=== PATIENT | female | born 1935 | race American Indian/Alaskan Native ===

== ENCOUNTER 2017-05-29 12:47 | Emergency (ER) | payer BC, MEDICARE ==
[2017-05-29 13:00] VITALS: TEMP 98.2; BMI 25.0
[2017-05-29] MEDS ORDERED: Sodium Chloride 0.9% 1,000 ML IV ONE (13:36)
[2017-05-29 13:58] LABS: BASO % 0.6 % (0.0-2.0); EOS % 0.2 % (0.0-4.0); HEMOGLOBIN 11.7 g/dL (11.0-16.0); LYMPH % 41.4 % (20.0-40.0); MEAN CELL VOLUME 89.4 fL (81.0-99.0); MEAN CORPUSCULAR HEMOGLOBIN 30.5 pg (27.0-31.0); MEAN CORPUSCULAR HGB CONC 34.1 g/dL (33.0-37.0); MEAN PLATELET VOLUME 7.1 fL (7.2-11.7); MONO # 1.3 K/uL (0.0-0.8); MONO % 17.2 % (0.0-10.0); NEUT % 40.6 % (50.0-75.0); NRBC % 0.1 % (0.0-2.0); RBC 3.83 Mil/uL (3.80-5.20); RED CELL DISTRIBUTION WIDTH 12.8 % (11.5-14.5); WHITE BLOOD COUNT 7.3 K/uL (4.8-10.8)
[2017-05-29] MEDS ORDERED: Sodium Chloride 0.9% 1,000 ML ONE (14:12)
[2017-05-29 14:36] LABS: ALB/GLOB RATIO 1.3 (1.0-2.1); ALBUMIN 3.4 g/dL (3.5-5.0); ALT/SGPT 26 U/L (9-52); AST/SGOT 16 U/L (14-36); BLOOD UREA NITROGEN 7 mg/dL (7-17); CALCIUM 7.7 mg/dl (8.6-10.4); GFR AFRICAN-AMERICAN > 60; GFR NON-AFRICAN AMERICAN > 60
[2017-05-29 14:42] LABS: B-TYPE NATRIURETIC PEPTIDE 38.5 pg/mL (0-900)
--- NOTE | 2017-05-29 14:48 | C.PDOC ---
History Of Present Illness 81 y/o female, referred by Vinayak Nieves, presents to the ER for persistent nausea,vomiting, odynophagia, and dysphagia. Patient reports that she has been vomiting multiple times as she has been having 2 episodes of vomiting per hour. Patient reports that she vomited 3 times today. Patient states that she has dysphagia to solids. Patient reports that she takes Fosamax once a week. Of note , patient denies any significant weight gain or loss. Time Seen by Provider: 05/29/17 13:03 Chief Complaint (Nursing): GI Problem History Per: Patient History/Exam Limitations: no limitations Onset/Duration Of Symptoms: Days Current Symptoms Are (Timing): Still Present Severity: Moderate Past Medical History Reviewed: Historical Data, Nursing Documentation, Vital Signs Vital Signs: Last Vital Signs Temp 98.2 F 05/29/17 16:12 Pulse 95 H 05/29/17 16:12 Resp 20 05/29/17 16:12 BP 109/52 L 05/29/17 16:12 Pulse Ox 96 05/29/17 16:43 - Medical History PMH: Asthma, Diabetes, HTN, Hypercholesterolemia, Hypothyroidism Denies: Chronic Kidney Disease Surgical History: No Surg Hx - [facility] Procedures BREAST DX PROCEDURE NEC (10/08/13) PERCUTAN NEEDLE BIOPSY OF BREAST (10/08/13) X-RAY NEC AND NOS (10/08/13) Family History: States: No Known Family Hx - Social History Hx Tobacco Use: No Hx Alcohol Use: No Hx Substance Use: No - Immunization History Hx Tetanus Toxoid Vaccination: No Hx Influenza Vaccination: Yes Hx Pneumococcal Vaccination: No Review Of Systems Except As Marked, All Systems Reviewed And Found Negative. Constitutional: Negative for: Fever, Chills Gastrointestinal: Positive for: Vomiting. Negative for: Nausea, Diarrhea Physical Exam - Physical Exam Appears: Non-toxic, No Acute Distress Skin: Normal Color, Warm Head: Atraumatic, Normacephalic Eye(s): bilateral: Normal Inspection, PERRL Nose: Normal Oral Mucosa: Moist Throat: Normal, No Erythema, No Exudate Neck: Supple Chest: Symmetrical Cardiovascular: Rhythm Regular Respiratory: Normal Breath Sounds, No Accessory Muscle Use, No Rales, No Rhonchi , No Wheezing Gastrointestinal/Abdominal: Normal Exam, Soft, No Tenderness Extremity: Normal ROM Neurological/Psych: Oriented x3, Normal Speech, Normal Cognition, Normal Motor, Normal Sensation ED Course And Treatment - Laboratory Results Result Diagrams: 05/29/17 13:53 05/29/17 13:53 Lab Interpretation: Normal (trop neg.) ECG: Interpreted By Me ECG Rhythm: Sinus Rhythm, R BBB ECG Interpretation: Normal Rate From EC O2 Sat by Pulse Oximetry: 96 (RA) Pulse Ox Interpretation: Normal - Radiology CXR: Interpreted by Me CXR Interpretation: Yes: No Acute Disease Progress Note: CXR, EKG, and labs ordered, protonix and zofran IV, IV NS Reevaluation Time: 15:30 Reassessment Condition: Improved Medical Decision Making Medical Decision Making: pt with odynophagia and dysphagia argue for esophageal irritation Suspect Alendronate as notorious for pill esophagitis vs GERD vs gastritis. increase PPI to Q12H and Maalox PRN and opt GI referral for upper endoscopy. Disposition Doctor Will See Patient In The: Office Counseled Patient/Family Regarding: Studies Performed, Diagnosis - Disposition Referrals: Ladarius Erazo Jr., MD [Staff Provider] - Renato Montanez MD [Staff Provider] - Burton King MD [Staff Provider] - Disposition: HOME/ ROUTINE Disposition Time: 15:35 Condition: GOOD Additional Instructions: UTI: UA: 300 WBC's macrobid 100 mg twice a day for 5 days Urine culture sent Dysphagia/Odynophagia/GERD Increase Protonix 20 mg to TWICE a day: 9AM and 9PM - this lowers stomach acid Maalox 1 tablespoon (30 cc's) 5x/day as needed for esophageal discomfort (when you have the discomfort) Remember Alendronate/Fosamax is notorious for causing "pill esophagitis" Always take with a full glass of water to help prevent esophageal irritation Have Dr. Guerrero refer you to a Compliance Nurse to consider an upper endoscopy (camera goes into the esophagus/stomach) Or consider Evaluation w Dr. King (ccna Yeast Fermentation Attendant) Consider discontinuing Fosamax after 5 years for Risk/Benefit analysis. Prescriptions: Aluminum Hydroxide/Magnesium [Maalox Plus 30 ml] 30 ml PO 5XD PRN #240 ml PRN Reason: gerd Nitrofurantoin Macrocrystals [Macrobid] 100 mg PO BID #9 cap Pantoprazole Sodium [Protonix] 20 mg PO Q12H #60 ect Instructions: Gastroesophageal Reflux Disease (ED), Esophagitis (ED) Forms: [facility] (Yoruba) - Clinical Impression Clinical Impression: Dysphagia, Odynophagia - Scribe Statement The provider has reviewed the documentation as recorded by the Janakibe Gunner Owen Provider Attestation: All medical record entries made by the Janakibmonica were at my direction and personally dictated by me. I have reviewed the chart and agree that the record accurately reflects my personal performance of the history, physical exam, medical decision making, and the department course for this patient. I have also personally directed, reviewed, and agree with the discharge instructions and disposition.
[2017-05-29 14:56] LABS: URINE BACTERIA MANY (<OCC); URINE BILIRUBIN NEGATIVE (NEGATIVE); URINE BLOOD NEGATIVE (NEGATIVE); URINE CLARITY Hazy (Clear); URINE COLOR Yellow (YELLOW); URINE GLUCOSE (UA) NORMAL (Normal); URINE LEUKOCYTE ESTERASE 3+ Leu/uL (Negative); URINE NITRATE NEGATIVE (NEGATIVE); URINE PROTEIN NEGATIVE (NEGATIVE); WBC CLUMPS MANY /hpf
--- NOTE | 2017-05-29 15:27 | RAD ---
PROCEDURE: CHEST RADIOGRAPH, 1 VIEW HISTORY: SOB COMPARISON: 12/08/2014 FINDINGS: LUNGS: Clear. PLEURA: No pneumothorax or pleural fluid seen. CARDIOVASCULAR: No radiographic findings to suggest acute or significant cardiovascular disease. OSSEOUS STRUCTURES: No significant abnormalities. VISUALIZED UPPER ABDOMEN: Normal. OTHER FINDINGS: None. IMPRESSION: No active disease. No acute/significant interval changes.
[2017-05-29 16:13] VITALS: RESP 20
[2017-05-29 18:48] VITALS: BP 100/58; PULSE 94; O2SAT 98
--- NOTE | 2017-05-30 12:10 | CARD ---
APPROVED REPORT EKG Measurement Heart [id number] <Conclusion> Normal sinus rhythm Right bundle branch block Abnormal ECG
== END 2017-05-29 15:35 | disposition home or self-care (01) ==
LOC: C.ER 12:47
DX: R13.10 Dysphagia, unspecified (principal)
CPT/HCPCS: 71045; 80053; 81001; 83880; 84484; 85025; 87040; 87086; 87181; 87804; 93005; 96361; 96374; 96375; 99285; C9113; J2405; J7040

== ENCOUNTER 2017-06-04 17:14 | Inpatient (IN) | payer MEDICARE ==
[2017-06-04 17:14] VITALS: BMI 29.9
[2017-06-04] MEDS ORDERED: Sodium Chloride 0.9% 1,000 ML IV ONE (19:17)
--- NOTE | 2017-06-04 19:19 | C.PDOC ---
History Of Present Illness 81 year old female [facility] for a complaint of abdominal pain and vomiting. Denies fever or chills. Chief Complaint (Nursing): GI Problem History Per: Patient History/Exam Limitations: no limitations Onset/Duration Of Symptoms: Days Current Symptoms Are (Timing): Still Present Location Of Pain/Discomfort: LLQ Radiation Of Pain To:: None Quality Of Discomfort: Unable To Describe Associated Symptoms: Nausea, Vomiting. denies: Fever, Chills Exacerbating Factors: None Alleviating Factors: None Recent travel outside of the [place]: No Abnormal Vaginal Bleeding: No Past Medical History Reviewed: Historical Data, Nursing Documentation, Vital Signs Vital Signs: Last Vital Signs Temp 97.6 F 06/04/17 23:53 Pulse 96 H 06/04/17 23:53 Resp 20 06/04/17 23:53 BP 132/55 L 06/04/17 23:53 Pulse Ox 96 06/04/17 23:53 - Medical History PMH: Asthma, Diabetes, HTN, Hypercholesterolemia, Hypothyroidism - [facility] Procedures BREAST DX PROCEDURE NEC (10/08/13) PERCUTAN NEEDLE BIOPSY OF BREAST (10/08/13) X-RAY NEC AND NOS (10/08/13) Family History: States: Unknown Family Hx - Social History Hx Tobacco Use: No Hx Alcohol Use: No Hx Substance Use: No - Immunization History Hx Tetanus Toxoid Vaccination: No Hx Influenza Vaccination: Yes Hx Pneumococcal Vaccination: No Review Of Systems Constitutional: Negative for: Fever, Chills Cardiovascular: Negative for: Chest Pain, Palpitations Respiratory: Negative for: Cough, Shortness of Breath Gastrointestinal: Positive for: Nausea, Vomiting, Abdominal Pain. Negative for : Diarrhea Physical Exam - Physical Exam Appears: Other (Mild distress due to nausea. Vomiting in the ER.) Skin: Normal Color, Warm, Dry Head: Atraumatic, Normacephalic Eye(s): bilateral: Normal Inspection Oral Mucosa: Moist Chest: Symmetrical, No Tenderness Cardiovascular: Rhythm Regular Respiratory: Normal Breath Sounds, No Rales, No Rhonchi, No Wheezing Gastrointestinal/Abdominal: Soft, Tenderness (LLQ), No Mass, No Guarding, No Rebound Back: No CVA Tenderness Neurological/Psych: Oriented x3, Normal Speech ED Course And Treatment - Laboratory Results Result Diagrams: 06/04/17 20:05 06/04/17 20:05 O2 Sat by Pulse Oximetry: 98 (Room air) Pulse Ox Interpretation: Normal Progress Note: CT abd/pel, EKG, blood work, and urinalysis ordered. IV fluids and zofran administered. Disposition Discussed With : Renato Montanez Doctor Will See Patient In The: Hospital Counseled Patient/Family Regarding: Diagnosis - Disposition Disposition: HOSPITALIZED Disposition Time: 03:40 Condition: STABLE Forms: [facility] (Botswanan) - POA Present On Arrival: None - Clinical Impression Clinical Impression: Nausea & vomiting, Electrolyte abnormality, Hyponatremia - Scribe Statement The provider has reviewed the documentation as recorded by the Scribe John Cortes All medical record entries made by the Scribe were at my direction and personally dictated by me. I have reviewed the chart and agree that the record accurately reflects my personal performance of the history, physical exam, medical decision making, and the department course for this patient. I have also personally directed, reviewed, and agree with the discharge instructions and disposition.
[2017-06-04] MEDS ORDERED: Sodium Chloride 0.9% 250 ML IV ONE (20:07)
[2017-06-04] MEDS ORDERED: Iohexol 240 (50 ml) ONE (20:07)
[2017-06-04 20:08] LABS: BASO % 0.2 % (0.0-2.0); LYMPH # 3.5 K/uL (1.0-4.3); LYMPH % 43.6 % (20.0-40.0); MEAN CELL VOLUME 88.7 fL (81.0-99.0); MEAN CORPUSCULAR HEMOGLOBIN 30.6 pg (27.0-31.0); MEAN CORPUSCULAR HGB CONC 34.5 g/dL (33.0-37.0); MEAN PLATELET VOLUME 6.8 fL (7.2-11.7); MONO # 1.2 K/uL (0.0-0.8); MONO % 15.1 % (0.0-10.0); NEUT # 3.3 K/uL (1.8-7.0); NEUT % 41.1 % (50.0-75.0); NRBC % 0.2 % (0.0-2.0); RBC 3.11 Mil/uL (3.80-5.20); RED CELL DISTRIBUTION WIDTH 12.8 % (11.5-14.5); WHITE BLOOD COUNT 8.1 K/uL (4.8-10.8)
[2017-06-04 20:09] LABS: HEMOGLOBIN 9.5 g/dL (11.0-16.0)
[2017-06-04 20:25] LABS: ALB/GLOB RATIO 1.1 (1.0-2.1); ALBUMIN 3.3 g/dL (3.5-5.0); ALT/SGPT 53 U/L (9-52); AST/SGOT 71 U/L (14-36); BLOOD UREA NITROGEN 12 mg/dL (7-17); CALCIUM 8.3 mg/dl (8.6-10.4); GFR AFRICAN-AMERICAN > 60; GFR NON-AFRICAN AMERICAN 53; LIPASE 48 U/L (23-300)
[2017-06-04] MEDS ORDERED: Iohexol 240 (50 ml) PO ONE (20:31)
[2017-06-04] MEDS ORDERED: Iohexol 300 100 ML IJ ONE (21:32)
[2017-06-04 21:44] LABS: SQUAMOUS EPITHIAL 1 /hpf (0-5); URINE BACTERIA OCC (<OCC); URINE BILIRUBIN NEGATIVE (NEGATIVE); URINE BLOOD NEGATIVE (NEGATIVE); URINE CLARITY Clear (Clear); URINE COLOR Amber (YELLOW); URINE GLUCOSE (UA) NORMAL (Normal); URINE LEUKOCYTE ESTERASE 1+ Leu/uL (Negative); URINE NITRATE NEGATIVE (NEGATIVE); URINE PROTEIN NEGATIVE (NEGATIVE)
--- NOTE | 2017-06-04 23:46 | CT ---
EXAM: CT Abdomen and Pelvis With Intravenous Contrast CLINICAL HISTORY: 81 years old, female; Pain; Abdominal pain; Generalized; Additional info: Abd pain TECHNIQUE: Axial computed tomography images of the abdomen and pelvis with intravenous contrast. All CT scans at this facility use one or more dose reduction techniques, viz.: automated exposure control; ma/kV adjustment per patient size (including targeted exams where dose is matched to indication; i.e. head); or iterative reconstruction technique. Coronal reformatted images were created and reviewed. CONTRAST: 100 mL of omnipaque 300 administered intravenously. COMPARISON: No relevant prior studies available. FINDINGS: Lower thorax: Subsegmental atelectasis at lung bases, right greater than left. Coronary artery calcifications. Mild cardiomegaly. Small hiatal hernia. ABDOMEN: Liver: Unremarkable. No mass. Gallbladder and bile ducts: Unremarkable. No calcified stones. No ductal dilation. Pancreas: Unremarkable. No mass. No ductal dilation. Spleen: Unremarkable. No splenomegaly. Adrenals: Unremarkable. No mass. Kidneys and ureters: Unremarkable. No solid mass. No hydronephrosis. Stomach and bowel: Unremarkable. No obstruction. Appendix: No findings to suggest acute appendicitis. PELVIS: Bladder: Unremarkable. No mass. Reproductive: Degenerating uterine fibroids. ABDOMEN and PELVIS: Intraperitoneal space: Unremarkable. No free air. No significant fluid collection. Bones/joints: Diffuse spinal degenerative changes. Compression fracture superior endplate L1, age indeterminate. Soft tissues: Small fat-containing umbilical hernia. Vasculature: Atherosclerotic vascular disease. No abdominal aortic aneurysm. Lymph nodes: Unremarkable. No enlarged lymph nodes. IMPRESSION: 1. No bowel obstruction. 2. Small fat containing umbilical hernia. 3. Degenerating uterine fibroids. 4. Remainder of findings as above.
[2017-06-05] MEDS ORDERED: Alum-Mag Hydrox-Simethicone Susp (30 mL) PO PRN (04:12)
[2017-06-05] MEDS ORDERED: LACTULOSE 10 GM PO PRN (04:17)
[2017-06-05] MEDS ORDERED: Dextrose 5%/0.9% NS 1,000 ML IV ONE (04:41)
[2017-06-05] MEDS: Dextrose 5%/0.9% NS 1,000 ML IV SCH ×2 (04:45→18:43)
[2017-06-05] MEDS: (Novolin R) Insulin Human Regular 100 units/ml vial SC SCH ×4 (08:10→21:41)
[2017-06-05 08:21] LABS: ALB/GLOB RATIO 1.1 (1.0-2.1); ALBUMIN 3.2 g/dL (3.5-5.0); ALT/SGPT 50 U/L (9-52); AST/SGOT 48 U/L (14-36); BLOOD UREA NITROGEN 11 mg/dL (7-17); CALCIUM 7.3 mg/dl (8.6-10.4); GFR AFRICAN-AMERICAN > 60; GFR NON-AFRICAN AMERICAN > 60
[2017-06-05] MEDS ORDERED: Potassium Chloride 20 mEq ER Tab PO ONE ×3 (08:49→17:08)
[2017-06-05 09:25] LABS: URIC ACID 4.9 mg/dL (2.2-7.5)
[2017-06-05] MEDS: Calcium-Vit D 500 mg-200 Units Tab UD PO SCH (09:36)
[2017-06-05] MEDS ORDERED: Levothyroxine 88 MCG TAB PO SCH (10:00)
[2017-06-05] MEDS ORDERED: Albuterol-Ipratrop 3 mg / 0.5 (3 ml) UD IH SCH (10:00)
--- NOTE | 2017-06-05 12:09 | US ---
PROCEDURE: Ultrasound of the Kidneys HISTORY: Hyponatremia COMPARISON: Correlations made to CT scan of the abdomen pelvis dated 06/04/2017. TECHNIQUE: Sonogram of the kidneys. FINDINGS: RIGHT KIDNEY: Measures: 10.3 x 3.6 x 4.4 cm. Normal in size, contour and echogenicity. No stone, solid mass lesion or hydronephrosis visualized. LEFT KIDNEY: Measures: 10.9 x 5.5 x 5.3 cm. Normal in size, contour and echogenicity. No stone, solid mass lesion or hydronephrosis visualized. OTHER FINDINGS: None. IMPRESSION: Unremarkable renal sonogram.
[2017-06-05] MEDS ORDERED: Sodium Chloride 0.9% 1,000 ML IV ONE (12:36)
[2017-06-05] MEDS ORDERED: Sodium Chloride 0.9% 1,000 ML ONE (12:45)
--- NOTE | 2017-06-05 14:19 | CT ---
PROCEDURE: CT HEAD WITHOUT CONTRAST. HISTORY: lethargy r/o acute intracranial lesion COMPARISON: None available. TECHNIQUE: Axial computed tomography images were obtained through the head/brain without intravenous contrast. Radiation dose: Total exam DLP = 814.1 mGy-cm. This CT exam was performed using one or more of the following dose reduction techniques: Automated exposure control, adjustment of the mA and/or kV according to patient size, and/or use of iterative reconstruction technique. FINDINGS: HEMORRHAGE: No intracranial hemorrhage. BRAIN: Diffuse atrophy with prominence of the ventricles and sulci noted. No mass effect or edema. Dense intracranial atherosclerosis. Scattered periventricular and subcortical white matter hypodensities, which are nonspecific, but often seen with chronic microvascular ischemic disease. Please note that MRI with diffusion imaging is more sensitive in the detection of acute ischemic event. VENTRICLES: No hydrocephalus. CALVARIUM: Unremarkable. PARANASAL SINUSES: Unremarkable as visualized. No significant inflammatory changes. MASTOID AIR CELLS: Unremarkable as visualized. No inflammatory changes. OTHER FINDINGS: None. IMPRESSION: Nonspecific white matter changes. Generalized atrophy. Please note that if concern for intracranial neoplasm, MRI without and with IV contrast is suggested for further evaluation.
[2017-06-05 14:32] LABS: MAGNESIUM 1.7 mg/dL (1.6-2.3)
[2017-06-05 14:58] LABS: BASO % 0.4 % (0.0-2.0); EOS % 0.1 % (0.0-4.0); HEMOGLOBIN 9.6 g/dL (11.0-16.0); LYMPH # 3.4 K/uL (1.0-4.3); LYMPH % 28.2 % (20.0-40.0); MEAN CELL VOLUME 87.9 fL (81.0-99.0); MEAN CORPUSCULAR HGB CONC 34.1 g/dL (33.0-37.0); MEAN PLATELET VOLUME 6.3 fL (7.2-11.7); MONO # 2.2 K/uL (0.0-0.8); MONO % 17.7 % (0.0-10.0); NEUT # 6.6 K/uL (1.8-7.0); NEUT % 53.6 % (50.0-75.0); RBC 3.2 Mil/uL (3.80-5.20); RED CELL DISTRIBUTION WIDTH 12.8 % (11.5-14.5)
[2017-06-05 15:00] LABS: WHITE BLOOD COUNT 12.2 K/uL (4.8-10.8)
[2017-06-05] MEDS: Albuterol-Ipratrop 3 mg / 0.5 (3 ml) UD IH SCH ×2 (15:00→20:19)
[2017-06-05 15:08] LABS: OSMOLALITY,URINE 275 mosm/kg (300-1000)
[2017-06-05 15:17] LABS: BLOOD UREA NITROGEN 9 mg/dL (7-17); CALCIUM 7.9 mg/dl (8.6-10.4); GFR AFRICAN-AMERICAN > 60; GFR NON-AFRICAN AMERICAN > 60
--- NOTE | 2017-06-05 16:20 | CARD ---
APPROVED REPORT EKG Measurement Heart [id number] DC [id number] <Conclusion> Normal sinus rhythm Right bundle branch block Abnormal ECG
--- NOTE | 2017-06-05 17:14 | CP.PCM.PN ---
Subjective - Date & Time of Evaluation Date of Evaluation: 06/05/17 Time of Evaluation: 12:00 - Subjective Subjective: Patient seen and examined earlier today; hyponatremia likely due to hypovolemia ; responding to 1L NS fluid bolus over 2 hours with serum Na improving to 120; will continue IVF w/ D5-NS at 80 cc/h and repeat bmp at 8pm; full consult dictated; Objective - Vital Signs/Intake and Output Vital Signs (last 24 hours): Temp Pulse Resp BP Pulse Ox 99.6 F 95 H 18 125/62 96 06/05/17 07:59 06/05/17 16:30 06/05/17 16:30 06/05/17 16:30 06/05/17 16:30 - Medications Medications: Current Medications Acetaminophen (Tylenol 650mg/20.3ml Solution Ud) 650 mg PO Q4 PRN PRN Reason: pain and headache Al Hydrox/Mg Hydrox/Simethicone (Maalox Plus 30 Ml) 30 ml PO 5XD PRN PRN Reason: gerd Albuterol/Ipratropium (Duoneb 3 Mg/0.5 Mg (3 Ml) Ud) 3 ml IH RQID JUSTO Calcium/Vitamin D (Oyster Shell Calcium/Vitamin D 500 Mg-200 Iu) 1 tab PO DAILY [facility] Last Admin: 06/05/17 09:36 Dose: 1 tab Heparin Sodium (Porcine) (Heparin) 5,000 units SC Q8 JUSTO Dextrose/Sodium Chloride (Dextrose 5%/0.9% Ns 1000 Ml) 1,000 mls @ 80 mls/hr IV .[id number] [facility] Last Admin: 06/05/17 04:45 Dose: 80 mls/hr Insulin Human Regular (Novolin R) 0 unit SC ACHS JUSTO PRN Reason: Protocol Last Admin: 06/05/17 12:22 Dose: Not Given Lactulose (Enulose) 10 gm PO TID PRN PRN Reason: Constipation Levothyroxine Sodium (Synthroid) 88 mcg PO DAILY [facility] Last Admin: 06/05/17 09:36 Dose: 88 mcg Metoclopramide HCl (Reglan) 5 mg IVP Q6 [facility] Last Admin: 06/05/17 12:45 Dose: 5 mg Rosuvastatin Calcium (Crestor) 5 mg PO HS JUSTO - Labs Labs: 06/05/17 14:51 06/05/17 14:51
[2017-06-05] MEDS: Acetaminophen 650mg/20.3ml solution UD PO PRN (18:05)
[2017-06-05] MEDS ORDERED: MethylPREDNISolone 40 mg Vial IVP STA (18:57)
[2017-06-05] MEDS: guaiFENesin 600 mg ER Tab PO SCH (19:30)
--- NOTE | 2017-06-05 19:43 | CON ---
DATE: HISTORY OF PRESENT ILLNESS: The patient is an 81-year-old female with past medical history of hypertension, hypothyroidism, asthma, hyperlipidemia, GERD and depression, presented from [facility]ial with history of nausea, vomiting for the past 2 weeks; the patient found to have severe hyponatremia for which nephrology is being consulted. The patient is lethargic, gives history with difficult recall; brother who is at bedside, also giving partial history. Per brother, the patient was recently admitted to [facility] after suffering a fall and fracturing her left arm/forearm. Prior to that, patient was living alone in her home, able to carry out all her activities of daily living independently. The patient was subsequently discharged to rehab facility. Over the past couple of weeks, the patient has been having intermittent vomiting two to three times per day, has not been eating well. No report of any diarrhea. The patient has been ambulating with assistance to bathroom per brother. The patient reports feeling lightheaded, ongoing from lying to sitting posture. The patient initially could not say why she was brought to the ED; although on subsequent questioning, she does give the history of vomiting. The patient does report drinking plenty of water, but cannot quantify how much. She reports some burning with urination. PAST MEDICAL HISTORY: As above. SOCIAL HISTORY: Nonsmoker. FAMILY HISTORY: Father with CVA, possible diabetes. REVIEW OF SYSTEMS: CONSTITUTIONAL: Decreased p.o. intake lately. HEENT: Reports nasal discharge and sore throat. RESPIRATORY: Recent cough. CARDIOVASCULAR: Reports intermittent chest pain, possibly palpitations. GASTROINTESTINAL: As per HPI. GENITOURINARY: As per HPI. MUSCULOSKELETAL: Left forearm pain at site of fracture also with lower back pain, reports taking Tylenol. PSYCHIATRIC: History of depression, unclear if this has been any issue lately. NEUROLOGIC: Subjective feeling of dizziness. SKIN: Has been having dry skin. PHYSICAL EXAMINATION: GENERAL: No distress, lying comfortably in stretcher. VITAL SIGNS: This morning, blood pressure 104/52, heart rate 99, respirations 18, temperature 99.6, O2 sat 96%, T-max 100.1. HEENT: Moist mucous membranes, nonicteric. No cervical lymphadenopathy. RESPIRATORY: Decreased air sounds at bilateral bases. No obvious rales or rhonchi. CARDIOVASCULAR: Heart sounds S1 and S2 normal. No murmurs. No gallops. No rubs. GASTROINTESTINAL: Abdomen soft, nontender, nondistended. Normal bowel sounds. GENITOURINARY: No bladder distention. EXTREMITIES: No lower leg edema. SKIN: Warm. No cyanosis. Dry skin of face. NEUROLOGIC: No obvious hand tremor. The patient unstable on her feet. PSYCHIATRIC: Not agitated, difficulty with recall. LABORATORY DATA: CBC from last night, WBC 8.1, hemoglobin 9.5, hematocrit 27.6, platelets 434. Chemistry panel this morning, sodium 116, potassium 3.1, chloride 83, bicarb 25, BUN 11, creatinine 0.8, glucose 103, calcium 7.3. AST 48, ALT 50. Albumin 3.2. Urine studies, urine osmolality 318, urine sodium 21, urine potassium 15, urine studies drawn this morning. Abdominal CT images reviewed. No mention of any masses. No bowel obstruction. ASSESSMENT AND PLAN: 1. Hyponatremia in the setting of persistent vomiting and likely with decreased p.o. intake other than free water. Hyponatremia is likely due to hypovolemia. Urine sodium drawn several hours after admission and being on normal saline is still relatively low and consistent with hypovolemia. Urine osmolality is inappropriately elevated for hyponatremia, but can be seen in setting of hypovolemia. Giving 1 liter of normal saline bolus over 2 hours and we will reassess serum thereafter. Supplementing potassium as this would also help correct serum sodium. Maintain 1 liter free water restriction. Checking TSH and cortisol level. Checking head CT to make sure the patient has no other cause for her lethargy. 2. Hypertension, the patient had been on antihypertensive meds at nursing facility with lisinopril 5 mg daily and amlodipine 10 daily, should hold these meds for now as the patient has mild orthostatic changes. 3. Anemia, we will check iron studies, significant drop in hemoglobin since last measured one week ago. 4. Hypokalemia, likely secondary to gastrointestinal losses. We will replenish with p.o. KCl 40 mEq and repeat labs. 5. Hypocalcemia, corrected calcium is slightly low, we will check vitamin D 25-hydroxy and PTH levels. Thank you for this consult. We will be following closely. Zach Arguello MD [facility] # [id number]
[2017-06-05 20:46] LABS: CK-MB 0.34 ng/mL (0.0-3.38)
[2017-06-05] MEDS: Aztreonam 2 GM in Sodium Chloride 0.9% 100 ML IVPB SCH (20:59)
[2017-06-05] MEDS ORDERED: MethylPREDNISolone 40 mg Vial IVP ONE (21:00)
--- NOTE | 2017-06-05 21:02 | CON ---
DATE: 06/05/2017 I was called for GI consultation by the ER physician as well as the admitting MD. The patient is seen and fully examined in the ER in the presence of her family members as well as the nursing staff in the emergency room. Case discussed with the ER staff at length. HISTORY OF PRESENT ILLNESS: This is an 81-year-old female who was admitted to the hospital from a [place] [facility] due to recurrent episodes of nausea, vomiting, currently severe abdominal pain, persistent dyspepsia without any reported chills, fever, chest pain, palpitation or reported significant shortness of breath. No reported active bleeding. It has to be mentioned that all the information obtained from the medical record, medical staff, nursing staff as well as the family member and somewhat from the [place] [facility] record as well as barely from the patient herself. PAST MEDICAL HISTORY: Including but not limited to, 1. Hypertension. 2. Hyperlipidemia. 3. Hypothyroidism. 4. Diabetes mellitus. 5. Known history of bronchial asthma. FAMILY HISTORY: Unknown. SOCIAL HISTORY: No known recent history of cigarette smoking or alcohol intake. CURRENT MEDICATIONS: Medication lists were reviewed. ALLERGY TO MEDICATION: UNCLEAR. LABORATORY DATA: Lab workup post admission showed low hemoglobin of 9.5 with low hematocrit 27.6 with thrombocytosis of 434, but normal white blood cells with low sodium 115, low potassium 3.4 with normal blood glucose level of 82. Official report of CAT scan of the abdomen and pelvis to be done through the emergency room. Case discussed with Dr. Renato Montanez at length. PHYSICAL EXAMINATION: GENERAL: An 81-year-old female, complaining of crampy abdominal pain with persistent nausea. VITAL SIGNS: Afebrile with pulse of 92, respiratory rate 20 to 22 with blood pressure of 128/58. HEENT: Showed pale dry oral mucous membrane. Nonicteric sclerae. LYMPH NODES: No lymphadenitis or lymphadenopathy. LUNGS: Few scattered crepitation with mild decrease of air entry bilaterally. HEART: Positive S1 and S2 with increased rate. ABDOMEN: Soft. Bowel sounds are present with abdominal distention mildly. RECTAL: The patient refused. EXTREMITIES: With mild lower extremity edematous changes. No clubbing or cyanosis. NEUROLOGIC: No reported new neurological deficits, sensory or motor. No focal deficits reported. VASCULAR: Peripheral pulses are present bilaterally. IMPRESSION: 1. Reexacerbation of peptic ulcer disease. 2. Anemia. 3. To rule out gastrointestinal blood loss, upper versus lower versus occult gastrointestinal malignancy. 4. Electrolyte imbalance with hyponatremia, most likely secondary to her recurrent episodes of nausea and vomiting. 5. Multiple past medical history including, but not limited to hypertension, diabetes mellitus, hypothyroidism with hyperlipidemia as well as bronchial asthma. SUGGESTION: 1. Agree with your plan. 2. Follow up CAT scan official reports. 3. Correct any underlying electrolyte imbalance. 4. Zofran IV. 5. Cancer markers including CEA, CA125. 6. Guaiac all the stool daily x3. 7. Endoscopic evaluation of the upper GI tract when the patient is more stable clinically. Further recommendation to follow. Thank you for letting me participate in your patient's case management. Nalini Richter MD
[2017-06-05 23:02] LABS: BLOOD UREA NITROGEN 9 mg/dL (7-17); CALCIUM 7.7 mg/dl (8.6-10.4); GFR AFRICAN-AMERICAN > 60; GFR NON-AFRICAN AMERICAN > 60
--- NOTE | 2017-06-05 23:20 | CP.PCM.HP ---
History of Present Illness - History of Present Illness History of Present Illness: CC: nausea, vomitting HPI: 81 year old female with past medical history significant for hypothyroidism , asthma, and diabetes type II presented to [facility] with several days of nausea and vomiting. Before 2016, patient was fully independent and could perform all IADLs, lived alone. , patient fell and broke her arm (it was a mechanical fall), [place] [facility] [place] to a rehab facility. At this rehab facility, patient had poor po intake and "was unable to keep anything down." She was then brought to [facility], [place] due to nausea and vomiting and mild confusion. Upon admission, patient was found to be hypokalemic, hyponatremic, and severely dehydrated. Yesterday at 6:30 PM, patient was found to have an SVT with RBBB and heart rate of 162. This was the reason for the cardiology consult. Patient states that she has never had this before and that at the time of the SVT she did not have any symptoms, including chest pain, shortness of breath, and palpitations. Patient denies ever having an ECHO, stress test, or cardiac cath, and does not see a aerospace manager on a regular basis. Patient does state that she has a problem with remembering everything, however. Past Surgical History: Patient denies Past Medical History: Hypothyroidism, Asthma, Diabetes Type II Allergies: ASA, Chicken, [place], PCN, Peanut - see [facility] Social History: Denies tobacco, alcohol, illicits Hospitalizations: [place] [facility] [place] Family History: DM Medications: See [facility] Review of Systems: Constitutional: patient denies fever, chills, generalized weakness ENT: patient denies dysphagia, otalgia, hearing deficit, rhinorrhea Eyes: patient denies sudden loss of vision, diplopia, blurred vision MSK: patient denies muscle stiffness, joint pain, extremity cramping Cardio: patient denies shortness of breath, heart murmur, chest pain Pulm: patient denies cough, hemoptysis, wheeze Gastrointestinal: see hpi Genitourinary: patient denies burning on urination, urinary frequency, hematuria, urinary urgency Neuro: patient denies paresis, paresthesia, dizziness, headache, numbness, tingling Derm: patient denies skin changes, lesions, nail changes Endo: patient denies intolerance to heat/cold, diaphoresis, night sweats, polydipsia Psych: patient denies anxiety, depression, mood changes Present on Admission - Present on Admission Any Indicators Present on Admission: Yes Past Patient History - Past Medical History & Family History Past Medical History?: Yes - Past Social History Smoking Status: Never Smoked - CARDIAC Hx Cardiac Disorders: Yes Hx Hypercholesterolemia: Yes Hx Hypertension: Yes - PULMONARY Hx Respiratory Disorders: Yes Hx Asthma: Yes - NEUROLOGICAL Hx Neurological Disorder: No - HEENT Hx HEENT Problems: No - RENAL Hx Chronic Kidney Disease: No - ENDOCRINE/METABOLIC Hx Endocrine Disorders: Yes Hx Hypothyroidism: Yes - HEMATOLOGICAL/ONCOLOGICAL Hx Blood Disorders: No - INTEGUMENTARY Hx Dermatological Problems: No - MUSCULOSKELETAL/RHEUMATOLOGICAL Hx Musculoskeletal Disorders: No Hx Falls: No - GASTROINTESTINAL Hx Gastrointestinal Disorders: Yes Hx Gastroesophageal Reflux: Yes - GENITOURINARY/GYNECOLOGICAL Hx Genitourinary Disorders: No - PSYCHIATRIC Hx Psychophysiologic Disorder: No Hx Substance Use: No - SURGICAL HISTORY Other/Comment: Breast biopsy procedure 10/08/13 - ANESTHESIA Hx Anesthesia: Yes Hx Anesthesia Reactions: No Hx Malignant Hyperthermia: No Meds Allergies/Adverse Reactions: Allergies Allergy/AdvReac Type Severity Reaction Status Date / Time aspirin Allergy Verified 06/04/17 17:31 chicken derived Allergy Verified 06/04/17 17:31 orange Allergy Verified 06/04/17 17:31 peanut Allergy Verified 06/04/17 17:31 Penicillins Allergy Verified 06/04/17 17:31 rice Allergy Verified 06/04/17 17:31 tomato Allergy Verified 06/04/17 17:31 wheat Allergy Verified 06/04/17 17:31 chocolate Allergy Uncoded 05/29/17 12:55 cockroaches Allergy Uncoded 10/14/12 22:26 dairy products Allergy Uncoded 05/29/17 12:55 Dust Allergy Uncoded 10/14/12 22:10 Pollen Allergy Uncoded 10/14/12 22:10 seafood Allergy Uncoded 05/29/17 12:55 tomatoes Allergy Uncoded 10/14/12 22:26 Physical Exam - Constitutional Appears: No Acute Distress - Head Exam Head Exam: ATRAUMATIC, NORMAL INSPECTION, NORMOCEPHALIC - Eye Exam Eye Exam: EOMI, Normal appearance, PERRL Pupil Exam: NORMAL ACCOMODATION, PERRL - Respiratory Exam Respiratory Exam: Decreased Breath Sounds, Rales, Wheezes - Cardiovascular Exam Cardiovascular Exam: REGULAR RHYTHM, Systolic Murmur - GI/Abdominal Exam GI & Abdominal Exam: Normal Bowel Sounds, Soft. absent: Tenderness Results - Vital Signs Recent Vital Signs: Last Vital Signs Temp 97.8 F 06/05/17 19:05 Pulse 95 H 06/05/17 20:22 Resp 22 06/05/17 18:50 BP 100/60 06/05/17 18:50 Pulse Ox 100 06/05/17 18:50 - Labs Result Diagrams: 06/06/17 06:20 06/08/17 07:24 Labs: Laboratory Results - last 24 hr 06/05/17 06/05/17 06/05/17 04:23 07:26 07:41 WBC RBC Hgb Hct MCV MCH MCHC RDW Plt Count MPV Neut % (Auto) Lymph % (Auto) [place] % (Auto) Eos % (Auto) Baso % (Auto) Neut # Lymph # [place] # Eos # Baso # Sodium 116 L* Potassium 3.1 L Chloride 83 L Carbon Dioxide 25 Anion Gap 10 BUN 11 Creatinine 0.8 Est GFR ( Amer) > 60 Est GFR (Non-Af Amer) > 60 POC Glucose (mg/dL) 130 H Random Glucose 103 Uric Acid 4.9 Calcium 7.3 L Magnesium 1.7 Total Bilirubin 1.4 H AST 48 H D ALT 50 Alkaline Phosphatase 100 Total Creatine Kinase CK-MB (Mass) Troponin I Total Protein 5.9 L Albumin 3.2 L Globulin 2.8 Albumin/Globulin Ratio 1.1 Free T4 TSH 3rd Generation Cortisol AM Sample Urine Osmolality 318 Ur Random Sodium Ur Random Potassium 06/05/17 06/05/17 06/05/17 07:41 08:48 11:46 WBC RBC Hgb Hct MCV MCH MCHC RDW Plt Count MPV Neut % (Auto) Lymph % (Auto) [place] % (Auto) Eos % (Auto) Baso % (Auto) Neut # Lymph # [place] # Eos # Baso # Sodium Potassium Chloride Carbon Dioxide Anion Gap BUN Creatinine Est GFR ( Amer) Est GFR (Non-Af Amer) POC Glucose (mg/dL) 125 H Random Glucose Uric Acid Calcium Magnesium Total Bilirubin AST ALT Alkaline Phosphatase Total Creatine Kinase CK-MB (Mass) Troponin I Total Protein Albumin Globulin Albumin/Globulin Ratio Free T4 TSH 3rd Generation Cortisol AM Sample 7.7 Urine Osmolality Ur Random Sodium 21 Ur Random Potassium 15.0 06/05/17 06/05/17 06/05/17 14:51 14:51 14:51 WBC 12.2 H D RBC 3.20 L Hgb 9.6 L Hct 28.1 L MCV 87.9 MCH 30.0 MCHC 34.1 RDW 12.8 Plt Count 400 MPV 6.3 L Neut % (Auto) 53.6 Lymph % (Auto) 28.2 [place] % (Auto) 17.7 H Eos % (Auto) 0.1 Baso % (Auto) 0.4 Neut # 6.6 Lymph # 3.4 [place] # 2.2 H Eos # 0.0 Baso # 0.0 Sodium 120 L* Potassium 3.3 L Chloride 88 L Carbon Dioxide 26 Anion Gap 8 L BUN 9 Creatinine 0.7 Est GFR ( Amer) > 60 Est GFR (Non-Af Amer) > 60 POC Glucose (mg/dL) Random Glucose 120 H Uric Acid Calcium 7.9 L Magnesium Total Bilirubin AST ALT Alkaline Phosphatase Total Creatine Kinase CK-MB (Mass) Troponin I Total Protein Albumin Globulin Albumin/Globulin Ratio Free T4 1.94 TSH 3rd Generation 4.52 Cortisol AM Sample Urine Osmolality Ur Random Sodium Ur Random Potassium 06/05/17 06/05/17 06/05/17 14:51 17:52 18:47 WBC RBC Hgb Hct MCV MCH MCHC RDW Plt Count MPV Neut % (Auto) Lymph % (Auto) [place] % (Auto) Eos % (Auto) Baso % (Auto) Neut # Lymph # [place] # Eos # Baso # Sodium Potassium Chloride Carbon Dioxide Anion Gap BUN Creatinine Est GFR ( Amer) Est GFR (Non-Af Amer) POC Glucose (mg/dL) 107 Random Glucose Uric Acid Calcium Magnesium Total Bilirubin AST ALT Alkaline Phosphatase Total Creatine Kinase Cancelled CK-MB (Mass) Cancelled Troponin I Cancelled Total Protein Albumin Globulin Albumin/Globulin Ratio Free T4 TSH 3rd Generation Cortisol AM Sample Urine Osmolality 275 L Ur Random Sodium 21 Ur Random Potassium 06/05/17 06/05/17 20:13 22:48 WBC RBC Hgb Hct MCV MCH MCHC RDW Plt Count MPV Neut % (Auto) Lymph % (Auto) [place] % (Auto) Eos % (Auto) Baso % (Auto) Neut # Lymph # [place] # Eos # Baso # Sodium 116 L* Potassium 3.3 L Chloride 88 L Carbon Dioxide 26 Anion Gap 5 L BUN 9 Creatinine 0.7 Est GFR ( Amer) > 60 Est GFR (Non-Af Amer) > 60 POC Glucose (mg/dL) Random Glucose 146 H Uric Acid Calcium 7.7 L Magnesium Total Bilirubin AST ALT Alkaline Phosphatase Total Creatine Kinase 69 CK-MB (Mass) 0.34 Troponin I < 0.0120 Total Protein Albumin Globulin Albumin/Globulin Ratio Free T4 TSH 3rd Generation Cortisol AM Sample Urine Osmolality Ur Random Sodium Ur Random Potassium Assessment & Plan (1) Anemia Status: Acute (2) Electrolyte abnormality Assessment and Plan: Patient seen and examined earlier today; hyponatremia likely due to hypovolemia ; responding to 1L NS fluid bolus over 2 hours with serum Na improving to 120; will continue IVF w/ D5-NS at 80 cc/h and repeat bmp at 8pm; Status: Acute (3) Metabolic acidosis Status: Acute (4) Nausea & vomiting Status: Acute (5) HTN (hypertension) Status: Chronic (6) Asthma with acute exacerbation Status: Acute
[2017-06-06] MEDS ORDERED: Potassium Chloride 20 mEq ER Tab PO ONE ×2 (00:02→23:32)
[2017-06-06 00:05] LABS: OSMOLALITY,URINE 262 mosm/kg (300-1000)
[2017-06-06] MEDS ORDERED: Sodium Chloride 0.9% 1,000 ML IV ONE ×2 (00:17→22:50)
[2017-06-06 02:48] LABS: CK-MB 0.42 ng/mL (0.0-3.38)
[2017-06-06] MEDS: Aztreonam 2 GM in Sodium Chloride 0.9% 100 ML IVPB SCH ×3 (03:29→20:30)
[2017-06-06] MEDS: Levothyroxine 88 MCG TAB PO SCH ×2 (05:52→06:04)
[2017-06-06 06:34] LABS: BASO % 0.4 % (0.0-2.0); HEMOGLOBIN 9.1 g/dL (11.0-16.0); LYMPH # 1.2 K/uL (1.0-4.3); LYMPH % 9.5 % (20.0-40.0); MEAN CELL VOLUME 89.1 fL (81.0-99.0); MEAN CORPUSCULAR HGB CONC 33.7 g/dL (33.0-37.0); MEAN PLATELET VOLUME 6.6 fL (7.2-11.7); MONO # 0.7 K/uL (0.0-0.8); MONO % 5.5 % (0.0-10.0); NEUT # 10.9 K/uL (1.8-7.0); NEUT % 84.6 % (50.0-75.0); NRBC % 0.1 % (0.0-2.0); PLATELET COUNT 374 K/uL (130-400); RBC 3.02 Mil/uL (3.80-5.20); RED CELL DISTRIBUTION WIDTH 13.1 % (11.5-14.5); WHITE BLOOD COUNT 12.9 K/uL (4.8-10.8)
[2017-06-06 06:44] LABS: ALBUMIN 2.7 g/dL (3.5-5.0); ALT/SGPT 40 U/L (9-52); AST/SGOT 32 U/L (14-36); BLOOD UREA NITROGEN 10 mg/dL (7-17); CALCIUM 7.8 mg/dl (8.6-10.4); GFR AFRICAN-AMERICAN > 60; GFR NON-AFRICAN AMERICAN > 60; IRON 11 ug/dL (37-170)
[2017-06-06 06:54] LABS: TOTAL IRON BINDING CAPACITY 165 ug/dL (250-450)
[2017-06-06 06:57] LABS: % IRON SATURATION 7 (20-55)
[2017-06-06] MEDS: Albuterol-Ipratrop 3 mg / 0.5 (3 ml) UD IH SCH ×4 (08:17→19:17)
--- NOTE | 2017-06-06 08:49 | CP.PCM.PN ---
Subjective - Date & Time of Evaluation Date of Evaluation: 06/06/17 Time of Evaluation: 08:50 - Subjective Subjective: Pt seen and examined at bedside, Patient s/p EGD today that showed erythematous gastric mucosa; was nauseous earlier; to start liquid diet; Objective - Vital Signs/Intake and Output Vital Signs (last 24 hours): Temp Pulse Resp BP Pulse Ox 98.2 F 86 18 105/68 100 06/06/17 08:30 06/06/17 08:30 06/06/17 08:30 06/06/17 08:30 06/06/17 08:30 Intake and Output: 06/06/17 06/06/17 06:59 18:59 Intake Total 1000 Output Total 1100 Balance -1100 1000 - Medications Medications: Current Medications Acetaminophen (Tylenol 650mg/20.3ml Solution Ud) 650 mg PO Q4 PRN PRN Reason: pain and headache Last Admin: 06/05/17 18:05 Dose: 650 mg Al Hydrox/Mg Hydrox/Simethicone (Maalox Plus 30 Ml) 30 ml PO 5XD PRN PRN Reason: gerd Albuterol/Ipratropium (Duoneb 3 Mg/0.5 Mg (3 Ml) Ud) 3 ml IH RQID [facility] Last Admin: 06/06/17 08:17 Dose: Not Given Calcium/Vitamin D (Oyster Shell Calcium/Vitamin D 500 Mg-200 Iu) 1 tab PO DAILY [facility] Last Admin: 06/05/17 09:36 Dose: 1 tab Guaifenesin (Mucinex La) 600 mg PO BID [facility] Last Admin: 06/05/17 19:30 Dose: 600 mg Heparin Sodium (Porcine) (Heparin) 5,000 units SC Q8 [facility] Last Admin: 06/06/17 05:52 Dose: 5,000 units Aztreonam 2 gm/ Sodium (Chloride) 100 mls @ 200 mls/hr IVPB Q8H [facility] Last Admin: 06/06/17 03:29 Dose: 200 mls/hr Insulin Human Regular (Novolin R) 0 unit SC ACHS [facility] PRN Reason: Protocol Last Admin: 06/05/17 21:41 Dose: Not Given Lactulose (Enulose) 10 gm PO TID PRN PRN Reason: Constipation Levothyroxine Sodium (Synthroid) 88 mcg PO DAILY@0630 [facility] Last Admin: 06/06/17 06:04 Dose: Not Given Metoclopramide HCl (Reglan) 5 mg IVP Q6 [facility] Last Admin: 06/06/17 05:52 Dose: 5 mg Rosuvastatin Calcium (Crestor) 5 mg PO HS [facility] Last Admin: 06/05/17 21:01 Dose: 5 mg - Labs Labs: 06/06/17 06:20 06/06/17 06:20 Assessment and Plan (1) Anemia Assessment & Plan: Hgb relatively stable; iron studies indicative of chronic disease and iron deficiency; may benefit from PO iron; Status: Acute Status: Acute (2) Electrolyte abnormality Assessment & Plan: (1) Hyponatremia Assessment & Plan: Etiology somewhat unclear; has some element of volume depletion as indicated by her history and relatively low urine Na levels; however, also suspect adrenal insufficiency with morning cortisol levels that are somewhat low; ACTH stim test normal (ie. appropriate increase in cortisol level) so no primary adrenal disorder; endogenous ACTH level sent prior to test, awaiting result; Serum Na has dropped with gentle IVF due to elevated urine osm; has responded well to 1L NS boluses; likely also benefitted from solumedrol started by PMD last night; -Will continue to monitor serum Na and urine lytes (Na and osm) every 6-8 hours ; avoiding rapid increases in serum Na (no more than 10 meq rise in 24 hrs); -Can continue NS at 70 cc/hr -If serum Na drops further, will again bolus with 1L NS -Once we are certain that patient is not volume depleted, we will consider starting tolvaptan; -Agree with solumedrol and endocrine consult Status: Acute (3) Hypocalcemia Assessment & Plan: Started on oscal; awaiting 25-OH and PTH levels; Status: Acute (5) Hypokalemia Assessment & Plan: Improved; should aim for K 4.0 in setting of recent arrhythmia; Status: Acute Status: Acute (3) Hyponatremia Status: Acute (4) Nausea & vomiting Status: Acute (5) HTN (hypertension) Assessment & Plan: Assessment & Plan: Low/normal BP, continue to hold anti-htn meds; Status: Chronic Status: Chronic (6) Asthma with acute exacerbation Status: Acute (7) GERD (gastroesophageal reflux disease) Status: Acute
--- NOTE | 2017-06-06 09:11 | RAD ---
Chest x-ray single frontal view History: Fever. Comparison: 05/29/2017 Findings: Patchy increased markings at the bilateral lung bases may represent mild atelectasis and or infiltrate. Additional patchy increased markings at the right lung apex. Bilateral hilar prominence. Tortuous aorta. Calcification at the aortic knob. Degenerative changes in the spine and shoulders. Impression: Patchy increased markings at the bilateral lung bases may represent mild atelectasis and or infiltrate. Additional patchy increased markings at the right lung apex. Bilateral hilar prominence. Tortuous aorta. Calcification at the aortic knob.
[2017-06-06] MEDS ORDERED: Etomidate 20 mg/10ml Inj IV ONE (10:08)
[2017-06-06] MEDS ORDERED: Propofol 10 mg/ml Inj (20 ML) ONE (10:10)
[2017-06-06] MEDS ORDERED: Lactated Ringer's 1,000 ML IV ONE (10:13)
[2017-06-06 10:46] LABS: OSMOLALITY,URINE 355 mosm/kg (300-1000)
[2017-06-06] MEDS: (Novolin R) Insulin Human Regular 100 units/ml vial SC SCH ×4 (10:59→22:35)
[2017-06-06 11:12] LABS: BANDS 1 % (0-2); LYMPHOCYTE 7 % (20-40); MONOCYTE 6 % (0-10); NEUTROPHIL 86 % (50-75); PLATELET ESTIMATE NORMAL (NORMAL); TOTAL CELLS COUNTED 100
[2017-06-06 11:13] LABS: ANISOCYTOSIS SLIGHT
[2017-06-06 11:15] LABS: TOXIC GRANULATION PRESENT
[2017-06-06 11:16] LABS: HYPOCHROMIC SLIGHT; LARGE PLATELETS PRESENT; POLYCHROMIC SLIGHT
[2017-06-06] MEDS: guaiFENesin 600 mg ER Tab PO SCH ×2 (12:41→17:24)
[2017-06-06] MEDS: Calcium-Vit D 500 mg-200 Units Tab UD PO SCH (12:42)
--- NOTE | 2017-06-06 12:46 | CARD ---
APPROVED REPORT EKG Measurement Heart [id number] <Conclusion> Wide QRS tachycardia Right bundle branch block Abnormal ECG
[2017-06-06] MEDS ORDERED: Albuterol-Ipratrop 3 mg / 0.5 (3 ml) UD INH STA (12:58)
[2017-06-06] MEDS ORDERED: Peg-Electrolyte Oral Soln 4L (Golytely) PO ONE (13:00)
[2017-06-06 13:24] LABS: BLOOD UREA NITROGEN 10 mg/dL (7-17); CALCIUM 7.8 mg/dl (8.6-10.4); GFR AFRICAN-AMERICAN > 60; GFR NON-AFRICAN AMERICAN > 60
[2017-06-06] MEDS: Sodium Chloride 0.9% 1,000 ML IV SCH (13:40)
[2017-06-06] MEDS ORDERED: MethylPREDNISolone 40 mg Vial IVP SCH (14:00)
--- NOTE | 2017-06-06 16:25 | CP.PCM.PN ---
Subjective - Date & Time of Evaluation Date of Evaluation: 06/06/17 Time of Evaluation: 12:00 - Subjective Subjective: Patient s/p EGD today that showed erythematous gastric mucosa; was nauseous earlier; to start liquid diet; Objective - Vital Signs/Intake and Output Vital Signs (last 24 hours): Temp Pulse Resp BP Pulse Ox 96.9 F L 80 12 114/54 L 100 06/06/17 10:30 06/06/17 11:00 06/06/17 11:00 06/06/17 11:00 06/06/17 11:00 Intake and Output: 06/06/17 06/06/17 06:59 18:59 Intake Total 1350 Output Total 1100 300 Balance -1100 1050 - Medications Medications: Current Medications Acetaminophen (Tylenol 650mg/20.3ml Solution Ud) 650 mg PO Q4 PRN PRN Reason: pain and headache Last Admin: 06/05/17 18:05 Dose: 650 mg Al Hydrox/Mg Hydrox/Simethicone (Maalox Plus 30 Ml) 30 ml PO 5XD PRN PRN Reason: gerd Albuterol/Ipratropium (Duoneb 3 Mg/0.5 Mg (3 Ml) Ud) 3 ml IH RQID [facility] Last Admin: 06/06/17 11:00 Dose: Not Given Bisacodyl (Dulcolax) 10 mg PO ONCE ONE Stop: 06/06/17 17:01 Calcium/Vitamin D (Oyster Shell Calcium/Vitamin D 500 Mg-200 Iu) 1 tab PO DAILY [facility] Last Admin: 06/06/17 12:42 Dose: 1 tab Guaifenesin (Mucinex La) 600 mg PO BID [facility] Last Admin: 06/06/17 12:41 Dose: 600 mg Heparin Sodium (Porcine) (Heparin) 5,000 units SC Q8 [facility] Last Admin: 06/06/17 13:40 Dose: 5,000 units Aztreonam 2 gm/ Sodium (Chloride) 100 mls @ 200 mls/hr IVPB Q8H [facility] Last Admin: 06/06/17 12:41 Dose: 200 mls/hr Sodium Chloride (Sodium Chloride 0.9%) 1,000 mls @ 70 mls/hr IV .[id number] [facility] Last Admin: 06/06/17 13:40 Dose: 70 mls/hr Insulin Human Regular (Novolin R) 0 unit SC ACHS [facility] PRN Reason: Protocol Last Admin: 06/06/17 13:46 Dose: Not Given Lactulose (Enulose) 10 gm PO TID PRN PRN Reason: Constipation Levothyroxine Sodium (Synthroid) 88 mcg PO DAILY@0630 [facility] Last Admin: 06/06/17 06:04 Dose: Not Given Methylprednisolone (Solu-Medrol) 40 mg IVP Q8 [facility] Metoclopramide HCl (Reglan) 5 mg IVP Q6 [facility] Last Admin: 06/06/17 12:42 Dose: 5 mg Rosuvastatin Calcium (Crestor) 5 mg PO HS [facility] Last Admin: 06/05/17 21:01 Dose: 5 mg - Labs Labs: 06/06/17 06:20 06/06/17 10:34 - Constitutional Appears: Non-toxic, No Acute Distress - Eye Exam Eye Exam: Normal appearance. absent: Scleral icterus - ENT Exam ENT Exam: Mucous Membranes Moist - Respiratory Exam Respiratory Exam: absent: Respiratory Distress Additional comments: bilateral basal rales; - Cardiovascular Exam Cardiovascular Exam: RRR, +S1, +S2 - GI/Abdominal Exam GI & Abdominal Exam: Soft. absent: Distended, Tenderness - Extremities Exam Additional comments: no leg edema; - Neurological Exam Neurological Exam: Alert, Awake - Psychiatric Exam Psychiatric exam: Normal Affect, Normal Mood. absent: Agitated - Skin Skin Exam: Warm. absent: Cyanosis Assessment and Plan (1) Hyponatremia Assessment & Plan: Etiology somewhat unclear; has some element of volume depletion as indicated by her history and relatively low urine Na levels; however, also suspect adrenal insufficiency with morning cortisol levels that are somewhat low; ACTH stim test normal (ie. appropriate increase in cortisol level) so no primary adrenal disorder; endogenous ACTH level sent prior to test, awaiting result; Serum Na has dropped with gentle IVF due to elevated urine osm; has responded well to 1L NS boluses; likely also benefitted from solumedrol started by PMD last night; -Will continue to monitor serum Na and urine lytes (Na and osm) every 6-8 hours ; avoiding rapid increases in serum Na (no more than 10 meq rise in 24 hrs); -Can continue NS at 70 cc/hr -If serum Na drops further, will again bolus with 1L NS -Once we are certain that patient is not volume depleted, we will consider starting tolvaptan; -Agree with solumedrol and endocrine consult Status: Acute (2) HTN (hypertension) Assessment & Plan: Low/normal BP, continue to hold anti-htn meds; Status: Chronic (3) Hypocalcemia Assessment & Plan: Started on oscal; awaiting 25-OH and PTH levels; Status: Acute (4) Anemia Assessment & Plan: Hgb relatively stable; iron studies indicative of chronic disease and iron deficiency; may benefit from PO iron; Status: Acute (5) Hypokalemia Assessment & Plan: Improved; should aim for K 4.0 in setting of recent arrhythmia; Status: Acute
--- NOTE | 2017-06-06 16:59 | CP.PCM.CON ---
History of Present Illness - History of Present Illness History of Present Illness: Cardiology consult note for Dr. Escoto, covering for Dr. Betito Parker DO, PGY - 1 Reason For Consult: SVT HPI: 81 year old female with past medical history significant for hypothyroidism, asthma, and diabetes type II presented to [facility] with several days of nausea and vomiting. Before 2016, patient was fully independent and could perform all IADLs, lived alone. , patient fell and broke her arm (it was a mechanical fall), was admitted to [facility], and was discharged to a rehab facility. At this rehab facility, patient had poor po intake and "was unable to keep anything down." She was then brought to [facility] due to nausea and vomiting and mild confusion. Upon admission, patient was found to be hypokalemic, hyponatremic, and severely dehydrated. Yesterday at 6:30 PM, patient was found to have an SVT with RBBB and heart rate of 162. This was the reason for the cardiology consult. Patient states that she has never had this before and that at the time of the SVT she did not have any symptoms, including chest pain, shortness of breath, and palpitations. Patient denies ever having an ECHO, stress test, or cardiac cath, and does not see a aerodynamics teacher on a regular basis. Patient does state that she has a problem with remembering everything, however. Past Surgical History: Patient denies Past Medical History: Hypothyroidism, Asthma, Diabetes Type II Allergies: ASA, Chicken, [place], PCN, Peanut - see [facility] Social History: Denies tobacco, alcohol, illicits Hospitalizations: Recently at [facility] for fracture Family History: DM Medications: See MAR Review of Systems: Constitutional: patient denies fever, chills, generalized weakness ENT: patient denies dysphagia, otalgia, hearing deficit, rhinorrhea Eyes: patient denies sudden loss of vision, diplopia, blurred vision MSK: patient denies muscle stiffness, joint pain, extremity cramping Cardio: patient denies shortness of breath, heart murmur, chest pain Pulm: patient denies cough, hemoptysis, wheeze Gastrointestinal: see hpi Genitourinary: patient denies burning on urination, urinary frequency, hematuria, urinary urgency Neuro: patient denies paresis, paresthesia, dizziness, headache, numbness, tingling Derm: patient denies skin changes, lesions, nail changes Endo: patient denies intolerance to heat/cold, diaphoresis, night sweats, polydipsia Psych: patient denies anxiety, depression, mood changes Past Patient History - Past Medical History & Family History Past Medical History?: Yes - Past Social History Smoking Status: Never Smoked - CARDIAC Hx Cardiac Disorders: Yes Hx Hypercholesterolemia: Yes Hx Hypertension: Yes - PULMONARY Hx Respiratory Disorders: Yes Hx Asthma: Yes - NEUROLOGICAL Hx Neurological Disorder: No - HEENT Hx HEENT Problems: No - RENAL Hx Chronic Kidney Disease: No - ENDOCRINE/METABOLIC Hx Endocrine Disorders: Yes Hx Hypothyroidism: Yes - HEMATOLOGICAL/ONCOLOGICAL Hx Blood Disorders: No - INTEGUMENTARY Hx Dermatological Problems: No - MUSCULOSKELETAL/RHEUMATOLOGICAL Hx Musculoskeletal Disorders: No Hx Falls: No - GASTROINTESTINAL Hx Gastrointestinal Disorders: Yes Hx Gastroesophageal Reflux: Yes - GENITOURINARY/GYNECOLOGICAL Hx Genitourinary Disorders: No - PSYCHIATRIC Hx Psychophysiologic Disorder: No Hx Substance Use: No - SURGICAL HISTORY Other/Comment: Breast biopsy procedure 10/08/13 - ANESTHESIA Hx Anesthesia: Yes Hx Anesthesia Reactions: No Hx Malignant Hyperthermia: No Meds Allergies/Adverse Reactions: Allergies Allergy/AdvReac Type Severity Reaction Status Date / Time aspirin Allergy Verified 06/04/17 17:31 chicken derived Allergy Verified 06/04/17 17:31 orange Allergy Verified 06/04/17 17:31 peanut Allergy Verified 06/04/17 17:31 Penicillins Allergy Verified 06/04/17 17:31 rice Allergy Verified 06/04/17 17:31 tomato Allergy Verified 06/04/17 17:31 wheat Allergy Verified 06/04/17 17:31 chocolate Allergy Uncoded 05/29/17 12:55 cockroaches Allergy Uncoded 10/14/12 22:26 dairy products Allergy Uncoded 05/29/17 12:55 Dust Allergy Uncoded 10/14/12 22:10 Pollen Allergy Uncoded 10/14/12 22:10 seafood Allergy Uncoded 05/29/17 12:55 tomatoes Allergy Uncoded 10/14/12 22:26 - Medications Medications: Current Medications Acetaminophen (Tylenol 650mg/20.3ml Solution Ud) 650 mg PO Q4 PRN PRN Reason: pain and headache Last Admin: 06/05/17 18:05 Dose: 650 mg Al Hydrox/Mg Hydrox/Simethicone (Maalox Plus 30 Ml) 30 ml PO 5XD PRN PRN Reason: gerd Albuterol/Ipratropium (Duoneb 3 Mg/0.5 Mg (3 Ml) Ud) 3 ml IH RQID [facility] Last Admin: 06/06/17 16:32 Dose: 3 ml Bisacodyl (Dulcolax) 10 mg PO ONCE ONE Stop: 06/06/17 17:01 Calcium/Vitamin D (Oyster Shell Calcium/Vitamin D 500 Mg-200 Iu) 1 tab PO DAILY [facility] Last Admin: 06/06/17 12:42 Dose: 1 tab Guaifenesin (Mucinex La) 600 mg PO BID [facility] Last Admin: 06/06/17 12:41 Dose: 600 mg Heparin Sodium (Porcine) (Heparin) 5,000 units SC Q8 [facility] Last Admin: 06/06/17 13:40 Dose: 5,000 units Aztreonam 2 gm/ Sodium (Chloride) 100 mls @ 200 mls/hr IVPB Q8H [facility] Last Admin: 06/06/17 12:41 Dose: 200 mls/hr Sodium Chloride (Sodium Chloride 0.9%) 1,000 mls @ 70 mls/hr IV .[id number] [facility] Last Admin: 06/06/17 13:40 Dose: 70 mls/hr Insulin Human Regular (Novolin R) 0 unit SC ACHS [facility] PRN Reason: Protocol Last Admin: 06/06/17 13:46 Dose: Not Given Lactulose (Enulose) 10 gm PO TID PRN PRN Reason: Constipation Levothyroxine Sodium (Synthroid) 88 mcg PO DAILY@0630 [facility] Last Admin: 06/06/17 06:04 Dose: Not Given Methylprednisolone (Solu-Medrol) 40 mg IVP Q8 [facility] Metoclopramide HCl (Reglan) 5 mg IVP Q6 [facility] Last Admin: 06/06/17 12:42 Dose: 5 mg Rosuvastatin Calcium (Crestor) 5 mg PO HS [facility] Last Admin: 06/05/17 21:01 Dose: 5 mg Physical Exam - Additional Findings Additional findings: Physical Exam: Vital Signs as below Const'l: awake alert & oriented x 4, no acute distress, pleasant woman Head/Neck: neck supple, no jvd, trachea midline, carotid midline, no cervical /head mass Eyes: pupils equally reactive to light and accommodation, nonicteric sclera, extraocular intact ENT: +mucous membranes severely dry; auditory acuity grossly intact, throat not congested, no nasal deformity Cardio: regular rate, regular rhythm, no murmurs rubs gallops, no carotid bruit, normal s1, s2 Pulm: no accessory muscle use, equal normal breath sounds bilaterally, clear to ausculation bilaterally Abd: soft non tender non-distended, normal bowel sounds x 4 quadrants, no palpable masses Derm: no rashes, no ulcers, no lesions Extr: no edema, no cyanosis, no calf tenderness, no lesions, no varicosities Neuro: cranial nerves II-XII grossly intact, upper extremity and lower extremity 5/5 muscle strength bilaterally, no loss of sensation in upper extremities, lower extremities bilaterally and core Results - Vital Signs Recent Vital Signs: Last Vital Signs Temp 97.2 F L 06/06/17 16:00 Pulse 94 H 06/06/17 16:00 Resp 20 06/06/17 16:00 BP 122/60 06/06/17 16:00 Pulse Ox 100 06/06/17 16:00 - Labs Result Diagrams: 06/06/17 06:20 06/06/17 10:34 Labs: Laboratory Results - last 24 hr 06/05/17 06/05/17 06/05/17 17:52 18:47 20:13 WBC RBC Hgb Hct MCV MCH MCHC RDW Plt Count MPV Neut % (Auto) Lymph % (Auto) Pratt % (Auto) Eos % (Auto) Baso % (Auto) Neut # Lymph # Pratt # Eos # Baso # Neutrophils % (Manual) Band Neutrophils % Lymphocytes % (Manual) Monocytes % (Manual) Toxic Granulation Platelet Estimate Large Platelets Polychromasia Hypochromasia (manual) Basophilic Stippling Anisocytosis (manual) Sodium Potassium Chloride Carbon Dioxide Anion Gap BUN Creatinine Est GFR ( Amer) Est GFR (Non-Af Amer) POC Glucose (mg/dL) 107 Random Glucose Serum Osmolality Calcium Iron TIBC % Saturation Ferritin Total Bilirubin AST ALT Alkaline Phosphatase Total Creatine Kinase Cancelled 69 CK-MB (Mass) Cancelled 0.34 Troponin I Cancelled < 0.0120 Total Protein Albumin Globulin Albumin/Globulin Ratio Carcinoembryonic Ag CA 19-9 Antigen CA 125 Antigen Cortisol AM Sample Urine Osmolality Ur Random Sodium 06/05/17 06/05/17 06/05/17 21:24 22:48 23:57 WBC RBC Hgb Hct MCV MCH MCHC RDW Plt Count MPV Neut % (Auto) Lymph % (Auto) Pratt % (Auto) Eos % (Auto) Baso % (Auto) Neut # Lymph # Pratt # Eos # Baso # Neutrophils % (Manual) Band Neutrophils % Lymphocytes % (Manual) Monocytes % (Manual) Toxic Granulation Platelet Estimate Large Platelets Polychromasia Hypochromasia (manual) Basophilic Stippling Anisocytosis (manual) Sodium 116 L* Potassium 3.3 L Chloride 88 L Carbon Dioxide 26 Anion Gap 5 L BUN 9 Creatinine 0.7 Est GFR ( Amer) > 60 Est GFR (Non-Af Amer) > 60 POC Glucose (mg/dL) 148 H Random Glucose 146 H Serum Osmolality Calcium 7.7 L Iron TIBC % Saturation Ferritin Total Bilirubin AST ALT Alkaline Phosphatase Total Creatine Kinase CK-MB (Mass) Troponin I Total Protein Albumin Globulin Albumin/Globulin Ratio Carcinoembryonic Ag CA 19-9 Antigen CA 125 Antigen Cortisol AM Sample Urine Osmolality 262 L Ur Random Sodium 33 06/06/17 06/06/17 06/06/17 02:22 06:20 06:20 WBC RBC Hgb Hct MCV MCH MCHC RDW Plt Count MPV Neut % (Auto) Lymph % (Auto) Pratt % (Auto) Eos % (Auto) Baso % (Auto) Neut # Lymph # Pratt # Eos # Baso # Neutrophils % (Manual) Band Neutrophils % Lymphocytes % (Manual) Monocytes % (Manual) Toxic Granulation Platelet Estimate Large Platelets Polychromasia Hypochromasia (manual) Basophilic Stippling Anisocytosis (manual) Sodium 123 L Potassium 4.6 Chloride 97 L Carbon Dioxide 22 Anion Gap 9 L BUN 10 Creatinine 0.6 L Est GFR ( Amer) > 60 Est GFR (Non-Af Amer) > 60 POC Glucose (mg/dL) Random Glucose 189 H Serum Osmolality Calcium 7.8 L Iron 11 L TIBC 165 L % Saturation 7 L Ferritin 678.0 Total Bilirubin 0.9 AST 32 ALT 40 Alkaline Phosphatase 99 Total Creatine Kinase 70 CK-MB (Mass) 0.42 Troponin I < 0.0120 Total Protein 5.6 L Albumin 2.7 L Globulin 2.9 Albumin/Globulin Ratio 1.0 Carcinoembryonic Ag CA 19-9 Antigen CA 125 Antigen Cortisol AM Sample Urine Osmolality Ur Random Sodium 06/06/17 06/06/17 06/06/17 06:20 06:20 06:20 WBC 12.9 H RBC 3.02 L Hgb 9.1 L Hct 26.9 L MCV 89.1 MCH 30.0 MCHC 33.7 RDW 13.1 Plt Count 374 MPV 6.6 L Neut % (Auto) 84.6 H Lymph % (Auto) 9.5 L Pratt % (Auto) 5.5 Eos % (Auto) 0.0 Baso % (Auto) 0.4 Neut # 10.9 H Lymph # 1.2 Pratt # 0.7 Eos # 0.0 Baso # 0.0 Neutrophils % (Manual) 86 H Band Neutrophils % 1 Lymphocytes % (Manual) 7 L Monocytes % (Manual) 6 Toxic Granulation Present Platelet Estimate Normal Large Platelets Present Polychromasia Slight Hypochromasia (manual) Slight Basophilic Stippling Slight Anisocytosis (manual) Slight Sodium Potassium Chloride Carbon Dioxide Anion Gap BUN Creatinine Est GFR ( Amer) Est GFR (Non-Af Amer) POC Glucose (mg/dL) Random Glucose Serum Osmolality 276 Calcium Iron TIBC % Saturation Ferritin Total Bilirubin AST ALT Alkaline Phosphatase Total Creatine Kinase CK-MB (Mass) Troponin I Total Protein Albumin Globulin Albumin/Globulin Ratio Carcinoembryonic Ag CA 19-9 Antigen CA 125 Antigen Cortisol AM Sample 9.3 Urine Osmolality Ur Random Sodium 06/06/17 06/06/17 06/06/17 06:47 06:56 09:19 WBC RBC Hgb Hct MCV MCH MCHC RDW Plt Count MPV Neut % (Auto) Lymph % (Auto) Pratt % (Auto) Eos % (Auto) Baso % (Auto) Neut # Lymph # Pratt # Eos # Baso # Neutrophils % (Manual) Band Neutrophils % Lymphocytes % (Manual) Monocytes % (Manual) Toxic Granulation Platelet Estimate Large Platelets Polychromasia Hypochromasia (manual) Basophilic Stippling Anisocytosis (manual) Sodium Potassium Chloride Carbon Dioxide Anion Gap BUN Creatinine Est GFR ( Amer) Est GFR (Non-Af Amer) POC Glucose (mg/dL) 196 H Random Glucose Serum Osmolality Calcium Iron TIBC % Saturation Ferritin Total Bilirubin AST ALT Alkaline Phosphatase Total Creatine Kinase CK-MB (Mass) Troponin I Total Protein Albumin Globulin Albumin/Globulin Ratio Carcinoembryonic Ag CA 19-9 Antigen CA 125 Antigen Cortisol AM Sample 23.7 H Urine Osmolality 355 Ur Random Sodium 17 06/06/17 06/06/17 06/06/17 09:19 10:34 11:50 WBC RBC Hgb Hct MCV MCH MCHC RDW Plt Count MPV Neut % (Auto) Lymph % (Auto) Pratt % (Auto) Eos % (Auto) Baso % (Auto) Neut # Lymph # Pratt # Eos # Baso # Neutrophils % (Manual) Band Neutrophils % Lymphocytes % (Manual) Monocytes % (Manual) Toxic Granulation Platelet Estimate Large Platelets Polychromasia Hypochromasia (manual) Basophilic Stippling Anisocytosis (manual) Sodium 122 L Potassium 4.7 Chloride 95 L Carbon Dioxide 24 Anion Gap 7 L BUN 10 Creatinine 0.6 L Est GFR ( Amer) > 60 Est GFR (Non-Af Amer) > 60 POC Glucose (mg/dL) 184 H Random Glucose 186 H Serum Osmolality Calcium 7.8 L Iron TIBC % Saturation Ferritin Total Bilirubin AST ALT Alkaline Phosphatase Total Creatine Kinase 61 CK-MB (Mass) 0.50 Troponin I < 0.0120 Total Protein Albumin Globulin Albumin/Globulin Ratio Carcinoembryonic Ag 5.4 H CA 19-9 Antigen < 1.4 CA 125 Antigen 8.9 Cortisol AM Sample 31.9 H Urine Osmolality Ur Random Sodium 06/06/17 16:29 WBC RBC Hgb Hct MCV MCH MCHC RDW Plt Count MPV Neut % (Auto) Lymph % (Auto) Pratt % (Auto) Eos % (Auto) Baso % (Auto) Neut # Lymph # Pratt # Eos # Baso # Neutrophils % (Manual) Band Neutrophils % Lymphocytes % (Manual) Monocytes % (Manual) Toxic Granulation Platelet Estimate Large Platelets Polychromasia Hypochromasia (manual) Basophilic Stippling Anisocytosis (manual) Sodium Potassium Chloride Carbon Dioxide Anion Gap BUN Creatinine Est GFR ( Amer) Est GFR (Non-Af Amer) POC Glucose (mg/dL) 242 H Random Glucose Serum Osmolality Calcium Iron TIBC % Saturation Ferritin Total Bilirubin AST ALT Alkaline Phosphatase Total Creatine Kinase CK-MB (Mass) Troponin I Total Protein Albumin Globulin Albumin/Globulin Ratio Carcinoembryonic Ag CA 19-9 Antigen CA 125 Antigen Cortisol AM Sample Urine Osmolality Ur Random Sodium Assessment & Plan - Assessment and Plan (Free Text) Assessment: Assessment and Plan: 81 year old female with past medical history of hypertension, diabetes, and asthma presented with intractible nausea and vomiting. Cardiology consulted due to SVT, patient states she has no cardiac history. Troponins are negative X 3. Patient does show RBBB on EKG, and one EKG shows RBBB with Sinus, wide- qrs complex tachycardia. Patient denies any symptoms at time of SVT, and SVT has resolved at present time. Patient has never had a stress test, an echo, nor a catheterization. Patient is also dehydrated with multiple electrolyte abnormalities.. SVT, likely 2/2 Dehydration VS Fever VS Abdominal Pain - Patient did not have any symptoms, SVT resolved with follow up EKG - Patient presented with severe dehydration and electrolyte abnormalities - Tropes and CK-MB negative - Fluid resuscitation with Normal Saline - ECHO Ordered - Patient will need a stress test. LIkely set up for 06/10. Avoid Adenosine or Regadenoson stress test 2/2 asthma Electrolyte Abnormalities - NOrmal saline - As per Nephrology Dehydration - As per nephrology Diabetes - As per primary Asthma - As per primary DVT/GI Prophylaxis - As per primary Dispo: Await ECHO results. Stress test for 06/10.
[2017-06-06] MEDS ORDERED: Bisacodyl 5mg EC Tab PO ONE (17:00)
[2017-06-06 17:08] LABS: INR 1.3; PROTHROMBIN TIME 14.5 SECONDS (9.7-12.2)
[2017-06-06 20:26] LABS: BLOOD UREA NITROGEN 11 mg/dL (7-17); GFR AFRICAN-AMERICAN > 60; GFR NON-AFRICAN AMERICAN > 60
--- NOTE | 2017-06-06 20:55 | CARD ---
APPROVED REPORT EKG Measurement Heart [id number] <Conclusion> Normal sinus rhythm Right bundle branch block Abnormal ECG
[2017-06-06] MEDS: MethylPREDNISolone 40 mg Vial IVP SCH (22:19)
[2017-06-06 22:44] LABS: OSMOLALITY,URINE 419 mosm/kg (300-1000)
[2017-06-07] MEDS: Aztreonam 2 GM in Sodium Chloride 0.9% 100 ML IVPB SCH ×3 (03:40→21:00)
[2017-06-07] MEDS: MethylPREDNISolone 40 mg Vial IVP SCH ×2 (05:17→21:06)
[2017-06-07] MEDS: Levothyroxine 88 MCG TAB PO SCH (06:38)
[2017-06-07 07:25] LABS: BLOOD UREA NITROGEN 9 mg/dL (7-17); CALCIUM 7.8 mg/dl (8.6-10.4); GFR AFRICAN-AMERICAN > 60; GFR NON-AFRICAN AMERICAN > 60
[2017-06-07] MEDS: Albuterol-Ipratrop 3 mg / 0.5 (3 ml) UD IH SCH ×4 (07:33→20:29)
[2017-06-07] MEDS: (Novolin R) Insulin Human Regular 100 units/ml vial SC SCH ×4 (08:30→21:20)
[2017-06-07] MEDS: guaiFENesin 600 mg ER Tab PO SCH (10:47)
[2017-06-07] MEDS: Sodium Chloride 0.9% 1,000 ML IV SCH ×2 (10:55→19:00)
[2017-06-07] MEDS: Calcium-Vit D 500 mg-200 Units Tab UD PO SCH (10:55)
[2017-06-07 11:58] LABS: OSMOLALITY,URINE 188 mosm/kg (300-1000)
--- NOTE | 2017-06-07 15:22 | PN ---
DATE: LOCATION: [facility], bed A. SUBJECTIVE: This is an 81-year-old female, seen and examined early in rounds with reported lower hypertension for which a liter given of normal saline early this morning. The patient appeared to be with slight respiratory distress with period of being forgetful, but no reported active bleeding. It has to be mentioned that due to the patient's clinical presentation yesterday and subsequent periods of shortness of breath, the colonoscopy preparation was canceled as well as the colonoscopy itself was canceled for today. That was discussed at length with the staff in the floor. Most recent lab results showed white blood cells of 12.9, with low hemoglobin 9.1, low hematocrit 26.9, but normal platelet count, with today's sodium still low of 125, mildly increased PT of 14.5, PTT elevated to 35 with low CO2 content of 21 and low creatinine of 0.6, with blood glucose level the latest is 216, with low calcium 7.8. CEA level was reported to be elevated to 5.4. Most recent chest x-ray was done yesterday indicative of possible bilateral pneumonia or atelectasis with bilateral hilar prominence and calcification of the aortic knob. PHYSICAL EXAMINATION GENERAL: An 81-year-old female. VITAL SIGNS: Afebrile, with pulse of 90, respiratory rate 20 to 22, blood pressure 112/64. HEENT: Showed mildly pale dry oral mucous membrane, nonicteric sclerae. HEART: Positive S1 and S2. LUNGS: Scattered bilateral crepitation with decreased air entry at bases. ABDOMEN: Soft with slight generalized tenderness. No mass or organomegaly. No rebound tenderness or guarding, but mild distention. EXTREMITIES: Lower extremities edematous changes. No clubbing or cyanosis. NEUROLOGIC: No reported new neurological deficits, sensory or motor. No focal deficits reported. It has to be mentioned that the patient is seen by the outside solar sales consultant, Dr. Escoto due to the patient's supraventricular tachycardia; however, her troponin level was reported to be negative x3. IMPRESSION: 1. Re-exacerbation of peptic ulcer disease with recurrent nausea and vomiting with recently diagnosed hiatus hernia, gastritis with duodenitis, pathology report is still pending from the esophagogastroduodenoscopy. 2. Anemia, most likely secondary to chronic disease; however, the patient will need colonoscopy when she is more stable clinically. 3. Known history of, but not limited to hypertension, hypothyroidism, diabetes mellitus, hyperlipidemia. 4. Known history of bronchial asthma with mild congestive heart failure. 5. Recent history of supraventricular tachycardia. 6. Electrolyte imbalance with hyponatremia and hypocalcemia, could be related to nausea and vomiting recently. 7. Coagulopathy, most likely drug induced. SUGGESTIONS: 1. Continue current management. 2. Due to the abnormal chest x-ray, no aggressive further GI workup for now until the patient is more stable clinically. Otherwise, close observation only is advised. Nalini iRchter MD
--- NOTE | 2017-06-07 19:17 | CP.PCM.PN ---
Subjective - Date & Time of Evaluation Date of Evaluation: 06/07/17 Time of Evaluation: 11:30 - Subjective Subjective: Patient reports feeling better; tolerating diet, no nausea/vomiting; Objective - Vital Signs/Intake and Output Vital Signs (last 24 hours): Temp Pulse Resp BP Pulse Ox 97.9 F 98 H 20 119/56 L 99 06/07/17 15:37 06/07/17 15:37 06/07/17 15:37 06/07/17 15:37 06/07/17 15:37 - Medications Medications: Current Medications Acetaminophen (Tylenol 650mg/20.3ml Solution Ud) 650 mg PO Q4 PRN PRN Reason: pain and headache Last Admin: 06/05/17 18:05 Dose: 650 mg Al Hydrox/Mg Hydrox/Simethicone (Maalox Plus 30 Ml) 30 ml PO 5XD PRN PRN Reason: gerd Albuterol/Ipratropium (Duoneb 3 Mg/0.5 Mg (3 Ml) Ud) 3 ml IH RQID [facility] Last Admin: 06/07/17 15:57 Dose: 3 ml Calcium/Vitamin D (Oyster Shell Calcium/Vitamin D 500 Mg-200 Iu) 1 tab PO DAILY [facility] Last Admin: 06/07/17 10:55 Dose: 1 tab Guaifenesin (Robitussin) 200 mg PO Q4H PRN PRN Reason: Cough and congestion Heparin Sodium (Porcine) (Heparin) 5,000 units SC Q8 [facility] Last Admin: 06/07/17 14:29 Dose: 5,000 units Aztreonam 2 gm/ Sodium (Chloride) 100 mls @ 200 mls/hr IVPB Q8H [facility] Last Admin: 06/07/17 11:05 Dose: 200 mls/hr Sodium Chloride (Sodium Chloride 0.9%) 1,000 mls @ 70 mls/hr IV .[id number] [facility] Insulin Human Regular (Novolin R) 0 unit SC ACHS [facility] PRN Reason: Protocol Last Admin: 06/07/17 17:15 Dose: 2 unit Lactulose (Enulose) 10 gm PO TID PRN PRN Reason: Constipation Levothyroxine Sodium (Synthroid) 88 mcg PO DAILY@0630 [facility] Last Admin: 06/07/17 06:38 Dose: 88 mcg Methylprednisolone (Solu-Medrol) 40 mg IVP Q12 [facility] Metoclopramide HCl (Reglan) 5 mg IVP Q6 [facility] Last Admin: 06/07/17 18:45 Dose: 5 mg Rosuvastatin Calcium (Crestor) 5 mg PO HS [facility] Last Admin: 06/06/17 22:19 Dose: 5 mg - Labs Labs: 06/06/17 06:20 06/07/17 06:56 PT 14.5 SECONDS (9.7-12.2) H 06/06/17 16:54 INR 1.3 06/06/17 16:54 APTT 35 SECONDS (21-34) H 06/06/17 16:54 Assessment and Plan (1) Hyponatremia Assessment & Plan: Improving slowly; given 1L NS bolus last night again due to concern for high urine osm (which can lead to worsening of hyponatremia if only gentle IVF given) ; urine osm decreased this morning which indicates that hyponatremia will correct more rapidly; however, low Ur Na concerning for ongoing volume depletion ; awaiting echo report to look for possible R heart dysfunction (which can also explain why hyponatremia not responding rapidly to IVF); -awaiting endocrine assessment for possible adrenal insufficiency -continue NS at 70 cc/hr -continue solumedrol, awaiting ACTH level; -checking bmp, Ur osm and Na later today Status: Acute (2) HTN (hypertension) Status: Chronic (3) Hypocalcemia Status: Acute (4) Anemia Status: Acute (5) Hypokalemia Status: Acute
[2017-06-07 20:38] LABS: OSMOLALITY,URINE 278 mosm/kg (300-1000)
[2017-06-08 00:50] LABS: BLOOD UREA NITROGEN 9 mg/dL (7-17); CALCIUM 8.1 mg/dl (8.6-10.4); GFR AFRICAN-AMERICAN > 60; GFR NON-AFRICAN AMERICAN > 60
[2017-06-08] MEDS: Sodium Chloride 0.9% 1,000 ML IV SCH ×2 (03:03→09:01)
[2017-06-08] MEDS: Aztreonam 2 GM in Sodium Chloride 0.9% 100 ML IVPB SCH ×3 (04:22→19:07)
[2017-06-08] MEDS: Levothyroxine 88 MCG TAB PO SCH (05:30)
[2017-06-08] MEDS: Albuterol-Ipratrop 3 mg / 0.5 (3 ml) UD IH SCH ×4 (07:09→19:54)
[2017-06-08 08:04] LABS: BLOOD UREA NITROGEN 10 mg/dL (7-17); CALCIUM 8.4 mg/dl (8.6-10.4); GFR AFRICAN-AMERICAN > 60; GFR NON-AFRICAN AMERICAN > 60
[2017-06-08] MEDS: (Novolin R) Insulin Human Regular 100 units/ml vial SC SCH ×4 (08:04→22:36)
--- NOTE | 2017-06-08 09:08 | CP.PCM.PN ---
Subjective - Date & Time of Evaluation Date of Evaluation: 06/07/17 Time of Evaluation: 19:20 - Subjective Subjective: Patient seen and evaluated Denies chest pain Dyspnea improving Physical Exam - Additional Findings Additional findings: Physical Exam: Vital Signs as below Const'l: awake alert & oriented x 4, no acute distress, pleasant woman Head/Neck: neck supple, no jvd, trachea midline, carotid midline, no cervical /head mass Eyes: pupils equally reactive to light and accommodation, nonicteric sclera, extraocular intact ENT: +mucous membranes severely dry; auditory acuity grossly intact, throat not congested, no nasal deformity Cardio: regular rate, regular rhythm, no murmurs rubs gallops, no carotid bruit, normal s1, s2 Pulm: no accessory muscle use, equal normal breath sounds bilaterally, clear to ausculation bilaterally Abd: soft non tender non-distended, normal bowel sounds x 4 quadrants, no palpable masses Derm: no rashes, no ulcers, no lesions Extr: no edema, no cyanosis, no calf tenderness, no lesions, no varicosities Neuro: cranial nerves II-XII grossly intact, upper extremity and lower extremity 5/5 muscle strength bilaterally, no loss of sensation in upper extremities, lower extremities bilaterally and core Objective - Vital Signs/Intake and Output Vital Signs (last 24 hours): Temp Pulse Resp BP Pulse Ox 97.2 F L 102 H 18 154/95 H 94 L 06/08/17 08:28 06/08/17 08:28 06/08/17 08:28 06/08/17 08:28 06/08/17 08:28 Intake and Output: 06/08/17 06/08/17 06:59 18:59 Intake Total 1970 Output Total 2600 Balance -630 - Medications Medications: Current Medications Acetaminophen (Tylenol 650mg/20.3ml Solution Ud) 650 mg PO Q4 PRN PRN Reason: pain and headache Last Admin: 06/05/17 18:05 Dose: 650 mg Al Hydrox/Mg Hydrox/Simethicone (Maalox Plus 30 Ml) 30 ml PO 5XD PRN PRN Reason: gerd Albuterol/Ipratropium (Duoneb 3 Mg/0.5 Mg (3 Ml) Ud) 3 ml IH RQID [facility] Last Admin: 06/08/17 07:09 Dose: 3 ml Calcium/Vitamin D (Oyster Shell Calcium/Vitamin D 500 Mg-200 Iu) 1 tab PO DAILY [facility] Last Admin: 06/07/17 10:55 Dose: 1 tab Guaifenesin (Robitussin) 200 mg PO Q4H PRN PRN Reason: Cough and congestion Heparin Sodium (Porcine) (Heparin) 5,000 units SC Q8 [facility] Last Admin: 06/08/17 05:06 Dose: 5,000 units Aztreonam 2 gm/ Sodium (Chloride) 100 mls @ 200 mls/hr IVPB Q8H [facility] Last Admin: 06/08/17 04:22 Dose: 200 mls/hr Sodium Chloride (Sodium Chloride 0.9%) 1,000 mls @ 70 mls/hr IV .[id number] [facility] Last Admin: 06/08/17 09:01 Dose: Not Given Insulin Human Regular (Novolin R) 0 unit SC ACHS [facility] PRN Reason: Protocol Last Admin: 06/08/17 08:04 Dose: 2 unit Lactulose (Enulose) 10 gm PO TID PRN PRN Reason: Constipation Levothyroxine Sodium (Synthroid) 88 mcg PO DAILY@0630 [facility] Last Admin: 06/08/17 05:30 Dose: 88 mcg Methylprednisolone (Solu-Medrol) 40 mg IVP Q12 [facility] Last Admin: 06/07/17 21:06 Dose: 40 mg Metoclopramide HCl (Reglan) 5 mg IVP Q6 [facility] Last Admin: 06/08/17 05:06 Dose: 5 mg Rosuvastatin Calcium (Crestor) 5 mg PO HS [facility] Last Admin: 06/07/17 21:07 Dose: 5 mg - Labs Labs: 06/06/17 06:20 06/08/17 07:24 PT 14.5 SECONDS (9.7-12.2) H 06/06/17 16:54 INR 1.3 06/06/17 16:54 APTT 35 SECONDS (21-34) H 06/06/17 16:54 Assessment and Plan - Assessment and Plan (Free Text) Assessment: Assessment & Plan - Assessment and Plan (Free Text) Assessment: Assessment and Plan: 81 year old female with past medical history of hypertension, diabetes, and asthma presented with intractible nausea and vomiting. Cardiology consulted due to SVT, patient states she has no cardiac history. Troponins are negative X 3. Patient does show RBBB on EKG, and one EKG shows RBBB with Sinus, wide- qrs complex tachycardia. Patient denies any symptoms at time of SVT, and SVT has resolved at present time. Patient has never had a stress test, an echo, nor a catheterization. Patient is also dehydrated with multiple electrolyte abnormalities.. SVT, likely 2/2 Dehydration VS Fever VS Abdominal Pain - Patient did not have any symptoms, SVT resolved with follow up EKG - Patient presented with severe dehydration and electrolyte abnormalities - Tropes and CK-MB negative - Fluid resuscitation with Normal Saline Electrolyte Abnormalities - NOrmal saline - As per Nephrology Dehydration - As per nephrology Diabetes - As per primary Asthma - As per primary DVT/GI Prophylaxis - As per primary Further Cardiac management as per Dr. Cisse when he is back on Saturday
[2017-06-08] MEDS: MethylPREDNISolone 40 mg Vial IVP SCH ×2 (10:36→22:36)
[2017-06-08] MEDS: Calcium-Vit D 500 mg-200 Units Tab UD PO SCH (10:36)
--- NOTE | 2017-06-08 13:37 | PN ---
DATE: LOCATION: [facility], bed A. SUBJECTIVE: This is an 81-year-old female seen and examined in rounds without reported active bleeding or significant clinical changes, but with intermittent period of mild shortness of breath and generalized weakness and malaise, tolerating oral intake well, no reported nausea, vomiting or active bleeding. The entire chart is reviewed including but not limited to most recent lab and radiology study results, current and the previous medication list, current and the previous medical events, and today's lab showed normal sodium and potassium level, but low CO2 content of 21 indicative of metabolic acidosis with blood glucose level of 225 with low calcium 8.4, rest of the labs are still pending. The patient is post upper endoscopy with biopsy; pathology report is still pending and she had been seen by Dr. Papa Escoto due to her recent laboratory data that is of cardiac arrhythmias with V-tach. PHYSICAL EXAMINATION: GENERAL: An 81-year-old female. VITAL SIGNS: Afebrile with pulse of 100, respiratory rate 20-22, blood pressure 150/88. HEENT: Showed mildly pale dry oral mucous membrane, nonicteric sclerae. LUNGS: Few scattered crepitation. Decreased air entry at bases. HEART: Positive S1 and S2 with increased rate. ABDOMEN: Soft with slight generalized tenderness. No mass or organomegaly. No rebound tenderness or guarding. RECTAL: Deferred due to the patient's clinical presentation. EXTREMITIES: With lower extremities mild edematous changes. No clubbing or cyanosis. NEUROLOGIC: No reported new neurological deficits, sensory or motor. No reported new focal deficits. VASCULAR: Peripheral pulses are present bilaterally, but weak. IMPRESSION: 1. Re-exacerbation of peptic ulcer disease. 2. Known history of hypertension, cardiac arrhythmia, hypothyroidism, hyperlipidemia, diabetes mellitus. 3. Known history of congestive heart failure, bronchial asthma. 4. Anemia, most likely secondary to above. 5. Electrolyte imbalance with hypocalcemia. 6. Coagulopathy, drug-induced. SUGGESTIONS: 1. Continue current management. 2. . 3. Follow up cancer markers. 4. No further aggressive GI workup including colonoscopy in the meantime until the patient is more stable clinically, otherwise close observation to follow. Alaa Salah-Theron, MD [facility] # [id number]
--- NOTE | 2017-06-08 17:05 | CP.PCM.PN ---
Subjective - Date & Time of Evaluation Date of Evaluation: 06/07/17 Time of Evaluation: 18:00 - Subjective Subjective: Patient seen and evaluated Denies chest pain Dyspnea improving Objective - Vital Signs/Intake and Output Vital Signs (last 24 hours): Temp Pulse Resp BP Pulse Ox 97.5 F L 92 H 20 151/80 H 100 06/08/17 15:22 06/08/17 15:22 06/08/17 15:22 06/08/17 15:22 06/08/17 15:22 Intake and Output: 06/08/17 06/08/17 06:59 18:59 Intake Total 1970 Output Total 2600 Balance -630 - Medications Medications: Current Medications Acetaminophen (Tylenol 650mg/20.3ml Solution Ud) 650 mg PO Q4 PRN PRN Reason: pain and headache Last Admin: 06/05/17 18:05 Dose: 650 mg Al Hydrox/Mg Hydrox/Simethicone (Maalox Plus 30 Ml) 30 ml PO 5XD PRN PRN Reason: gerd Albuterol/Ipratropium (Duoneb 3 Mg/0.5 Mg (3 Ml) Ud) 3 ml IH RQID [facility] Last Admin: 06/08/17 16:55 Dose: 3 ml Calcium/Vitamin D (Oyster Shell Calcium/Vitamin D 500 Mg-200 Iu) 1 tab PO DAILY [facility] Last Admin: 06/08/17 10:36 Dose: 1 tab Guaifenesin (Robitussin) 200 mg PO Q4H PRN PRN Reason: Cough and congestion Aztreonam 2 gm/ Sodium (Chloride) 100 mls @ 200 mls/hr IVPB Q8H [facility] Last Admin: 06/08/17 12:27 Dose: 200 mls/hr Insulin Human Regular (Novolin R) 0 unit SC ACHS [facility] PRN Reason: Protocol Last Admin: 06/08/17 12:28 Dose: 2 unit Lactulose (Enulose) 10 gm PO TID PRN PRN Reason: Constipation Levothyroxine Sodium (Synthroid) 88 mcg PO DAILY@0630 [facility] Last Admin: 06/08/17 05:30 Dose: 88 mcg Methylprednisolone (Solu-Medrol) 40 mg IVP Q12 [facility] Last Admin: 06/08/17 10:36 Dose: 40 mg Metoclopramide HCl (Reglan) 5 mg IVP Q6 [facility] Last Admin: 06/08/17 12:28 Dose: 5 mg Rosuvastatin Calcium (Crestor) 5 mg PO HS [facility] Last Admin: 06/07/17 21:07 Dose: 5 mg - Labs Labs: 06/06/17 06:20 06/08/17 07:24 PT 14.5 SECONDS (9.7-12.2) H 06/06/17 16:54 INR 1.3 06/06/17 16:54 APTT 35 SECONDS (21-34) H 06/06/17 16:54 Assessment and Plan (1) Anemia Assessment & Plan: (1) Hyponatremia Assessment & Plan: Resolving; secondary to intravascular volume depletion but also possible component of adrenal insufficiency; volume depletion resolved as indicated by both high BP and high urine Na; still awaiting echo report; -d/c IVF -f/u ACTH level -continue solumedrol Status: Acute (2) HTN (hypertension) Assessment & Plan: BP elevated; was on amlodipine and lisinopril at home; will restart amlodipine 5 mg daily; Status: Chronic (3) Hypocalcemia Assessment & Plan: Will benefit from Vit D supplementation; awaiting PTH level; Status: Acute (4) Anemia Status: Acute (5) Hypokalemia Assessment & Plan: Resolved; monitor; Status: Acute (6) Metabolic acidosis Assessment & Plan: Mild non-gap acidosis due to NS administration, should resolve with stopping IVF ; Status: Acute Status: Acute (2) Hyponatremia Status: Acute (3) Metabolic acidosis Status: Acute (4) Nausea & vomiting Status: Acute (5) HTN (hypertension) Status: Chronic (6) Asthma with acute exacerbation Status: Acute
--- NOTE | 2017-06-08 17:07 | CP.PCM.PN ---
Subjective - Date & Time of Evaluation Date of Evaluation: 06/08/17 Time of Evaluation: 20:00 - Subjective Subjective: pt seen and examined today, hyponatremia improving, pt is less short of breath, less cough, less wheezing, no nausea, vomitting Objective - Vital Signs/Intake and Output Vital Signs (last 24 hours): Temp Pulse Resp BP Pulse Ox 97.5 F L 92 H 20 151/80 H 100 06/08/17 15:22 06/08/17 15:22 06/08/17 15:22 06/08/17 15:22 06/08/17 15:22 Intake and Output: 06/08/17 06/08/17 06:59 18:59 Intake Total 1970 Output Total 2600 Balance -630 - Medications Medications: Current Medications Acetaminophen (Tylenol 650mg/20.3ml Solution Ud) 650 mg PO Q4 PRN PRN Reason: pain and headache Last Admin: 06/05/17 18:05 Dose: 650 mg Al Hydrox/Mg Hydrox/Simethicone (Maalox Plus 30 Ml) 30 ml PO 5XD PRN PRN Reason: gerd Albuterol/Ipratropium (Duoneb 3 Mg/0.5 Mg (3 Ml) Ud) 3 ml IH RQID [facility] Last Admin: 06/08/17 16:55 Dose: 3 ml Calcium/Vitamin D (Oyster Shell Calcium/Vitamin D 500 Mg-200 Iu) 1 tab PO DAILY [facility] Last Admin: 06/08/17 10:36 Dose: 1 tab Guaifenesin (Robitussin) 200 mg PO Q4H PRN PRN Reason: Cough and congestion Aztreonam 2 gm/ Sodium (Chloride) 100 mls @ 200 mls/hr IVPB Q8H [facility] Last Admin: 06/08/17 12:27 Dose: 200 mls/hr Insulin Human Regular (Novolin R) 0 unit SC ACHS [facility] PRN Reason: Protocol Last Admin: 06/08/17 12:28 Dose: 2 unit Lactulose (Enulose) 10 gm PO TID PRN PRN Reason: Constipation Levothyroxine Sodium (Synthroid) 88 mcg PO DAILY@0630 [facility] Last Admin: 06/08/17 05:30 Dose: 88 mcg Methylprednisolone (Solu-Medrol) 40 mg IVP Q12 [facility] Last Admin: 06/08/17 10:36 Dose: 40 mg Metoclopramide HCl (Reglan) 5 mg IVP Q6 [facility] Last Admin: 06/08/17 12:28 Dose: 5 mg Rosuvastatin Calcium (Crestor) 5 mg PO HS [facility] Last Admin: 06/07/17 21:07 Dose: 5 mg - Labs Labs: 06/06/17 06:20 06/08/17 07:24 PT 14.5 SECONDS (9.7-12.2) H 06/06/17 16:54 INR 1.3 06/06/17 16:54 APTT 35 SECONDS (21-34) H 06/06/17 16:54 - Constitutional Appears: No Acute Distress, Chronically Ill - Head Exam Head Exam: ATRAUMATIC, NORMAL INSPECTION, NORMOCEPHALIC - Eye Exam Eye Exam: EOMI, Normal appearance, PERRL Pupil Exam: NORMAL ACCOMODATION, PERRL - Respiratory Exam Respiratory Exam: Clear to Ausculation Bilateral, NORMAL BREATHING PATTERN - Cardiovascular Exam Cardiovascular Exam: REGULAR RHYTHM, +S1, +S2. absent: Murmur - GI/Abdominal Exam GI & Abdominal Exam: Soft, Normal Bowel Sounds. absent: Tenderness - Neurological Exam Neurological Exam: Alert, Awake, CN II-XII Intact, Normal Gait, Oriented x3 Assessment and Plan (1) Anemia Status: Acute (2) Electrolyte abnormality Status: Acute (3) Hyponatremia Status: Acute (4) Nausea & vomiting Status: Acute (5) HTN (hypertension) Status: Chronic
[2017-06-08 17:26] LABS: OSMOLALITY,URINE 258 mosm/kg (300-1000)
--- NOTE | 2017-06-08 18:14 | CP.PCM.PN ---
Subjective - Date & Time of Evaluation Date of Evaluation: 06/08/17 Time of Evaluation: 14:00 - Subjective Subjective: Patient tolerating diet; reports having asthma attack this morning; not getting out of bed due to sob; Objective - Vital Signs/Intake and Output Vital Signs (last 24 hours): Temp Pulse Resp BP Pulse Ox 97.5 F L 92 H 20 151/80 H 100 06/08/17 15:22 06/08/17 15:22 06/08/17 15:22 06/08/17 15:22 06/08/17 15:22 Intake and Output: 06/08/17 06/08/17 06:59 18:59 Intake Total 1970 Output Total 2600 Balance -630 - Medications Medications: Current Medications Acetaminophen (Tylenol 650mg/20.3ml Solution Ud) 650 mg PO Q4 PRN PRN Reason: pain and headache Last Admin: 06/05/17 18:05 Dose: 650 mg Al Hydrox/Mg Hydrox/Simethicone (Maalox Plus 30 Ml) 30 ml PO 5XD PRN PRN Reason: gerd Albuterol/Ipratropium (Duoneb 3 Mg/0.5 Mg (3 Ml) Ud) 3 ml IH RQID [facility] Last Admin: 06/08/17 16:55 Dose: 3 ml Calcium/Vitamin D (Oyster Shell Calcium/Vitamin D 500 Mg-200 Iu) 1 tab PO DAILY [facility] Last Admin: 06/08/17 10:36 Dose: 1 tab Guaifenesin (Robitussin) 200 mg PO Q4H PRN PRN Reason: Cough and congestion Aztreonam 2 gm/ Sodium (Chloride) 100 mls @ 200 mls/hr IVPB Q8H [facility] Last Admin: 06/08/17 12:27 Dose: 200 mls/hr Insulin Human Regular (Novolin R) 0 unit SC ACHS [facility] PRN Reason: Protocol Last Admin: 06/08/17 12:28 Dose: 2 unit Lactulose (Enulose) 10 gm PO TID PRN PRN Reason: Constipation Levothyroxine Sodium (Synthroid) 88 mcg PO DAILY@0630 [facility] Last Admin: 06/08/17 05:30 Dose: 88 mcg Methylprednisolone (Solu-Medrol) 40 mg IVP Q12 [facility] Last Admin: 06/08/17 10:36 Dose: 40 mg Metoclopramide HCl (Reglan) 5 mg IVP Q6 [facility] Last Admin: 06/08/17 12:28 Dose: 5 mg Rosuvastatin Calcium (Crestor) 5 mg PO HS [facility] Last Admin: 06/07/17 21:07 Dose: 5 mg - Labs Labs: 06/06/17 06:20 06/08/17 07:24 PT 14.5 SECONDS (9.7-12.2) H 06/06/17 16:54 INR 1.3 06/06/17 16:54 APTT 35 SECONDS (21-34) H 06/06/17 16:54 - Constitutional Appears: Well, No Acute Distress - Eye Exam Eye Exam: absent: Scleral icterus - ENT Exam ENT Exam: Mucous Membranes Moist - Respiratory Exam Additional comments: Diffuse wheezes with decreased air movement b/l; - Cardiovascular Exam Cardiovascular Exam: RRR, +S1, +S2 - GI/Abdominal Exam GI & Abdominal Exam: Soft. absent: Distended, Tenderness - Extremities Exam Additional comments: no leg edema; - Neurological Exam Neurological Exam: Alert, Awake - Psychiatric Exam Psychiatric exam: Normal Affect, Normal Mood. absent: Agitated - Skin Skin Exam: Warm. absent: Cyanosis Assessment and Plan (1) Hyponatremia Assessment & Plan: Resolving; secondary to intravascular volume depletion but also possible component of adrenal insufficiency; volume depletion resolved as indicated by both high BP and high urine Na; still awaiting echo report; -d/c IVF -f/u ACTH level -continue solumedrol Status: Acute (2) HTN (hypertension) Assessment & Plan: BP elevated; was on amlodipine and lisinopril at home; will restart amlodipine 5 mg daily; Status: Chronic (3) Hypocalcemia Assessment & Plan: Will benefit from Vit D supplementation; awaiting PTH level; Status: Acute (4) Anemia Status: Acute (5) Hypokalemia Assessment & Plan: Resolved; monitor; Status: Acute (6) Metabolic acidosis Assessment & Plan: Mild non-gap acidosis due to NS administration, should resolve with stopping IVF ; Status: Acute
--- NOTE | 2017-06-08 19:52 | CARD ---
APPROVED REPORT EXAM: Two-dimensional and M-mode echocardiogram with Doppler and color Doppler. Other Information Quality : FairRhythm : 2D DIMENSIONS IVSd0.7 (0.7-1.1cm)LVDd4.0 (3.9-5.9cm) PWd1.3 (0.7-1.1cm)LVDs2.9 (2.5-4.0cm) FS (%) 26.2 %LVEF (%)51.9 (>50%) M-Mode DIMENSIONS Left Atrium (MM)3.96 (2.5-4.0cm)Aortic Root3.37 (2.2-3.7cm) Aortic Cusp Exc.1.63 (1.5-2.0cm) Mitral Valve MV E Tnuaiomv133.6cm/sMV A Zbthaezh707.6cm/sE/A ratio0.8 TDI E/Lateral E'0.0E/Medial E'0.0 LEFT VENTRICLE The left ventricle is normal size. There is normal left ventricular wall thickness. Left ventricle systolic function is normal. The Ejection Fraction is 50-55%. There is normal LV segmental wall motion. Tissue Doppler imaging reveals abnormal left ventricular diastolic dysfunction. RIGHT VENTRICLE The right ventricle is normal size. There is normal right ventricular wall thickness. The right ventricular systolic function is normal. ATRIA The left atrium size is normal. The right atrium size is normal. The interatrial septum is intact with no evidence for an atrial septal defect. AORTIC VALVE The aortic valve is normal in structure. No aortic regurgitation is present. There is no aortic valvular stenosis. There is no aortic valvular vegetation. MITRAL VALVE The posterior mitral valve leaflet appears thickened, but open well. There is no evidence of mitral valve prolapse. There is no mitral valve stenosis. Mitral regurgitation is mild. TRICUSPID VALVE The tricuspid valve is normal in structure. There is no tricuspid regurgitation. PULMONIC VALVE The pulmonic valve is not well visualized. There is no pulmonic valvular regurgitation. GREAT VESSELS The aortic root is normal in size. PERICARDIAL EFFUSION There is no significant pericardial effusion. <Conclusion> Left ventricle systolic function is normal. The Ejection Fraction is 50-55%. Diastolic dysfunction. No aortic regurgitation is present. Mitral regurgitation is mild. There is no tricuspid regurgitation. There is no pulmonic valvular regurgitation.
--- NOTE | 2017-06-08 22:26 | CP.PCM.PN ---
Subjective - Date & Time of Evaluation Date of Evaluation: 06/08/17 Time of Evaluation: 08:20 - Subjective Subjective: Patient seen and evaluated Denies chest pain and dyspnea No acute events noted Objective - Vital Signs/Intake and Output Vital Signs (last 24 hours): Temp Pulse Resp BP Pulse Ox 97.5 F L 92 H 20 151/80 H 100 06/08/17 15:22 06/08/17 15:22 06/08/17 15:22 06/08/17 15:22 06/08/17 15:22 - Medications Medications: Current Medications Acetaminophen (Tylenol 650mg/20.3ml Solution Ud) 650 mg PO Q4 PRN PRN Reason: pain and headache Last Admin: 06/05/17 18:05 Dose: 650 mg Al Hydrox/Mg Hydrox/Simethicone (Maalox Plus 30 Ml) 30 ml PO 5XD PRN PRN Reason: gerd Albuterol/Ipratropium (Duoneb 3 Mg/0.5 Mg (3 Ml) Ud) 3 ml IH RQID [facility] Last Admin: 06/08/17 19:54 Dose: 3 ml Calcium/Vitamin D (Oyster Shell Calcium/Vitamin D 500 Mg-200 Iu) 1 tab PO DAILY [facility] Last Admin: 06/08/17 10:36 Dose: 1 tab Guaifenesin (Robitussin) 200 mg PO Q4H PRN PRN Reason: Cough and congestion Aztreonam 2 gm/ Sodium (Chloride) 100 mls @ 200 mls/hr IVPB Q8H [facility] Last Admin: 06/08/17 19:07 Dose: 200 mls/hr Insulin Human Regular (Novolin R) 0 unit SC ACHS [facility] PRN Reason: Protocol Last Admin: 06/08/17 18:54 Dose: 2 unit Lactulose (Enulose) 10 gm PO TID PRN PRN Reason: Constipation Levothyroxine Sodium (Synthroid) 88 mcg PO DAILY@0630 [facility] Last Admin: 06/08/17 05:30 Dose: 88 mcg Methylprednisolone (Solu-Medrol) 40 mg IVP Q12 [facility] Last Admin: 06/08/17 10:36 Dose: 40 mg Metoclopramide HCl (Reglan) 5 mg IVP Q6 [facility] Last Admin: 06/08/17 18:51 Dose: 5 mg Rosuvastatin Calcium (Crestor) 5 mg PO HS [facility] Last Admin: 06/07/17 21:07 Dose: 5 mg - Labs Labs: 06/06/17 06:20 06/08/17 07:24 PT 14.5 SECONDS (9.7-12.2) H 06/06/17 16:54 INR 1.3 06/06/17 16:54 APTT 35 SECONDS (21-34) H 06/06/17 16:54
[2017-06-08] MEDS ORDERED: Ipratropium 0.02% Inhal Soln (0.5 mg/2.5 ml) UD IH ONE (23:45)
[2017-06-09] MEDS: Aztreonam 2 GM in Sodium Chloride 0.9% 100 ML IVPB SCH ×3 (04:25→22:01)
[2017-06-09] MEDS ORDERED: Ipratropium 0.02% Inhal Soln (0.5 mg/2.5 ml) UD IH ONE (05:52)
[2017-06-09] MEDS: Albuterol-Ipratrop 3 mg / 0.5 (3 ml) UD IH SCH ×4 (07:31→19:37)
[2017-06-09] MEDS: Levothyroxine 88 MCG TAB PO SCH (07:59)
[2017-06-09] MEDS: (Novolin R) Insulin Human Regular 100 units/ml vial SC SCH ×3 (08:13→18:06)
[2017-06-09] MEDS ORDERED: MethylPREDNISolone 40 mg Vial IVP ONE (08:45)
[2017-06-09 08:52] LABS: BASO # 0.1 K/uL (0.0-0.2); BASO % 0.5 % (0.0-2.0); EOS % 0.1 % (0.0-4.0); LYMPH # 2.7 K/uL (1.0-4.3); LYMPH % 14.9 % (20.0-40.0); MEAN CELL VOLUME 89.9 fL (81.0-99.0); MEAN CORPUSCULAR HEMOGLOBIN 29.9 pg (27.0-31.0); MEAN CORPUSCULAR HGB CONC 33.3 g/dL (33.0-37.0); MEAN PLATELET VOLUME 6.7 fL (7.2-11.7); MONO # 1.8 K/uL (0.0-0.8); MONO % 9.9 % (0.0-10.0); NEUT # 13.6 K/uL (1.8-7.0); NEUT % 74.6 % (50.0-75.0); NRBC % 0.1 % (0.0-2.0); RED CELL DISTRIBUTION WIDTH 13.6 % (11.5-14.5); WHITE BLOOD COUNT 18.2 K/uL (4.8-10.8)
[2017-06-09 09:07] LABS: ALB/GLOB RATIO 1.1 (1.0-2.1); ALBUMIN 3.2 g/dL (3.5-5.0); ALT/SGPT 25 U/L (9-52); AST/SGOT 17 U/L (14-36); BLOOD UREA NITROGEN 9 mg/dL (7-17); CALCIUM 8.4 mg/dl (8.6-10.4); GFR AFRICAN-AMERICAN > 60; GFR NON-AFRICAN AMERICAN > 60
--- NOTE | 2017-06-09 11:54 | CP.PCM.PN ---
Subjective - Date & Time of Evaluation Date of Evaluation: 06/09/17 Time of Evaluation: 11:52 - Subjective Subjective: 81 yo F w/ pmh of htn, dm, hypothyroidism and asthma, admitted with severe hyponatremia; Lately having asthma exacerbation; cannot speak due to resp distress; Objective - Vital Signs/Intake and Output Vital Signs (last 24 hours): Temp Pulse Resp BP Pulse Ox 98.7 F 111 H 20 175/76 H 98 06/09/17 07:30 06/09/17 07:30 06/09/17 07:30 06/09/17 07:30 06/09/17 07:30 Intake and Output: 06/09/17 06/09/17 06:59 18:59 Output Total 700 Balance -700 - Medications Medications: Current Medications Acetaminophen (Tylenol 650mg/20.3ml Solution Ud) 650 mg PO Q4 PRN PRN Reason: pain and headache Last Admin: 06/05/17 18:05 Dose: 650 mg Al Hydrox/Mg Hydrox/Simethicone (Maalox Plus 30 Ml) 30 ml PO 5XD PRN PRN Reason: gerd Albuterol/Ipratropium (Duoneb 3 Mg/0.5 Mg (3 Ml) Ud) 3 ml IH RQID [facility] Last Admin: 06/09/17 11:09 Dose: 3 ml Amlodipine Besylate (Norvasc) 10 mg PO DAILY [facility] Calcium/Vitamin D (Oyster Shell Calcium/Vitamin D 500 Mg-200 Iu) 1 tab PO DAILY [facility] Last Admin: 06/08/17 10:36 Dose: 1 tab Guaifenesin (Robitussin) 200 mg PO Q4H PRN PRN Reason: Cough and congestion Aztreonam 2 gm/ Sodium (Chloride) 100 mls @ 200 mls/hr IVPB Q8H [facility] Last Admin: 06/09/17 04:25 Dose: 200 mls/hr Insulin Human Regular (Novolin R) 0 unit SC ACHS [facility] PRN Reason: Protocol Last Admin: 06/09/17 08:13 Dose: 2 unit Lactulose (Enulose) 10 gm PO TID PRN PRN Reason: Constipation Levothyroxine Sodium (Synthroid) 88 mcg PO DAILY@0630 [facility] Last Admin: 06/09/17 07:59 Dose: 88 mcg Methylprednisolone (Solu-Medrol) 40 mg IVP Q12 [facility] Last Admin: 06/08/17 22:36 Dose: 40 mg Metoclopramide HCl (Reglan) 5 mg IVP Q6 [facility] Last Admin: 06/09/17 06:45 Dose: Not Given Rosuvastatin Calcium (Crestor) 5 mg PO HS [facility] Last Admin: 06/08/17 22:35 Dose: 5 mg - Labs Labs: 06/09/17 08:43 06/09/17 08:43 PT 14.5 SECONDS (9.7-12.2) H 06/06/17 16:54 INR 1.3 06/06/17 16:54 APTT 35 SECONDS (21-34) H 06/06/17 16:54 - Constitutional Appears: In Acute Distress - Eye Exam Eye Exam: absent: Scleral icterus - ENT Exam ENT Exam: Mucous Membranes Moist - Respiratory Exam Respiratory Exam: Respiratory Distress Additional comments: poor air movement, increased work of breathing - Cardiovascular Exam Cardiovascular Exam: REGULAR RHYTHM, +S1, +S2 - GI/Abdominal Exam GI & Abdominal Exam: Soft. absent: Distended, Tenderness - Extremities Exam Additional comments: no leg edema; - Neurological Exam Neurological Exam: Alert, Awake - Psychiatric Exam Psychiatric exam: absent: Agitated - Skin Skin Exam: Warm. absent: Cyanosis Assessment and Plan (1) Hyponatremia Assessment & Plan: Primarily secondary to volume depletion with possible adrenal insufficiency as well; serum Na had been improving until mild drop today; off IVF since yesterday due to elevated BP; -checking urine osm, Na; -continue 1L PO fluid restriction daily Status: Acute (2) HTN (hypertension) Assessment & Plan: BP elevated but also in resp distress; restarting amlodipine 10 mg daily; Status: Chronic (3) Asthma with acute exacerbation Assessment & Plan: Signficantly worsened air movement despite being on solumedrol; checking ABG and starting on BIPAP; Status: Acute (4) Hypocalcemia Assessment & Plan: Improved with Ca replenishment; needs vit D supplementation as well but question regarding allergies to soy (contained in ergocalciferol); continue oscal for now; Status: Acute (5) Anemia Status: Acute (6) Hypokalemia Status: Resolved (7) Metabolic acidosis Status: Resolved
[2017-06-09 12:20] LABS: ABG ALLEN TEST POS; ARTERIAL BLOOD GAS HCO3 26.8 mmol/L (21-28); ARTERIAL BLOOD GAS O2 SAT 100.1 % (95-98); ARTERIAL BLOOD GAS PCO2 32 mm/Hg (35-45); ARTERIAL BLOOD GAS PO2 86 mm/Hg (80-100)
[2017-06-09] MEDS: Calcium-Vit D 500 mg-200 Units Tab UD PO SCH (12:28)
[2017-06-09] MEDS: MethylPREDNISolone 40 mg Vial IVP SCH (12:28)
--- NOTE | 2017-06-09 13:57 | PN ---
DATE: LOCATION: 5, bed A. SUBJECTIVE: This is an 81-year-old female with a complaint again of generalized weakness and malaise, difficulty to move around alone, but no reported active bleeding, palpitation. No nausea or vomiting. The patient still has intermittent period of mild shortness of breath with wheezing, for which she was immediately treated in the floor. The entire chart is reviewed including, but not limited to the most recent lab and radiology study results, current and the previous medication list, current and the previous medical events, and today's blood glucose level reported to be 218, with reported before low calcium and low as well as low sodium, with leukocytosis and low hemoglobin and hematocrit before. PHYSICAL EXAMINATION: GENERAL: An 81-year-old female. VITAL SIGNS: Afebrile, with heart rate of 94, respiratory rate 20 to 22, blood pressure 150/70. HEENT: Showed mildly pale dry oral mucous membrane, nonicteric sclerae. LUNGS: Few scattered crepitation. Decreased air entry at bases. There was mild wheezing bilaterally. HEART: Positive S1 and S2, with mild increase of rate. ABDOMEN: Soft, with slight generalized tenderness. No mass or organomegaly. No rebound tenderness or guarding. RECTAL: Deferred due to the patient's pulmonary and cardiac status. EXTREMITIES: Mild lower extremities edematous changes. No clubbing or cyanosis. NEUROLOGIC: No reported new neurological deficits, sensory or motor. IMPRESSION: 1. Re-exacerbation of peptic ulcer disease. 2. Anemia to rule out lower gastrointestinal tract source of blood loss versus occult malignancy. 3. Electrolyte imbalance with hyponatremia. 4. Known history of hypertension with congestive heart failure. 5. Re-exacerbation of peptic ulcer disease. 6. Electrolyte imbalance with hypocalcemia. 7. Drug-induced coagulopathy. 8. Cardiac arrhythmia, seen and evaluated by the business analysis consultant. SUGGESTIONS: 1. Continue current management. 2. Follow up CEA and CA-125 level. 3. Guaiac x3. 4. No further aggressive GI work up, including colonoscopy in the meantime until the patient is more stable clinically. Nalini Richter MD [facility] # [id number]
[2017-06-09 14:56] LABS: CREATININE, RANDOM URINE 40.2 mg/dL
--- NOTE | 2017-06-09 20:09 | CP.PCM.CON ---
History of Present Illness - History of Present Illness History of Present Illness: hyponatremia Past Patient History - Past Medical History & Family History Past Medical History?: Yes - Past Social History Smoking Status: Never Smoked - CARDIAC Hx Cardiac Disorders: Yes Hx Hypercholesterolemia: Yes Hx Hypertension: Yes - PULMONARY Hx Respiratory Disorders: Yes Hx Asthma: Yes - NEUROLOGICAL Hx Neurological Disorder: No - HEENT Hx HEENT Problems: No - RENAL Hx Chronic Kidney Disease: No - ENDOCRINE/METABOLIC Hx Endocrine Disorders: Yes Hx Hypothyroidism: Yes - HEMATOLOGICAL/ONCOLOGICAL Hx Blood Disorders: No - INTEGUMENTARY Hx Dermatological Problems: No - MUSCULOSKELETAL/RHEUMATOLOGICAL Hx Musculoskeletal Disorders: No Hx Falls: No - GASTROINTESTINAL Hx Gastrointestinal Disorders: Yes Hx Gastroesophageal Reflux: Yes - GENITOURINARY/GYNECOLOGICAL Hx Genitourinary Disorders: No - PSYCHIATRIC Hx Psychophysiologic Disorder: No Hx Substance Use: No - SURGICAL HISTORY Other/Comment: Breast biopsy procedure 10/08/13 - ANESTHESIA Hx Anesthesia: Yes Hx Anesthesia Reactions: No Hx Malignant Hyperthermia: No Meds Allergies/Adverse Reactions: Allergies Allergy/AdvReac Type Severity Reaction Status Date / Time aspirin Allergy Verified 06/04/17 17:31 chicken derived Allergy Verified 06/04/17 17:31 orange Allergy Verified 06/04/17 17:31 peanut Allergy Verified 06/04/17 17:31 Penicillins Allergy Verified 06/04/17 17:31 rice Allergy Verified 06/04/17 17:31 tomato Allergy Verified 06/04/17 17:31 wheat Allergy Verified 06/04/17 17:31 chocolate Allergy Uncoded 05/29/17 12:55 cockroaches Allergy Uncoded 10/14/12 22:26 dairy products Allergy Uncoded 05/29/17 12:55 Dust Allergy Uncoded 10/14/12 22:10 Pollen Allergy Uncoded 10/14/12 22:10 seafood Allergy Uncoded 05/29/17 12:55 tomatoes Allergy Uncoded 10/14/12 22:26 - Medications Medications: Current Medications Acetaminophen (Tylenol 650mg/20.3ml Solution Ud) 650 mg PO Q4 PRN PRN Reason: pain and headache Last Admin: 06/05/17 18:05 Dose: 650 mg Al Hydrox/Mg Hydrox/Simethicone (Maalox Plus 30 Ml) 30 ml PO 5XD PRN PRN Reason: gerd Albuterol/Ipratropium (Duoneb 3 Mg/0.5 Mg (3 Ml) Ud) 3 ml IH RQID [facility] Last Admin: 06/09/17 19:37 Dose: 3 ml Amlodipine Besylate (Norvasc) 5 mg PO DAILY [facility] Calcium/Vitamin D (Oyster Shell Calcium/Vitamin D 500 Mg-200 Iu) 1 tab PO DAILY [facility] Last Admin: 06/09/17 12:28 Dose: 1 tab Guaifenesin (Robitussin) 200 mg PO Q4H PRN PRN Reason: Cough and congestion Aztreonam 2 gm/ Sodium (Chloride) 100 mls @ 200 mls/hr IVPB Q8H [facility] Last Admin: 06/09/17 12:29 Dose: 200 mls/hr Insulin Human Regular (Novolin R) 0 unit SC ACHS [facility] PRN Reason: Protocol Last Admin: 06/09/17 18:06 Dose: 2 unit Lactulose (Enulose) 10 gm PO TID PRN PRN Reason: Constipation Levothyroxine Sodium (Synthroid) 88 mcg PO DAILY@0630 [facility] Last Admin: 06/09/17 07:59 Dose: 88 mcg Methylprednisolone (Solu-Medrol) 40 mg IVP DAILY [facility] Metoclopramide HCl (Reglan) 5 mg IVP Q6 [facility] Last Admin: 06/09/17 18:07 Dose: 5 mg Rosuvastatin Calcium (Crestor) 5 mg PO HS [facility] Last Admin: 06/08/17 22:35 Dose: 5 mg Results - Vital Signs Recent Vital Signs: Last Vital Signs Temp 99.2 F 06/09/17 15:28 Pulse 99 H 06/09/17 15:28 Resp 18 06/09/17 15:28 BP 127/68 06/09/17 15:28 Pulse Ox 98 06/09/17 15:28 - Labs Result Diagrams: 06/09/17 08:43 06/09/17 08:43 Labs: Laboratory Results - last 24 hr 06/08/17 06/09/17 06/09/17 21:13 06:28 08:43 WBC 18.2 H RBC 3.00 L Hgb 9.0 L Hct 27.0 L MCV 89.9 MCH 29.9 MCHC 33.3 RDW 13.6 Plt Count 457 H MPV 6.7 L Neut % (Auto) 74.6 Lymph % (Auto) 14.9 L [place] % (Auto) 9.9 Eos % (Auto) 0.1 Baso % (Auto) 0.5 Neut # 13.6 H Lymph # 2.7 [place] # 1.8 H Eos # 0.0 Baso # 0.1 Puncture Site pCO2 pO2 HCO3 ABG pH ABG Total CO2 ABG O2 Saturation ABG Base Excess Pb Test Liter Flow Sodium Potassium Chloride Carbon Dioxide Anion Gap BUN Creatinine Est GFR ( Amer) Est GFR (Non-Af Amer) POC Glucose (mg/dL) 238 H 218 H Random Glucose Calcium Total Bilirubin AST ALT Alkaline Phosphatase Total Protein Albumin Globulin Albumin/Globulin Ratio Urine Osmolality Ur Random Creatinine Ur Random Sodium Urine Microalbumin 06/09/17 06/09/17 06/09/17 08:43 10:22 11:43 WBC RBC Hgb Hct MCV MCH MCHC RDW Plt Count MPV Neut % (Auto) Lymph % (Auto) [place] % (Auto) Eos % (Auto) Baso % (Auto) Neut # Lymph # [place] # Eos # Baso # Puncture Site pCO2 pO2 HCO3 ABG pH ABG Total CO2 ABG O2 Saturation ABG Base Excess Pb Test Liter Flow Sodium 129 L Potassium 4.1 Chloride 97 L Carbon Dioxide 25 Anion Gap 12 BUN 9 Creatinine 0.6 L Est GFR ( Amer) > 60 Est GFR (Non-Af Amer) > 60 POC Glucose (mg/dL) 191 H Random Glucose 206 H Calcium 8.4 L Total Bilirubin 0.5 AST 17 ALT 25 Alkaline Phosphatase 94 Total Protein 6.1 L Albumin 3.2 L Globulin 2.9 Albumin/Globulin Ratio 1.1 Urine Osmolality 426 Ur Random Creatinine 40.2 Ur Random Sodium 132 Urine Microalbumin 06/09/17 06/09/17 06/09/17 12:08 13:30 16:55 WBC RBC Hgb Hct MCV MCH MCHC RDW Plt Count MPV Neut % (Auto) Lymph % (Auto) [place] % (Auto) Eos % (Auto) Baso % (Auto) Neut # Lymph # [place] # Eos # Baso # Puncture Site Rra pCO2 32 L pO2 86 HCO3 26.8 ABG pH 7.50 H ABG Total CO2 26.0 ABG O2 Saturation 100.1 H ABG Base Excess 2.4 Pb Test Pos Liter Flow 2.0 Sodium Potassium Chloride Carbon Dioxide Anion Gap BUN Creatinine Est GFR ( Amer) Est GFR (Non-Af Amer) POC Glucose (mg/dL) 240 H Random Glucose Calcium Total Bilirubin AST ALT Alkaline Phosphatase Total Protein Albumin Globulin Albumin/Globulin Ratio Urine Osmolality Ur Random Creatinine Ur Random Sodium Urine Microalbumin 34.3 H Assessment & Plan (1) Hyponatremia Assessment and Plan: Endocrine consult reason for consult: hyponatremia notified today 06/09/2017 Source: pt's record , pt seen awake & alert on Bipap is y/o admitted for nausea & vomiting as per chart review pt. with past medical history significant for hypothyroidism, asthma, and diabetes type II presented to [facility] (formerly [facility]) with several days of nausea and vomiting. Before 2016, patient was fully independent and could perform all IADLs, lived alone. , patient fell and broke her arm (it was a mechanical fall), was admitted to [facility] , and was discharged to a rehab facility. At this rehab facility, patient had poor po intake and "was unable to keep anything down." She was then brought to [facility] [place] due to nausea and vomiting and mild confusion.on admission patient was found to be hypokalemic, hyponatremic, and severely dehydrated. s/p SVT with RBBB and heart rate of 162. pt on Methyl predispose 40 mg qd & also with hypothyroidism on synthyroid 88 mcg po qd Allergy noted Past medical history: as above Past surgical history: denies Psychiatry history: denies Social history : denies smoking , ETOH use , illicit drug use Family history : DM ROS: Constitutional: denies fever, tiredness/weakness. HEENT: denies earache, change in voice .Respiratory: denies cough, sob . CVS :no chest pain, no palpitations . Abdomen: no abdominal pain, no nausea /vomiting, no change bowel movement. 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 Extremities: no edema, no tremors. Skin: no itching, no rash Physical exam Well-developed Awake & alet with mild SOB on Bipap , unable to talk clearly VSS HEENT: norm cephalic, atraumatic, no lid lag , no exophthalmos NECK: supple, no palpable lymphadenopathy THYROID: no palpable thyromegaly, not tender CHEST: fair air entry, bilateral, CVS: S1,S2 ABDOMEN: bowel sound present, benign, obese, no wide purple striae , no bruises EXTREMITIES: trace pitting edema, clubbing or cyanosis, no palpable hand tremors Skin: acanthosis nigricans lab: Na 115 on admission , elevated LFTS , Urine osm 258 06/08 Na 132 , 06/09 129 , corrected with glucose : 130.6 , cmp wnl tsh 4.52 , ft4 1.9 , u/a (+) WBC & LE , cortisol @ 8am , 7.7 06/06 repeat 8am 23 & 31.9 CXR (+) patchy increase marking bilateral Assessment hyponatremia , asymtomatic hypothyroidism nauease & vomiting arrythemia plan on Methyl-prednisone 40 mg qd , ? cortisol level done while on steroids ! continue synthroid 88 mcg po qd Thank you for allowing me to participate in the care of the patient, we will follow with you. Status: Acute (2) Nausea & vomiting Status: Acute (3) Hypothyroidism Status: Acute - Date & Time Date: 06/09/17 Time: 03:00
--- NOTE | 2017-06-09 21:12 | CP.PCM.PN ---
Subjective - Date & Time of Evaluation Date of Evaluation: 06/09/17 Time of Evaluation: 18:00 - Subjective Subjective: pt is seen and examined Objective - Vital Signs/Intake and Output Vital Signs (last 24 hours): Temp Pulse Resp BP Pulse Ox 99.2 F 99 H 18 127/68 98 06/09/17 15:28 06/09/17 15:28 06/09/17 15:28 06/09/17 15:28 06/09/17 15:28 - Medications Medications: Current Medications Acetaminophen (Tylenol 650mg/20.3ml Solution Ud) 650 mg PO Q4 PRN PRN Reason: pain and headache Last Admin: 06/05/17 18:05 Dose: 650 mg Al Hydrox/Mg Hydrox/Simethicone (Maalox Plus 30 Ml) 30 ml PO 5XD PRN PRN Reason: gerd Albuterol/Ipratropium (Duoneb 3 Mg/0.5 Mg (3 Ml) Ud) 3 ml IH RQID [facility] Last Admin: 06/09/17 19:37 Dose: 3 ml Amlodipine Besylate (Norvasc) 5 mg PO DAILY [facility] Calcium/Vitamin D (Oyster Shell Calcium/Vitamin D 500 Mg-200 Iu) 1 tab PO DAILY [facility] Last Admin: 06/09/17 12:28 Dose: 1 tab Guaifenesin (Robitussin) 200 mg PO Q4H PRN PRN Reason: Cough and congestion Aztreonam 2 gm/ Sodium (Chloride) 100 mls @ 200 mls/hr IVPB Q8H [facility] Last Admin: 06/09/17 12:29 Dose: 200 mls/hr Insulin Human Regular (Novolin R) 0 unit SC ACHS [facility] PRN Reason: Protocol Last Admin: 06/09/17 18:06 Dose: 2 unit Lactulose (Enulose) 10 gm PO TID PRN PRN Reason: Constipation Levothyroxine Sodium (Synthroid) 88 mcg PO DAILY@0630 [facility] Last Admin: 06/09/17 07:59 Dose: 88 mcg Methylprednisolone (Solu-Medrol) 40 mg IVP DAILY [facility] Metoclopramide HCl (Reglan) 5 mg IVP Q6 [facility] Last Admin: 06/09/17 18:07 Dose: 5 mg Rosuvastatin Calcium (Crestor) 5 mg PO HS [facility] Last Admin: 01/27/18 22:35 Dose: 5 mg - Labs Labs: 06/09/17 08:43 06/09/17 08:43 PT 14.5 SECONDS (9.7-12.2) H 06/06/17 16:54 INR 1.3 06/06/17 16:54 APTT 35 SECONDS (21-34) H 06/06/17 16:54 Assessment and Plan (1) Anemia Status: Acute (2) Electrolyte abnormality Status: Acute (3) Hyponatremia Status: Acute (4) Nausea & vomiting Status: Acute (5) HTN (hypertension) Status: Chronic (6) Asthma with acute exacerbation Status: Acute (7) GERD (gastroesophageal reflux disease) Status: Acute
[2017-06-10] MEDS: Aztreonam 2 GM in Sodium Chloride 0.9% 100 ML IVPB SCH ×2 (04:53→13:02)
[2017-06-10] MEDS: Levothyroxine 88 MCG TAB PO SCH (06:50)
[2017-06-10] MEDS: Albuterol-Ipratrop 3 mg / 0.5 (3 ml) UD IH SCH ×2 (07:32→11:21)
[2017-06-10] MEDS: (Novolin R) Insulin Human Regular 100 units/ml vial SC SCH ×4 (08:11→21:34)
[2017-06-10] MEDS: MethylPREDNISolone 40 mg Vial IVP SCH (10:30)
[2017-06-10] MEDS: Calcium-Vit D 500 mg-200 Units Tab UD PO SCH (10:30)
--- NOTE | 2017-06-10 12:31 | CP.PCM.PN ---
<CherylZane - Last Filed: 06/10/17 12:28> Subjective - Date & Time of Evaluation Date of Evaluation: 06/10/17 Time of Evaluation: 12:28 - Subjective Subjective: Cardiology Progress Note for Dr. Cisse Pt seen and examined at bedside. No acute overnight events. Pt is still short of breath 2/2 asthma, currently on IV solumedrol. Pt tachycardiac as well, but no evidence of SVT since episode on 06/05. Pt denied CP, abdominal pain, fever, chills, CARVAJAL, or dizziness. Objective - Vital Signs/Intake and Output Vital Signs (last 24 hours): Temp Pulse Resp BP Pulse Ox 97.5 F L 118 H 20 147/77 100 06/10/17 08:17 06/10/17 11:31 06/10/17 08:17 06/10/17 08:17 06/10/17 08:17 - Medications Medications: Current Medications Acetaminophen (Tylenol 650mg/20.3ml Solution Ud) 650 mg PO Q4 PRN PRN Reason: pain and headache Last Admin: 06/05/17 18:05 Dose: 650 mg Al Hydrox/Mg Hydrox/Simethicone (Maalox Plus 30 Ml) 30 ml PO 5XD PRN PRN Reason: gerd Albuterol/Ipratropium (Duoneb 3 Mg/0.5 Mg (3 Ml) Ud) 3 ml IH RQID [facility] Last Admin: 06/10/17 11:21 Dose: 3 ml Amlodipine Besylate (Norvasc) 5 mg PO DAILY [facility] Last Admin: 06/10/17 10:30 Dose: 5 mg Calcium/Vitamin D (Oyster Shell Calcium/Vitamin D 500 Mg-200 Iu) 1 tab PO DAILY [facility] Last Admin: 06/10/17 10:30 Dose: 1 tab Guaifenesin (Robitussin) 200 mg PO Q4H PRN PRN Reason: Cough and congestion Aztreonam 2 gm/ Sodium (Chloride) 100 mls @ 200 mls/hr IVPB Q8H [facility] Last Admin: 06/10/17 04:53 Dose: 200 mls/hr Insulin Human Regular (Novolin R) 0 unit SC ACHS [facility] PRN Reason: Protocol Last Admin: 06/10/17 08:11 Dose: Not Given Lactulose (Enulose) 10 gm PO TID PRN PRN Reason: Constipation Levothyroxine Sodium (Synthroid) 88 mcg PO DAILY@0630 [facility] Last Admin: 06/10/17 06:50 Dose: 88 mcg Methylprednisolone (Solu-Medrol) 40 mg IVP DAILY [facility] Last Admin: 06/10/17 10:30 Dose: 40 mg Metoclopramide HCl (Reglan) 5 mg IVP Q6 [facility] Last Admin: 06/10/17 06:49 Dose: 5 mg Metoprolol Succinate (Toprol Xl) 25 mg PO DAILY [facility] Rosuvastatin Calcium (Crestor) 5 mg PO HS [facility] Last Admin: 06/09/17 22:01 Dose: 5 mg - Labs Labs: 06/09/17 08:43 06/09/17 08:43 PT 14.5 SECONDS (9.7-12.2) H 06/06/17 16:54 INR 1.3 06/06/17 16:54 APTT 35 SECONDS (21-34) H 06/06/17 16:54 - Constitutional Appears: No Acute Distress - Head Exam Head Exam: NORMAL INSPECTION - Eye Exam Eye Exam: Normal appearance - Neck Exam Neck Exam: Normal Inspection - Respiratory Exam Respiratory Exam: Decreased Breath Sounds, Respiratory Distress. absent: Accessory Muscle Use, Rales, Rhonchi, Wheezes - Cardiovascular Exam Cardiovascular Exam: RRR, +S1, +S2. absent: Clicks, Diastolic murmur, Gallop, Rubs, Murmur - GI/Abdominal Exam GI & Abdominal Exam: Soft. absent: Distended, Guarding, Tenderness, Rebound - Extremities Exam Extremities Exam: Normal Inspection - Neurological Exam Neurological Exam: Alert, Awake, Oriented x3 Assessment and Plan - Assessment and Plan (Free Text) Assessment: 81 year old female with past medical history of hypertension, diabetes, and asthma presented with intractible nausea and vomiting. Cardiology consulted due to SVT. ACS ruled out as Troponins are negative X3. No evidence of SVT since admission. Patient is also dehydrated with multiple electrolyte abnormalities. Plan: SVT, likely 2/2 Dehydration; Resolved - EKG on 06/05 showed RBBB, wide-QRS complex tachycardia, and signs of inferolateral ischemia Follow up ekg showed NSR with RBBB - Current tachycardia likely 2/2 asthma exacerbation - ACS ruled out as Cardiac Enzymes negative x3 - ECHO showed EF 50-55% and mild MR - Started Toprol XL 25 mg PO daily - Would recommend outpatient stress test Electrolyte Abnormalities - Management per primary and nephro Dehydration - Management per primary and nephro Diabetes - Management per primary Asthma Exacerbation - Management per primary DVT/GI Prophylaxis - As per primary Pt seen and discussed in detail with Dr. Cisse. Prince Luna, PGY1 <Sanchez Cisse - Last Filed: 06/10/17 23:21> Objective - Vital Signs/Intake and Output Vital Signs (last 24 hours): Temp Pulse Resp BP Pulse Ox 97.7 F 85 18 112/61 100 06/10/17 15:47 06/10/17 16:00 06/10/17 15:47 06/10/17 15:47 06/10/17 15:47 Intake and Output: 06/10/17 06/11/17 18:59 06:59 Intake Total 300 Balance 300 - Medications Medications: Current Medications Acetaminophen (Tylenol 650mg/20.3ml Solution Ud) 650 mg PO Q4 PRN PRN Reason: pain and headache Last Admin: 06/05/17 18:05 Dose: 650 mg Al Hydrox/Mg Hydrox/Simethicone (Maalox Plus 30 Ml) 30 ml PO 5XD PRN PRN Reason: gerd Albuterol/Ipratropium (Duoneb 3 Mg/0.5 Mg (3 Ml) Ud) 3 ml INH RQ4 [facility] Last Admin: 06/10/17 20:51 Dose: 3 ml Amlodipine Besylate (Norvasc) 5 mg PO DAILY [facility] Last Admin: 06/10/17 10:30 Dose: 5 mg Calcium/Vitamin D (Oyster Shell Calcium/Vitamin D 500 Mg-200 Iu) 1 tab PO DAILY [facility] Last Admin: 06/10/17 10:30 Dose: 1 tab Guaifenesin (Robitussin) 200 mg PO Q4H PRN PRN Reason: Cough and congestion Heparin Sodium (Porcine) (Heparin) 5,000 units SC Q12H [facility] Last Admin: 06/10/17 21:42 Dose: 5,000 units Moxifloxacin HCl (Avelox Iv 400mg/250ml Ns) 400 mg in 250 mls @ 167 mls/hr IVPB Q24H [facility] Insulin Human Regular (Novolin R) 0 unit SC ACHS [facility] PRN Reason: Protocol Last Admin: 06/10/17 21:34 Dose: Not Given Lactulose (Enulose) 10 gm PO TID PRN PRN Reason: Constipation Levothyroxine Sodium (Synthroid) 88 mcg PO DAILY@0630 [facility] Last Admin: 06/10/17 06:50 Dose: 88 mcg Magnesium Oxide (Mag-Ox) 400 mg PO BID [facility] Last Admin: 06/10/17 19:52 Dose: 400 mg Methylprednisolone (Solu-Medrol) 40 mg IVP DAILY [facility] Last Admin: 06/10/17 10:30 Dose: 40 mg Metoclopramide HCl (Reglan) 5 mg IVP Q6 [facility] Last Admin: 06/10/17 17:58 Dose: 5 mg Metoprolol Succinate (Toprol Xl) 25 mg PO DAILY [facility] Last Admin: 06/10/17 15:00 Dose: 25 mg Rosuvastatin Calcium (Crestor) 5 mg PO HS [facility] Last Admin: 06/10/17 21:41 Dose: 5 mg Fluticasone/Salmeterol (Advair Diskus 250/50) 1 puff INH RQ12 [facility] Last Admin: 06/10/17 20:52 Dose: 1 puff - Labs Labs: 06/10/17 13:57 06/10/17 13:57 PT 14.5 SECONDS (9.7-12.2) H 06/06/17 16:54 INR 1.3 06/06/17 16:54 APTT 35 SECONDS (21-34) H 06/06/17 16:54 Attending/Attestation - Attestation I have personally seen and examined this patient.: Yes I have fully participated in the care of the patient.: Yes I have reviewed all pertinent clinical information, including history, physical exam and plan: Yes Notes (Text): 06/10/17 23:20 started on BB further titration based on clinical response
[2017-06-10 14:09] LABS: HEMOGLOBIN 8.3 g/dL (11.0-16.0); LYMPH # 2.4 K/uL (1.0-4.3); LYMPH % 8.3 % (20.0-40.0); MEAN CELL VOLUME 89.1 fL (81.0-99.0); MEAN CORPUSCULAR HEMOGLOBIN 29.2 pg (27.0-31.0); MEAN CORPUSCULAR HGB CONC 32.8 g/dL (33.0-37.0); MEAN PLATELET VOLUME 6.8 fL (7.2-11.7); MONO # 2.3 K/uL (0.0-0.8); MONO % 8.2 % (0.0-10.0); NEUT # 23.9 K/uL (1.8-7.0); NEUT % 83.5 % (50.0-75.0); NRBC % 0.1 % (0.0-2.0); PLATELET COUNT 368 K/uL (130-400); RBC 2.84 Mil/uL (3.80-5.20); RED CELL DISTRIBUTION WIDTH 13.1 % (11.5-14.5)
[2017-06-10 14:16] LABS: WHITE BLOOD COUNT 28.6 K/uL (4.8-10.8)
[2017-06-10 14:28] LABS: ALBUMIN 2.9 g/dL (3.5-5.0); ALT/SGPT 27 U/L (9-52); AST/SGOT 14 U/L (14-36); BLOOD UREA NITROGEN 12 mg/dL (7-17); CALCIUM 7.9 mg/dl (8.6-10.4); GFR AFRICAN-AMERICAN > 60; GFR NON-AFRICAN AMERICAN > 60; MAGNESIUM 1.5 mg/dL (1.6-2.3)
[2017-06-10] MEDS: Metoprolol Succinate 25 mg XL Tab PO SCH (15:00)
[2017-06-10 15:59] LABS: BANDS 7 % (0-2); LYMPHOCYTE 6 % (20-40); METAMYELOCYTE 1 % (0-0); MONOCYTE 4 % (0-10); TOTAL CELLS COUNTED 100
[2017-06-10 16:00] LABS: HYPOCHROMIC SLIGHT; MYELOCYTE 1 % (0-0); NEUTROPHIL 81 % (50-75); PLATELET ESTIMATE NORMAL (NORMAL); POLYCHROMIC SLIGHT
[2017-06-10] MEDS: Albuterol-Ipratrop 3 mg / 0.5 (3 ml) UD INH SCH ×2 (16:30→20:51)
[2017-06-10] MEDS ORDERED: Moxifloxacin IV 400mg/250ml NS 400 MG/250 ML BAG IVPB ONE (18:55)
--- NOTE | 2017-06-10 19:12 | CP.PCM.PN ---
Subjective - Date & Time of Evaluation Date of Evaluation: 06/10/17 Time of Evaluation: 13:00 - Subjective Subjective: Patient not eating much; reportedly still with labored breathing; didn't tolerate BIPAP yesterday; Objective - Vital Signs/Intake and Output Vital Signs (last 24 hours): Temp Pulse Resp BP Pulse Ox 97.7 F 85 18 112/61 100 06/10/17 15:47 06/10/17 16:00 06/10/17 15:47 06/10/17 15:47 06/10/17 15:47 Intake and Output: 06/10/17 06/11/17 18:59 06:59 Intake Total 300 Balance 300 - Medications Medications: Current Medications Acetaminophen (Tylenol 650mg/20.3ml Solution Ud) 650 mg PO Q4 PRN PRN Reason: pain and headache Last Admin: 06/05/17 18:05 Dose: 650 mg Al Hydrox/Mg Hydrox/Simethicone (Maalox Plus 30 Ml) 30 ml PO 5XD PRN PRN Reason: gerd Albuterol/Ipratropium (Duoneb 3 Mg/0.5 Mg (3 Ml) Ud) 3 ml INH RQ4 [facility] Last Admin: 06/10/17 16:30 Dose: 3 ml Amlodipine Besylate (Norvasc) 5 mg PO DAILY [facility] Last Admin: 06/10/17 10:30 Dose: 5 mg Calcium/Vitamin D (Oyster Shell Calcium/Vitamin D 500 Mg-200 Iu) 1 tab PO DAILY [facility] Last Admin: 06/10/17 10:30 Dose: 1 tab Guaifenesin (Robitussin) 200 mg PO Q4H PRN PRN Reason: Cough and congestion Heparin Sodium (Porcine) (Heparin) 5,000 units SC Q12H [facility] Moxifloxacin HCl (Avelox Iv 400mg/250ml Ns) 400 mg in 250 mls @ 167 mls/hr IVPB ONCE ONE Stop: 06/10/17 20:24 Moxifloxacin HCl (Avelox Iv 400mg/250ml Ns) 400 mg in 250 mls @ 167 mls/hr IVPB Q24H [facility] Insulin Human Regular (Novolin R) 0 unit SC ACHS [facility] PRN Reason: Protocol Last Admin: 06/10/17 17:15 Dose: 3 unit Lactulose (Enulose) 10 gm PO TID PRN PRN Reason: Constipation Levothyroxine Sodium (Synthroid) 88 mcg PO DAILY@0630 [facility] Last Admin: 06/10/17 06:50 Dose: 88 mcg Methylprednisolone (Solu-Medrol) 40 mg IVP DAILY [facility] Last Admin: 06/10/17 10:30 Dose: 40 mg Metoclopramide HCl (Reglan) 5 mg IVP Q6 [facility] Last Admin: 06/10/17 17:58 Dose: 5 mg Metoprolol Succinate (Toprol Xl) 25 mg PO DAILY [facility] Last Admin: 06/10/17 15:00 Dose: 25 mg Rosuvastatin Calcium (Crestor) 5 mg PO HS [facility] Last Admin: 06/09/17 22:01 Dose: 5 mg Fluticasone/Salmeterol (Advair Diskus 250/50) 1 puff INH RQ12 [facility] - Labs Labs: 06/10/17 13:57 06/10/17 13:57 PT 14.5 SECONDS (9.7-12.2) H 06/06/17 16:54 INR 1.3 06/06/17 16:54 APTT 35 SECONDS (21-34) H 06/06/17 16:54 - Constitutional Appears: Non-toxic, No Acute Distress - Eye Exam Eye Exam: absent: Scleral icterus - ENT Exam ENT Exam: Mucous Membranes Moist - Respiratory Exam Additional comments: decreased air movement b/l; diffuse wheezes; - Cardiovascular Exam Cardiovascular Exam: RRR, +S1, +S2 - GI/Abdominal Exam GI & Abdominal Exam: Soft. absent: Distended, Tenderness - Extremities Exam Additional comments: no leg edema; - Neurological Exam Neurological Exam: Alert, Awake - Psychiatric Exam Psychiatric exam: absent: Agitated - Skin Skin Exam: Warm. absent: Cyanosis Assessment and Plan (1) Hyponatremia Assessment & Plan: Again worsened after having improved with IVF and on steroids; endocrine eval appreciated; cortisol and ACTH levels drawn after patient had received single dose of solumedrol 40 mg, possibly enough to distort test results; Anyway, will repeat urine lytes; suspecting salt wasting despite being on solumedrol (doesn't have as much mineralocorticoid activity); will test for plasma renin and simeon levels; will give single dose of tolvpatan 15 mg to correct acute drop in serum Na; Status: Acute (2) HTN (hypertension) Assessment & Plan: Marked drop in BP after single dose of norvasc 10 mg; suspect volume depletion due to salt wasting; norvasc dose decreased to 5 mg and started on toprol XL 25 mg daily by cardio; Status: Chronic (3) Electrolyte abnormality Assessment & Plan: Mild hypomagnesemia and hypophosphatemia; will replace PO; avoiding giving meds in D5W (will worsen hyponatremia); Status: Acute (4) Asthma with acute exacerbation Status: Acute (5) Anemia Status: Acute
[2017-06-10] MEDS ORDERED: Potassium & Sodium Phosphate PO ONE (19:26)
[2017-06-10] MEDS: Magnesium Oxide 400 mg Tab UD PO SCH (19:52)
[2017-06-10] MEDS: Fluticasone-Salmeterol 250-50mcg Diskus INH SCH (20:52)
--- NOTE | 2017-06-10 22:29 | CP.PCM.PN ---
Subjective - Date & Time of Evaluation Date of Evaluation: 06/10/17 Time of Evaluation: 20:00 - Subjective Subjective: Pt seen and examined at bedside. No acute overnight events. Pt is still short of breath 2/2 asthma, currently on IV solumedrol. Pt tachycardiac as well, but no evidence of SVT since episode on 06/05. Pt denied CP, abdominal pain, fever, chills, CARVAJAL, or dizziness. Objective - Vital Signs/Intake and Output Vital Signs (last 24 hours): Temp Pulse Resp BP Pulse Ox 97.7 F 85 18 112/61 100 06/10/17 15:47 06/10/17 16:00 06/10/17 15:47 06/10/17 15:47 06/10/17 15:47 Intake and Output: 06/10/17 06/11/17 18:59 06:59 Intake Total 300 Balance 300 - Medications Medications: Current Medications Acetaminophen (Tylenol 650mg/20.3ml Solution Ud) 650 mg PO Q4 PRN PRN Reason: pain and headache Last Admin: 06/05/17 18:05 Dose: 650 mg Al Hydrox/Mg Hydrox/Simethicone (Maalox Plus 30 Ml) 30 ml PO 5XD PRN PRN Reason: gerd Albuterol/Ipratropium (Duoneb 3 Mg/0.5 Mg (3 Ml) Ud) 3 ml INH RQ4 [facility] Last Admin: 06/10/17 20:51 Dose: 3 ml Amlodipine Besylate (Norvasc) 5 mg PO DAILY [facility] Last Admin: 06/10/17 10:30 Dose: 5 mg Calcium/Vitamin D (Oyster Shell Calcium/Vitamin D 500 Mg-200 Iu) 1 tab PO DAILY [facility] Last Admin: 06/10/17 10:30 Dose: 1 tab Guaifenesin (Robitussin) 200 mg PO Q4H PRN PRN Reason: Cough and congestion Heparin Sodium (Porcine) (Heparin) 5,000 units SC Q12H [facility] Last Admin: 06/10/17 21:42 Dose: 5,000 units Moxifloxacin HCl (Avelox Iv 400mg/250ml Ns) 400 mg in 250 mls @ 167 mls/hr IVPB Q24H [facility] Insulin Human Regular (Novolin R) 0 unit SC ACHS [facility] PRN Reason: Protocol Last Admin: 06/10/17 21:34 Dose: Not Given Lactulose (Enulose) 10 gm PO TID PRN PRN Reason: Constipation Levothyroxine Sodium (Synthroid) 88 mcg PO DAILY@0630 [facility] Last Admin: 06/10/17 06:50 Dose: 88 mcg Magnesium Oxide (Mag-Ox) 400 mg PO BID [facility] Last Admin: 06/10/17 19:52 Dose: 400 mg Methylprednisolone (Solu-Medrol) 40 mg IVP DAILY [facility] Last Admin: 06/10/17 10:30 Dose: 40 mg Metoclopramide HCl (Reglan) 5 mg IVP Q6 [facility] Last Admin: 06/10/17 17:58 Dose: 5 mg Metoprolol Succinate (Toprol Xl) 25 mg PO DAILY [facility] Last Admin: 06/10/17 15:00 Dose: 25 mg Rosuvastatin Calcium (Crestor) 5 mg PO HS [facility] Last Admin: 06/10/17 21:41 Dose: 5 mg Fluticasone/Salmeterol (Advair Diskus 250/50) 1 puff INH RQ12 [facility] Last Admin: 06/10/17 20:52 Dose: 1 puff - Labs Labs: 06/10/17 13:57 06/10/17 13:57 PT 14.5 SECONDS (9.7-12.2) H 06/06/17 16:54 INR 1.3 06/06/17 16:54 APTT 35 SECONDS (21-34) H 06/06/17 16:54 Assessment and Plan (1) Anemia Status: Acute (2) Electrolyte abnormality Status: Acute (3) Hyponatremia Status: Acute (4) Nausea & vomiting Status: Acute (5) HTN (hypertension) Status: Chronic (6) Asthma with acute exacerbation Status: Acute (7) GERD (gastroesophageal reflux disease) Status: Acute
[2017-06-11] MEDS ORDERED: Tolvaptan 15 MG TAB PO ONE (00:02)
[2017-06-11] MEDS: Albuterol-Ipratrop 3 mg / 0.5 (3 ml) UD INH SCH ×6 (00:23→19:40)
[2017-06-11 00:39] LABS: URINE BILIRUBIN NEGATIVE (NEGATIVE); URINE BLOOD 1+ (NEGATIVE); URINE CLARITY Clear (Clear); URINE COLOR Straw (YELLOW); URINE GLUCOSE (UA) 1+ mg/dL (Normal); URINE LEUKOCYTE ESTERASE NEG Leu/uL (Negative); URINE NITRATE NEGATIVE (NEGATIVE); URINE PROTEIN NEGATIVE (NEGATIVE); URINE UROBILINOGEN NORMAL mg/dL (0.2-1.0)
[2017-06-11 01:31] LABS: OSMOLALITY,URINE 122 mosm/kg (300-1000)
[2017-06-11] MEDS: Levothyroxine 88 MCG TAB PO SCH (05:32)
[2017-06-11 07:19] LABS: BASO % 0.1 % (0.0-2.0); HEMOGLOBIN 8.2 g/dL (11.0-16.0); LYMPH # 2.7 K/uL (1.0-4.3); LYMPH % 10.5 % (20.0-40.0); MEAN CELL VOLUME 89.5 fL (81.0-99.0); MEAN CORPUSCULAR HGB CONC 33.6 g/dL (33.0-37.0); MEAN PLATELET VOLUME 7.2 fL (7.2-11.7); MONO # 2.1 K/uL (0.0-0.8); NEUT # 21.2 K/uL (1.8-7.0); NEUT % 81.4 % (50.0-75.0); RBC 2.72 Mil/uL (3.80-5.20); RED CELL DISTRIBUTION WIDTH 13.6 % (11.5-14.5)
[2017-06-11 07:53] LABS: ALB/GLOB RATIO 1.1 (1.0-2.1); ALBUMIN 2.9 g/dL (3.5-5.0); ALT/SGPT 23 U/L (9-52); AST/SGOT 16 U/L (14-36); BLOOD UREA NITROGEN 13 mg/dL (7-17); CALCIUM 7.7 mg/dl (8.6-10.4); GFR AFRICAN-AMERICAN > 60; GFR NON-AFRICAN AMERICAN > 60; MAGNESIUM 1.9 mg/dL (1.6-2.3)
[2017-06-11] MEDS: Fluticasone-Salmeterol 250-50mcg Diskus INH SCH (08:03)
[2017-06-11] MEDS: (Novolin R) Insulin Human Regular 100 units/ml vial SC SCH ×4 (08:22→22:50)
--- NOTE | 2017-06-11 08:56 | RAD ---
Chest x-ray single frontal view History: Pneumonia. Comparison: 06/06/2017 Findings Increased opacification seen within the left mid to lower lung zone as well as at the left lung base with associated small left pleural effusion. Prominent diffuse increased interstitial lung markings. Biapical pleural thickening with upper lobe granulomatous changes. Cardiomegaly with calcification at the aortic knob. Degenerative changes in the spine with paravertebral osteophytes. Impression: Increased opacification seen within the left mid to lower lung zone as well as at the left lung base with associated small left pleural effusion. Prominent diffuse increased interstitial lung markings. Biapical pleural thickening with upper lobe granulomatous changes. Cardiomegaly with calcification at the aortic knob.
--- NOTE | 2017-06-11 09:14 | PN ---
DATE: LOCATION: [facility], bed A. SUBJECTIVE: This is an 81-year-old female, seen and examined in rounds with intermittent period of shortness of breath with dry cough on and off, but without any reported active bleeding with complaint of mild nausea with dyspepsia as well as abdominal pain, mainly in the midepigastric and midabdominal line. No reported cardiac arrhythmia by the rn cardiac strip. The entire chart is reviewed including but not limited to the most recent lab and radiology study results, current and the previous medication list, current and the previous medical events and the latest lab workup yesterday showed leukocytosis of 18.2 with low hemoglobin 9.0, low hematocrit 27.0 with thrombosis of 457 with reported abnormal ABGs. Today's blood glucose level was 144 and the patient before reported to have low albumin 3.2, low total protein 6.1. PHYSICAL EXAMINATION: GENERAL: An 81-year-old female. Awake, alert, oriented. Complaining of some shortness of breath. VITAL SIGNS: Afebrile with pulse of 104, respiratory rate 20 to 22, blood pressure 136/74. HEENT: Showed mildly pale dry oral mucous membrane. Nonicteric sclerae. LUNGS: Few scattered crepitation. Decreased air entry at bases. HEART: Positive S1 and S2 with increased rate. ABDOMEN: Soft. Mildly obese with mild generalized tenderness. No mass or organomegaly. No rebound tenderness or guarding, but generalized tenderness mainly in the midepigastric and the lower quadrant area. RECTAL: Deferred due to the patient's clinical presentation. EXTREMITIES: Lower extremities with mild edematous changes. No clubbing or cyanosis. NEUROLOGIC: No reported new neurological deficits, sensory or motor. IMPRESSION: 1. Peptic ulcer disease. 2. Electrolyte imbalance. 3. Anemia, most likely secondary to above. The possibility of lower gastrointestinal blood loss was raised. 4. Known history of hypertension with congestive heart failure. 5. Malnutrition with hypoalbuminemia. 6. Known history of cardiac arrhythmias. 7. Drug-induced coagulopathy. 8. Electrolyte imbalance. SUGGESTION: 1. Continue current management. 2. Repeat stool for occult blood. 3. The patient is for colonoscopy only when she is more stable clinically. Otherwise, further evaluation to follow. Nalini Richter MD [facility] # [id number]
[2017-06-11] MEDS: Calcium-Vit D 500 mg-200 Units Tab UD PO SCH (09:32)
[2017-06-11] MEDS: MethylPREDNISolone 40 mg Vial IVP SCH ×2 (09:32→22:49)
[2017-06-11] MEDS: Magnesium Oxide 400 mg Tab UD PO SCH ×2 (09:32→18:17)
[2017-06-11] MEDS: Metoprolol Succinate 25 mg XL Tab PO SCH (09:32)
--- NOTE | 2017-06-11 09:36 | CP.PCM.PN ---
<CherylZane - Last Filed: 06/11/17 09:34> Subjective - Date & Time of Evaluation Date of Evaluation: 06/11/17 Time of Evaluation: 09:34 - Subjective Subjective: Cardiology Progress Note for Dr. Cisse Pt seen and examined at bedside. No acute overnight events. Pt states that breathing is improved and feels that heart is not racing anymore. Pt denied CP, palpitations, n/v/d, abdominal pain, fever, chills, CARVAJAL, or dizziness. Objective - Vital Signs/Intake and Output Vital Signs (last 24 hours): Temp Pulse Resp BP Pulse Ox 97.4 F L 90 20 112/65 98 06/11/17 07:51 06/11/17 07:51 06/11/17 07:51 06/11/17 07:51 06/11/17 07:51 Intake and Output: 06/11/17 06/11/17 06:59 18:59 Intake Total 740 Balance 740 - Medications Medications: Current Medications Acetaminophen (Tylenol 650mg/20.3ml Solution Ud) 650 mg PO Q4 PRN PRN Reason: pain and headache Last Admin: 06/05/17 18:05 Dose: 650 mg Al Hydrox/Mg Hydrox/Simethicone (Maalox Plus 30 Ml) 30 ml PO 5XD PRN PRN Reason: gerd Albuterol/Ipratropium (Duoneb 3 Mg/0.5 Mg (3 Ml) Ud) 3 ml INH RQ4 [facility] Last Admin: 06/11/17 07:46 Dose: 3 ml Amlodipine Besylate (Norvasc) 5 mg PO DAILY [facility] Last Admin: 06/11/17 09:32 Dose: 5 mg Calcium/Vitamin D (Oyster Shell Calcium/Vitamin D 500 Mg-200 Iu) 1 tab PO DAILY [facility] Last Admin: 06/11/17 09:32 Dose: 1 tab Guaifenesin (Robitussin) 200 mg PO Q4H PRN PRN Reason: Cough and congestion Heparin Sodium (Porcine) (Heparin) 5,000 units SC Q12H [facility] Last Admin: 06/11/17 09:32 Dose: 5,000 units Moxifloxacin HCl (Avelox Iv 400mg/250ml Ns) 400 mg in 250 mls @ 167 mls/hr IVPB Q24H [facility] Insulin Human Regular (Novolin R) 0 unit SC ACHS [facility] PRN Reason: Protocol Last Admin: 06/11/17 08:22 Dose: 2 unit Lactulose (Enulose) 10 gm PO TID PRN PRN Reason: Constipation Levothyroxine Sodium (Synthroid) 88 mcg PO DAILY@0630 [facility] Last Admin: 06/11/17 05:32 Dose: 88 mcg Magnesium Oxide (Mag-Ox) 400 mg PO BID [facility] Last Admin: 06/11/17 09:32 Dose: 400 mg Methylprednisolone (Solu-Medrol) 40 mg IVP DAILY [facility] Last Admin: 06/11/17 09:32 Dose: 40 mg Metoclopramide HCl (Reglan) 5 mg IVP Q6 [facility] Last Admin: 06/11/17 05:32 Dose: 5 mg Metoprolol Succinate (Toprol Xl) 25 mg PO DAILY [facility] Last Admin: 06/11/17 09:32 Dose: 25 mg Rosuvastatin Calcium (Crestor) 5 mg PO HS [facility] Last Admin: 06/10/17 21:41 Dose: 5 mg Fluticasone/Salmeterol (Advair Diskus 250/50) 1 puff INH RQ12 [facility] Last Admin: 06/11/17 08:03 Dose: 1 puff - Labs Labs: 06/11/17 07:09 06/11/17 07:09 PT 14.5 SECONDS (9.7-12.2) H 06/06/17 16:54 INR 1.3 06/06/17 16:54 APTT 35 SECONDS (21-34) H 06/06/17 16:54 - Constitutional Appears: No Acute Distress - Head Exam Head Exam: NORMAL INSPECTION - Eye Exam Eye Exam: Normal appearance - ENT Exam ENT Exam: Normal Exam - Neck Exam Neck Exam: Normal Inspection - Respiratory Exam Respiratory Exam: Wheezes. absent: Accessory Muscle Use, Rales, Rhonchi, Respiratory Distress - Cardiovascular Exam Cardiovascular Exam: RRR, +S1, +S2. absent: Clicks, Gallop, Rubs, Murmur - GI/Abdominal Exam GI & Abdominal Exam: Soft. absent: Distended, Guarding, Tenderness, Rebound - Extremities Exam Extremities Exam: absent: Pedal Edema, Tenderness - Neurological Exam Neurological Exam: Alert, Awake, Oriented x3 - Skin Skin Exam: Dry, Intact, Normal Color, Warm Assessment and Plan - Assessment and Plan (Free Text) Assessment: 81 year old female with past medical history of hypertension, diabetes, and asthma presented with intractible nausea and vomiting. Cardiology consulted due to SVT. ACS ruled out as Troponins are negative X3. No evidence of SVT since admission. Patient is also dehydrated with multiple electrolyte abnormalities. Plan: SVT, likely 2/2 Dehydration; Resolved - EKG on 06/05 showed RBBB, wide-QRS complex tachycardia, and signs of inferolateral ischemia Follow up ekg showed NSR with RBBB - Current tachycardia likely 2/2 asthma exacerbation - ACS ruled out as Cardiac Enzymes negative x3 - ECHO showed EF 50-55% and mild MR - Cont Toprol XL 25 mg PO daily - Would recommend outpatient stress test Electrolyte Abnormalities - Management per primary and nephro Dehydration - Management per primary and nephro Diabetes - Management per primary Asthma Exacerbation - Management per primary DVT/GI Prophylaxis - As per primary Pt seen and discussed in detail with Dr. Cisse. Prince Luna, PGY1 <Sanchez Cisse - Last Filed: 06/11/17 12:21> Objective - Vital Signs/Intake and Output Vital Signs (last 24 hours): Temp Pulse Resp BP Pulse Ox 97.4 F L 90 20 112/65 98 06/11/17 07:51 06/11/17 07:51 06/11/17 07:51 06/11/17 07:51 06/11/17 07:51 Intake and Output: 06/11/17 06/11/17 06:59 18:59 Intake Total 740 Balance 740 - Medications Medications: Current Medications Acetaminophen (Tylenol 650mg/20.3ml Solution Ud) 650 mg PO Q4 PRN PRN Reason: pain and headache Last Admin: 06/05/17 18:05 Dose: 650 mg Al Hydrox/Mg Hydrox/Simethicone (Maalox Plus 30 Ml) 30 ml PO 5XD PRN PRN Reason: gerd Albuterol/Ipratropium (Duoneb 3 Mg/0.5 Mg (3 Ml) Ud) 3 ml INH RQ4 [facility] Last Admin: 06/11/17 11:06 Dose: 3 ml Amlodipine Besylate (Norvasc) 5 mg PO DAILY [facility] Last Admin: 06/11/17 09:32 Dose: 5 mg Calcium/Vitamin D (Oyster Shell Calcium/Vitamin D 500 Mg-200 Iu) 1 tab PO DAILY [facility] Last Admin: 06/11/17 09:32 Dose: 1 tab Guaifenesin (Robitussin) 200 mg PO Q4H PRN PRN Reason: Cough and congestion Heparin Sodium (Porcine) (Heparin) 5,000 units SC Q12H [facility] Last Admin: 06/11/17 09:32 Dose: 5,000 units Moxifloxacin HCl (Avelox Iv 400mg/250ml Ns) 400 mg in 250 mls @ 167 mls/hr IVPB Q24H [facility] Insulin Human Regular (Novolin R) 0 unit SC ACHS [facility] PRN Reason: Protocol Last Admin: 06/11/17 08:22 Dose: 2 unit Lactulose (Enulose) 10 gm PO TID PRN PRN Reason: Constipation Levothyroxine Sodium (Synthroid) 88 mcg PO DAILY@0630 [facility] Last Admin: 06/11/17 05:32 Dose: 88 mcg Magnesium Oxide (Mag-Ox) 400 mg PO BID [facility] Last Admin: 06/11/17 09:32 Dose: 400 mg Methylprednisolone (Solu-Medrol) 40 mg IVP DAILY [facility] Last Admin: 06/11/17 09:32 Dose: 40 mg Metoclopramide HCl (Reglan) 5 mg IVP Q6 [facility] Last Admin: 06/11/17 05:32 Dose: 5 mg Metoprolol Succinate (Toprol Xl) 25 mg PO DAILY [facility] Last Admin: 06/11/17 09:32 Dose: 25 mg Rosuvastatin Calcium (Crestor) 5 mg PO HS [facility] Last Admin: 06/10/17 21:41 Dose: 5 mg Fluticasone/Salmeterol (Advair Diskus 250/50) 1 puff INH RQ12 [facility] Last Admin: 06/11/17 08:03 Dose: 1 puff - Labs Labs: 06/11/17 07:09 06/11/17 07:09 PT 14.5 SECONDS (9.7-12.2) H 06/06/17 16:54 INR 1.3 06/06/17 16:54 APTT 35 SECONDS (21-34) H 06/06/17 16:54 Attending/Attestation - Attestation I have personally seen and examined this patient.: Yes I have fully participated in the care of the patient.: Yes I have reviewed all pertinent clinical information, including history, physical exam and plan: Yes
--- NOTE | 2017-06-11 11:08 | PN ---
DATE: LOCATION: [facility], bed A. SUBJECTIVE: This is an 81-year-old female, seen early in rounds with intermittent period of shortness of breath on and off without reported active bleeding, but with mild dyspepsia and less oral intake. No reported palpitation, actual chest pain, chills or fever and no reported recent episode of dizziness. The entire chart is reviewed including, but not limited to the most recent lab and radiology study results, current and the previous medication list, current and the previous medical events and the patient's white blood cells today elevated to 26.0 with low hemoglobin 8.2, low hematocrit 24.3, but with normal platelet count with low sodium 130 and blood glucose level 220, but with low calcium 7.7, low total protein 5.6 and low albumin 2.9. The most recent chest x-ray done yesterday, report and the films are seen indicative of increased opacification in the left side of the lung with small left pleural effusion with diffuse increased interstitial lung markers. Cardiomegaly is also reported, please see official report. PHYSICAL EXAMINATION: GENERAL: A 81-year-old female. Awake, alert, oriented, in slight respiratory distress. VITAL SIGNS: Afebrile with pulse of 94, respiratory rate 20 to 22, blood pressure 118/68. HEENT: Showed pale dry oral mucous membrane. Nonicteric sclerae. LUNGS: Few scattered crepitation. Decreased air entry at bases. HEART: Positive S1 and S2. ABDOMEN: Soft. Bowel sounds are present with mild generalized tenderness and slight distention. No mass or organomegaly. No rebound tenderness or guarding. RECTAL: Deferred due to the patient's clinical status. EXTREMITIES: With mild lower extremity edematous changes. No clubbing or cyanosis. NEUROLOGIC: No reported new neurological deficits, sensory or motor. IMPRESSION: 1. Re-exacerbation of peptic ulcer disease by recent upper endoscopy. 2. Re-exacerbation of chronic obstructive pulmonary disease, pneumonia with small pleural effusion. 3. Hypertension with congestive heart failure. 4. Anemia, most likely secondary to above. The possibility of lower gastrointestinal tract source of blood loss versus occult gastrointestinal malignancy was raised. 5. Electrolyte imbalance. 6. Malnutrition with hypoalbuminemia, slightly improved. 7. Known history of cardiac arrhythmia. 8. Drug-induced coagulopathy. SUGGESTION: 1. Continue current management. 2. Following up cancer markers. 3. Repeat stool for occult blood, was not done yet. 4. No aggressive GI workup in the meantime until the patient is more stable clinically. Otherwise, close observation to follow. 5. The patient may need section. 6. Further recommendation to follow. Nalini Richter MD
[2017-06-11] MEDS ORDERED: Vancomycin 1 gm/NS 200 ml 1 GM/200 ML BAG IVPB STA (12:45)
[2017-06-11 14:43] LABS: IRON 44 ug/dL (37-170)
[2017-06-11 15:02] LABS: % IRON SATURATION 28 (20-55); TOTAL IRON BINDING CAPACITY 155 ug/dL (250-450)
--- NOTE | 2017-06-11 15:05 | CP.PCM.PN ---
Subjective - Date & Time of Evaluation Date of Evaluation: 06/11/17 Time of Evaluation: 11:00 Objective - Vital Signs/Intake and Output Vital Signs (last 24 hours): Temp Pulse Resp BP Pulse Ox 97.4 F L 90 20 112/65 98 06/11/17 07:51 06/11/17 07:51 06/11/17 07:51 06/11/17 07:51 06/11/17 07:51 Intake and Output: 06/11/17 06/11/17 06:59 18:59 Intake Total 740 Balance 740 - Medications Medications: Current Medications Acetaminophen (Tylenol 650mg/20.3ml Solution Ud) 650 mg PO Q4 PRN PRN Reason: pain and headache Last Admin: 06/05/17 18:05 Dose: 650 mg Al Hydrox/Mg Hydrox/Simethicone (Maalox Plus 30 Ml) 30 ml PO 5XD PRN PRN Reason: gerd Albuterol/Ipratropium (Duoneb 3 Mg/0.5 Mg (3 Ml) Ud) 3 ml INH RQ4 [facility] Last Admin: 06/11/17 11:06 Dose: 3 ml Amlodipine Besylate (Norvasc) 5 mg PO DAILY [facility] Last Admin: 06/11/17 09:32 Dose: 5 mg Calcium/Vitamin D (Oyster Shell Calcium/Vitamin D 500 Mg-200 Iu) 1 tab PO DAILY [facility] Last Admin: 06/11/17 09:32 Dose: 1 tab Guaifenesin (Robitussin) 200 mg PO Q4H PRN PRN Reason: Cough and congestion Heparin Sodium (Porcine) (Heparin) 5,000 units SC Q12H [facility] Last Admin: 06/11/17 09:32 Dose: 5,000 units Moxifloxacin HCl (Avelox Iv 400mg/250ml Ns) 400 mg in 250 mls @ 167 mls/hr IVPB Q24H [facility] Insulin Human Regular (Novolin R) 0 unit SC ACHS [facility] PRN Reason: Protocol Last Admin: 06/11/17 12:00 Dose: Not Given Lactulose (Enulose) 10 gm PO TID PRN PRN Reason: Constipation Levothyroxine Sodium (Synthroid) 88 mcg PO DAILY@0630 [facility] Last Admin: 06/11/17 05:32 Dose: 88 mcg Magnesium Oxide (Mag-Ox) 400 mg PO BID [facility] Last Admin: 06/11/17 09:32 Dose: 400 mg Methylprednisolone (Solu-Medrol) 40 mg IVP DAILY [facility] Last Admin: 06/11/17 09:32 Dose: 40 mg Metoclopramide HCl (Reglan) 5 mg IVP Q6 [facility] Last Admin: 06/11/17 05:32 Dose: 5 mg Metoprolol Succinate (Toprol Xl) 25 mg PO DAILY [facility] Last Admin: 06/11/17 09:32 Dose: 25 mg Rosuvastatin Calcium (Crestor) 5 mg PO HS [facility] Last Admin: 06/10/17 21:41 Dose: 5 mg Fluticasone/Salmeterol (Advair Diskus 250/50) 1 puff INH RQ12 [facility] Last Admin: 06/11/17 08:03 Dose: 1 puff - Labs Labs: 06/11/17 07:09 06/11/17 07:09 PT 14.5 SECONDS (9.7-12.2) H 06/06/17 16:54 INR 1.3 06/06/17 16:54 APTT 35 SECONDS (21-34) H 06/06/17 16:54
--- NOTE | 2017-06-11 16:22 | CP.PCM.CON ---
History of Present Illness - History of Present Illness History of Present Illness: Patient is an 81 yaer old female with a PMH of HTN, diabetes, hyponatremia, asthma, and anxiety. She presented to [facility] on June 04 with complaints of nausea, abdominal pain, and vomiting. Currently, patient examined sitting in chair by bedside eating lunch. She is on 2L nasal cannula, saturating 98%. Patient states her asthma has been exacerbated since when she fell and fractured her hand. She uses an inhaler (Proventil) at home and does 2-3 nebulizer treatments at home each day. Currently, she reports shortness of breath, cough, and wheezing. She denies chest pain, palpitations, and smoking history. CXR 06/10/17 Increased opacification seen within the left mid to lower lung zone as well as the left lung base with associated small left pleural effusion. Prominent diffuse increased interstitial lung markings. Biapical pleural thickening with upper lobe granulomatous changes. Review of Systems - Review of Systems All systems: reviewed and no additional remarkable complaints except (shortness of breath and productive cough) Past Patient History - Past Medical History & Family History Past Medical History?: Yes - Past Social History Smoking Status: Never Smoked - CARDIAC Hx Cardiac Disorders: Yes Hx Hypercholesterolemia: Yes Hx Hypertension: Yes - PULMONARY Hx Respiratory Disorders: Yes Hx Asthma: Yes - NEUROLOGICAL Hx Neurological Disorder: No - HEENT Hx HEENT Problems: No - RENAL Hx Chronic Kidney Disease: No - ENDOCRINE/METABOLIC Hx Endocrine Disorders: Yes Hx Hypothyroidism: Yes - HEMATOLOGICAL/ONCOLOGICAL Hx Blood Disorders: No - INTEGUMENTARY Hx Dermatological Problems: No - MUSCULOSKELETAL/RHEUMATOLOGICAL Hx Musculoskeletal Disorders: No Hx Falls: No - GASTROINTESTINAL Hx Gastrointestinal Disorders: Yes Hx Gastroesophageal Reflux: Yes - GENITOURINARY/GYNECOLOGICAL Hx Genitourinary Disorders: No - PSYCHIATRIC Hx Psychophysiologic Disorder: No Hx Substance Use: No - SURGICAL HISTORY Other/Comment: Breast biopsy procedure 10/08/13 - ANESTHESIA Hx Anesthesia: Yes Hx Anesthesia Reactions: No Hx Malignant Hyperthermia: No Meds Allergies/Adverse Reactions: Allergies Allergy/AdvReac Type Severity Reaction Status Date / Time aspirin Allergy Verified 06/04/17 17:31 chicken derived Allergy Verified 06/04/17 17:31 orange Allergy Verified 06/04/17 17:31 peanut Allergy Verified 06/04/17 17:31 Penicillins Allergy Verified 06/04/17 17:31 rice Allergy Verified 06/04/17 17:31 tomato Allergy Verified 06/04/17 17:31 wheat Allergy Verified 06/04/17 17:31 chocolate Allergy Uncoded 05/29/17 12:55 cockroaches Allergy Uncoded 10/14/12 22:26 dairy products Allergy Uncoded 05/29/17 12:55 Dust Allergy Uncoded 10/14/12 22:10 Pollen Allergy Uncoded 10/14/12 22:10 seafood Allergy Uncoded 05/29/17 12:55 tomatoes Allergy Uncoded 10/14/12 22:26 - Medications Medications: Current Medications Acetaminophen (Tylenol 650mg/20.3ml Solution Ud) 650 mg PO Q4 PRN PRN Reason: pain and headache Last Admin: 06/05/17 18:05 Dose: 650 mg Al Hydrox/Mg Hydrox/Simethicone (Maalox Plus 30 Ml) 30 ml PO 5XD PRN PRN Reason: gerd Albuterol/Ipratropium (Duoneb 3 Mg/0.5 Mg (3 Ml) Ud) 3 ml INH RQ4 [facility] Last Admin: 06/11/17 15:47 Dose: 3 ml Amlodipine Besylate (Norvasc) 5 mg PO DAILY [facility] Last Admin: 06/11/17 09:32 Dose: 5 mg Calcium/Vitamin D (Oyster Shell Calcium/Vitamin D 500 Mg-200 Iu) 1 tab PO DAILY [facility] Last Admin: 06/11/17 09:32 Dose: 1 tab Guaifenesin (Robitussin) 200 mg PO Q4H PRN PRN Reason: Cough and congestion Heparin Sodium (Porcine) (Heparin) 5,000 units SC Q12H [facility] Last Admin: 06/11/17 09:32 Dose: 5,000 units Moxifloxacin HCl (Avelox Iv 400mg/250ml Ns) 400 mg in 250 mls @ 167 mls/hr IVPB Q24H [facility] Insulin Human Regular (Novolin R) 0 unit SC ACHS [facility] PRN Reason: Protocol Last Admin: 06/11/17 12:00 Dose: Not Given Lactulose (Enulose) 10 gm PO TID PRN PRN Reason: Constipation Levothyroxine Sodium (Synthroid) 88 mcg PO DAILY@0630 [facility] Last Admin: 06/11/17 05:32 Dose: 88 mcg Magnesium Oxide (Mag-Ox) 400 mg PO BID [facility] Last Admin: 06/11/17 09:32 Dose: 400 mg Methylprednisolone (Solu-Medrol) 40 mg IVP DAILY [facility] Last Admin: 06/11/17 09:32 Dose: 40 mg Metoclopramide HCl (Reglan) 5 mg IVP Q6 [facility] Last Admin: 06/11/17 15:10 Dose: 5 mg Metoprolol Succinate (Toprol Xl) 25 mg PO DAILY [facility] Last Admin: 06/11/17 09:32 Dose: 25 mg Rosuvastatin Calcium (Crestor) 5 mg PO HS [facility] Last Admin: 06/10/17 21:41 Dose: 5 mg Fluticasone/Salmeterol (Advair Diskus 250/50) 1 puff INH RQ12 [facility] Last Admin: 06/11/17 08:03 Dose: 1 puff Physical Exam - Head Exam Head Exam: ATRAUMATIC, NORMOCEPHALIC - Eye Exam Eye Exam: Normal appearance - ENT Exam ENT Exam: Mucous Membranes Moist - Respiratory Exam Respiratory Exam: Rhonchi - Cardiovascular Exam Cardiovascular Exam: REGULAR RHYTHM - GI/Abdominal Exam GI & Abdominal Exam: Normal Bowel Sounds, Soft - Extremities Exam Extremities exam: Positive for: normal inspection Results - Vital Signs Recent Vital Signs: Last Vital Signs Temp 97.7 F 06/11/17 15:40 Pulse 92 H 06/11/17 15:40 Resp 20 06/11/17 15:40 BP 113/62 06/11/17 15:40 Pulse Ox 100 06/11/17 15:40 - Labs Result Diagrams: 06/11/17 07:09 06/11/17 07:09 Labs: Laboratory Results - last 24 hr 06/06/17 06/10/17 06/10/17 19:59 16:51 21:11 WBC RBC Hgb Hct MCV MCH MCHC RDW Plt Count MPV Neut % (Auto) Lymph % (Auto) [place] % (Auto) Eos % (Auto) Baso % (Auto) Neut # Lymph # [place] # Eos # Baso # Sodium Potassium Chloride Carbon Dioxide Anion Gap BUN Creatinine Est GFR ( Amer) Est GFR (Non-Af Amer) POC Glucose (mg/dL) 266 H 321 H Random Glucose Calcium Phosphorus Magnesium Iron TIBC % Saturation Total Bilirubin AST ALT Alkaline Phosphatase Total Protein Albumin Globulin Albumin/Globulin Ratio Calcium (PTH Intact) 8.1 L Urine Color Urine Clarity Urine pH Ur Specific [place] Urine Protein Urine Glucose (UA) Urine Ketones Urine Blood Urine Nitrate Urine Bilirubin Urine Urobilinogen Ur Leukocyte Esterase Urine WBC (Auto) Urine RBC (Auto) Urine Osmolality Ur Random Sodium 06/11/17 06/11/17 06/11/17 00:28 00:28 06:35 WBC RBC Hgb Hct MCV MCH MCHC RDW Plt Count MPV Neut % (Auto) Lymph % (Auto) [place] % (Auto) Eos % (Auto) Baso % (Auto) Neut # Lymph # [place] # Eos # Baso # Sodium Potassium Chloride Carbon Dioxide Anion Gap BUN Creatinine Est GFR ( Amer) Est GFR (Non-Af Amer) POC Glucose (mg/dL) 220 H Random Glucose Calcium Phosphorus Magnesium Iron TIBC % Saturation Total Bilirubin AST ALT Alkaline Phosphatase Total Protein Albumin Globulin Albumin/Globulin Ratio Calcium (PTH Intact) Urine Color Straw Urine Clarity Clear Urine pH 5.0 Ur Specific [place] 1.004 Urine Protein Negative Urine Glucose (UA) 1+ Urine Ketones Negative Urine Blood 1+ H Urine Nitrate Negative Urine Bilirubin Negative Urine Urobilinogen Normal Ur Leukocyte Esterase Neg Urine WBC (Auto) < 1 Urine RBC (Auto) 2 Urine Osmolality 122 L Ur Random Sodium 8 06/11/17 06/11/17 06/11/17 07:09 07:09 14:22 WBC 26.0 H RBC 2.72 L Hgb 8.2 L Hct 24.3 L MCV 89.5 MCH 30.0 MCHC 33.6 RDW 13.6 Plt Count 376 MPV 7.2 Neut % (Auto) 81.4 H Lymph % (Auto) 10.5 L [place] % (Auto) 8.0 Eos % (Auto) 0.0 Baso % (Auto) 0.1 Neut # 21.2 H Lymph # 2.7 [place] # 2.1 H Eos # 0.0 Baso # 0.0 Sodium 130 L Potassium 3.7 Chloride 96 L Carbon Dioxide 25 Anion Gap 12 BUN 13 Creatinine 0.6 L Est GFR ( Amer) > 60 Est GFR (Non-Af Amer) > 60 POC Glucose (mg/dL) Random Glucose 227 H Calcium 7.7 L Phosphorus 2.8 Magnesium 1.9 Iron 44 TIBC 155 L % Saturation 28 Total Bilirubin 0.5 AST 16 ALT 23 Alkaline Phosphatase 102 Total Protein 5.6 L Albumin 2.9 L Globulin 2.7 Albumin/Globulin Ratio 1.1 Calcium (PTH Intact) Urine Color Urine Clarity Urine pH Ur Specific [place] Urine Protein Urine Glucose (UA) Urine Ketones Urine Blood Urine Nitrate Urine Bilirubin Urine Urobilinogen Ur Leukocyte Esterase Urine WBC (Auto) Urine RBC (Auto) Urine Osmolality Ur Random Sodium Assessment & Plan (1) Pneumonia Status: Acute Comment: left lung infiltrate. Productive cough. Elevated white count. Will treat as hospital-acquired pneumoni. IV antibiotic. Check pro calcitonin level. Culture and sensitivity. Continue IV steroids and nebulizer treatment. Discontinue inhaled steroids (2) Asthma with acute exacerbation Status: Acute (3) Respiratory distress Status: Acute
[2017-06-11] MEDS: Aztreonam 1 GM in Sodium Chloride 0.9% 100 ML IVPB SCH (17:15)
[2017-06-11] MEDS: guaiFENesin 200 mg/10 ml Syrup UD PO PRN (18:21)
[2017-06-11] MEDS ORDERED: Moxifloxacin IV 400mg/250ml NS 400 MG/250 ML BAG IVPB SCH (19:00)
--- NOTE | 2017-06-11 21:23 | CP.PCM.PN ---
Subjective - Date & Time of Evaluation Date of Evaluation: 06/11/17 Time of Evaluation: 19:15 - Subjective Subjective: Patient still with cough but breathing somewhat improved; tolerating diet; drinking lot of water; Objective - Vital Signs/Intake and Output Vital Signs (last 24 hours): Temp Pulse Resp BP Pulse Ox 97.7 F 92 H 20 113/62 100 06/11/17 15:40 06/11/17 15:40 06/11/17 15:40 06/11/17 15:40 06/11/17 15:40 - Medications Medications: Current Medications Acetaminophen (Tylenol 650mg/20.3ml Solution Ud) 650 mg PO Q4 PRN PRN Reason: pain and headache Last Admin: 06/05/17 18:05 Dose: 650 mg Al Hydrox/Mg Hydrox/Simethicone (Maalox Plus 30 Ml) 30 ml PO 5XD PRN PRN Reason: gerd Albuterol/Ipratropium (Duoneb 3 Mg/0.5 Mg (3 Ml) Ud) 3 ml INH RQ4 [facility] Last Admin: 06/11/17 19:40 Dose: 3 ml Amlodipine Besylate (Norvasc) 5 mg PO DAILY [facility] Last Admin: 06/11/17 09:32 Dose: 5 mg Calcium/Vitamin D (Oyster Shell Calcium/Vitamin D 500 Mg-200 Iu) 1 tab PO DAILY [facility] Last Admin: 06/11/17 09:32 Dose: 1 tab Guaifenesin (Robitussin) 200 mg PO Q4H PRN PRN Reason: Cough and congestion Last Admin: 06/11/17 18:21 Dose: 200 mg Heparin Sodium (Porcine) (Heparin) 5,000 units SC Q12H [facility] Last Admin: 06/11/17 09:32 Dose: 5,000 units Aztreonam 1 gm/ Sodium (Chloride) 100 mls @ 200 mls/hr IVPB Q8H [facility] Last Admin: 06/11/17 17:15 Dose: 200 mls/hr Azithromycin 500 mg/ Dextrose 250 mls @ 250 mls/hr IVPB Q24H [facility] Insulin Human Regular (Novolin R) 0 unit SC ACHS [facility] PRN Reason: Protocol Last Admin: 06/11/17 17:15 Dose: 5 unit Lactulose (Enulose) 10 gm PO TID PRN PRN Reason: Constipation Levothyroxine Sodium (Synthroid) 88 mcg PO DAILY@0630 [facility] Last Admin: 06/11/17 05:32 Dose: 88 mcg Magnesium Oxide (Mag-Ox) 400 mg PO BID [facility] Last Admin: 06/11/17 18:17 Dose: 400 mg Methylprednisolone (Solu-Medrol) 40 mg IVP Q8 [facility] Metoclopramide HCl (Reglan) 5 mg IVP Q6 [facility] Last Admin: 06/11/17 18:17 Dose: 5 mg Metoprolol Succinate (Toprol Xl) 25 mg PO DAILY [facility] Last Admin: 06/11/17 09:32 Dose: 25 mg Rosuvastatin Calcium (Crestor) 5 mg PO HS [facility] Last Admin: 06/10/17 21:41 Dose: 5 mg - Labs Labs: 06/11/17 07:09 06/11/17 07:09 PT 14.5 SECONDS (9.7-12.2) H 06/06/17 16:54 INR 1.3 06/06/17 16:54 APTT 35 SECONDS (21-34) H 06/06/17 16:54 - Constitutional Appears: Non-toxic, No Acute Distress - Eye Exam Eye Exam: Normal appearance. absent: Scleral icterus - ENT Exam ENT Exam: Mucous Membranes Moist - Respiratory Exam Respiratory Exam: Wheezes. absent: Respiratory Distress Additional comments: Improved air movement; - Cardiovascular Exam Cardiovascular Exam: RRR, +S1, +S2 - GI/Abdominal Exam GI & Abdominal Exam: Soft. absent: Distended, Tenderness - Extremities Exam Additional comments: mild lower leg edema; - Neurological Exam Neurological Exam: Alert, Awake - Psychiatric Exam Psychiatric exam: Normal Affect, Normal Mood. absent: Agitated - Skin Skin Exam: Warm. absent: Cyanosis Assessment and Plan (1) Hyponatremia Assessment & Plan: Significant drop in serum Na yesterday, corrected by giving dose of tolvaptan 15 mg last night; unclear how much water patient is drinking but likely contributing to hyponatremia; evidence of volume depletion with low Ur Na; -starting NS at 75 cc/hr -1L PO fluid restriction daily -repeating urine lytes; Status: Acute (2) HTN (hypertension) Assessment & Plan: BP dropping, likely has some volume depletion; restarting IVF as above; Status: Chronic (3) Electrolyte abnormality Assessment & Plan: Hypokalemia/hypomagnesemia corrected, monitor; continue oscal; Status: Acute (4) Asthma with acute exacerbation Status: Acute (5) Anemia Status: Acute
[2017-06-11 22:11] LABS: OSMOLALITY,URINE 102 mosm/kg (300-1000)
--- NOTE | 2017-06-11 22:32 | CP.PCM.PN ---
Subjective - Date & Time of Evaluation Date of Evaluation: 06/11/17 Time of Evaluation: 08:00 - Subjective Subjective: hyponatremia Objective - Vital Signs/Intake and Output Vital Signs (last 24 hours): Temp Pulse Resp BP Pulse Ox 97.7 F 92 H 20 113/62 100 06/11/17 15:40 06/11/17 15:40 06/11/17 15:40 06/11/17 15:40 06/11/17 15:40 - Medications Medications: Current Medications Acetaminophen (Tylenol 650mg/20.3ml Solution Ud) 650 mg PO Q4 PRN PRN Reason: pain and headache Last Admin: 06/05/17 18:05 Dose: 650 mg Al Hydrox/Mg Hydrox/Simethicone (Maalox Plus 30 Ml) 30 ml PO 5XD PRN PRN Reason: gerd Albuterol/Ipratropium (Duoneb 3 Mg/0.5 Mg (3 Ml) Ud) 3 ml INH RQ4 [facility] Last Admin: 06/11/17 19:40 Dose: 3 ml Amlodipine Besylate (Norvasc) 5 mg PO DAILY [facility] Last Admin: 06/11/17 09:32 Dose: 5 mg Calcium/Vitamin D (Oyster Shell Calcium/Vitamin D 500 Mg-200 Iu) 1 tab PO DAILY [facility] Last Admin: 06/11/17 09:32 Dose: 1 tab Guaifenesin (Robitussin) 200 mg PO Q4H PRN PRN Reason: Cough and congestion Last Admin: 06/11/17 18:21 Dose: 200 mg Heparin Sodium (Porcine) (Heparin) 5,000 units SC Q12H [facility] Last Admin: 06/11/17 09:32 Dose: 5,000 units Aztreonam 1 gm/ Sodium (Chloride) 100 mls @ 200 mls/hr IVPB Q8H [facility] Last Admin: 06/11/17 17:15 Dose: 200 mls/hr Azithromycin 500 mg/ Dextrose 250 mls @ 250 mls/hr IVPB Q24H [facility] Insulin Human Regular (Novolin R) 0 unit SC ACHS [facility] PRN Reason: Protocol Last Admin: 06/11/17 17:15 Dose: 5 unit Lactulose (Enulose) 10 gm PO TID PRN PRN Reason: Constipation Levothyroxine Sodium (Synthroid) 88 mcg PO DAILY@0630 [facility] Last Admin: 06/11/17 05:32 Dose: 88 mcg Magnesium Oxide (Mag-Ox) 400 mg PO BID [facility] Last Admin: 06/11/17 18:17 Dose: 400 mg Methylprednisolone (Solu-Medrol) 40 mg IVP Q8 [facility] Metoclopramide HCl (Reglan) 5 mg IVP Q6 [facility] Last Admin: 06/11/17 18:17 Dose: 5 mg Metoprolol Succinate (Toprol Xl) 25 mg PO DAILY [facility] Last Admin: 06/11/17 09:32 Dose: 25 mg Rosuvastatin Calcium (Crestor) 5 mg PO HS [facility] Last Admin: 06/10/17 21:41 Dose: 5 mg - Labs Labs: 06/11/17 07:09 06/11/17 07:09 PT 14.5 SECONDS (9.7-12.2) H 06/06/17 16:54 INR 1.3 06/06/17 16:54 APTT 35 SECONDS (21-34) H 06/06/17 16:54 Assessment and Plan (1) Hyponatremia Assessment & Plan: Endocrine consult reason for consult: hyponatremia notified today 06/09/2017 is y/o admitted for nausea & vomiting as per chart review pt. with past medical history significant for hypothyroidism, asthma, and diabetes type II presented to [facility] with several days of nausea and vomiting. Before Tim[place]2016, patient was fully independent and could perform all IADLs, lived alone. , patient fell and broke her arm (it was a mechanical fall), was admitted to [facility] , and was discharged to a rehab facility. At this rehab facility, patient had poor po intake and "was unable to keep anything down." She was then brought to [facility] due to nausea and vomiting and mild confusion.on admission patient was found to be hypokalemic, hyponatremic, and severely dehydrated. s/p SVT with RBBB and heart rate of 162. pt on Methyl predispose 40 mg qd & also with hypothyroidism on synthyroid 88 mcg po qd still with SOB /pneumonia & solumedrol increased 40 mg IV q8h Allergy noted Past medical history: as above Past surgical history: denies Psychiatry history: denies Social history : denies smoking , ETOH use , illicit drug use Family history : DM ROS: Constitutional: denies fever, tiredness/weakness. HEENT: denies earache, change in voice .Respiratory: denies cough, sob . CVS :no chest pain, no palpitations . Abdomen: no abdominal pain, no nausea /vomiting, no change bowel movement. 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 Extremities: no edema, no tremors. Skin: no itching, no rash Physical exam Well-developed Awake & alet with mild SOB VSS HEENT: norm cephalic, atraumatic, no lid lag , no exophthalmos NECK: supple, no palpable lymphadenopathy THYROID: no palpable thyromegaly, not tender CHEST: fair air entry, bilateral, CVS: S1,S2 ABDOMEN: bowel sound present, benign, obese, no wide purple striae , no bruises EXTREMITIES: trace pitting edema, clubbing or cyanosis, no palpable hand tremors Skin: acanthosis nigricans lab: NA 130 , glucose 227 , corrected 131.6 Na 115 on admission , elevated LFTS , Urine osm 258 06/08 Na 132 , 06/09 129 , corrected with glucose : 130.6 , cmp wnl tsh 4.52 , ft4 1.9 , u/a (+) WBC & LE , cortisol @ 8am , 7.7 06/06 repeat 8am 23 & 31.9 CXR (+) patchy increase marking bilateral Assessment hyponatremia , asymtomatic ,? cortisol level done while on steroids ! hypothyroidism nauease & vomiting arrythemia plan on Methyl-prednisone 40 mg IV q8h continue synthroid 88 mcg po qd we will follow with you. Status: Acute (2) Nausea & vomiting Status: Acute (3) Hypothyroidism Status: Acute
--- NOTE | 2017-06-11 23:52 | CP.PCM.PN ---
Subjective - Date & Time of Evaluation Date of Evaluation: 06/11/17 Time of Evaluation: 17:00 - Subjective Subjective: Patient seen and examined still with cough but breathing somewhat improved; tolerating diet; drinking lot of water; Objective - Vital Signs/Intake and Output Vital Signs (last 24 hours): Temp Pulse Resp BP Pulse Ox 97.7 F 92 H 20 113/62 100 06/11/17 15:40 06/11/17 15:40 06/11/17 15:40 06/11/17 15:40 06/11/17 15:40 - Medications Medications: Current Medications Acetaminophen (Tylenol 650mg/20.3ml Solution Ud) 650 mg PO Q4 PRN PRN Reason: pain and headache Last Admin: 06/05/17 18:05 Dose: 650 mg Al Hydrox/Mg Hydrox/Simethicone (Maalox Plus 30 Ml) 30 ml PO 5XD PRN PRN Reason: gerd Albuterol/Ipratropium (Duoneb 3 Mg/0.5 Mg (3 Ml) Ud) 3 ml INH RQ4 [facility] Last Admin: 06/11/17 19:40 Dose: 3 ml Amlodipine Besylate (Norvasc) 5 mg PO DAILY [facility] Last Admin: 06/11/17 09:32 Dose: 5 mg Calcium/Vitamin D (Oyster Shell Calcium/Vitamin D 500 Mg-200 Iu) 1 tab PO DAILY [facility] Last Admin: 06/11/17 09:32 Dose: 1 tab Guaifenesin (Robitussin) 200 mg PO Q4H PRN PRN Reason: Cough and congestion Last Admin: 06/11/17 18:21 Dose: 200 mg Heparin Sodium (Porcine) (Heparin) 5,000 units SC Q12H [facility] Last Admin: 06/11/17 22:49 Dose: 5,000 units Aztreonam 1 gm/ Sodium (Chloride) 100 mls @ 200 mls/hr IVPB Q8H [facility] Last Admin: 06/11/17 17:15 Dose: 200 mls/hr Azithromycin 500 mg/ Dextrose 250 mls @ 250 mls/hr IVPB Q24H [facility] Last Admin: 06/11/17 18:00 Dose: 250 mls/hr Insulin Human Regular (Novolin R) 0 unit SC ACHS [facility] PRN Reason: Protocol Last Admin: 06/11/17 22:50 Dose: 2 unit Lactulose (Enulose) 10 gm PO TID PRN PRN Reason: Constipation Levothyroxine Sodium (Synthroid) 88 mcg PO DAILY@0630 [facility] Last Admin: 06/11/17 05:32 Dose: 88 mcg Magnesium Oxide (Mag-Ox) 400 mg PO BID [facility] Last Admin: 06/11/17 18:17 Dose: 400 mg Methylprednisolone (Solu-Medrol) 40 mg IVP Q8 [facility] Last Admin: 06/11/17 22:49 Dose: 40 mg Metoclopramide HCl (Reglan) 5 mg IVP Q6 [facility] Last Admin: 06/11/17 18:17 Dose: 5 mg Metoprolol Succinate (Toprol Xl) 25 mg PO DAILY [facility] Last Admin: 06/11/17 09:32 Dose: 25 mg Rosuvastatin Calcium (Crestor) 5 mg PO HS [facility] Last Admin: 06/11/17 22:49 Dose: 5 mg - Labs Labs: 06/11/17 07:09 06/11/17 07:09 PT 14.5 SECONDS (9.7-12.2) H 06/06/17 16:54 INR 1.3 06/06/17 16:54 APTT 35 SECONDS (21-34) H 06/06/17 16:54 Assessment and Plan (1) Anemia Status: Acute (2) Electrolyte abnormality Status: Acute (3) Hyponatremia Status: Acute (4) Nausea & vomiting Status: Acute (5) HTN (hypertension) Status: Chronic (6) Asthma with acute exacerbation Status: Acute (7) GERD (gastroesophageal reflux disease) Status: Acute (8) Pneumonia Assessment & Plan: left lung infiltrate. Productive cough. Elevated white count. Will treat as hospital-acquired pneumoni. IV antibiotic. Check pro calcitonin level. Culture and sensitivity. Continue IV steroids and nebulizer treatment. Discontinue inhaled steroids Status: Acute
[2017-06-12] MEDS: Albuterol-Ipratrop 3 mg / 0.5 (3 ml) UD INH SCH ×6 (00:42→19:50)
[2017-06-12] MEDS: Acetaminophen 650mg/20.3ml solution UD PO PRN (01:01)
[2017-06-12] MEDS: Aztreonam 1 GM in Sodium Chloride 0.9% 100 ML IVPB SCH ×3 (01:10→17:00)
[2017-06-12] MEDS: MethylPREDNISolone 40 mg Vial IVP SCH ×3 (06:15→22:50)
[2017-06-12] MEDS: Levothyroxine 88 MCG TAB PO SCH (06:22)
[2017-06-12 07:09] LABS: BLOOD UREA NITROGEN 14 mg/dL (7-17); CALCIUM 8.2 mg/dl (8.6-10.4); GFR AFRICAN-AMERICAN > 60; GFR NON-AFRICAN AMERICAN > 60
[2017-06-12 07:39] LABS: BASO % 0.1 % (0.0-2.0); HEMOGLOBIN 7.9 g/dL (11.0-16.0); LYMPH # 1.2 K/uL (1.0-4.3); LYMPH % 7.2 % (20.0-40.0); MEAN CELL VOLUME 89.7 fL (81.0-99.0); MEAN CORPUSCULAR HEMOGLOBIN 30.6 pg (27.0-31.0); MEAN CORPUSCULAR HGB CONC 34.1 g/dL (33.0-37.0); MEAN PLATELET VOLUME 7.7 fL (7.2-11.7); MONO # 1.3 K/uL (0.0-0.8); MONO % 7.5 % (0.0-10.0); NEUT # 14.7 K/uL (1.8-7.0); NEUT % 85.2 % (50.0-75.0); PLATELET COUNT 351 K/uL (130-400); RBC 2.57 Mil/uL (3.80-5.20); RED CELL DISTRIBUTION WIDTH 13.5 % (11.5-14.5); WHITE BLOOD COUNT 17.2 K/uL (4.8-10.8)
[2017-06-12] MEDS: (Novolin R) Insulin Human Regular 100 units/ml vial SC SCH ×4 (08:16→22:52)
[2017-06-12] MEDS: Sodium Chloride 0.9% 1,000 ML IV SCH ×2 (10:00→19:18)
[2017-06-12 10:30] LABS: BANDS 2 % (0-2); LYMPHOCYTE 8 % (20-40); MONOCYTE 4 % (0-10); NEUTROPHIL 86 % (50-75); PLATELET ESTIMATE NORMAL (NORMAL); TOTAL CELLS COUNTED 100
[2017-06-12] MEDS: Calcium-Vit D 500 mg-200 Units Tab UD PO SCH (11:00)
[2017-06-12] MEDS: Metoprolol Succinate 25 mg XL Tab PO SCH (11:03)
[2017-06-12] MEDS: guaiFENesin 200 mg/10 ml Syrup UD PO PRN (11:14)
--- NOTE | 2017-06-12 13:15 | PN ---
DATE: LOCATION: [facility], bed A. SUBJECTIVE: This is an 81-year-old female, seen and examined in rounds today with intermittent period of excessive hyperglycemia with mild generalized tenderness, but less cough and less shortness of breath. No reported chest pain or palpitation this morning and no reported active bleeding. No chills or fever. The entire chart is reviewed including but not limited to the most recent lab and radiology study results, current and the previous medication list, current and the previous medical events and today's white blood cells 17.2 with hemoglobin 7.9, hematocrit 23.1, but with normal platelet count and low sodium 130 with reported blood glucose level of 422 with low calcium 8.2. PHYSICAL EXAMINATION: GENERAL: An 81-year-old female. Appeared to be awake, alert, oriented. Somewhat tolerating oral intake. VITAL SIGNS: Afebrile with pulse of 82, respiratory rate 20 to 22, blood pressure 130/68. HEENT: Showed pale dry oral mucous membrane. Nonicteric sclerae. LUNGS: Few scattered crepitation. Decreased air entry at bases. HEART: Positive S1 and S2. ABDOMEN: Soft, mildly obese with slight generalized tenderness. No mass or organomegaly. No rebound tenderness or guarding. The patient experienced episodes of mild nausea and dyspepsia during my physical examination. EXTREMITIES: Without clubbing or cyanosis, but mild lower extremity edematous changes. NEUROLOGIC: No reported new neurological deficits, sensory or motor. VASCULAR: Peripheral pulses are present bilaterally and positive. IMPRESSION: 1. Re-exacerbation of peptic ulcer disease. 2. Anemia, most likely secondary to above; however, the possibility of lower gastrointestinal tract source of blood loss should be ruled in or out. 3. Occult gastrointestinal malignancy. 4. Known history of chronic obstructive pulmonary disease, with pneumonia and small pleural effusion. 5. Hypertension with congestive heart failure. 6. Electrolyte imbalance with hyponatremia that could be secondary to the patient's poorly controlled diabetes mellitus with hyperglycemia. 7. Malnutrition with hypoalbuminemia, slightly improved. 8. Drug-induced coagulopathy. 9. Known history of cardiac arrhythmias. SUGGESTION: 1. Agree with your plan. 2. Repeat stool for occult blood. 3. Peripheral hyperalimentation. 4. No aggressive GI workup in the meantime until the patient is more stable clinically and further recommendation to follow. Nalini Richter MD [facility] # [id number]
--- NOTE | 2017-06-12 13:50 | CP.PCM.PN ---
<CherylZane - Last Filed: 06/12/17 13:48> Subjective - Date & Time of Evaluation Date of Evaluation: 06/12/17 Time of Evaluation: 13:48 - Subjective Subjective: Cardiology Progress Note for Dr. Cisse Pt seen and examined at bedside. No acute overnight events. Pt states that SOB is improving. Pt denies CP, n/v/d, abdominal pain, fever, chills, CARVAJAL, or dizziness. Objective - Vital Signs/Intake and Output Vital Signs (last 24 hours): Temp Pulse Resp BP Pulse Ox 97.8 F 87 20 137/66 100 06/12/17 07:00 06/12/17 07:00 06/12/17 07:00 06/12/17 07:00 06/12/17 07:00 Intake and Output: 06/12/17 06/12/17 06:59 18:59 Intake Total 590 400 Balance 590 400 - Medications Medications: Current Medications Acetaminophen (Tylenol 650mg/20.3ml Solution Ud) 650 mg PO Q4 PRN PRN Reason: pain and headache Last Admin: 06/12/17 01:01 Dose: 650 mg Al Hydrox/Mg Hydrox/Simethicone (Maalox Plus 30 Ml) 30 ml PO 5XD PRN PRN Reason: gerd Albuterol/Ipratropium (Duoneb 3 Mg/0.5 Mg (3 Ml) Ud) 3 ml INH RQ4 [facility] Last Admin: 06/12/17 11:29 Dose: 3 ml Amlodipine Besylate (Norvasc) 5 mg PO DAILY [facility] Last Admin: 06/12/17 11:04 Dose: 5 mg Calcium/Vitamin D (Oyster Shell Calcium/Vitamin D 500 Mg-200 Iu) 1 tab PO DAILY [facility] Last Admin: 06/12/17 11:00 Dose: 1 tab Guaifenesin (Robitussin) 200 mg PO Q4H PRN PRN Reason: Cough and congestion Last Admin: 06/12/17 11:14 Dose: 200 mg Heparin Sodium (Porcine) (Heparin) 5,000 units SC Q12H [facility] Last Admin: 06/12/17 11:03 Dose: 5,000 units Aztreonam 1 gm/ Sodium (Chloride) 100 mls @ 200 mls/hr IVPB Q8H [facility] Last Admin: 06/12/17 08:39 Dose: 200 mls/hr Azithromycin 500 mg/ Dextrose 250 mls @ 250 mls/hr IVPB Q24H [facility] Last Admin: 06/11/17 18:00 Dose: 250 mls/hr Sodium Chloride (Sodium Chloride 0.9%) 1,000 mls @ 100 mls/hr IV .Q10H [facility] Last Admin: 06/12/17 10:00 Dose: 100 mls/hr Insulin Human Regular (Novolin R) 0 unit SC ACHS [facility] PRN Reason: Protocol Last Admin: 06/12/17 08:16 Dose: 5 unit Lactulose (Enulose) 10 gm PO TID PRN PRN Reason: Constipation Levothyroxine Sodium (Synthroid) 88 mcg PO DAILY@0630 [facility] Last Admin: 06/12/17 06:22 Dose: 88 mcg Magnesium Oxide (Mag-Ox) 400 mg PO BID [facility] Last Admin: 06/11/17 18:17 Dose: 400 mg Methylprednisolone (Solu-Medrol) 40 mg IVP Q8 [facility] Last Admin: 06/12/17 06:15 Dose: 40 mg Metoclopramide HCl (Reglan) 5 mg IVP Q6 [facility] Last Admin: 06/12/17 11:05 Dose: 5 mg Metoprolol Succinate (Toprol Xl) 50 mg PO DAILY [facility] Rosuvastatin Calcium (Crestor) 5 mg PO HS [facility] Last Admin: 06/11/17 22:49 Dose: 5 mg - Labs Labs: 06/12/17 06:43 06/12/17 06:43 PT 14.5 SECONDS (9.7-12.2) H 06/06/17 16:54 INR 1.3 06/06/17 16:54 APTT 35 SECONDS (21-34) H 06/06/17 16:54 - Constitutional Appears: No Acute Distress - Head Exam Head Exam: NORMAL INSPECTION - Eye Exam Eye Exam: Normal appearance - ENT Exam ENT Exam: Normal Exam - Neck Exam Neck Exam: Normal Inspection - Respiratory Exam Respiratory Exam: Wheezes (b/l). absent: Accessory Muscle Use, Rales, Rhonchi, Respiratory Distress - Cardiovascular Exam Cardiovascular Exam: RRR, +S1, +S2. absent: Gallop, Rubs, Murmur - GI/Abdominal Exam GI & Abdominal Exam: Soft. absent: Distended, Guarding, Tenderness, Rebound - Extremities Exam Extremities Exam: Normal Inspection - Back Exam Back Exam: NORMAL INSPECTION - Neurological Exam Neurological Exam: Alert, Awake, Oriented x3 Assessment and Plan - Assessment and Plan (Free Text) Assessment: 81 year old female with past medical history of hypertension, diabetes, and asthma presented with intractible nausea and vomiting. Cardiology consulted due to SVT. ACS ruled out as Troponins are negative X3. No evidence of SVT since admission. Patient is also dehydrated with multiple electrolyte abnormalities. Plan: SVT, likely 2/2 Dehydration; Resolved - EKG on 06/05 showed RBBB, wide-QRS complex tachycardia, and signs of inferolateral ischemia Follow up ekg showed NSR with RBBB - Current tachycardia likely 2/2 asthma exacerbation - ACS ruled out as Cardiac Enzymes negative x3 - ECHO showed EF 50-55% and mild MR - HR stable - Increased Toprol XL to 50 mg PO daily - Would recommend outpatient stress test Electrolyte Abnormalities - Management per primary and nephro Dehydration - Management per primary and nephro Diabetes - Management per primary Asthma Exacerbation - Management per primary DVT/GI Prophylaxis - As per primary Pt seen and discussed in detail with Dr. Cisse. Prince Luna, PGY1 <Sanchez Cisse - Last Filed: 06/12/17 22:28> Objective - Vital Signs/Intake and Output Vital Signs (last 24 hours): Temp Pulse Resp BP Pulse Ox 97.4 F L 89 20 135/66 99 06/12/17 15:23 06/12/17 15:23 06/12/17 15:23 06/12/17 15:23 06/12/17 15:23 Intake and Output: 06/12/17 06/13/17 18:59 06:59 Intake Total 400 Balance 400 - Medications Medications: Current Medications Acetaminophen (Tylenol 650mg/20.3ml Solution Ud) 650 mg PO Q4 PRN PRN Reason: pain and headache Last Admin: 06/12/17 01:01 Dose: 650 mg Al Hydrox/Mg Hydrox/Simethicone (Maalox Plus 30 Ml) 30 ml PO 5XD PRN PRN Reason: gerd Albuterol/Ipratropium (Duoneb 3 Mg/0.5 Mg (3 Ml) Ud) 3 ml INH RQ4 [facility] Last Admin: 06/12/17 19:50 Dose: 3 ml Amlodipine Besylate (Norvasc) 5 mg PO DAILY [facility] Last Admin: 06/12/17 11:04 Dose: 5 mg Calcium/Vitamin D (Oyster Shell Calcium/Vitamin D 500 Mg-200 Iu) 1 tab PO DAILY [facility] Last Admin: 06/12/17 11:00 Dose: 1 tab Guaifenesin (Robitussin) 200 mg PO Q4H PRN PRN Reason: Cough and congestion Last Admin: 06/12/17 11:14 Dose: 200 mg Heparin Sodium (Porcine) (Heparin) 5,000 units SC Q12H [facility] Last Admin: 06/12/17 11:03 Dose: 5,000 units Aztreonam 1 gm/ Sodium (Chloride) 100 mls @ 200 mls/hr IVPB Q8H [facility] Last Admin: 06/12/17 17:00 Dose: 200 mls/hr Azithromycin 500 mg/ Dextrose 250 mls @ 250 mls/hr IVPB Q24H [facility] Last Admin: 06/12/17 17:22 Dose: 250 mls/hr Sodium Chloride (Sodium Chloride 0.9%) 1,000 mls @ 100 mls/hr IV .Q10H [facility] Last Admin: 06/12/17 19:18 Dose: Not Given Insulin Glargine (Lantus) 12 unit SC Q12 [facility] Insulin Human Regular (Novolin R) 0 unit SC ACHS [facility] PRN Reason: Protocol Last Admin: 06/12/17 17:24 Dose: 6 unit Insulin Human Regular (Novolin R) 5 unit SC TIDPC [facility] Lactulose (Enulose) 10 gm PO TID PRN PRN Reason: Constipation Levothyroxine Sodium (Synthroid) 88 mcg PO DAILY@0630 [facility] Last Admin: 06/12/17 06:22 Dose: 88 mcg Magnesium Oxide (Mag-Ox) 400 mg PO BID [facility] Last Admin: 06/12/17 17:23 Dose: 400 mg Methylprednisolone (Solu-Medrol) 40 mg IVP Q8 [facility] Last Admin: 06/12/17 14:48 Dose: 40 mg Metoclopramide HCl (Reglan) 5 mg IVP Q6 [facility] Last Admin: 06/12/17 17:23 Dose: 5 mg Metoprolol Succinate (Toprol Xl) 50 mg PO DAILY [facility] Rosuvastatin Calcium (Crestor) 5 mg PO HS [facility] Last Admin: 06/11/17 22:49 Dose: 5 mg - Labs Labs: 06/12/17 06:43 06/12/17 06:43 PT 14.5 SECONDS (9.7-12.2) H 06/06/17 16:54 INR 1.3 06/06/17 16:54 APTT 35 SECONDS (21-34) H 06/06/17 16:54 Attending/Attestation - Attestation I have personally seen and examined this patient.: Yes I have fully participated in the care of the patient.: Yes I have reviewed all pertinent clinical information, including history, physical exam and plan: Yes
--- NOTE | 2017-06-12 16:58 | CP.PCM.PN ---
Subjective - Date & Time of Evaluation Date of Evaluation: 06/12/17 Time of Evaluation: 15:00 - Subjective Subjective: Patient seen and examined today while in bed. Patient is on 2L of oxygen nasal cannula and states her shortness of breath and coughing have improved significantly since last night. She denies any overnight events. She states her wheezing is still present as well and has difficulty with deep inspiration which prompts coughing. Her cough is productive of clear phlegm. She also complains of bilateral hand pain and back pain, and is requesting pain medication. She denies chest pain and palpitations. Objective - Vital Signs/Intake and Output Vital Signs (last 24 hours): Temp Pulse Resp BP Pulse Ox 97.4 F L 89 20 135/66 99 06/12/17 15:23 06/12/17 15:23 06/12/17 15:23 06/12/17 15:23 06/12/17 15:23 Intake and Output: 06/12/17 06/12/17 06:59 18:59 Intake Total 590 400 Balance 590 400 - Medications Medications: Current Medications Acetaminophen (Tylenol 650mg/20.3ml Solution Ud) 650 mg PO Q4 PRN PRN Reason: pain and headache Last Admin: 06/12/17 01:01 Dose: 650 mg Al Hydrox/Mg Hydrox/Simethicone (Maalox Plus 30 Ml) 30 ml PO 5XD PRN PRN Reason: gerd Albuterol/Ipratropium (Duoneb 3 Mg/0.5 Mg (3 Ml) Ud) 3 ml INH RQ4 [facility] Last Admin: 06/12/17 16:05 Dose: 3 ml Amlodipine Besylate (Norvasc) 5 mg PO DAILY [facility] Last Admin: 06/12/17 11:04 Dose: 5 mg Calcium/Vitamin D (Oyster Shell Calcium/Vitamin D 500 Mg-200 Iu) 1 tab PO DAILY [facility] Last Admin: 06/12/17 11:00 Dose: 1 tab Guaifenesin (Robitussin) 200 mg PO Q4H PRN PRN Reason: Cough and congestion Last Admin: 06/12/17 11:14 Dose: 200 mg Heparin Sodium (Porcine) (Heparin) 5,000 units SC Q12H [facility] Last Admin: 06/12/17 11:03 Dose: 5,000 units Aztreonam 1 gm/ Sodium (Chloride) 100 mls @ 200 mls/hr IVPB Q8H [facility] Last Admin: 06/12/17 08:39 Dose: 200 mls/hr Azithromycin 500 mg/ Dextrose 250 mls @ 250 mls/hr IVPB Q24H [facility] Last Admin: 06/11/17 18:00 Dose: 250 mls/hr Sodium Chloride (Sodium Chloride 0.9%) 1,000 mls @ 100 mls/hr IV .Q10H [facility] Last Admin: 06/12/17 10:00 Dose: 100 mls/hr Insulin Human Regular (Novolin R) 0 unit SC ACHS [facility] PRN Reason: Protocol Last Admin: 06/12/17 12:49 Dose: 4 unit Lactulose (Enulose) 10 gm PO TID PRN PRN Reason: Constipation Levothyroxine Sodium (Synthroid) 88 mcg PO DAILY@0630 [facility] Last Admin: 06/12/17 06:22 Dose: 88 mcg Magnesium Oxide (Mag-Ox) 400 mg PO BID [facility] Last Admin: 06/11/17 18:17 Dose: 400 mg Methylprednisolone (Solu-Medrol) 40 mg IVP Q8 [facility] Last Admin: 06/12/17 14:48 Dose: 40 mg Metoclopramide HCl (Reglan) 5 mg IVP Q6 [facility] Last Admin: 06/12/17 11:05 Dose: 5 mg Metoprolol Succinate (Toprol Xl) 50 mg PO DAILY [facility] Rosuvastatin Calcium (Crestor) 5 mg PO HS [facility] Last Admin: 06/11/17 22:49 Dose: 5 mg - Labs Labs: 06/12/17 06:43 06/12/17 06:43 PT 14.5 SECONDS (9.7-12.2) H 06/06/17 16:54 INR 1.3 06/06/17 16:54 APTT 35 SECONDS (21-34) H 06/06/17 16:54 Assessment and Plan (1) Pneumonia Assessment & Plan: IV antibiotics, Continue IV steroids and nebulizer treatment. Discontinue inhaled steroids Status: Acute (2) Asthma with acute exacerbation Status: Acute (3) Respiratory distress Status: Acute
[2017-06-12] MEDS: Magnesium Oxide 400 mg Tab UD PO SCH (17:23)
[2017-06-12 19:19] LABS: OSMOLALITY,URINE 141 mosm/kg (300-1000)
--- NOTE | 2017-06-12 21:10 | CP.PCM.PN ---
Subjective - Date & Time of Evaluation Date of Evaluation: 06/12/17 Time of Evaluation: 18:00 - Subjective Subjective: 81 yo F w/ pmh of htn, dm, asthma, admitted with severe hyponatremia, asthma exacerbation, HCAP; Reports breathing is improved; tolerating diet; not drinking excessive water; has been out of bed for prolonged time today; Objective - Vital Signs/Intake and Output Vital Signs (last 24 hours): Temp Pulse Resp BP Pulse Ox 97.4 F L 89 20 135/66 99 06/12/17 15:23 06/12/17 15:23 06/12/17 15:23 06/12/17 15:23 06/12/17 15:23 Intake and Output: 06/12/17 06/13/17 18:59 06:59 Intake Total 400 Balance 400 - Medications Medications: Current Medications Acetaminophen (Tylenol 650mg/20.3ml Solution Ud) 650 mg PO Q4 PRN PRN Reason: pain and headache Last Admin: 06/12/17 01:01 Dose: 650 mg Al Hydrox/Mg Hydrox/Simethicone (Maalox Plus 30 Ml) 30 ml PO 5XD PRN PRN Reason: gerd Albuterol/Ipratropium (Duoneb 3 Mg/0.5 Mg (3 Ml) Ud) 3 ml INH RQ4 [facility] Last Admin: 06/12/17 19:50 Dose: 3 ml Amlodipine Besylate (Norvasc) 5 mg PO DAILY [facility] Last Admin: 06/12/17 11:04 Dose: 5 mg Calcium/Vitamin D (Oyster Shell Calcium/Vitamin D 500 Mg-200 Iu) 1 tab PO DAILY [facility] Last Admin: 06/12/17 11:00 Dose: 1 tab Guaifenesin (Robitussin) 200 mg PO Q4H PRN PRN Reason: Cough and congestion Last Admin: 06/12/17 11:14 Dose: 200 mg Heparin Sodium (Porcine) (Heparin) 5,000 units SC Q12H [facility] Last Admin: 06/12/17 11:03 Dose: 5,000 units Aztreonam 1 gm/ Sodium (Chloride) 100 mls @ 200 mls/hr IVPB Q8H [facility] Last Admin: 06/12/17 17:00 Dose: 200 mls/hr Azithromycin 500 mg/ Dextrose 250 mls @ 250 mls/hr IVPB Q24H [facility] Last Admin: 06/12/17 17:22 Dose: 250 mls/hr Sodium Chloride (Sodium Chloride 0.9%) 1,000 mls @ 100 mls/hr IV .Q10H [facility] Last Admin: 06/12/17 19:18 Dose: Not Given Insulin Human Regular (Novolin R) 0 unit SC ACHS [facility] PRN Reason: Protocol Last Admin: 06/12/17 17:24 Dose: 6 unit Lactulose (Enulose) 10 gm PO TID PRN PRN Reason: Constipation Levothyroxine Sodium (Synthroid) 88 mcg PO DAILY@0630 [facility] Last Admin: 06/12/17 06:22 Dose: 88 mcg Magnesium Oxide (Mag-Ox) 400 mg PO BID [facility] Last Admin: 06/12/17 17:23 Dose: 400 mg Methylprednisolone (Solu-Medrol) 40 mg IVP Q8 [facility] Last Admin: 06/12/17 14:48 Dose: 40 mg Metoclopramide HCl (Reglan) 5 mg IVP Q6 [facility] Last Admin: 06/12/17 17:23 Dose: 5 mg Metoprolol Succinate (Toprol Xl) 50 mg PO DAILY [facility] Rosuvastatin Calcium (Crestor) 5 mg PO HS [facility] Last Admin: 06/11/17 22:49 Dose: 5 mg - Labs Labs: 06/12/17 06:43 06/12/17 06:43 PT 14.5 SECONDS (9.7-12.2) H 06/06/17 16:54 INR 1.3 06/06/17 16:54 APTT 35 SECONDS (21-34) H 06/06/17 16:54 - Constitutional Appears: Non-toxic, No Acute Distress - Eye Exam Eye Exam: Normal appearance. absent: Scleral icterus - ENT Exam ENT Exam: Mucous Membranes Moist - Respiratory Exam Respiratory Exam: absent: Respiratory Distress Additional comments: diffuse exp wheezes with air movement much improved; - Cardiovascular Exam Cardiovascular Exam: RRR, +S1, +S2 - GI/Abdominal Exam GI & Abdominal Exam: Soft. absent: Distended, Tenderness - Exam Exam: absent: Bladder Distension - Extremities Exam Additional comments: mild lower leg edema b/l; - Neurological Exam Neurological Exam: Alert, Awake - Psychiatric Exam Psychiatric exam: Normal Affect, Normal Mood. absent: Agitated - Skin Skin Exam: Warm. absent: Cyanosis Assessment and Plan (1) Hyponatremia Assessment & Plan: Stable after single tolvaptan dose 2 days ago; low urine Na indicative of intravascular volume depletion despite normal BP and can be contributing to hyponatremia; echo not showing any RV dysfunction; -started on NS at 100 cc/hr, will continue overnight and re-assess with repeat urine lytes in am; Status: Acute (2) HTN (hypertension) Assessment & Plan: Controlled on amlodipine 5 mg and toprol XL 25 mg (increased by cardio to 50 today); giving IVF as above; Status: Chronic (3) Electrolyte abnormality Assessment & Plan: Hypomagnesemia and hypophosphatemia corrected, monitor; Status: Acute (4) Asthma with acute exacerbation Status: Acute (5) Anemia Status: Acute
--- NOTE | 2017-06-12 21:40 | CP.PCM.PN ---
Subjective - Date & Time of Evaluation Date of Evaluation: 06/12/17 Time of Evaluation: 21:35 - Subjective Subjective: uncontrolled diabets & hyponatremia Objective - Vital Signs/Intake and Output Vital Signs (last 24 hours): Temp Pulse Resp BP Pulse Ox 97.4 F L 89 20 135/66 99 06/12/17 15:23 06/12/17 15:23 06/12/17 15:23 06/12/17 15:23 06/12/17 15:23 Intake and Output: 06/12/17 06/13/17 18:59 06:59 Intake Total 400 Balance 400 - Medications Medications: Current Medications Acetaminophen (Tylenol 650mg/20.3ml Solution Ud) 650 mg PO Q4 PRN PRN Reason: pain and headache Last Admin: 06/12/17 01:01 Dose: 650 mg Al Hydrox/Mg Hydrox/Simethicone (Maalox Plus 30 Ml) 30 ml PO 5XD PRN PRN Reason: gerd Albuterol/Ipratropium (Duoneb 3 Mg/0.5 Mg (3 Ml) Ud) 3 ml INH RQ4 [facility] Last Admin: 06/12/17 19:50 Dose: 3 ml Amlodipine Besylate (Norvasc) 5 mg PO DAILY [facility] Last Admin: 06/12/17 11:04 Dose: 5 mg Calcium/Vitamin D (Oyster Shell Calcium/Vitamin D 500 Mg-200 Iu) 1 tab PO DAILY [facility] Last Admin: 06/12/17 11:00 Dose: 1 tab Guaifenesin (Robitussin) 200 mg PO Q4H PRN PRN Reason: Cough and congestion Last Admin: 06/12/17 11:14 Dose: 200 mg Heparin Sodium (Porcine) (Heparin) 5,000 units SC Q12H [facility] Last Admin: 06/12/17 11:03 Dose: 5,000 units Aztreonam 1 gm/ Sodium (Chloride) 100 mls @ 200 mls/hr IVPB Q8H [facility] Last Admin: 06/12/17 17:00 Dose: 200 mls/hr Azithromycin 500 mg/ Dextrose 250 mls @ 250 mls/hr IVPB Q24H [facility] Last Admin: 06/12/17 17:22 Dose: 250 mls/hr Sodium Chloride (Sodium Chloride 0.9%) 1,000 mls @ 100 mls/hr IV .Q10H [facility] Last Admin: 06/12/17 19:18 Dose: Not Given Insulin Glargine (Lantus) 12 unit SC Q12 [facility] Insulin Human Regular (Novolin R) 0 unit SC ACHS [facility] PRN Reason: Protocol Last Admin: 06/12/17 17:24 Dose: 6 unit Insulin Human Regular (Novolin R) 5 unit SC TIDPC [facility] Lactulose (Enulose) 10 gm PO TID PRN PRN Reason: Constipation Levothyroxine Sodium (Synthroid) 88 mcg PO DAILY@0630 [facility] Last Admin: 06/12/17 06:22 Dose: 88 mcg Magnesium Oxide (Mag-Ox) 400 mg PO BID [facility] Last Admin: 06/12/17 17:23 Dose: 400 mg Methylprednisolone (Solu-Medrol) 40 mg IVP Q8 [facility] Last Admin: 06/12/17 14:48 Dose: 40 mg Metoclopramide HCl (Reglan) 5 mg IVP Q6 [facility] Last Admin: 06/12/17 17:23 Dose: 5 mg Metoprolol Succinate (Toprol Xl) 50 mg PO DAILY [facility] Rosuvastatin Calcium (Crestor) 5 mg PO HS [facility] Last Admin: 06/11/17 22:49 Dose: 5 mg - Labs Labs: 06/12/17 06:43 06/12/17 06:43 PT 14.5 SECONDS (9.7-12.2) H 06/06/17 16:54 INR 1.3 06/06/17 16:54 APTT 35 SECONDS (21-34) H 06/06/17 16:54 Assessment and Plan (1) Hyponatremia Assessment & Plan: (1) Hyponatremia Assessment & Plan: Endocrine consult reason for consult: hyponatremia notified today 06/09/2017 is y/o admitted for nausea & vomiting as per chart review pt. with past medical history significant for hypothyroidism, asthma, and diabetes type II presented to [facility] with several days of nausea and vomiting. Before 2016, patient was fully independent and could perform all IADLs, lived alone. , patient fell and broke her arm (it was a mechanical fall), was admitted to [facility] , and was discharged to a rehab facility. At this rehab facility, patient had poor po intake and "was unable to keep anything down." She was then brought to [facility] due to nausea and vomiting and mild confusion.on admission patient was found to be hypokalemic, hyponatremic, and severely dehydrated. s/p SVT with RBBB and heart rate of 162. & also with hypothyroidism on synthyroid 88 mcg po qd contacted today by nurse in charge pt. glucose in 400's , no hypoglycemia , still on solumedrol 40 mg IV q8h Allergy noted Past medical history: as above Past surgical history: denies Psychiatry history: denies Social history : denies smoking , ETOH use , illicit drug use Family history : DM ROS: Constitutional: denies fever, tiredness/weakness. HEENT: denies earache, change in voice .Respiratory: denies cough, sob . CVS :no chest pain, no palpitations . Abdomen: no abdominal pain, no nausea /vomiting, no change bowel movement. 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 Extremities: no edema, no tremors. Skin: no itching, no rash Physical exam Well-developed Awake & alet with mild SOB VSS HEENT: norm cephalic, atraumatic, no lid lag , no exophthalmos NECK: supple, no palpable lymphadenopathy THYROID: no palpable thyromegaly, not tender CHEST: fair air entry, bilateral, CVS: S1,S2 ABDOMEN: bowel sound present, benign, obese, no wide purple striae , no bruises EXTREMITIES: trace pitting edema, clubbing or cyanosis, no palpable hand tremors Skin: acanthosis nigricans lab: Na 130 , glucose 384 , corrected NA about 134.2 NA 130 , glucose 227 , corrected 131.6 Na 115 on admission , elevated LFTS , Urine osm 258 06/08 Na 132 , 06/09 129 , corrected with glucose : 130.6 , cmp wnl tsh 4.52 , ft4 1.9 , u/a (+) WBC & LE , cortisol @ 8am , 7.7 06/06 repeat 8am 23 & 31.9 CXR (+) patchy increase marking bilateral Assessment steroid induced hyperg;ycemia uncontrolled dm hyponatremia , asymtomatic ,? cortisol level done while on steroids ! hypothyroidism nauease & vomiting arrythemia plan start lantus 12 units bid , first dose tonight start NOvolin R 5 units tid with meals if eats more than 60% of the meal continue Novolin R low dose coverage obtain a1c on Methyl-prednisone 40 mg IV q8h continue synthroid 88 mcg po qd contact endocrine if change in solumedrol dose or frequency we will follow with you. Status: Acute (2) Nausea & vomiting Status: Acute (3) Hypothyroidism Status: Acute (4) Uncontrolled diabetes mellitus Status: Acute (5) Steroid-induced hyperglycemia Status: Acute
[2017-06-12] MEDS: (Lantus) Insulin Glargine, Recombinant SC SCH (22:51)
--- NOTE | 2017-06-12 23:44 | CP.PCM.PN ---
Subjective - Date & Time of Evaluation Date of Evaluation: 06/12/17 Time of Evaluation: 18:50 - Subjective Subjective: Pt is feeling better, she is still coughing, congested blood sugars are high. Objective - Vital Signs/Intake and Output Vital Signs (last 24 hours): Temp Pulse Resp BP Pulse Ox 97.4 F L 89 20 135/66 99 06/12/17 15:23 06/12/17 15:23 06/12/17 15:23 06/12/17 15:23 06/12/17 15:23 Intake and Output: 06/12/17 06/13/17 18:59 06:59 Intake Total 400 Balance 400 - Medications Medications: Current Medications Acetaminophen (Tylenol 650mg/20.3ml Solution Ud) 650 mg PO Q4 PRN PRN Reason: pain and headache Last Admin: 06/12/17 01:01 Dose: 650 mg Al Hydrox/Mg Hydrox/Simethicone (Maalox Plus 30 Ml) 30 ml PO 5XD PRN PRN Reason: gerd Albuterol/Ipratropium (Duoneb 3 Mg/0.5 Mg (3 Ml) Ud) 3 ml INH RQ4 [facility] Last Admin: 06/12/17 19:50 Dose: 3 ml Amlodipine Besylate (Norvasc) 5 mg PO DAILY [facility] Last Admin: 06/12/17 11:04 Dose: 5 mg Calcium/Vitamin D (Oyster Shell Calcium/Vitamin D 500 Mg-200 Iu) 1 tab PO DAILY [facility] Last Admin: 06/12/17 11:00 Dose: 1 tab Guaifenesin (Robitussin) 200 mg PO Q4H PRN PRN Reason: Cough and congestion Last Admin: 06/12/17 11:14 Dose: 200 mg Heparin Sodium (Porcine) (Heparin) 5,000 units SC Q12H [facility] Last Admin: 06/12/17 22:50 Dose: 5,000 units Aztreonam 1 gm/ Sodium (Chloride) 100 mls @ 200 mls/hr IVPB Q8H [facility] Last Admin: 06/12/17 17:00 Dose: 200 mls/hr Azithromycin 500 mg/ Dextrose 250 mls @ 250 mls/hr IVPB Q24H [facility] Last Admin: 06/12/17 17:22 Dose: 250 mls/hr Sodium Chloride (Sodium Chloride 0.9%) 1,000 mls @ 100 mls/hr IV .Q10H [facility] Last Admin: 06/12/17 19:18 Dose: Not Given Insulin Glargine (Lantus) 12 unit SC Q12 [facility] Last Admin: 06/12/17 22:51 Dose: 12 units Insulin Human Regular (Novolin R) 0 unit SC ACHS [facility] PRN Reason: Protocol Last Admin: 06/12/17 22:52 Dose: 2 unit Insulin Human Regular (Novolin R) 5 unit SC TIDPC [facility] Lactulose (Enulose) 10 gm PO TID PRN PRN Reason: Constipation Levothyroxine Sodium (Synthroid) 88 mcg PO DAILY@0630 [facility] Last Admin: 06/12/17 06:22 Dose: 88 mcg Magnesium Oxide (Mag-Ox) 400 mg PO BID [facility] Last Admin: 06/12/17 17:23 Dose: 400 mg Methylprednisolone (Solu-Medrol) 40 mg IVP Q8 [facility] Last Admin: 06/12/17 22:50 Dose: 40 mg Metoclopramide HCl (Reglan) 5 mg IVP Q6 [facility] Last Admin: 06/12/17 17:23 Dose: 5 mg Metoprolol Succinate (Toprol Xl) 50 mg PO DAILY [facility] Rosuvastatin Calcium (Crestor) 5 mg PO HS [facility] Last Admin: 06/12/17 22:49 Dose: 5 mg - Labs Labs: 06/12/17 06:43 06/12/17 06:43 PT 14.5 SECONDS (9.7-12.2) H 06/06/17 16:54 INR 1.3 06/06/17 16:54 APTT 35 SECONDS (21-34) H 06/06/17 16:54 - Constitutional Appears: No Acute Distress - Head Exam Head Exam: ATRAUMATIC, NORMAL INSPECTION, NORMOCEPHALIC - Eye Exam Eye Exam: EOMI, Normal appearance, PERRL Pupil Exam: NORMAL ACCOMODATION, PERRL - Respiratory Exam Respiratory Exam: Clear to Ausculation Bilateral, NORMAL BREATHING PATTERN - Cardiovascular Exam Cardiovascular Exam: REGULAR RHYTHM, +S1, +S2. absent: Murmur - GI/Abdominal Exam GI & Abdominal Exam: Soft, Normal Bowel Sounds. absent: Tenderness Assessment and Plan (1) Anemia Status: Acute (2) Electrolyte abnormality Status: Acute (3) Hyponatremia Status: Acute (4) Nausea & vomiting Status: Acute (5) HTN (hypertension) Status: Chronic (6) Asthma with acute exacerbation Assessment & Plan: taper steriods Status: Acute (7) GERD (gastroesophageal reflux disease) Status: Acute (8) Pneumonia Status: Acute
[2017-06-13] MEDS: Albuterol-Ipratrop 3 mg / 0.5 (3 ml) UD INH SCH ×7 (00:54→23:47)
[2017-06-13] MEDS: Aztreonam 1 GM in Sodium Chloride 0.9% 100 ML IVPB SCH ×3 (01:30→17:58)
[2017-06-13] MEDS: guaiFENesin 200 mg/10 ml Syrup UD PO PRN (02:25)
[2017-06-13] MEDS: Levothyroxine 88 MCG TAB PO SCH (06:56)
[2017-06-13] MEDS: MethylPREDNISolone 40 mg Vial IVP SCH ×3 (06:56→22:01)
[2017-06-13 07:23] LABS: BASO % 0.1 % (0.0-2.0); HEMOGLOBIN 7.7 g/dL (11.0-16.0); LYMPH # 1.2 K/uL (1.0-4.3); LYMPH % 7.6 % (20.0-40.0); MEAN CELL VOLUME 90.5 fL (81.0-99.0); MEAN CORPUSCULAR HEMOGLOBIN 29.6 pg (27.0-31.0); MEAN CORPUSCULAR HGB CONC 32.7 g/dL (33.0-37.0); MEAN PLATELET VOLUME 7.6 fL (7.2-11.7); MONO # 1.3 K/uL (0.0-0.8); MONO % 8.6 % (0.0-10.0); NEUT # 13.2 K/uL (1.8-7.0); NEUT % 83.7 % (50.0-75.0); PLATELET COUNT 351 K/uL (130-400); RBC 2.61 Mil/uL (3.80-5.20); RED CELL DISTRIBUTION WIDTH 13.9 % (11.5-14.5); WHITE BLOOD COUNT 15.7 K/uL (4.8-10.8)
[2017-06-13] MEDS ORDERED: Albuterol-Ipratrop 3 mg / 0.5 (3 ml) UD INH STA (08:01)
[2017-06-13] MEDS: (Novolin R) Insulin Human Regular 100 units/ml vial SC SCH ×7 (08:19→21:52)
[2017-06-13] MEDS ORDERED: MethylPREDNISolone 40 mg Vial IVP ONE (08:30)
[2017-06-13 08:36] LABS: BLOOD UREA NITROGEN 14 mg/dL (7-17); CALCIUM 8.1 mg/dl (8.6-10.4); GFR AFRICAN-AMERICAN > 60; GFR NON-AFRICAN AMERICAN > 60; MAGNESIUM 2.2 mg/dL (1.6-2.3)
--- NOTE | 2017-06-13 09:14 | RAD ---
Chest x-ray single frontal view History: Shortness of breath. Comparison: 06/10/2017 Findings: Biapical pleural thickening with upper lobe granulomatous changes. Linear consolidative changes in the left mid lung zone suggestive for atelectasis and or infiltrate. Tortuous ectatic aorta. Calcification at the aortic knob. Degenerative changes in the spine and shoulders. Impression: Biapical pleural thickening with upper lobe granulomatous changes. Linear consolidative changes in the left mid lung zone suggestive for atelectasis and or infiltrate. Tortuous ectatic aorta. Calcification at the aortic knob.
[2017-06-13] MEDS: Metoprolol Succinate 50 mg XL Tab PO SCH (09:27)
[2017-06-13] MEDS: Calcium-Vit D 500 mg-200 Units Tab UD PO SCH (09:27)
[2017-06-13] MEDS: Magnesium Oxide 400 mg Tab UD PO SCH ×2 (09:27→17:59)
[2017-06-13] MEDS: (Lantus) Insulin Glargine, Recombinant SC SCH ×2 (09:30→21:59)
--- NOTE | 2017-06-13 10:46 | CP.PCM.PN ---
<Zane Luna - Last Filed: 06/13/17 10:44> Subjective - Date & Time of Evaluation Date of Evaluation: 06/13/17 Time of Evaluation: 10:44 - Subjective Subjective: Cardiology Progress Note for Dr. Cisse Pt seen and examined at bedside. No acute overnight events. Pt states that breathing is improved with breathing treatments. Pt denied CP, palpitations, n/v /d, abdominal pain, fever, chills, CARVAJAL, or dizziness. Objective - Vital Signs/Intake and Output Vital Signs (last 24 hours): Temp Pulse Resp BP Pulse Ox 97.8 F 94 H 20 145/77 99 06/13/17 08:00 06/13/17 08:00 06/13/17 08:00 06/13/17 08:19 06/13/17 08:00 Intake and Output: 06/13/17 06/13/17 06:59 18:59 Intake Total 830 Balance 830 - Medications Medications: Current Medications Acetaminophen (Tylenol 650mg/20.3ml Solution Ud) 650 mg PO Q4 PRN PRN Reason: pain and headache Last Admin: 06/12/17 01:01 Dose: 650 mg Al Hydrox/Mg Hydrox/Simethicone (Maalox Plus 30 Ml) 30 ml PO 5XD PRN PRN Reason: gerd Albuterol/Ipratropium (Duoneb 3 Mg/0.5 Mg (3 Ml) Ud) 3 ml INH RQ4 [facility] Last Admin: 06/13/17 07:46 Dose: 3 ml Amlodipine Besylate (Norvasc) 5 mg PO DAILY [facility] Last Admin: 06/13/17 09:27 Dose: 5 mg Calcium/Vitamin D (Oyster Shell Calcium/Vitamin D 500 Mg-200 Iu) 1 tab PO DAILY [facility] Last Admin: 06/13/17 09:27 Dose: 1 tab Guaifenesin (Robitussin) 200 mg PO Q4H PRN PRN Reason: Cough and congestion Last Admin: 06/13/17 02:25 Dose: 200 mg Heparin Sodium (Porcine) (Heparin) 5,000 units SC Q12H [facility] Last Admin: 06/13/17 09:27 Dose: 5,000 units Aztreonam 1 gm/ Sodium (Chloride) 100 mls @ 200 mls/hr IVPB Q8H [facility] Last Admin: 06/13/17 09:26 Dose: 200 mls/hr Azithromycin 500 mg/ Dextrose 250 mls @ 250 mls/hr IVPB Q24H [facility] Last Admin: 06/12/17 17:22 Dose: 250 mls/hr Insulin Glargine (Lantus) 12 unit SC Q12 [facility] Last Admin: 06/13/17 09:30 Dose: 12 units Insulin Human Regular (Novolin R) 0 unit SC ACHS [facility] PRN Reason: Protocol Last Admin: 06/13/17 08:19 Dose: 6 unit Insulin Human Regular (Novolin R) 5 unit SC TIDPC [facility] Last Admin: 06/13/17 08:19 Dose: 5 unit Lactulose (Enulose) 10 gm PO TID PRN PRN Reason: Constipation Levothyroxine Sodium (Synthroid) 88 mcg PO DAILY@0630 [facility] Last Admin: 06/13/17 06:56 Dose: 88 mcg Magnesium Oxide (Mag-Ox) 400 mg PO BID [facility] Last Admin: 06/13/17 09:27 Dose: 400 mg Methylprednisolone (Solu-Medrol) 40 mg IVP Q8 [facility] Last Admin: 06/13/17 06:56 Dose: 40 mg Metoclopramide HCl (Reglan) 5 mg IVP Q6 [facility] Last Admin: 06/13/17 06:56 Dose: 5 mg Metoprolol Succinate (Toprol Xl) 50 mg PO DAILY [facility] Last Admin: 06/13/17 09:27 Dose: 50 mg Rosuvastatin Calcium (Crestor) 5 mg PO HS [facility] Last Admin: 06/12/17 22:49 Dose: 5 mg - Labs Labs: 06/13/17 07:01 06/13/17 07:01 PT 14.5 SECONDS (9.7-12.2) H 06/06/17 16:54 INR 1.3 06/06/17 16:54 APTT 35 SECONDS (21-34) H 06/06/17 16:54 - Constitutional Appears: No Acute Distress - Head Exam Head Exam: NORMAL INSPECTION - Eye Exam Eye Exam: Normal appearance Pupil Exam: NORMAL ACCOMODATION - ENT Exam ENT Exam: Normal Exam - Neck Exam Neck Exam: Normal Inspection - Respiratory Exam Respiratory Exam: Wheezes (b/l). absent: Accessory Muscle Use, Rales, Rhonchi, Respiratory Distress - Cardiovascular Exam Cardiovascular Exam: RRR, +S1, +S2. absent: Clicks, Gallop, Rubs, Murmur - GI/Abdominal Exam GI & Abdominal Exam: absent: Distended, Guarding, Tenderness, Rebound - Extremities Exam Extremities Exam: Normal Capillary Refill - Back Exam Back Exam: NORMAL INSPECTION - Neurological Exam Neurological Exam: Alert, Awake, Oriented x3 - Skin Skin Exam: Dry, Intact, Normal Color, Warm Assessment and Plan - Assessment and Plan (Free Text) Assessment: 81 year old female with past medical history of hypertension, diabetes, and asthma presented with intractible nausea and vomiting. Cardiology consulted due to SVT. ACS ruled out as Troponins are negative X3. No evidence of SVT since admission. Plan: SVT, Resolved - EKG on 06/05 showed RBBB, wide-QRS complex tachycardia, and signs of inferolateral ischemia Follow up ekg showed NSR with RBBB - Current tachycardia likely 2/2 asthma exacerbation - ACS ruled out as Cardiac Enzymes negative x3 - ECHO showed EF 50-55% and mild MR - HR stable, tolerated increased toprol well - Cont Toprol XL to 50 mg PO daily - Would recommend outpatient stress test Electrolyte Abnormalities - Management per primary and nephro Dehydration - Management per primary and nephro Diabetes - Management per primary Asthma Exacerbation - Management per primary DVT/GI Prophylaxis - As per primary Pt seen and discussed in detail with Dr. Cisse. Prince Luna, PGY1 <Sanchez Cisse - Last Filed: 06/14/17 01:48> Objective - Vital Signs/Intake and Output Vital Signs (last 24 hours): Temp Pulse Resp BP Pulse Ox 98.3 F 83 20 131/70 98 06/13/17 23:15 06/13/17 23:15 06/13/17 23:15 06/13/17 23:15 06/13/17 23:15 - Medications Medications: Current Medications Acetaminophen (Tylenol 650mg/20.3ml Solution Ud) 650 mg PO Q4 PRN PRN Reason: pain and headache Last Admin: 06/14/17 01:13 Dose: 650 mg Al Hydrox/Mg Hydrox/Simethicone (Maalox Plus 30 Ml) 30 ml PO 5XD PRN PRN Reason: gerd Albuterol/Ipratropium (Duoneb 3 Mg/0.5 Mg (3 Ml) Ud) 3 ml INH RQ4 [facility] Last Admin: 06/13/17 23:47 Dose: 3 ml Amlodipine Besylate (Norvasc) 5 mg PO DAILY [facility] Last Admin: 06/13/17 09:27 Dose: 5 mg Calcium/Vitamin D (Oyster Shell Calcium/Vitamin D 500 Mg-200 Iu) 1 tab PO DAILY [facility] Last Admin: 06/13/17 09:27 Dose: 1 tab Guaifenesin (Robitussin) 200 mg PO Q4H PRN PRN Reason: Cough and congestion Last Admin: 06/13/17 02:25 Dose: 200 mg Aztreonam 1 gm/ Sodium (Chloride) 100 mls @ 200 mls/hr IVPB Q8H [facility] Last Admin: 06/14/17 01:13 Dose: 200 mls/hr Azithromycin 500 mg/ Dextrose 250 mls @ 250 mls/hr IVPB Q24H [facility] Last Admin: 06/13/17 17:58 Dose: 250 mls/hr Ferric Sodium Gluconate Complex 125 mg/ Sodium Chloride 110 mls @ 110 mls/hr IVPB DAILY [facility] Stop: 06/21/17 14:01 Last Admin: 06/13/17 14:30 Dose: 110 mls/hr Insulin Glargine (Lantus) 15 unit SC Q12 [facility] Last Admin: 06/13/17 21:59 Dose: Not Given Insulin Human Regular (Novolin R) 0 unit SC ACHS [facility] PRN Reason: Protocol Last Admin: 06/13/17 21:52 Dose: Not Given Insulin Human Regular (Novolin R) 8 unit SC TIDPC [facility] Last Admin: 06/13/17 18:00 Dose: 8 unit Lactulose (Enulose) 10 gm PO TID PRN PRN Reason: Constipation Levothyroxine Sodium (Synthroid) 88 mcg PO DAILY@0630 [facility] Last Admin: 06/13/17 06:56 Dose: 88 mcg Magnesium Oxide (Mag-Ox) 400 mg PO BID [facility] Last Admin: 06/13/17 17:59 Dose: 400 mg Methylprednisolone (Solu-Medrol) 40 mg IVP Q8 [facility] Last Admin: 06/13/17 22:01 Dose: 40 mg Metoclopramide HCl (Reglan) 5 mg IVP Q6 [facility] Last Admin: 06/13/17 18:07 Dose: Not Given Metoprolol Succinate (Toprol Xl) 50 mg PO DAILY [facility] Last Admin: 06/13/17 09:27 Dose: 50 mg Rosuvastatin Calcium (Crestor) 5 mg PO HS [facility] Last Admin: 06/13/17 22:01 Dose: 5 mg - Labs Labs: 06/13/17 07:01 06/13/17 07:01 PT 14.5 SECONDS (9.7-12.2) H 06/06/17 16:54 INR 1.3 06/06/17 16:54 APTT 35 SECONDS (21-34) H 06/06/17 16:54 Attending/Attestation - Attestation I have personally seen and examined this patient.: Yes I have fully participated in the care of the patient.: Yes I have reviewed all pertinent clinical information, including history, physical exam and plan: Yes
[2017-06-13 11:47] LABS: BANDS 3 % (0-2); LYMPHOCYTE 8 % (20-40); METAMYELOCYTE 2 % (0-0); MONOCYTE 6 % (0-10); MYELOCYTE 1 % (0-0); NEUTROPHIL 79 % (50-75); PLATELET ESTIMATE NORMAL (NORMAL); REACTIVE LYMPHOCYTES 1 % (0-0); TOTAL CELLS COUNTED 100
[2017-06-13 11:48] LABS: HYPOCHROMIC SLIGHT
[2017-06-13] MEDS ORDERED: EPOETIN ALFA 10,000 UNIT/ML ML SC ONE (13:24)
[2017-06-13] MEDS ORDERED: Ferric Sodium Gluconat Complex 62.5 mg/5 ml Vial IVPB SCH (13:45)
[2017-06-13] MEDS ORDERED: Ferric Sodium Gluconat Complex 125 MG in Sodium Chloride 0.9% 100 ML IVPB SCH (14:00)
[2017-06-13] MEDS: Ferric Sodium Gluconat Complex 125 MG in Sodium Chloride 0.9% 100 ML IVPB SCH (14:30)
[2017-06-13] MEDS ORDERED: (Novolin R) Insulin Human Regular 100 units/ml vial SC SCH (14:31)
--- NOTE | 2017-06-13 14:40 | CP.PCM.PN ---
Subjective - Date & Time of Evaluation Date of Evaluation: 06/13/17 Time of Evaluation: 14:34 - Subjective Subjective: uncontrroled dm & hyponatremia Objective - Vital Signs/Intake and Output Vital Signs (last 24 hours): Temp Pulse Resp BP Pulse Ox 97.8 F 94 H 20 145/77 99 06/13/17 08:00 06/13/17 08:00 06/13/17 08:00 06/13/17 08:19 06/13/17 08:00 Intake and Output: 06/13/17 06/13/17 06:59 18:59 Intake Total 830 Balance 830 - Medications Medications: Current Medications Acetaminophen (Tylenol 650mg/20.3ml Solution Ud) 650 mg PO Q4 PRN PRN Reason: pain and headache Last Admin: 06/12/17 01:01 Dose: 650 mg Al Hydrox/Mg Hydrox/Simethicone (Maalox Plus 30 Ml) 30 ml PO 5XD PRN PRN Reason: gerd Albuterol/Ipratropium (Duoneb 3 Mg/0.5 Mg (3 Ml) Ud) 3 ml INH RQ4 [facility] Last Admin: 06/13/17 12:41 Dose: 3 ml Amlodipine Besylate (Norvasc) 5 mg PO DAILY [facility] Last Admin: 06/13/17 09:27 Dose: 5 mg Calcium/Vitamin D (Oyster Shell Calcium/Vitamin D 500 Mg-200 Iu) 1 tab PO DAILY [facility] Last Admin: 06/13/17 09:27 Dose: 1 tab Furosemide (Lasix) 40 mg IVP DAILY [facility] Guaifenesin (Robitussin) 200 mg PO Q4H PRN PRN Reason: Cough and congestion Last Admin: 06/13/17 02:25 Dose: 200 mg Heparin Sodium (Porcine) (Heparin) 5,000 units SC Q12H [facility] Last Admin: 06/13/17 09:27 Dose: 5,000 units Aztreonam 1 gm/ Sodium (Chloride) 100 mls @ 200 mls/hr IVPB Q8H [facility] Last Admin: 06/13/17 09:26 Dose: 200 mls/hr Azithromycin 500 mg/ Dextrose 250 mls @ 250 mls/hr IVPB Q24H [facility] Last Admin: 06/12/17 17:22 Dose: 250 mls/hr Ferric Sodium Gluconate Complex 125 mg/ Sodium Chloride 110 mls @ 110 mls/hr IVPB DAILY [facility] Stop: 06/21/17 14:01 Last Admin: 06/13/17 14:30 Dose: 110 mls/hr Insulin Glargine (Lantus) 15 unit SC Q12 [facility] Insulin Human Regular (Novolin R) 0 unit SC ACHS [facility] PRN Reason: Protocol Last Admin: 06/13/17 13:17 Dose: 5 unit Insulin Human Regular (Novolin R) 8 unit SC TIDPC [facility] Lactulose (Enulose) 10 gm PO TID PRN PRN Reason: Constipation Levothyroxine Sodium (Synthroid) 88 mcg PO DAILY@0630 [facility] Last Admin: 06/13/17 06:56 Dose: 88 mcg Magnesium Oxide (Mag-Ox) 400 mg PO BID [facility] Last Admin: 06/13/17 09:27 Dose: 400 mg Methylprednisolone (Solu-Medrol) 40 mg IVP Q8 [facility] Last Admin: 06/13/17 13:17 Dose: 40 mg Metoclopramide HCl (Reglan) 5 mg IVP Q6 [facility] Last Admin: 06/13/17 13:18 Dose: 5 mg Metoprolol Succinate (Toprol Xl) 50 mg PO DAILY [facility] Last Admin: 06/13/17 09:27 Dose: 50 mg Rosuvastatin Calcium (Crestor) 5 mg PO HS [facility] Last Admin: 06/12/17 22:49 Dose: 5 mg - Labs Labs: 06/13/17 07:01 06/13/17 07:01 PT 14.5 SECONDS (9.7-12.2) H 06/06/17 16:54 INR 1.3 06/06/17 16:54 APTT 35 SECONDS (21-34) H 06/06/17 16:54 Assessment and Plan (1) Hyponatremia Assessment & Plan: Endocrine consult f/u reason for consult: hyponatremia & uncontrolled dm Ms.81 is y/o admitted for nausea & vomiting as per chart review pt. with past medical history significant for hypothyroidism, asthma, and diabetes type II presented to [facility] with several days of nausea and vomiting. Before 2016, patient was fully independent and could perform all IADLs, lived alone. , patient fell and broke her arm (it was a mechanical fall), was admitted to [facility] , and was discharged to a rehab facility. At this rehab facility, patient had poor po intake and "was unable to keep anything down." She was then brought [facility] due to nausea and vomiting and mild confusion.on admission patient was found to be hypokalemic, hyponatremic, and severely dehydrated. s/p SVT with RBBB and heart rate of 162. & also with hypothyroidism on synthyroid 88 mcg po qd glucose still 400's , no hypoglycemia , still on solumedrol 40 mg IV q8h Allergy noted Past medical history: as above Past surgical history: denies Psychiatry history: denies Social history : denies smoking , ETOH use , illicit drug use Family history : DM ROS: Constitutional: denies fever, tiredness/weakness. HEENT: denies earache, change in voice .Respiratory: denies cough, sob . CVS :no chest pain, no palpitations . Abdomen: no abdominal pain, no nausea /vomiting, no change bowel movement. [employer] : denies light-headedness, dizziness. Extremities: no edema, no tremors. Skin: no itching, no rash Physical exam Well-developed Awake & alet with mild SOB VSS HEENT: norm cephalic, atraumatic, no lid lag , no exophthalmos NECK: supple, no palpable lymphadenopathy THYROID: no palpable thyromegaly, not tender CHEST: fair air entry, bilateral, CVS: S1,S2 ABDOMEN: bowel sound present, benign, obese, no wide purple striae , no bruises EXTREMITIES: trace pitting edema, clubbing or cyanosis, no palpable hand tremors Skin: acanthosis nigricans lab: Na 129 , corrected 133.4 Na 130 , glucose 384 , corrected NA about 134.2 NA 130 , glucose 227 , corrected 131.6 Na 115 on admission , elevated LFTS , Urine osm 258 06/08 Na 132 , 06/09 129 , corrected with glucose : 130.6 , cmp wnl tsh 4.52 , ft4 1.9 , u/a (+) WBC & LE , cortisol @ 8am , 7.7 06/06 repeat 8am 23 & 31.9 CXR (+) patchy increase marking bilateral Assessment steroid induced hyperg;ycemia uncontrolled dm hyponatremia , asymtomatic ,? cortisol level done while on steroids ! hypothyroidism nauease & vomiting arrythemia plan lantus was increased to 15 units bid increase Novolin R 8 units tid with meals if eats more than 60% of the meal continue Novolin R low dose coverage obtain a1c on Methyl-prednisone 40 mg IV q8h continue synthroid 88 mcg po qd contact endocrine if change in solumedrol dose or frequency we will follow with you. Status: Acute (2) Nausea & vomiting Status: Acute (3) Hypothyroidism Status: Acute (4) Uncontrolled diabetes mellitus Status: Acute (5) Steroid-induced hyperglycemia Status: Acute
--- NOTE | 2017-06-13 16:20 | CP.PCM.PN ---
Subjective - Date & Time of Evaluation Date of Evaluation: 06/13/17 Time of Evaluation: 10:20 - Subjective Subjective: Patient seen and examined today sitting in a chair. Patient states she had an asthma attack this morning and felt severely short of breath. Patient was given two nebulizer treatments and states she feels better. Patient is still complaining of cough and wheezing, especially with deep inspiration. Cough is still productive of clear phlegm. Patient is on 2L nasal cannula and is saturating well. Patient denies chest pain and palpitations. CXR 06/13: Biapical pleural thickening with upper lobe granulomatous changes. Linear consolidation in mid-lung zone, suggestive of infiltrate and/or atelectasis. Assessment/Plan 1. Pneumonia - continue IV antibiotics and IV steroids. Discontinue inhaled steroids. 2. Asthma with acute exacerbation - continue nebulizer treatments. 3. Lasix aand transfuse packed RBCs Objective - Vital Signs/Intake and Output Vital Signs (last 24 hours): Temp Pulse Resp BP Pulse Ox 98.5 F 89 20 137/71 100 06/13/17 15:22 06/13/17 15:22 06/13/17 15:22 06/13/17 15:22 06/13/17 15:22 Intake and Output: 06/13/17 06/13/17 06:59 18:59 Intake Total 830 Balance 830 - Medications Medications: Current Medications Acetaminophen (Tylenol 650mg/20.3ml Solution Ud) 650 mg PO Q4 PRN PRN Reason: pain and headache Last Admin: 06/12/17 01:01 Dose: 650 mg Al Hydrox/Mg Hydrox/Simethicone (Maalox Plus 30 Ml) 30 ml PO 5XD PRN PRN Reason: gerd Albuterol/Ipratropium (Duoneb 3 Mg/0.5 Mg (3 Ml) Ud) 3 ml INH RQ4 [facility] Last Admin: 06/13/17 12:41 Dose: 3 ml Amlodipine Besylate (Norvasc) 5 mg PO DAILY [facility] Last Admin: 06/13/17 09:27 Dose: 5 mg Calcium/Vitamin D (Oyster Shell Calcium/Vitamin D 500 Mg-200 Iu) 1 tab PO DAILY [facility] Last Admin: 06/13/17 09:27 Dose: 1 tab Guaifenesin (Robitussin) 200 mg PO Q4H PRN PRN Reason: Cough and congestion Last Admin: 06/13/17 02:25 Dose: 200 mg Heparin Sodium (Porcine) (Heparin) 5,000 units SC Q12H [facility] Last Admin: 06/13/17 09:27 Dose: 5,000 units Aztreonam 1 gm/ Sodium (Chloride) 100 mls @ 200 mls/hr IVPB Q8H [facility] Last Admin: 06/13/17 09:26 Dose: 200 mls/hr Azithromycin 500 mg/ Dextrose 250 mls @ 250 mls/hr IVPB Q24H [facility] Last Admin: 06/12/17 17:22 Dose: 250 mls/hr Ferric Sodium Gluconate Complex 125 mg/ Sodium Chloride 110 mls @ 110 mls/hr IVPB DAILY [facility] Stop: 06/21/17 14:01 Last Admin: 06/13/17 14:30 Dose: 110 mls/hr Insulin Glargine (Lantus) 15 unit SC Q12 [facility] Insulin Human Regular (Novolin R) 0 unit SC ACHS [facility] PRN Reason: Protocol Last Admin: 06/13/17 13:17 Dose: 5 unit Insulin Human Regular (Novolin R) 8 unit SC TIDPC [facility] Lactulose (Enulose) 10 gm PO TID PRN PRN Reason: Constipation Levothyroxine Sodium (Synthroid) 88 mcg PO DAILY@0630 [facility] Last Admin: 06/13/17 06:56 Dose: 88 mcg Magnesium Oxide (Mag-Ox) 400 mg PO BID [facility] Last Admin: 06/13/17 09:27 Dose: 400 mg Methylprednisolone (Solu-Medrol) 40 mg IVP Q8 [facility] Last Admin: 06/13/17 13:17 Dose: 40 mg Metoclopramide HCl (Reglan) 5 mg IVP Q6 [facility] Last Admin: 06/13/17 13:18 Dose: 5 mg Metoprolol Succinate (Toprol Xl) 50 mg PO DAILY [facility] Last Admin: 06/13/17 09:27 Dose: 50 mg Rosuvastatin Calcium (Crestor) 5 mg PO HS [facility] Last Admin: 06/12/17 22:49 Dose: 5 mg - Labs Labs: 06/13/17 07:01 06/13/17 07:01 PT 14.5 SECONDS (9.7-12.2) H 06/06/17 16:54 INR 1.3 06/06/17 16:54 APTT 35 SECONDS (21-34) H 06/06/17 16:54 Assessment and Plan (1) Pneumonia Status: Acute (2) Asthma with acute exacerbation Status: Acute (3) Respiratory distress Status: Acute
[2017-06-13 18:18] LABS: CREATININE, RANDOM URINE 7.7 mg/dL
--- NOTE | 2017-06-13 19:17 | PN ---
LOCATION: 665, bed A. SUBJECTIVE: This is an 81-year-old female, seen and examined early in rounds without significant clinical changes, but intermittent period of productive cough with some shortness of breath with nausea and complaint of vomiting on and off. There was reported that the blood glucose level was elevated to 448 earlier this morning. The entire chart is reviewed including, but not limited to the most recent lab and radiology study results, current and the previous medication list, current and the previous medical events, and today's white blood cells reported to be 15.7 with drop of hemoglobin 7.7, hematocrit low at 23.7 with normal platelet count, with low sodium 129, and the latest blood glucose level went down to 390 with low calcium at 0.1, low phosphorus at 2.3. Most recent chest x-ray done today, report and film is seen, was official report indicative of possible infiltrate, please see official report . PHYSICAL EXAMINATION: VITALS AND GENERAL: This is an 81-year-old female, afebrile with pulse of 90, respiratory rate of 22, and blood pressure 140/74. HEENT: Shows mildly pale dry oral mucous membrane, nonicteric sclerae. LUNGS: Scattered crepitation with decreased air entry at bases with bilateral mild wheezing and few rales. HEART: Positive S1 and S2 with increased rate. ABDOMEN: Soft with slight distention with mild generalized tenderness. No mass or organomegaly. No rebound tenderness or guarding. RECTAL: Deferred due to the patient's clinical status. EXTREMITIES: No significant edema, clubbing, or cyanosis. NEUROLOGIC: No reported new neurological deficits, sensory or motor. IMPRESSION: 1. Exacerbation of chronic obstructive pulmonary disease with possible pneumonia. 2. Anemia. 3. Peptic ulcer disease. 4. Rule out occult gastrointestinal malignancy, I was informed by the pathology staff that the patient has gastric carcinoid lesion with marking. 5. Hypertension with congestive heart failure by history. 6. Drug-induced coagulopathy. 7. History of cardiac arrhythmias. SUGGESTIONS: 1. Continue current management. 2. 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 3. Encourage Hematology consult to be kept. Nalini Richter MD
--- NOTE | 2017-06-13 22:44 | CP.PCM.PN ---
Subjective - Date & Time of Evaluation Date of Evaluation: 06/13/17 Time of Evaluation: 19:40 - Subjective Subjective: Pt is seen and examined, c/o shortness of breath, she was in fluid overload, her IV fluids were discotinues and started on lasix which pt improved Objective - Vital Signs/Intake and Output Vital Signs (last 24 hours): Temp Pulse Resp BP Pulse Ox 98.5 F 89 20 137/71 100 06/13/17 15:22 06/13/17 15:22 06/13/17 15:22 06/13/17 15:22 06/13/17 15:22 - Medications Medications: Current Medications Acetaminophen (Tylenol 650mg/20.3ml Solution Ud) 650 mg PO Q4 PRN PRN Reason: pain and headache Last Admin: 06/12/17 01:01 Dose: 650 mg Al Hydrox/Mg Hydrox/Simethicone (Maalox Plus 30 Ml) 30 ml PO 5XD PRN PRN Reason: gerd Albuterol/Ipratropium (Duoneb 3 Mg/0.5 Mg (3 Ml) Ud) 3 ml INH RQ4 [facility] Last Admin: 06/13/17 20:39 Dose: 3 ml Amlodipine Besylate (Norvasc) 5 mg PO DAILY [facility] Last Admin: 06/13/17 09:27 Dose: 5 mg Calcium/Vitamin D (Oyster Shell Calcium/Vitamin D 500 Mg-200 Iu) 1 tab PO DAILY [facility] Last Admin: 06/13/17 09:27 Dose: 1 tab Guaifenesin (Robitussin) 200 mg PO Q4H PRN PRN Reason: Cough and congestion Last Admin: 06/13/17 02:25 Dose: 200 mg Aztreonam 1 gm/ Sodium (Chloride) 100 mls @ 200 mls/hr IVPB Q8H [facility] Last Admin: 06/13/17 17:58 Dose: 200 mls/hr Azithromycin 500 mg/ Dextrose 250 mls @ 250 mls/hr IVPB Q24H [facility] Last Admin: 06/13/17 17:58 Dose: 250 mls/hr Ferric Sodium Gluconate Complex 125 mg/ Sodium Chloride 110 mls @ 110 mls/hr IVPB DAILY [facility] Stop: 06/21/17 14:01 Last Admin: 06/13/17 14:30 Dose: 110 mls/hr Insulin Glargine (Lantus) 15 unit SC Q12 [facility] Last Admin: 06/13/17 21:59 Dose: Not Given Insulin Human Regular (Novolin R) 0 unit SC ACHS [facility] PRN Reason: Protocol Last Admin: 06/13/17 21:52 Dose: Not Given Insulin Human Regular (Novolin R) 8 unit SC TIDPC [facility] Last Admin: 06/13/17 18:00 Dose: 8 unit Lactulose (Enulose) 10 gm PO TID PRN PRN Reason: Constipation Levothyroxine Sodium (Synthroid) 88 mcg PO DAILY@0630 [facility] Last Admin: 06/13/17 06:56 Dose: 88 mcg Magnesium Oxide (Mag-Ox) 400 mg PO BID [facility] Last Admin: 06/13/17 17:59 Dose: 400 mg Methylprednisolone (Solu-Medrol) 40 mg IVP Q8 [facility] Last Admin: 06/13/17 22:01 Dose: 40 mg Metoclopramide HCl (Reglan) 5 mg IVP Q6 [facility] Last Admin: 06/13/17 18:07 Dose: Not Given Metoprolol Succinate (Toprol Xl) 50 mg PO DAILY [facility] Last Admin: 06/13/17 09:27 Dose: 50 mg Rosuvastatin Calcium (Crestor) 5 mg PO HS [facility] Last Admin: 06/13/17 22:01 Dose: 5 mg - Labs Labs: 06/13/17 07:01 06/13/17 07:01 PT 14.5 SECONDS (9.7-12.2) H 06/06/17 16:54 INR 1.3 06/06/17 16:54 APTT 35 SECONDS (21-34) H 06/06/17 16:54 - Constitutional Appears: No Acute Distress - Head Exam Head Exam: ATRAUMATIC, NORMAL INSPECTION, NORMOCEPHALIC - Eye Exam Eye Exam: EOMI, Normal appearance, PERRL Pupil Exam: NORMAL ACCOMODATION, PERRL - Respiratory Exam Respiratory Exam: Decreased Breath Sounds, Rales, Rhonchi - Cardiovascular Exam Cardiovascular Exam: REGULAR RHYTHM, +S1, +S2. absent: Murmur - GI/Abdominal Exam GI & Abdominal Exam: Soft, Normal Bowel Sounds. absent: Tenderness - Neurological Exam Neurological Exam: Alert, Awake, CN II-XII Intact, Normal Gait, Oriented x3 - Psychiatric Exam Psychiatric exam: Normal Affect, Normal Mood Assessment and Plan (1) Anemia Status: Acute (2) Electrolyte abnormality Status: Acute (3) Hyponatremia Status: Acute (4) Nausea & vomiting Status: Acute (5) HTN (hypertension) Status: Chronic (6) Asthma with acute exacerbation Status: Acute (7) GERD (gastroesophageal reflux disease) Status: Acute (8) Pneumonia Status: Acute
--- NOTE | 2017-06-13 23:18 | CP.PCM.PN ---
Subjective - Date & Time of Evaluation Date of Evaluation: 06/13/17 Time of Evaluation: 23:00 - Subjective Subjective: Reports "asthma attack" earlier today; thought to be volume overloaded and given dose of IV lasix, breathing subsequently improved; adhering to fluid restriction; Objective - Vital Signs/Intake and Output Vital Signs (last 24 hours): Temp Pulse Resp BP Pulse Ox 98.5 F 89 20 137/71 100 06/13/17 15:22 06/13/17 15:22 06/13/17 15:22 06/13/17 15:22 06/13/17 15:22 - Medications Medications: Current Medications Acetaminophen (Tylenol 650mg/20.3ml Solution Ud) 650 mg PO Q4 PRN PRN Reason: pain and headache Last Admin: 06/12/17 01:01 Dose: 650 mg Al Hydrox/Mg Hydrox/Simethicone (Maalox Plus 30 Ml) 30 ml PO 5XD PRN PRN Reason: gerd Albuterol/Ipratropium (Duoneb 3 Mg/0.5 Mg (3 Ml) Ud) 3 ml INH RQ4 [facility] Last Admin: 06/13/17 20:39 Dose: 3 ml Amlodipine Besylate (Norvasc) 5 mg PO DAILY [facility] Last Admin: 06/13/17 09:27 Dose: 5 mg Calcium/Vitamin D (Oyster Shell Calcium/Vitamin D 500 Mg-200 Iu) 1 tab PO DAILY [facility] Last Admin: 06/13/17 09:27 Dose: 1 tab Guaifenesin (Robitussin) 200 mg PO Q4H PRN PRN Reason: Cough and congestion Last Admin: 06/13/17 02:25 Dose: 200 mg Aztreonam 1 gm/ Sodium (Chloride) 100 mls @ 200 mls/hr IVPB Q8H [facility] Last Admin: 06/13/17 17:58 Dose: 200 mls/hr Azithromycin 500 mg/ Dextrose 250 mls @ 250 mls/hr IVPB Q24H [facility] Last Admin: 06/13/17 17:58 Dose: 250 mls/hr Ferric Sodium Gluconate Complex 125 mg/ Sodium Chloride 110 mls @ 110 mls/hr IVPB DAILY [facility] Stop: 06/21/17 14:01 Last Admin: 06/13/17 14:30 Dose: 110 mls/hr Insulin Glargine (Lantus) 15 unit SC Q12 [facility] Last Admin: 06/13/17 21:59 Dose: Not Given Insulin Human Regular (Novolin R) 0 unit SC ACHS [facility] PRN Reason: Protocol Last Admin: 06/13/17 21:52 Dose: Not Given Insulin Human Regular (Novolin R) 8 unit SC TIDPC [facility] Last Admin: 06/13/17 18:00 Dose: 8 unit Lactulose (Enulose) 10 gm PO TID PRN PRN Reason: Constipation Levothyroxine Sodium (Synthroid) 88 mcg PO DAILY@0630 [facility] Last Admin: 06/13/17 06:56 Dose: 88 mcg Magnesium Oxide (Mag-Ox) 400 mg PO BID [facility] Last Admin: 06/13/17 17:59 Dose: 400 mg Methylprednisolone (Solu-Medrol) 40 mg IVP Q8 [facility] Last Admin: 06/13/17 22:01 Dose: 40 mg Metoclopramide HCl (Reglan) 5 mg IVP Q6 [facility] Last Admin: 06/13/17 18:07 Dose: Not Given Metoprolol Succinate (Toprol Xl) 50 mg PO DAILY [facility] Last Admin: 06/13/17 09:27 Dose: 50 mg Rosuvastatin Calcium (Crestor) 5 mg PO HS [facility] Last Admin: 06/13/17 22:01 Dose: 5 mg - Labs Labs: 06/13/17 07:01 06/13/17 07:01 PT 14.5 SECONDS (9.7-12.2) H 06/06/17 16:54 INR 1.3 06/06/17 16:54 APTT 35 SECONDS (21-34) H 06/06/17 16:54 - Constitutional Appears: Non-toxic, No Acute Distress - ENT Exam ENT Exam: Mucous Membranes Moist - Respiratory Exam Respiratory Exam: Prolonged Expiratory Phase, Wheezes. absent: Respiratory Distress - Cardiovascular Exam Cardiovascular Exam: RRR, +S1, +S2 - GI/Abdominal Exam GI & Abdominal Exam: Soft. absent: Distended, Tenderness - Extremities Exam Additional comments: mild lower leg edema; - Neurological Exam Neurological Exam: Alert, Awake - Psychiatric Exam Psychiatric exam: Normal Affect, Normal Mood. absent: Agitated Assessment and Plan (1) Hyponatremia Assessment & Plan: Improved and stable; slight decrease in serum Na today dilutional due to hyperglycemia; continue PO 1L daily fluid restriction; Status: Acute (2) HTN (hypertension) Assessment & Plan: BP controlled on toprol XL 50 mg daily an amlodipine 5 mg daily; continue same; Status: Chronic (3) Electrolyte abnormality Status: Acute (4) Asthma with acute exacerbation Status: Acute (5) Anemia Assessment & Plan: Started on EPO, monitor for BP elevation; Status: Acute
[2017-06-14] MEDS: Acetaminophen 650mg/20.3ml solution UD PO PRN ×2 (01:13→14:35)
[2017-06-14] MEDS: Aztreonam 1 GM in Sodium Chloride 0.9% 100 ML IVPB SCH ×3 (01:13→17:34)
[2017-06-14] MEDS: Albuterol-Ipratrop 3 mg / 0.5 (3 ml) UD INH SCH ×5 (03:19→19:28)
[2017-06-14] MEDS: Levothyroxine 88 MCG TAB PO SCH (07:02)
[2017-06-14] MEDS: MethylPREDNISolone 40 mg Vial IVP SCH ×3 (07:02→22:32)
[2017-06-14] MEDS: (Novolin R) Insulin Human Regular 100 units/ml vial SC SCH ×7 (08:22→22:58)
[2017-06-14] MEDS: Calcium-Vit D 500 mg-200 Units Tab UD PO SCH (10:31)
[2017-06-14] MEDS: Magnesium Oxide 400 mg Tab UD PO SCH ×2 (10:31→17:36)
[2017-06-14] MEDS: Metoprolol Succinate 50 mg XL Tab PO SCH (10:31)
[2017-06-14] MEDS: (Lantus) Insulin Glargine, Recombinant SC SCH ×2 (10:32→22:31)
[2017-06-14] MEDS: Ferric Sodium Gluconat Complex 125 MG in Sodium Chloride 0.9% 100 ML IVPB SCH (10:32)
[2017-06-14 11:58] LABS: BASO % 0.1 % (0.0-2.0); HEMOGLOBIN 8.1 g/dL (11.0-16.0); LYMPH # 1.8 K/uL (1.0-4.3); LYMPH % 9.3 % (20.0-40.0); MEAN CELL VOLUME 90.2 fL (81.0-99.0); MEAN CORPUSCULAR HGB CONC 33.2 g/dL (33.0-37.0); MEAN PLATELET VOLUME 7.7 fL (7.2-11.7); MONO # 1.7 K/uL (0.0-0.8); MONO % 8.7 % (0.0-10.0); NEUT # 15.9 K/uL (1.8-7.0); NEUT % 81.9 % (50.0-75.0); NRBC % 0.1 % (0.0-2.0); PLATELET COUNT 366 K/uL (130-400); WHITE BLOOD COUNT 19.4 K/uL (4.8-10.8)
[2017-06-14 12:10] LABS: BLOOD UREA NITROGEN 16 mg/dL (7-17); CALCIUM 8.2 mg/dl (8.6-10.4); GFR AFRICAN-AMERICAN > 60; GFR NON-AFRICAN AMERICAN > 60
--- NOTE | 2017-06-14 12:36 | CP.PCM.PN ---
Subjective - Date & Time of Evaluation Date of Evaluation: 06/14/17 Time of Evaluation: 09:30 - Subjective Subjective: Patient seen and examined Breathing and cough much improved Still complaining of dyspnea on minimal exertion Afebrile No chest pain Objective - Vital Signs/Intake and Output Vital Signs (last 24 hours): Temp Pulse Resp BP Pulse Ox 97.3 F L 66 18 149/70 99 06/14/17 08:34 06/14/17 08:34 06/14/17 09:50 06/14/17 09:50 06/14/17 09:50 - Medications Medications: Current Medications Acetaminophen (Tylenol 650mg/20.3ml Solution Ud) 650 mg PO Q4 PRN PRN Reason: pain and headache Last Admin: 06/14/17 01:13 Dose: 650 mg Al Hydrox/Mg Hydrox/Simethicone (Maalox Plus 30 Ml) 30 ml PO 5XD PRN PRN Reason: gerd Albuterol/Ipratropium (Duoneb 3 Mg/0.5 Mg (3 Ml) Ud) 3 ml INH RQ4 [facility] Last Admin: 06/14/17 07:46 Dose: 3 ml Amlodipine Besylate (Norvasc) 5 mg PO DAILY [facility] Last Admin: 06/14/17 10:31 Dose: 5 mg Calcium/Vitamin D (Oyster Shell Calcium/Vitamin D 500 Mg-200 Iu) 1 tab PO DAILY [facility] Last Admin: 06/14/17 10:31 Dose: 1 tab Guaifenesin (Robitussin) 200 mg PO Q4H PRN PRN Reason: Cough and congestion Last Admin: 06/13/17 02:25 Dose: 200 mg Aztreonam 1 gm/ Sodium (Chloride) 100 mls @ 200 mls/hr IVPB Q8H [facility] Last Admin: 06/14/17 08:22 Dose: 200 mls/hr Azithromycin 500 mg/ Dextrose 250 mls @ 250 mls/hr IVPB Q24H [facility] Last Admin: 06/13/17 17:58 Dose: 250 mls/hr Ferric Sodium Gluconate Complex 125 mg/ Sodium Chloride 110 mls @ 110 mls/hr IVPB DAILY [facility] Stop: 06/21/17 14:01 Last Admin: 06/14/17 10:32 Dose: 110 mls/hr Insulin Glargine (Lantus) 15 unit SC Q12 [facility] Last Admin: 06/14/17 10:32 Dose: 15 units Insulin Human Regular (Novolin R) 0 unit SC ACHS [facility] PRN Reason: Protocol Last Admin: 06/14/17 12:10 Dose: 4 unit Insulin Human Regular (Novolin R) 8 unit SC TIDPC [facility] Last Admin: 06/14/17 09:07 Dose: Not Given Lactulose (Enulose) 10 gm PO TID PRN PRN Reason: Constipation Levothyroxine Sodium (Synthroid) 88 mcg PO DAILY@0630 [facility] Last Admin: 06/14/17 07:02 Dose: 88 mcg Magnesium Oxide (Mag-Ox) 400 mg PO BID [facility] Last Admin: 06/14/17 10:31 Dose: 400 mg Methylprednisolone (Solu-Medrol) 40 mg IVP Q8 [facility] Last Admin: 06/14/17 07:02 Dose: 40 mg Metoclopramide HCl (Reglan) 5 mg IVP Q6 [facility] Last Admin: 06/14/17 12:10 Dose: 5 mg Metoprolol Succinate (Toprol Xl) 50 mg PO DAILY [facility] Last Admin: 06/14/17 10:31 Dose: 50 mg Potassium Chloride (Potassium Chloride Oral Soln) 40 meq PO ONCE ONE Stop: 06/14/17 13:01 Rosuvastatin Calcium (Crestor) 5 mg PO HS [facility] Last Admin: 06/13/17 22:01 Dose: 5 mg - Labs Labs: 06/14/17 11:45 06/14/17 11:45 PT 14.5 SECONDS (9.7-12.2) H 06/06/17 16:54 INR 1.3 06/06/17 16:54 APTT 35 SECONDS (21-34) H 06/06/17 16:54 - Head Exam Head Exam: ATRAUMATIC, NORMOCEPHALIC - ENT Exam ENT Exam: Mucous Membranes Moist - Neck Exam Neck Exam: Normal Inspection - Respiratory Exam Respiratory Exam: Rhonchi - Cardiovascular Exam Cardiovascular Exam: REGULAR RHYTHM - GI/Abdominal Exam GI & Abdominal Exam: Soft, Normal Bowel Sounds Assessment and Plan (1) Pneumonia Assessment & Plan: continue antibiotics Continue steroids and nebulizer treatment Followup chest x-ray Status: Acute (2) Asthma with acute exacerbation Status: Acute (3) Respiratory distress Status: Acute
[2017-06-14 12:47] LABS: BANDS 3 % (0-2); HYPOCHROMIC SLIGHT; LYMPHOCYTE 13 % (20-40); METAMYELOCYTE 1 % (0-0); MONOCYTE 11 % (0-10); MYELOCYTE 1 % (0-0); NEUTROPHIL 71 % (50-75); NUCLEATED RED BLOOD CELL 1 % (0-0); PLATELET ESTIMATE NORMAL (NORMAL); TOTAL CELLS COUNTED 100
[2017-06-14 12:48] LABS: POIKILOCYTOSIS SLIGHT; SCHISTOCYTES SLIGHT
[2017-06-14] MEDS ORDERED: Potassium Chloride 20 mEq/15 ml LIQ UD PO ONE (13:00)
--- NOTE | 2017-06-14 13:16 | PN ---
DATE: LOCATION: [facility], bed A. SUBJECTIVE: This is an 81-year-old female seen early in rounds, was recently diagnosed with gastric carcinoid tumor as per the pathology staff with intermittent periods of asthma attack, shortness of breath, with intermittent productive cough. Complaining of intermittent period of abdominal pain, generalized weakness and malaise with loss of appetite. No axial chest pain or palpitation. No reported chills or fever. The entire chart is reviewed including but not limited to the most recent lab and radiology study results, current and the previous medication list, current and the previous medical events. Case discussed at length with the staff. Latest blood workup showed leukocytosis of 15.7 with subsequent low hemoglobin 7.7, hematocrit 23.7, with normal platelet count with low sodium 129. Today's lab is still pending except blood glucose level of 297. Chest x-ray done yesterday, official report is seen. PHYSICAL EXAMINATION: GENERAL: An 81-year-old female, appeared to be awake, alert, oriented. VITAL SIGNS: Afebrile with pulse of 68, respiratory rate 20 to 24, with blood pressure of 152/72. HEENT: Showed mildly pale, dry oral mucous membrane. Nonicteric sclerae. LUNGS: Few scattered crepitation. Decreased air entry at bases. HEART: Positive S1 and S2. ABDOMEN: Soft, bowel sounds are present with mild generalized tenderness. No mass or organomegaly. No rebound tenderness or guarding. RECTAL: Deferred due to the patient's cardiopulmonary complaint. EXTREMITIES: With lower extremity edematous changes. NEUROLOGIC: No reported neurological deficits, sensory or motor. IMPRESSION: 1. 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 2. Chronic obstructive pulmonary disease with pneumonia. 3. Anemia, most likely secondary to above. 4. Electrolyte imbalance with hyponatremia. 5. Known history of hypertension with congestive heart failure. 6. Known history of cardiac arrhythmias. SUGGESTION: 1. Agree with your plan. 2. The patient would need Hematology/Oncology consult. 3. Colonoscopy when the patient is more stable clinically. 4. Further evaluation and recommendation to follow. Nalini Richter MD cc:
--- NOTE | 2017-06-14 18:05 | CP.PCM.PN ---
<CherylZane - Last Filed: 06/14/17 18:02> Subjective - Date & Time of Evaluation Date of Evaluation: 06/14/17 Time of Evaluation: 18:02 - Subjective Subjective: Cardiology Progress Note for Dr. Cisse Pt seen and examined at bedside. No acute overnight events. Pt states that breathing is a little bit better when getting breathing treatments, but becomes short of breath without oxygen. Pt denies CP, n/v/d, abdominal pain, fever, chills, CARVAJAL, or dizziness. Objective - Vital Signs/Intake and Output Vital Signs (last 24 hours): Temp Pulse Resp BP Pulse Ox 97.5 F L 89 20 152/72 H 100 06/14/17 15:06 06/14/17 15:06 06/14/17 15:06 06/14/17 15:06 06/14/17 15:06 - Medications Medications: Current Medications Acetaminophen (Tylenol 650mg/20.3ml Solution Ud) 650 mg PO Q4 PRN PRN Reason: pain and headache Last Admin: 06/14/17 14:35 Dose: 650 mg Al Hydrox/Mg Hydrox/Simethicone (Maalox Plus 30 Ml) 30 ml PO 5XD PRN PRN Reason: gerd Albuterol/Ipratropium (Duoneb 3 Mg/0.5 Mg (3 Ml) Ud) 3 ml INH RQ4 [facility] Last Admin: 06/14/17 17:00 Dose: 3 ml Amlodipine Besylate (Norvasc) 5 mg PO DAILY [facility] Last Admin: 06/14/17 10:31 Dose: 5 mg Calcium/Vitamin D (Oyster Shell Calcium/Vitamin D 500 Mg-200 Iu) 1 tab PO DAILY [facility] Last Admin: 06/14/17 10:31 Dose: 1 tab Guaifenesin (Robitussin) 200 mg PO Q4H PRN PRN Reason: Cough and congestion Last Admin: 06/13/17 02:25 Dose: 200 mg Aztreonam 1 gm/ Sodium (Chloride) 100 mls @ 200 mls/hr IVPB Q8H [facility] Last Admin: 06/14/17 17:34 Dose: 200 mls/hr Ferric Sodium Gluconate Complex 125 mg/ Sodium Chloride 110 mls @ 110 mls/hr IVPB DAILY [facility] Stop: 06/21/17 14:01 Last Admin: 06/14/17 10:32 Dose: 110 mls/hr Moxifloxacin HCl (Avelox Iv 400mg/250ml Ns) 400 mg in 250 mls @ 167 mls/hr IVPB Q24H [facility] Insulin Glargine (Lantus) 15 unit SC Q12 [facility] Last Admin: 06/14/17 10:32 Dose: 15 units Insulin Human Regular (Novolin R) 0 unit SC ACHS [facility] PRN Reason: Protocol Last Admin: 06/14/17 17:36 Dose: 5 unit Insulin Human Regular (Novolin R) 8 unit SC TIDPC [facility] Last Admin: 06/14/17 17:38 Dose: Not Given Lactulose (Enulose) 10 gm PO TID PRN PRN Reason: Constipation Levothyroxine Sodium (Synthroid) 88 mcg PO DAILY@0630 [facility] Last Admin: 06/14/17 07:02 Dose: 88 mcg Magnesium Oxide (Mag-Ox) 400 mg PO BID [facility] Last Admin: 06/14/17 17:36 Dose: 400 mg Methylprednisolone (Solu-Medrol) 40 mg IVP Q8 [facility] Last Admin: 06/14/17 14:11 Dose: 40 mg Metoclopramide HCl (Reglan) 5 mg IVP Q6 [facility] Last Admin: 06/14/17 17:39 Dose: 5 mg Metoprolol Succinate (Toprol Xl) 50 mg PO DAILY [facility] Last Admin: 06/14/17 10:31 Dose: 50 mg Rosuvastatin Calcium (Crestor) 5 mg PO HS [facility] Last Admin: 06/13/17 22:01 Dose: 5 mg - Labs Labs: 06/14/17 11:45 06/14/17 11:45 PT 14.5 SECONDS (9.7-12.2) H 06/06/17 16:54 INR 1.3 06/06/17 16:54 APTT 35 SECONDS (21-34) H 06/06/17 16:54 - Constitutional Appears: No Acute Distress - Head Exam Head Exam: NORMAL INSPECTION - Eye Exam Eye Exam: Normal appearance - ENT Exam ENT Exam: Normal Exam - Neck Exam Neck Exam: Normal Inspection - Respiratory Exam Respiratory Exam: Wheezes (b/l). absent: Accessory Muscle Use, Rales, Rhonchi, Respiratory Distress - Cardiovascular Exam Cardiovascular Exam: RRR, +S1, +S2. absent: Clicks, Gallop, Rubs, Murmur - GI/Abdominal Exam GI & Abdominal Exam: Soft. absent: Distended, Guarding, Tenderness, Rebound - Extremities Exam Extremities Exam: Normal Inspection - Back Exam Back Exam: NORMAL INSPECTION - Neurological Exam Neurological Exam: Alert, Awake, Oriented x3 - Skin Skin Exam: Dry, Intact, Normal Color, Warm Assessment and Plan - Assessment and Plan (Free Text) Assessment: 81 year old female with past medical history of hypertension, diabetes, and asthma presented with intractible nausea and vomiting. Cardiology consulted due to SVT. ACS ruled out as Troponins are negative X3. No evidence of SVT since admission. Plan: SVT, Resolved - EKG on 06/05 showed RBBB, wide-QRS complex tachycardia, and signs of inferolateral ischemia Follow up ekg showed NSR with RBBB - ACS ruled out as Cardiac Enzymes negative x3 - ECHO showed EF 50-55% and mild MR - HR stable - Cont Toprol XL to 50 mg PO daily - Would recommend outpatient stress test Electrolyte Abnormalities - Management per primary and nephro Dehydration - Management per primary and nephro Diabetes - Management per primary Asthma Exacerbation - Management per primary DVT/GI Prophylaxis - As per primary Pt seen and discussed in detail with Dr. Cisse. Prince Luna, PGY1 <Sanchez Cisse - Last Filed: 06/14/17 23:55> Objective - Vital Signs/Intake and Output Vital Signs (last 24 hours): Temp Pulse Resp BP Pulse Ox 97.5 F L 89 20 152/72 H 100 06/14/17 15:06 06/14/17 15:06 06/14/17 15:06 06/14/17 15:06 06/14/17 15:06 - Medications Medications: Current Medications Acetaminophen (Tylenol 650mg/20.3ml Solution Ud) 650 mg PO Q4 PRN PRN Reason: pain and headache Last Admin: 06/14/17 14:35 Dose: 650 mg Al Hydrox/Mg Hydrox/Simethicone (Maalox Plus 30 Ml) 30 ml PO 5XD PRN PRN Reason: gerd Albuterol/Ipratropium (Duoneb 3 Mg/0.5 Mg (3 Ml) Ud) 3 ml INH RQ4 [facility] Last Admin: 06/14/17 19:28 Dose: 3 ml Amlodipine Besylate (Norvasc) 5 mg PO DAILY [facility] Last Admin: 06/14/17 10:31 Dose: 5 mg Calcium/Vitamin D (Oyster Shell Calcium/Vitamin D 500 Mg-200 Iu) 1 tab PO DAILY [facility] Last Admin: 06/14/17 10:31 Dose: 1 tab Guaifenesin (Robitussin) 200 mg PO Q4H PRN PRN Reason: Cough and congestion Last Admin: 06/13/17 02:25 Dose: 200 mg Aztreonam 1 gm/ Sodium (Chloride) 100 mls @ 200 mls/hr IVPB Q8H [facility] Last Admin: 06/14/17 17:34 Dose: 200 mls/hr Ferric Sodium Gluconate Complex 125 mg/ Sodium Chloride 110 mls @ 110 mls/hr IVPB DAILY [facility] Stop: 06/21/17 14:01 Last Admin: 06/14/17 10:32 Dose: 110 mls/hr Moxifloxacin HCl (Avelox Iv 400mg/250ml Ns) 400 mg in 250 mls @ 167 mls/hr IVPB Q24H [facility] Last Admin: 06/14/17 21:22 Dose: 167 mls/hr Insulin Glargine (Lantus) 15 unit SC Q12 [facility] Last Admin: 06/14/17 22:31 Dose: 15 units Insulin Human Regular (Novolin R) 0 unit SC ACHS [facility] PRN Reason: Protocol Last Admin: 06/14/17 22:58 Dose: 2 unit Insulin Human Regular (Novolin R) 8 unit SC TIDPC [facility] Last Admin: 06/14/17 17:38 Dose: Not Given Lactulose (Enulose) 10 gm PO TID PRN PRN Reason: Constipation Levothyroxine Sodium (Synthroid) 88 mcg PO DAILY@0630 [facility] Last Admin: 06/14/17 07:02 Dose: 88 mcg Magnesium Oxide (Mag-Ox) 400 mg PO BID [facility] Last Admin: 06/14/17 17:36 Dose: 400 mg Methylprednisolone (Solu-Medrol) 40 mg IVP Q8 [facility] Last Admin: 06/14/17 22:32 Dose: 40 mg Metoclopramide HCl (Reglan) 5 mg IVP Q6 [facility] Last Admin: 06/14/17 17:39 Dose: 5 mg Metoprolol Succinate (Toprol Xl) 50 mg PO DAILY [facility] Last Admin: 06/14/17 10:31 Dose: 50 mg Rosuvastatin Calcium (Crestor) 5 mg PO HS [facility] Last Admin: 06/14/17 22:31 Dose: 5 mg - Labs Labs: 06/14/17 11:45 06/14/17 11:45 PT 14.5 SECONDS (9.7-12.2) H 06/06/17 16:54 INR 1.3 06/06/17 16:54 APTT 35 SECONDS (21-34) H 06/06/17 16:54 Attending/Attestation - Attestation I have personally seen and examined this patient.: Yes I have fully participated in the care of the patient.: Yes I have reviewed all pertinent clinical information, including history, physical exam and plan: Yes
--- NOTE | 2017-06-14 19:22 | CP.PCM.PN ---
Subjective - Date & Time of Evaluation Date of Evaluation: 06/14/17 Time of Evaluation: 12:00 - Subjective Subjective: Patient reports breathing improved overall; tolerating diet; Objective - Vital Signs/Intake and Output Vital Signs (last 24 hours): Temp Pulse Resp BP Pulse Ox 97.5 F L 89 20 152/72 H 100 06/14/17 15:06 06/14/17 15:06 06/14/17 15:06 06/14/17 15:06 06/14/17 15:06 - Medications Medications: Current Medications Acetaminophen (Tylenol 650mg/20.3ml Solution Ud) 650 mg PO Q4 PRN PRN Reason: pain and headache Last Admin: 06/14/17 14:35 Dose: 650 mg Al Hydrox/Mg Hydrox/Simethicone (Maalox Plus 30 Ml) 30 ml PO 5XD PRN PRN Reason: gerd Albuterol/Ipratropium (Duoneb 3 Mg/0.5 Mg (3 Ml) Ud) 3 ml INH RQ4 [facility] Last Admin: 06/14/17 17:00 Dose: 3 ml Amlodipine Besylate (Norvasc) 5 mg PO DAILY [facility] Last Admin: 06/14/17 10:31 Dose: 5 mg Calcium/Vitamin D (Oyster Shell Calcium/Vitamin D 500 Mg-200 Iu) 1 tab PO DAILY [facility] Last Admin: 06/14/17 10:31 Dose: 1 tab Guaifenesin (Robitussin) 200 mg PO Q4H PRN PRN Reason: Cough and congestion Last Admin: 06/13/17 02:25 Dose: 200 mg Aztreonam 1 gm/ Sodium (Chloride) 100 mls @ 200 mls/hr IVPB Q8H [facility] Last Admin: 06/14/17 17:34 Dose: 200 mls/hr Ferric Sodium Gluconate Complex 125 mg/ Sodium Chloride 110 mls @ 110 mls/hr IVPB DAILY [facility] Stop: 06/21/17 14:01 Last Admin: 06/14/17 10:32 Dose: 110 mls/hr Moxifloxacin HCl (Avelox Iv 400mg/250ml Ns) 400 mg in 250 mls @ 167 mls/hr IVPB Q24H [facility] Insulin Glargine (Lantus) 15 unit SC Q12 [facility] Last Admin: 06/14/17 10:32 Dose: 15 units Insulin Human Regular (Novolin R) 0 unit SC ACHS [facility] PRN Reason: Protocol Last Admin: 06/14/17 17:36 Dose: 5 unit Insulin Human Regular (Novolin R) 8 unit SC TIDPC [facility] Last Admin: 06/14/17 17:38 Dose: Not Given Lactulose (Enulose) 10 gm PO TID PRN PRN Reason: Constipation Levothyroxine Sodium (Synthroid) 88 mcg PO DAILY@0630 [facility] Last Admin: 06/14/17 07:02 Dose: 88 mcg Magnesium Oxide (Mag-Ox) 400 mg PO BID [facility] Last Admin: 06/14/17 17:36 Dose: 400 mg Methylprednisolone (Solu-Medrol) 40 mg IVP Q8 [facility] Last Admin: 06/14/17 14:11 Dose: 40 mg Metoclopramide HCl (Reglan) 5 mg IVP Q6 [facility] Last Admin: 06/14/17 17:39 Dose: 5 mg Metoprolol Succinate (Toprol Xl) 50 mg PO DAILY [facility] Last Admin: 06/14/17 10:31 Dose: 50 mg Rosuvastatin Calcium (Crestor) 5 mg PO HS [facility] Last Admin: 06/13/17 22:01 Dose: 5 mg - Labs Labs: 06/14/17 11:45 06/14/17 11:45 PT 14.5 SECONDS (9.7-12.2) H 06/06/17 16:54 INR 1.3 06/06/17 16:54 APTT 35 SECONDS (21-34) H 06/06/17 16:54 - Constitutional Appears: Non-toxic, No Acute Distress - Eye Exam Eye Exam: Normal appearance. absent: Scleral icterus - ENT Exam ENT Exam: Mucous Membranes Moist - Respiratory Exam Respiratory Exam: Wheezes. absent: Respiratory Distress - Cardiovascular Exam Cardiovascular Exam: RRR, +S1, +S2 - GI/Abdominal Exam GI & Abdominal Exam: Soft. absent: Distended, Tenderness - Extremities Exam Additional comments: mild leg edema; - Neurological Exam Neurological Exam: Alert, Awake - Psychiatric Exam Psychiatric exam: Normal Mood. absent: Agitated - Skin Skin Exam: Warm. absent: Cyanosis Assessment and Plan (1) Hyponatremia Assessment & Plan: Stable; continue to maintain 1L daily PO fluid restriction; keep K ~4.0; Status: Acute (2) HTN (hypertension) Assessment & Plan: Normotensive on toprol XL 50 and amlodipine 5 mg daily, continue same; Status: Chronic (3) Electrolyte abnormality Status: Acute (4) Asthma with acute exacerbation Status: Acute (5) Anemia Status: Acute
[2017-06-14] MEDS: Moxifloxacin IV 400mg/250ml NS 400 MG/250 ML BAG IVPB SCH (21:22)
--- NOTE | 2017-06-14 21:59 | CP.PCM.PN ---
Subjective - Date & Time of Evaluation Date of Evaluation: 06/14/17 Time of Evaluation: 21:57 - Subjective Subjective: uncontrolled DM Objective - Vital Signs/Intake and Output Vital Signs (last 24 hours): Temp Pulse Resp BP Pulse Ox 97.5 F L 89 20 152/72 H 100 06/14/17 15:06 06/14/17 15:06 06/14/17 15:06 06/14/17 15:06 06/14/17 15:06 - Medications Medications: Current Medications Acetaminophen (Tylenol 650mg/20.3ml Solution Ud) 650 mg PO Q4 PRN PRN Reason: pain and headache Last Admin: 06/14/17 14:35 Dose: 650 mg Al Hydrox/Mg Hydrox/Simethicone (Maalox Plus 30 Ml) 30 ml PO 5XD PRN PRN Reason: gerd Albuterol/Ipratropium (Duoneb 3 Mg/0.5 Mg (3 Ml) Ud) 3 ml INH RQ4 [facility] Last Admin: 06/14/17 19:28 Dose: 3 ml Amlodipine Besylate (Norvasc) 5 mg PO DAILY [facility] Last Admin: 06/14/17 10:31 Dose: 5 mg Calcium/Vitamin D (Oyster Shell Calcium/Vitamin D 500 Mg-200 Iu) 1 tab PO DAILY [facility] Last Admin: 06/14/17 10:31 Dose: 1 tab Guaifenesin (Robitussin) 200 mg PO Q4H PRN PRN Reason: Cough and congestion Last Admin: 06/13/17 02:25 Dose: 200 mg Aztreonam 1 gm/ Sodium (Chloride) 100 mls @ 200 mls/hr IVPB Q8H [facility] Last Admin: 06/14/17 17:34 Dose: 200 mls/hr Ferric Sodium Gluconate Complex 125 mg/ Sodium Chloride 110 mls @ 110 mls/hr IVPB DAILY [facility] Stop: 06/21/17 14:01 Last Admin: 06/14/17 10:32 Dose: 110 mls/hr Moxifloxacin HCl (Avelox Iv 400mg/250ml Ns) 400 mg in 250 mls @ 167 mls/hr IVPB Q24H [facility] Last Admin: 06/14/17 21:22 Dose: 167 mls/hr Insulin Glargine (Lantus) 15 unit SC Q12 [facility] Last Admin: 06/14/17 10:32 Dose: 15 units Insulin Human Regular (Novolin R) 0 unit SC ACHS [facility] PRN Reason: Protocol Last Admin: 06/14/17 17:36 Dose: 5 unit Insulin Human Regular (Novolin R) 8 unit SC TIDPC [facility] Last Admin: 06/14/17 17:38 Dose: Not Given Lactulose (Enulose) 10 gm PO TID PRN PRN Reason: Constipation Levothyroxine Sodium (Synthroid) 88 mcg PO DAILY@0630 [facility] Last Admin: 06/14/17 07:02 Dose: 88 mcg Magnesium Oxide (Mag-Ox) 400 mg PO BID [facility] Last Admin: 06/14/17 17:36 Dose: 400 mg Methylprednisolone (Solu-Medrol) 40 mg IVP Q8 [facility] Last Admin: 06/14/17 14:11 Dose: 40 mg Metoclopramide HCl (Reglan) 5 mg IVP Q6 [facility] Last Admin: 06/14/17 17:39 Dose: 5 mg Metoprolol Succinate (Toprol Xl) 50 mg PO DAILY [facility] Last Admin: 06/14/17 10:31 Dose: 50 mg Rosuvastatin Calcium (Crestor) 5 mg PO HS [facility] Last Admin: 06/13/17 22:01 Dose: 5 mg - Labs Labs: 06/14/17 11:45 06/14/17 11:45 PT 14.5 SECONDS (9.7-12.2) H 06/06/17 16:54 INR 1.3 06/06/17 16:54 APTT 35 SECONDS (21-34) H 06/06/17 16:54 Assessment and Plan (1) Hyponatremia Assessment & Plan: Endocrine consult f/u reason for consult: hyponatremia & uncontrolled dm Ms.81 is y/o admitted for nausea & vomiting as per chart review pt. with past medical history significant for hypothyroidism, asthma, and diabetes type II presented to [facility] with several days of nausea and vomiting. Before 2016, patient was fully independent and could perform all IADLs, lived alone. , patient fell and broke her arm (it was a mechanical fall), was admitted to [facility] [place] [place] , and was discharged to a rehab facility. At this rehab facility, patient had poor po intake and "was unable to keep anything down." She was then brought to [facility] due to nausea and vomiting and mild confusion.on admission patient was found to be hypokalemic, hyponatremic, and severely dehydrated. s/p SVT with RBBB and heart rate of 162. & also with hypothyroidism on synthyroid 88 mcg po qd glucose 200-300 ,last night 104 , lantus pm dose was on hold , no hypoglycemia , still on solumedrol 40 mg IV q8h Allergy noted Past medical history: as above Past surgical history: denies Psychiatry history: denies Social history : denies smoking , ETOH use , illicit drug use Family history : DM ROS: Constitutional: denies fever, tiredness/weakness. HEENT: denies earache, change in voice .Respiratory: denies cough, sob . CVS :no chest pain, no palpitations . Abdomen: no abdominal pain, no nausea /vomiting, no change bowel movement. 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 Extremities: no edema, no tremors. Skin: no itching, no rash Physical exam Well-developed Awake & alet with mild SOB VSS HEENT: norm cephalic, atraumatic, no lid lag , no exophthalmos NECK: supple, no palpable lymphadenopathy THYROID: no palpable thyromegaly, not tender CHEST: fair air entry, bilateral, CVS: S1,S2 ABDOMEN: bowel sound present, benign, obese, no wide purple striae , no bruises EXTREMITIES: trace pitting edema, clubbing or cyanosis, no palpable hand tremors Skin: acanthosis nigricans lab: Na corrected 131.2 , a1c 7.3 Na 129 , corrected 133.4 Na 130 , glucose 384 , corrected NA about 134.2 NA 130 , glucose 227 , corrected 131.6 Na 115 on admission , elevated LFTS , Urine osm 258 06/08 Na 132 , 06/09 129 , corrected with glucose : 130.6 , cmp wnl tsh 4.52 , ft4 1.9 , u/a (+) WBC & LE , cortisol @ 8am , 7.7 06/06 repeat 8am 23 & 31.9 CXR (+) patchy increase marking bilateral Assessment steroid induced hyperg;ycemia uncontrolled dm hyponatremia , asymtomatic ,? cortisol level done while on steroids ! hypothyroidism nauease & vomiting arrythemia plan lantus 15 units bid , will receive first pm dose tonight continue Novolin R 8 units tid with meals if eats more than 60% of the meal continue Novolin R low dose coverage on Methyl-prednisone 40 mg IV q8h continue synthroid 88 mcg po qd we will follow with you. Status: Acute (2) Nausea & vomiting Status: Acute (3) Hypothyroidism Status: Acute (4) Uncontrolled diabetes mellitus Status: Acute (5) Steroid-induced hyperglycemia Status: Acute
--- NOTE | 2017-06-14 22:35 | CP.PCM.PN ---
Subjective - Date & Time of Evaluation Date of Evaluation: 06/14/17 Time of Evaluation: 18:40 - Subjective Subjective: pt seen & examined at bedside, receives lasix yesterday, on salmedrol, less cough and less shortness of breath Objective - Vital Signs/Intake and Output Vital Signs (last 24 hours): Temp Pulse Resp BP Pulse Ox 97.5 F L 89 20 152/72 H 100 06/14/17 15:06 06/14/17 15:06 06/14/17 15:06 06/14/17 15:06 06/14/17 15:06 - Medications Medications: Current Medications Acetaminophen (Tylenol 650mg/20.3ml Solution Ud) 650 mg PO Q4 PRN PRN Reason: pain and headache Last Admin: 06/14/17 14:35 Dose: 650 mg Al Hydrox/Mg Hydrox/Simethicone (Maalox Plus 30 Ml) 30 ml PO 5XD PRN PRN Reason: gerd Albuterol/Ipratropium (Duoneb 3 Mg/0.5 Mg (3 Ml) Ud) 3 ml INH RQ4 [facility] Last Admin: 06/14/17 19:28 Dose: 3 ml Amlodipine Besylate (Norvasc) 5 mg PO DAILY [facility] Last Admin: 06/14/17 10:31 Dose: 5 mg Calcium/Vitamin D (Oyster Shell Calcium/Vitamin D 500 Mg-200 Iu) 1 tab PO DAILY [facility] Last Admin: 06/14/17 10:31 Dose: 1 tab Guaifenesin (Robitussin) 200 mg PO Q4H PRN PRN Reason: Cough and congestion Last Admin: 06/13/17 02:25 Dose: 200 mg Aztreonam 1 gm/ Sodium (Chloride) 100 mls @ 200 mls/hr IVPB Q8H [facility] Last Admin: 06/14/17 17:34 Dose: 200 mls/hr Ferric Sodium Gluconate Complex 125 mg/ Sodium Chloride 110 mls @ 110 mls/hr IVPB DAILY [facility] Stop: 06/21/17 14:01 Last Admin: 06/14/17 10:32 Dose: 110 mls/hr Moxifloxacin HCl (Avelox Iv 400mg/250ml Ns) 400 mg in 250 mls @ 167 mls/hr IVPB Q24H [facility] Last Admin: 06/14/17 21:22 Dose: 167 mls/hr Insulin Glargine (Lantus) 15 unit SC Q12 [facility] Last Admin: 06/14/17 22:31 Dose: 15 units Insulin Human Regular (Novolin R) 0 unit SC ACHS [facility] PRN Reason: Protocol Last Admin: 06/14/17 17:36 Dose: 5 unit Insulin Human Regular (Novolin R) 8 unit SC TIDPC [facility] Last Admin: 06/14/17 17:38 Dose: Not Given Lactulose (Enulose) 10 gm PO TID PRN PRN Reason: Constipation Levothyroxine Sodium (Synthroid) 88 mcg PO DAILY@0630 [facility] Last Admin: 06/14/17 07:02 Dose: 88 mcg Magnesium Oxide (Mag-Ox) 400 mg PO BID [facility] Last Admin: 06/14/17 17:36 Dose: 400 mg Methylprednisolone (Solu-Medrol) 40 mg IVP Q8 [facility] Last Admin: 06/14/17 22:32 Dose: 40 mg Metoclopramide HCl (Reglan) 5 mg IVP Q6 [facility] Last Admin: 06/14/17 17:39 Dose: 5 mg Metoprolol Succinate (Toprol Xl) 50 mg PO DAILY [facility] Last Admin: 06/14/17 10:31 Dose: 50 mg Rosuvastatin Calcium (Crestor) 5 mg PO HS [facility] Last Admin: 06/14/17 22:31 Dose: 5 mg - Labs Labs: 06/14/17 11:45 06/14/17 11:45 PT 14.5 SECONDS (9.7-12.2) H 06/06/17 16:54 INR 1.3 06/06/17 16:54 APTT 35 SECONDS (21-34) H 06/06/17 16:54 - Constitutional Appears: No Acute Distress - Head Exam Head Exam: ATRAUMATIC, NORMAL INSPECTION, NORMOCEPHALIC - Eye Exam Eye Exam: EOMI, Normal appearance, PERRL Pupil Exam: NORMAL ACCOMODATION, PERRL - Respiratory Exam Respiratory Exam: Decreased Breath Sounds, Rales, Rhonchi - Cardiovascular Exam Cardiovascular Exam: REGULAR RHYTHM, +S1, +S2. absent: Murmur Assessment and Plan (1) Anemia Status: Acute (2) Electrolyte abnormality Status: Acute (3) Hyponatremia Status: Acute (4) Nausea & vomiting Status: Acute (5) HTN (hypertension) Status: Chronic (6) Asthma with acute exacerbation Status: Acute (7) GERD (gastroesophageal reflux disease) Status: Acute (8) Pneumonia Status: Acute
[2017-06-15] MEDS: Albuterol-Ipratrop 3 mg / 0.5 (3 ml) UD INH SCH ×5 (00:22→16:17)
[2017-06-15] MEDS: Aztreonam 1 GM in Sodium Chloride 0.9% 100 ML IVPB SCH ×3 (00:25→17:43)
[2017-06-15 01:41] LABS: ALDO/PRA RATIO 1.3 Ratio (0.9-28.9)
[2017-06-15] MEDS: MethylPREDNISolone 40 mg Vial IVP SCH ×3 (06:45→21:50)
[2017-06-15] MEDS: Levothyroxine 88 MCG TAB PO SCH (06:46)
[2017-06-15] MEDS: (Lantus) Insulin Glargine, Recombinant SC SCH (09:28)
[2017-06-15] MEDS: (Novolin R) Insulin Human Regular 100 units/ml vial SC SCH ×7 (09:29→21:39)
[2017-06-15] MEDS: Magnesium Oxide 400 mg Tab UD PO SCH ×2 (09:29→17:50)
[2017-06-15] MEDS: Metoprolol Succinate 50 mg XL Tab PO SCH (09:29)
[2017-06-15] MEDS: Calcium-Vit D 500 mg-200 Units Tab UD PO SCH (09:32)
[2017-06-15] MEDS: Ferric Sodium Gluconat Complex 125 MG in Sodium Chloride 0.9% 100 ML IVPB SCH (11:30)
[2017-06-15] MEDS: guaiFENesin 200 mg/10 ml Syrup UD PO PRN (12:58)
--- NOTE | 2017-06-15 13:12 | PN ---
DATE: LOCATION: [facility], bed A. SUBJECTIVE: This is an 81-year-old female, seen and examined in rounds without significant clinical changes, but less abdominal pain. No reported active bleeding. Seen by the endocrinology strategic consultant with underlining diagnosis of poorly controlled diabetes mellitus. The patient is still having intermittent period of dyspepsia, but no reported bleeding with persistent nausea and dyspepsia. The entire chart is reviewed including, but not limited to the most recent lab and radiology study results, current and the previous medication list, current and previous medical events. Case was discussed with the staff at length and the patient still have elevated blood glucose level 368. Intermittent productive cough reported with shortness of breath on and off. No actual chest pain, palpitation, chills or fever. No reported diarrhea. The patient tolerated oral intake well so far, for which I would DC the Reglan for now. PHYSICAL EXAMINATION: GENERAL: A 81-year-old female. VITAL SIGNS: Afebrile with heart rate of 84, respiratory rate 20 to 22, blood pressure of 142/66. HEENT: Showed pale, dry mucous membrane. Nonicteric sclerae. LUNGS: Few scattered crepitation. Decreased air entry at bases. HEART: Positive S1 and S2. ABDOMEN: Soft, mildly distended. Mildly obese with mild generalized tenderness. Bowel sounds are present. No mass or organomegaly. No rebound tenderness or guarding. RECTAL: Performed, vault is empty. EXTREMITIES: Without significant clubbing or cyanosis, but lower extremities edematous changes. NEUROLOGIC: No reported new neurological deficits, sensory or motor. IMPRESSION: 1. Re-exacerbation of peptic ulcer disease with diabetes gastroparesis and nausea with dyspepsia, improving . 2. 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 3. Anemia, most likely secondary to above, the possibility of lower gastrointestinal blood loss was raised versus occult gastrointestinal malignancy. 4. Known history of hypertension, hypothyroidism, cardiac arrhythmia, poorly controlled diabetes mellitus with hyperlipidemia. 5. Bronchial asthma with congestive heart failure. 6. Coagulopathy, most likely drug induced. SUGGESTION: 1. Agree with your plan. 2. Adjust oral intake. 3. The patient for colonoscopy when she is more stable clinically. Again the patient will need oncology/hematology consult. Nalnii Richter MD [facility] # [id number]
--- NOTE | 2017-06-15 13:30 | CP.PCM.PN ---
Subjective - Date & Time of Evaluation Date of Evaluation: 06/15/17 Time of Evaluation: 11:35 - Subjective Subjective: the patient seen and examined patient still short of breath with cough productive of clear phlegm Afebrile denies any chest pain Objective - Vital Signs/Intake and Output Vital Signs (last 24 hours): Temp Pulse Resp BP Pulse Ox 97.6 F 83 20 147/68 98 06/15/17 08:14 06/15/17 08:14 06/15/17 08:14 06/15/17 08:14 06/15/17 08:14 Intake and Output: 06/15/17 06/15/17 06:59 18:59 Intake Total 250 Output Total 550 Balance -300 - Medications Medications: Current Medications Acetaminophen (Tylenol 650mg/20.3ml Solution Ud) 650 mg PO Q4 PRN PRN Reason: pain and headache Last Admin: 06/14/17 14:35 Dose: 650 mg Al Hydrox/Mg Hydrox/Simethicone (Maalox Plus 30 Ml) 30 ml PO 5XD PRN PRN Reason: gerd Albuterol/Ipratropium (Duoneb 3 Mg/0.5 Mg (3 Ml) Ud) 3 ml INH RQ4 [facility] Last Admin: 06/15/17 11:34 Dose: 3 ml Amlodipine Besylate (Norvasc) 5 mg PO DAILY [facility] Last Admin: 06/15/17 09:30 Dose: 5 mg Calcium/Vitamin D (Oyster Shell Calcium/Vitamin D 500 Mg-200 Iu) 1 tab PO DAILY [facility] Last Admin: 06/15/17 09:32 Dose: 1 tab Guaifenesin (Robitussin) 200 mg PO Q4H PRN PRN Reason: Cough and congestion Last Admin: 06/15/17 12:58 Dose: 200 mg Aztreonam 1 gm/ Sodium (Chloride) 100 mls @ 200 mls/hr IVPB Q8H [facility] Last Admin: 06/15/17 09:28 Dose: 200 mls/hr Ferric Sodium Gluconate Complex 125 mg/ Sodium Chloride 110 mls @ 110 mls/hr IVPB DAILY [facility] Stop: 06/21/17 14:01 Last Admin: 06/14/17 10:32 Dose: 110 mls/hr Moxifloxacin HCl (Avelox Iv 400mg/250ml Ns) 400 mg in 250 mls @ 167 mls/hr IVPB Q24H [facility] Last Admin: 06/14/17 21:22 Dose: 167 mls/hr Insulin Glargine (Lantus) 15 unit SC Q12 [facility] Last Admin: 06/15/17 09:28 Dose: 15 units Insulin Human Regular (Novolin R) 0 unit SC ACHS [facility] PRN Reason: Protocol Last Admin: 06/15/17 12:53 Dose: 5 unit Insulin Human Regular (Novolin R) 8 unit SC TIDPC [facility] Last Admin: 06/15/17 12:53 Dose: 8 unit Lactulose (Enulose) 10 gm PO TID PRN PRN Reason: Constipation Levothyroxine Sodium (Synthroid) 88 mcg PO DAILY@0630 [facility] Last Admin: 06/15/17 06:46 Dose: 88 mcg Magnesium Oxide (Mag-Ox) 400 mg PO BID [facility] Last Admin: 06/15/17 09:29 Dose: 400 mg Methylprednisolone (Solu-Medrol) 40 mg IVP Q8 [facility] Last Admin: 06/15/17 06:45 Dose: 40 mg Metoprolol Succinate (Toprol Xl) 50 mg PO DAILY [facility] Last Admin: 06/15/17 09:29 Dose: 50 mg Rosuvastatin Calcium (Crestor) 5 mg PO HS [facility] Last Admin: 06/14/17 22:31 Dose: 5 mg - Labs Labs: 06/14/17 11:45 06/14/17 11:45 PT 14.5 SECONDS (9.7-12.2) H 06/06/17 16:54 INR 1.3 06/06/17 16:54 APTT 35 SECONDS (21-34) H 06/06/17 16:54 - Head Exam Head Exam: ATRAUMATIC, NORMOCEPHALIC - ENT Exam ENT Exam: Mucous Membranes Moist - Neck Exam Neck Exam: Normal Inspection - Respiratory Exam Respiratory Exam: Rhonchi, Wheezes - Cardiovascular Exam Cardiovascular Exam: REGULAR RHYTHM - GI/Abdominal Exam GI & Abdominal Exam: Soft, Normal Bowel Sounds Assessment and Plan (1) Pneumonia Assessment & Plan: chest x-ray consistent with small linear infiltrate and granulomatous changes Continue antibiotics Continue steroids Lasix Followup lytes cconsider to hold metoprolol Status: Acute (2) Asthma with acute exacerbation Status: Acute (3) Respiratory distress Status: Acute
[2017-06-15] MEDS ORDERED: Potassium Chloride 20 mEq/15 ml LIQ UD PO ONE ×2 (15:42→18:00)
[2017-06-15] MEDS: Acetaminophen 650mg/20.3ml solution UD PO PRN (18:49)
[2017-06-15] MEDS: Moxifloxacin IV 400mg/250ml NS 400 MG/250 ML BAG IVPB SCH (19:00)
--- NOTE | 2017-06-15 20:02 | CP.PCM.PN ---
Subjective - Date & Time of Evaluation Date of Evaluation: 06/15/17 Time of Evaluation: 20:00 - Subjective Subjective: uncontrolled DM Objective - Vital Signs/Intake and Output Vital Signs (last 24 hours): Temp Pulse Resp BP Pulse Ox 99 F 81 20 140/77 100 06/15/17 15:46 06/15/17 15:46 06/15/17 15:46 06/15/17 15:46 06/15/17 15:46 - Medications Medications: Current Medications Acetaminophen (Tylenol 650mg/20.3ml Solution Ud) 650 mg PO Q4 PRN PRN Reason: pain and headache Last Admin: 06/15/17 18:49 Dose: 650 mg Al Hydrox/Mg Hydrox/Simethicone (Maalox Plus 30 Ml) 30 ml PO 5XD PRN PRN Reason: gerd Amlodipine Besylate (Norvasc) 5 mg PO DAILY [facility] Last Admin: 06/15/17 09:30 Dose: 5 mg Calcium/Vitamin D (Oyster Shell Calcium/Vitamin D 500 Mg-200 Iu) 1 tab PO DAILY [facility] Last Admin: 06/15/17 09:32 Dose: 1 tab Guaifenesin (Robitussin) 200 mg PO Q4H PRN PRN Reason: Cough and congestion Last Admin: 06/15/17 12:58 Dose: 200 mg Aztreonam 1 gm/ Sodium (Chloride) 100 mls @ 200 mls/hr IVPB Q8H [facility] Last Admin: 06/15/17 17:43 Dose: 200 mls/hr Ferric Sodium Gluconate Complex 125 mg/ Sodium Chloride 110 mls @ 110 mls/hr IVPB DAILY [facility] Stop: 06/21/17 14:01 Last Admin: 06/15/17 11:30 Dose: 110 mls/hr Moxifloxacin HCl (Avelox Iv 400mg/250ml Ns) 400 mg in 250 mls @ 167 mls/hr IVPB Q24H [facility] Last Admin: 06/15/17 19:00 Dose: 167 mls/hr Insulin Glargine (Lantus) 16 unit SC BID [facility] Insulin Human Regular (Novolin R) 0 unit SC ACHS [facility] PRN Reason: Protocol Last Admin: 06/15/17 17:49 Dose: 1 unit Insulin Human Regular (Novolin R) 10 unit SC TIDPC [facility] Lactulose (Enulose) 10 gm PO TID PRN PRN Reason: Constipation Levothyroxine Sodium (Synthroid) 88 mcg PO DAILY@0630 [facility] Last Admin: 06/15/17 06:46 Dose: 88 mcg Magnesium Oxide (Mag-Ox) 400 mg PO BID [facility] Last Admin: 06/15/17 17:50 Dose: 400 mg Methylprednisolone (Solu-Medrol) 40 mg IVP Q8 [facility] Last Admin: 06/15/17 13:32 Dose: 40 mg Metoprolol Succinate (Toprol Xl) 50 mg PO DAILY [facility] Last Admin: 06/15/17 09:29 Dose: 50 mg Rosuvastatin Calcium (Crestor) 5 mg PO HS [facility] Last Admin: 06/14/17 22:31 Dose: 5 mg - Labs Labs: 06/14/17 11:45 06/14/17 11:45 PT 14.5 SECONDS (9.7-12.2) H 06/06/17 16:54 INR 1.3 06/06/17 16:54 APTT 35 SECONDS (21-34) H 06/06/17 16:54 Assessment and Plan (1) Hyponatremia Assessment & Plan: Endocrine consult f/u reason for consult: hyponatremia & uncontrolled dm 81 is y/o admitted for nausea & vomiting as per chart review pt. with past medical history significant for hypothyroidism, asthma, and diabetes type II presented to [facility] with several days of nausea and vomiting. Before Grady2016, patient was fully independent and could perform all IADLs, lived alone. , patient fell and broke her arm (it was a mechanical fall), was admitted to [facility] , and was discharged to a rehab facility. At this rehab facility, patient had poor po intake and "was unable to keep anything down." She was then brought to [facility] due to nausea and vomiting and mild confusion.on admission patient was found to be hypokalemic, hyponatremic, and severely dehydrated. s/p SVT with RBBB and heart rate of 162. & also with hypothyroidism on synthyroid 88 mcg po qd glucose 300's , last 153 , no hypoglycemia , still on solumedrol 40 mg IV q8h Allergy noted Past medical history: as above Past surgical history: denies Psychiatry history: denies Social history : denies smoking , ETOH use , illicit drug use Family history : DM ROS: Constitutional: denies fever, tiredness/weakness. HEENT: denies earache, change in voice .Respiratory: denies cough, sob . CVS :no chest pain, no palpitations . Abdomen: no abdominal pain, no nausea /vomiting, no change bowel movement. [employer] : denies light-headedness, dizziness. Extremities: no edema, no tremors. Skin: no itching, no rash Physical exam Well-developed Awake & alet with mild SOB VSS HEENT: norm cephalic, atraumatic, no lid lag , no exophthalmos NECK: supple, no palpable lymphadenopathy THYROID: no palpable thyromegaly, not tender CHEST: fair air entry, bilateral, CVS: S1,S2 ABDOMEN: bowel sound present, benign, obese, no wide purple striae , no bruises EXTREMITIES: trace pitting edema, clubbing or cyanosis, no palpable hand tremors Skin: acanthosis nigricans lab: Na corrected 131.2 , a1c 7.3 Na 129 , corrected 133.4 Na 130 , glucose 384 , corrected NA about 134.2 NA 130 , glucose 227 , corrected 131.6 Na 115 on admission , elevated LFTS , Urine osm 258 06/08 Na 132 , 06/09 129 , corrected with glucose : 130.6 , cmp wnl tsh 4.52 , ft4 1.9 , u/a (+) WBC & LE , cortisol @ 8am , 7.7 06/06 repeat 8am 23 & 31.9 CXR (+) patchy increase marking bilateral Assessment steroid induced hyperg;ycemia uncontrolled dm hyponatremia , asymtomatic ,? cortisol level done while on steroids ! hypothyroidism nauease & vomiting arrythemia plan increase lantus 16 units bid ,bed time snack increase Novolin R 10 units tid with meals if eats more than 60% of the meal continue Novolin R low dose coverage on Methyl-prednisone 40 mg IV q8h continue synthroid 88 mcg po qd we will follow with you. Status: Acute (2) Nausea & vomiting Status: Acute (3) Hypothyroidism Status: Acute (4) Uncontrolled diabetes mellitus Status: Acute (5) Steroid-induced hyperglycemia Status: Acute (6) Pneumonia Status: Acute
[2017-06-15 20:04] LABS: ALB/GLOB RATIO 1.2 (1.0-2.1); ALBUMIN 3.4 g/dL (3.5-5.0); ALT/SGPT 22 U/L (9-52); AST/SGOT 16 U/L (14-36); BLOOD UREA NITROGEN 15 mg/dL (7-17); CALCIUM 8.8 mg/dl (8.6-10.4); GFR AFRICAN-AMERICAN > 60; GFR NON-AFRICAN AMERICAN > 60
--- NOTE | 2017-06-15 23:41 | CP.PCM.PN ---
Subjective - Date & Time of Evaluation Date of Evaluation: 06/15/17 Time of Evaluation: 14:00 - Subjective Subjective: Reports breathing better; adhering to PO fluid restriction; tolerating diet; Objective - Vital Signs/Intake and Output Vital Signs (last 24 hours): Temp Pulse Resp BP Pulse Ox 99 F 81 20 140/77 100 06/15/17 15:46 06/15/17 15:46 06/15/17 15:46 06/15/17 15:46 06/15/17 15:46 - Medications Medications: Current Medications Acetaminophen (Tylenol 650mg/20.3ml Solution Ud) 650 mg PO Q4 PRN PRN Reason: pain and headache Last Admin: 06/15/17 18:49 Dose: 650 mg Al Hydrox/Mg Hydrox/Simethicone (Maalox Plus 30 Ml) 30 ml PO 5XD PRN PRN Reason: gerd Amlodipine Besylate (Norvasc) 5 mg PO DAILY [facility] Last Admin: 06/15/17 09:30 Dose: 5 mg Calcium/Vitamin D (Oyster Shell Calcium/Vitamin D 500 Mg-200 Iu) 1 tab PO DAILY [facility] Last Admin: 06/15/17 09:32 Dose: 1 tab Guaifenesin (Robitussin) 200 mg PO Q4H PRN PRN Reason: Cough and congestion Last Admin: 06/15/17 12:58 Dose: 200 mg Aztreonam 1 gm/ Sodium (Chloride) 100 mls @ 200 mls/hr IVPB Q8H [facility] Last Admin: 06/15/17 17:43 Dose: 200 mls/hr Ferric Sodium Gluconate Complex 125 mg/ Sodium Chloride 110 mls @ 110 mls/hr IVPB DAILY [facility] Stop: 06/21/17 14:01 Last Admin: 06/15/17 11:30 Dose: 110 mls/hr Moxifloxacin HCl (Avelox Iv 400mg/250ml Ns) 400 mg in 250 mls @ 167 mls/hr IVPB Q24H [facility] Last Admin: 06/15/17 19:00 Dose: 167 mls/hr Insulin Glargine (Lantus) 16 unit SC BID [facility] Insulin Human Regular (Novolin R) 0 unit SC ACHS [facility] PRN Reason: Protocol Last Admin: 06/15/17 21:39 Dose: Not Given Insulin Human Regular (Novolin R) 10 unit SC TIDPC [facility] Lactulose (Enulose) 10 gm PO TID PRN PRN Reason: Constipation Levothyroxine Sodium (Synthroid) 88 mcg PO DAILY@0630 [facility] Last Admin: 06/15/17 06:46 Dose: 88 mcg Magnesium Oxide (Mag-Ox) 400 mg PO BID [facility] Last Admin: 06/15/17 17:50 Dose: 400 mg Methylprednisolone (Solu-Medrol) 40 mg IVP Q8 [facility] Last Admin: 06/15/17 21:50 Dose: 40 mg Metoprolol Succinate (Toprol Xl) 50 mg PO DAILY [facility] Last Admin: 06/15/17 09:29 Dose: 50 mg Rosuvastatin Calcium (Crestor) 5 mg PO HS [facility] Last Admin: 06/15/17 21:50 Dose: 5 mg - Labs Labs: 06/14/17 11:45 06/15/17 19:31 PT 14.5 SECONDS (9.7-12.2) H 06/06/17 16:54 INR 1.3 06/06/17 16:54 APTT 35 SECONDS (21-34) H 06/06/17 16:54 - Constitutional Appears: Non-toxic, No Acute Distress - Eye Exam Eye Exam: absent: Scleral icterus - ENT Exam ENT Exam: Mucous Membranes Moist - Respiratory Exam Respiratory Exam: Prolonged Expiratory Phase, Wheezes - Cardiovascular Exam Cardiovascular Exam: RRR, +S1, +S2 - Extremities Exam Additional comments: moderate b/l lower leg edema; - Neurological Exam Neurological Exam: Alert, Awake - Psychiatric Exam Psychiatric exam: Normal Affect, Normal Mood. absent: Agitated - Skin Skin Exam: Warm. absent: Cyanosis Assessment and Plan (1) Hyponatremia Assessment & Plan: Stable, continue PO 1L fluid restriction; Status: Acute (2) HTN (hypertension) Assessment & Plan: BP elevated in setting of getting steroids; lower ext edema increasing; continue intermittent diuresis; Status: Chronic (3) Electrolyte abnormality Assessment & Plan: Mild hypokalemia on labs from yesterday, continue to keep K ~4 in setting of recent arrythhmia; Status: Acute (4) Asthma with acute exacerbation Status: Acute (5) Anemia Status: Acute
[2017-06-16] MEDS: Aztreonam 1 GM in Sodium Chloride 0.9% 100 ML IVPB SCH ×3 (00:10→17:33)
--- NOTE | 2017-06-16 00:11 | CP.PCM.PN ---
Subjective - Date & Time of Evaluation Date of Evaluation: 06/15/17 Time of Evaluation: 15:25 - Subjective Subjective: Patient seen & evaluated at bedside, less cough, less short of breath Objective - Vital Signs/Intake and Output Vital Signs (last 24 hours): Temp Pulse Resp BP Pulse Ox 99 F 81 20 140/77 100 06/15/17 15:46 06/15/17 15:46 06/15/17 15:46 06/15/17 15:46 06/15/17 15:46 - Medications Medications: Current Medications Acetaminophen (Tylenol 650mg/20.3ml Solution Ud) 650 mg PO Q4 PRN PRN Reason: pain and headache Last Admin: 06/15/17 18:49 Dose: 650 mg Al Hydrox/Mg Hydrox/Simethicone (Maalox Plus 30 Ml) 30 ml PO 5XD PRN PRN Reason: gerd Amlodipine Besylate (Norvasc) 5 mg PO DAILY [facility] Last Admin: 06/15/17 09:30 Dose: 5 mg Calcium/Vitamin D (Oyster Shell Calcium/Vitamin D 500 Mg-200 Iu) 1 tab PO DAILY [facility] Last Admin: 06/15/17 09:32 Dose: 1 tab Guaifenesin (Robitussin) 200 mg PO Q4H PRN PRN Reason: Cough and congestion Last Admin: 06/15/17 12:58 Dose: 200 mg Aztreonam 1 gm/ Sodium (Chloride) 100 mls @ 200 mls/hr IVPB Q8H [facility] Last Admin: 06/15/17 17:43 Dose: 200 mls/hr Ferric Sodium Gluconate Complex 125 mg/ Sodium Chloride 110 mls @ 110 mls/hr IVPB DAILY [facility] Stop: 06/21/17 14:01 Last Admin: 06/15/17 11:30 Dose: 110 mls/hr Moxifloxacin HCl (Avelox Iv 400mg/250ml Ns) 400 mg in 250 mls @ 167 mls/hr IVPB Q24H [facility] Last Admin: 06/15/17 19:00 Dose: 167 mls/hr Insulin Glargine (Lantus) 16 unit SC BID [facility] Insulin Human Regular (Novolin R) 0 unit SC ACHS [facility] PRN Reason: Protocol Last Admin: 06/15/17 21:39 Dose: Not Given Insulin Human Regular (Novolin R) 10 unit SC TIDPC [facility] Lactulose (Enulose) 10 gm PO TID PRN PRN Reason: Constipation Levothyroxine Sodium (Synthroid) 88 mcg PO DAILY@0630 [facility] Last Admin: 06/15/17 06:46 Dose: 88 mcg Magnesium Oxide (Mag-Ox) 400 mg PO BID [facility] Last Admin: 06/15/17 17:50 Dose: 400 mg Methylprednisolone (Solu-Medrol) 40 mg IVP Q8 [facility] Last Admin: 06/15/17 21:50 Dose: 40 mg Metoprolol Succinate (Toprol Xl) 50 mg PO DAILY [facility] Last Admin: 06/15/17 09:29 Dose: 50 mg Rosuvastatin Calcium (Crestor) 5 mg PO HS [facility] Last Admin: 06/15/17 21:50 Dose: 5 mg - Labs Labs: 06/14/17 11:45 06/15/17 19:31 PT 14.5 SECONDS (9.7-12.2) H 06/06/17 16:54 INR 1.3 06/06/17 16:54 APTT 35 SECONDS (21-34) H 06/06/17 16:54 - Constitutional Appears: No Acute Distress, Chronically Ill - Head Exam Head Exam: ATRAUMATIC, NORMAL INSPECTION, NORMOCEPHALIC - Eye Exam Eye Exam: EOMI, Normal appearance, PERRL Pupil Exam: NORMAL ACCOMODATION, PERRL - Respiratory Exam Respiratory Exam: Decreased Breath Sounds, Rales - Cardiovascular Exam Cardiovascular Exam: REGULAR RHYTHM, +S1, +S2. absent: Murmur - Neurological Exam Neurological Exam: Alert, Awake, CN II-XII Intact, Normal Gait, Oriented x3 Assessment and Plan (1) Anemia Status: Acute (2) Electrolyte abnormality Status: Acute (3) Hyponatremia Status: Acute (4) Nausea & vomiting Status: Acute (5) HTN (hypertension) Status: Chronic (6) Asthma with acute exacerbation Status: Acute (7) GERD (gastroesophageal reflux disease) Status: Acute (8) Pneumonia Status: Acute (9) Steroid-induced hyperglycemia Status: Acute - Assessment and Plan (Free Text) Plan: medical management, antibiotics, monitor pt
[2017-06-16] MEDS: Acetaminophen 650mg/20.3ml solution UD PO PRN (01:22)
[2017-06-16] MEDS: Levothyroxine 88 MCG TAB PO SCH (05:38)
[2017-06-16] MEDS: MethylPREDNISolone 40 mg Vial IVP SCH ×3 (05:40→22:16)
[2017-06-16] MEDS: (Novolin R) Insulin Human Regular 100 units/ml vial SC SCH ×7 (08:27→22:06)
[2017-06-16 09:08] LABS: HEMOGLOBIN 8.2 g/dL (11.0-16.0); MEAN CELL VOLUME 89.3 fL (81.0-99.0); MEAN CORPUSCULAR HEMOGLOBIN 29.6 pg (27.0-31.0); MEAN CORPUSCULAR HGB CONC 33.1 g/dL (33.0-37.0); MEAN PLATELET VOLUME 7.9 fL (7.2-11.7); RBC 2.77 Mil/uL (3.80-5.20); WHITE BLOOD COUNT 19.6 K/uL (4.8-10.8)
[2017-06-16 09:19] LABS: BLOOD UREA NITROGEN 16 mg/dL (7-17); CALCIUM 8.3 mg/dl (8.6-10.4); GFR AFRICAN-AMERICAN > 60; GFR NON-AFRICAN AMERICAN > 60
[2017-06-16] MEDS: Calcium-Vit D 500 mg-200 Units Tab UD PO SCH (09:46)
[2017-06-16] MEDS: Metoprolol Succinate 50 mg XL Tab PO SCH (09:46)
[2017-06-16] MEDS: Magnesium Oxide 400 mg Tab UD PO SCH ×2 (09:46→17:34)
[2017-06-16] MEDS: (Lantus) Insulin Glargine, Recombinant SC SCH ×2 (09:47→17:35)
[2017-06-16] MEDS: Ferric Sodium Gluconat Complex 125 MG in Sodium Chloride 0.9% 100 ML IVPB SCH (11:06)
--- NOTE | 2017-06-16 11:54 | CP.PCM.PN ---
Subjective - Date & Time of Evaluation Date of Evaluation: 06/16/17 Time of Evaluation: 15:10 - Subjective Subjective: Pt seen and examined at bedside Reports breathing better; adhering to PO fluid restriction; tolerating diet; Objective - Vital Signs/Intake and Output Vital Signs (last 24 hours): Temp Pulse Resp BP Pulse Ox 98.1 F 75 20 162/81 H 96 06/16/17 08:27 06/16/17 08:27 06/16/17 08:27 06/16/17 08:27 06/16/17 08:27 Intake and Output: 06/16/17 06/16/17 06:59 18:59 Intake Total 200 Output Total 400 Balance -200 - Medications Medications: Current Medications Acetaminophen (Tylenol 650mg/20.3ml Solution Ud) 650 mg PO Q4 PRN PRN Reason: pain and headache Last Admin: 06/16/17 01:22 Dose: 650 mg Al Hydrox/Mg Hydrox/Simethicone (Maalox Plus 30 Ml) 30 ml PO 5XD PRN PRN Reason: gerd Calcium/Vitamin D (Oyster Shell Calcium/Vitamin D 500 Mg-200 Iu) 1 tab PO DAILY [facility] Last Admin: 06/16/17 09:46 Dose: 1 tab Guaifenesin (Robitussin) 200 mg PO Q4H PRN PRN Reason: Cough and congestion Last Admin: 06/15/17 12:58 Dose: 200 mg Aztreonam 1 gm/ Sodium (Chloride) 100 mls @ 200 mls/hr IVPB Q8H [facility] Last Admin: 06/16/17 09:46 Dose: 200 mls/hr Ferric Sodium Gluconate Complex 125 mg/ Sodium Chloride 110 mls @ 110 mls/hr IVPB DAILY [facility] Stop: 06/21/17 14:01 Last Admin: 06/16/17 11:06 Dose: 110 mls/hr Moxifloxacin HCl (Avelox Iv 400mg/250ml Ns) 400 mg in 250 mls @ 167 mls/hr IVPB Q24H [facility] Last Admin: 06/15/17 19:00 Dose: 167 mls/hr Insulin Glargine (Lantus) 16 unit SC BID [facility] Last Admin: 06/16/17 09:47 Dose: 16 u Insulin Human Regular (Novolin R) 0 unit SC ACHS [facility] PRN Reason: Protocol Last Admin: 06/16/17 08:27 Dose: 3 unit Insulin Human Regular (Novolin R) 10 unit SC TIDPC [facility] Last Admin: 06/16/17 09:46 Dose: 10 unit Lactulose (Enulose) 10 gm PO TID PRN PRN Reason: Constipation Levothyroxine Sodium (Synthroid) 88 mcg PO DAILY@0630 [facility] Last Admin: 06/16/17 05:38 Dose: 88 mcg Magnesium Oxide (Mag-Ox) 400 mg PO BID [facility] Last Admin: 06/16/17 09:46 Dose: 400 mg Methylprednisolone (Solu-Medrol) 40 mg IVP Q8 [facility] Last Admin: 06/16/17 05:40 Dose: 40 mg Metoprolol Succinate (Toprol Xl) 50 mg PO DAILY [facility] Last Admin: 06/16/17 09:46 Dose: 50 mg Rosuvastatin Calcium (Crestor) 5 mg PO HS [facility] Last Admin: 06/15/17 21:50 Dose: 5 mg - Labs Labs: 06/16/17 08:43 06/16/17 08:43 PT 14.5 SECONDS (9.7-12.2) H 06/06/17 16:54 INR 1.3 06/06/17 16:54 APTT 35 SECONDS (21-34) H 06/06/17 16:54 Assessment and Plan (1) Anemia Status: Acute (2) Electrolyte abnormality Status: Acute (3) Hyponatremia Status: Acute (4) Nausea & vomiting Status: Acute (5) HTN (hypertension) Status: Chronic (6) Asthma with acute exacerbation Status: Acute (7) GERD (gastroesophageal reflux disease) Status: Acute (8) Pneumonia Status: Acute (9) Steroid-induced hyperglycemia Status: Acute
--- NOTE | 2017-06-16 12:59 | PN ---
DATE: 06/16/2017. LOCATION: [facility], bed A SUBJECTIVE: This is an 81-year-old female seen and examined in rounds without significant clinical changes, but with less episodes of shortness of breath. No active bleeding or actual chest pain, somewhat tolerating oral intake well, no reported bleeding. The entire chart is reviewed including but not limited to the most recent lab and the radiology study results, current and previous medication list, current and previous medical events, discussed with the staff at length. Today's lab show blood glucose level of 286. Rest of the lab results still pending. PHYSICAL EXAMINATION: GENERAL: An 81-year-old female. VITAL SIGNS: Afebrile, respiratory rate 20-22, heart rate of 78, blood pressure of 158/74, HEENT: Pale, dry oral mucous membrane, nonicteric sclera. LUNGS: Scattered crepitation, decreased air entry at bases. HEART: Positive S1 and S2. ABDOMEN: Soft with slight distention and mild generalized tenderness. No mass or organomegaly. RECTAL: Deferred due to the patient's cardiopulmonary status. EXTREMITIES: Lower extremities with edematous changes mildly. No clubbing or cyanosis. NEUROLOGIC: No reported new neurological deficits, sensory or motor. IMPRESSION: 1. Poorly controlled diabetes mellitus. 2. Peptic ulcer disease. 3. Diabetic gastroparesis. 4. 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 5. Anemia most likely secondary to above. 6. Known history of hypothyroidism, hypertension, cardiac arrhythmias with hyperlipidemia. 7. Coagulopathy, drug induced. 8. Bronchial asthma with congestive heart failure by recent history, improving. SUGGESTION: 1. Continue current management. 2. Again the patient will need Hematology/Oncology consult and colonoscopy is to be kept in mind when the patient is more stable clinically. 3. Further recommendations to follow. Nalini Richter MD
[2017-06-16] MEDS: Albuterol-Ipratrop 3 mg / 0.5 (3 ml) UD INH SCH ×2 (14:29→20:10)
--- NOTE | 2017-06-16 18:06 | CP.PCM.PN ---
Subjective - Date & Time of Evaluation Date of Evaluation: 06/16/17 Time of Evaluation: 03:25 - Subjective Subjective: uncontrolled DM Objective - Vital Signs/Intake and Output Vital Signs (last 24 hours): Temp Pulse Resp BP Pulse Ox 97.2 F L 76 20 147/83 96 06/16/17 16:00 06/16/17 16:00 06/16/17 16:00 06/16/17 17:34 06/16/17 16:00 Intake and Output: 06/16/17 06/16/17 06:59 18:59 Intake Total 200 630 Output Total 400 Balance -200 630 - Medications Medications: Current Medications Acetaminophen (Tylenol 650mg/20.3ml Solution Ud) 650 mg PO Q4 PRN PRN Reason: pain and headache Last Admin: 06/16/17 01:22 Dose: 650 mg Al Hydrox/Mg Hydrox/Simethicone (Maalox Plus 30 Ml) 30 ml PO 5XD PRN PRN Reason: gerd Albuterol/Ipratropium (Duoneb 3 Mg/0.5 Mg (3 Ml) Ud) 3 ml INH RQ4 [facility] Last Admin: 06/16/17 14:29 Dose: 3 ml Calcium/Vitamin D (Oyster Shell Calcium/Vitamin D 500 Mg-200 Iu) 1 tab PO DAILY [facility] Last Admin: 06/16/17 09:46 Dose: 1 tab Furosemide (Lasix) 20 mg PO BID [facility] Last Admin: 06/16/17 17:34 Dose: 20 mg Guaifenesin (Robitussin) 200 mg PO Q4H PRN PRN Reason: Cough and congestion Last Admin: 06/15/17 12:58 Dose: 200 mg Aztreonam 1 gm/ Sodium (Chloride) 100 mls @ 200 mls/hr IVPB Q8H [facility] Last Admin: 06/16/17 17:33 Dose: 200 mls/hr Ferric Sodium Gluconate Complex 125 mg/ Sodium Chloride 110 mls @ 110 mls/hr IVPB DAILY [facility] Stop: 06/21/17 14:01 Last Admin: 06/16/17 11:06 Dose: 110 mls/hr Moxifloxacin HCl (Avelox Iv 400mg/250ml Ns) 400 mg in 250 mls @ 167 mls/hr IVPB Q24H [facility] Last Admin: 06/15/17 19:00 Dose: 167 mls/hr Insulin Glargine (Lantus) 16 unit SC BID [facility] Last Admin: 06/16/17 17:35 Dose: 16 u Insulin Human Regular (Novolin R) 0 unit SC ACHS [facility] PRN Reason: Protocol Last Admin: 06/16/17 17:35 Dose: 1 unit Insulin Human Regular (Novolin R) 10 unit SC TIDPC [facility] Last Admin: 06/16/17 13:39 Dose: 10 unit Lactulose (Enulose) 10 gm PO TID PRN PRN Reason: Constipation Levothyroxine Sodium (Synthroid) 88 mcg PO DAILY@0630 [facility] Last Admin: 06/16/17 05:38 Dose: 88 mcg Magnesium Oxide (Mag-Ox) 400 mg PO BID [facility] Last Admin: 06/16/17 17:34 Dose: 400 mg Methylprednisolone (Solu-Medrol) 40 mg IVP Q8 [facility] Last Admin: 06/16/17 13:33 Dose: 40 mg Metoprolol Succinate (Toprol Xl) 50 mg PO DAILY [facility] Last Admin: 06/16/17 09:46 Dose: 50 mg Rosuvastatin Calcium (Crestor) 5 mg PO HS [facility] Last Admin: 06/15/17 21:50 Dose: 5 mg - Labs Labs: 06/16/17 08:43 06/16/17 08:43 PT 14.5 SECONDS (9.7-12.2) H 06/06/17 16:54 INR 1.3 06/06/17 16:54 APTT 35 SECONDS (21-34) H 06/06/17 16:54 Assessment and Plan (1) Hyponatremia Assessment & Plan: Assessment & Plan: Endocrine consult f/u reason for consult: hyponatremia & uncontrolled dm Ms.81 is y/o admitted for nausea & vomiting as per chart review pt. with past medical history significant for hypothyroidism, asthma, and diabetes type II presented to [facility] with several days of nausea and vomiting. Before 2016, patient was fully independent and could perform all IADLs, lived alone. , patient fell and broke her arm (it was a mechanical fall), was admitted to [facility] , and was discharged to a rehab facility. At this rehab facility, patient had poor po intake and "was unable to keep anything down." She was then brought to [facility] due to nausea and vomiting and mild confusion.on admission patient was found to be hypokalemic, hyponatremic, and severely dehydrated. s/p SVT with RBBB and heart rate of 162. & also with hypothyroidism on synthyroid 88 mcg po qd glucose 160-200 , no hypoglycemia , still on solumedrol 40 mg IV q8h Allergy noted Past medical history: as above Past surgical history: denies Psychiatry history: denies Social history : denies smoking , ETOH use , illicit drug use Family history : DM ROS: Constitutional: denies fever, tiredness/weakness. HEENT: denies earache, change in voice .Respiratory: denies cough, sob . CVS :no chest pain, no palpitations . Abdomen: no abdominal pain, no nausea /vomiting, no change bowel movement. [employer] : denies light-headedness, dizziness. Extremities: no edema, no tremors. Skin: no itching, no rash Physical exam Well-developed Awake & alet with mild SOB VSS HEENT: norm cephalic, atraumatic, no lid lag , no exophthalmos NECK: supple, no palpable lymphadenopathy THYROID: no palpable thyromegaly, not tender CHEST: fair air entry, bilateral, CVS: S1,S2 ABDOMEN: bowel sound present, benign, obese, no wide purple striae , no bruises EXTREMITIES: trace pitting edema, clubbing or cyanosis, no palpable hand tremors Skin: acanthosis nigricans lab: NA corrected 131.1 Na corrected 131.2 , a1c 7.3 Na 129 , corrected 133.4 Na 130 , glucose 384 , corrected NA about 134.2 NA 130 , glucose 227 , corrected 131.6 Na 115 on admission , elevated LFTS , Urine osm 258 06/08 Na 132 , 06/09 129 , corrected with glucose : 130.6 , cmp wnl tsh 4.52 , ft4 1.9 , u/a (+) WBC & LE , cortisol @ 8am , 7.7 06/06 repeat 8am 23 & 31.9 CXR (+) patchy increase marking bilateral Assessment steroid induced hyperg;ycemia uncontrolled dm hyponatremia , asymtomatic ,? cortisol level done while on steroids ! hypothyroidism nauease & vomiting /pneumonia arrythemia plan continue lantus 16 units bid ,bed time snack continue Novolin R 10 units tid with meals if eats more than 60% of the meal continue Novolin R low dose coverage on Methyl-prednisone 40 mg IV q8h continue synthroid 88 mcg po qd we will follow with you. Status: Acute (2) Nausea & vomiting Status: Acute (3) Hypothyroidism Status: Acute (4) Uncontrolled diabetes mellitus Status: Acute (5) Steroid-induced hyperglycemia Status: Acute (6) Pneumonia Status: Acute
[2017-06-16] MEDS: Moxifloxacin IV 400mg/250ml NS 400 MG/250 ML BAG IVPB SCH (19:10)
--- NOTE | 2017-06-16 22:40 | CP.PCM.PN ---
Subjective - Date & Time of Evaluation Date of Evaluation: 06/16/17 Time of Evaluation: 12:00 - Subjective Subjective: With intermittent shortness of breath, not currently; tolerating diet; adhering to fluid restriction; Objective - Vital Signs/Intake and Output Vital Signs (last 24 hours): Temp Pulse Resp BP Pulse Ox 97.2 F L 76 20 147/83 96 06/16/17 16:00 06/16/17 16:00 06/16/17 16:00 06/16/17 17:34 06/16/17 16:00 Intake and Output: 06/16/17 06/17/17 18:59 06:59 Intake Total 630 Balance 630 - Medications Medications: Current Medications Acetaminophen (Tylenol 650mg/20.3ml Solution Ud) 650 mg PO Q4 PRN PRN Reason: pain and headache Last Admin: 06/16/17 01:22 Dose: 650 mg Al Hydrox/Mg Hydrox/Simethicone (Maalox Plus 30 Ml) 30 ml PO 5XD PRN PRN Reason: gerd Albuterol/Ipratropium (Duoneb 3 Mg/0.5 Mg (3 Ml) Ud) 3 ml INH RQ4 [facility] Last Admin: 06/16/17 20:10 Dose: 3 ml Calcium/Vitamin D (Oyster Shell Calcium/Vitamin D 500 Mg-200 Iu) 1 tab PO DAILY [facility] Last Admin: 06/16/17 09:46 Dose: 1 tab Furosemide (Lasix) 20 mg PO BID [facility] Last Admin: 06/16/17 17:34 Dose: 20 mg Guaifenesin (Robitussin) 200 mg PO Q4H PRN PRN Reason: Cough and congestion Last Admin: 06/15/17 12:58 Dose: 200 mg Aztreonam 1 gm/ Sodium (Chloride) 100 mls @ 200 mls/hr IVPB Q8H [facility] Last Admin: 06/16/17 17:33 Dose: 200 mls/hr Ferric Sodium Gluconate Complex 125 mg/ Sodium Chloride 110 mls @ 110 mls/hr IVPB DAILY [facility] Stop: 06/21/17 14:01 Last Admin: 06/16/17 11:06 Dose: 110 mls/hr Moxifloxacin HCl (Avelox Iv 400mg/250ml Ns) 400 mg in 250 mls @ 167 mls/hr IVPB Q24H [facility] Last Admin: 06/16/17 19:10 Dose: 167 mls/hr Insulin Glargine (Lantus) 16 unit SC BID [facility] Last Admin: 06/16/17 17:35 Dose: 16 u Insulin Human Regular (Novolin R) 0 unit SC ACHS [facility] PRN Reason: Protocol Last Admin: 06/16/17 22:06 Dose: Not Given Insulin Human Regular (Novolin R) 10 unit SC TIDPC [facility] Last Admin: 06/16/17 22:05 Dose: Not Given Lactulose (Enulose) 10 gm PO TID PRN PRN Reason: Constipation Levothyroxine Sodium (Synthroid) 88 mcg PO DAILY@0630 [facility] Last Admin: 06/16/17 05:38 Dose: 88 mcg Magnesium Oxide (Mag-Ox) 400 mg PO BID [facility] Last Admin: 06/16/17 17:34 Dose: 400 mg Methylprednisolone (Solu-Medrol) 40 mg IVP Q8 [facility] Last Admin: 06/16/17 22:16 Dose: 40 mg Metoprolol Succinate (Toprol Xl) 50 mg PO DAILY [facility] Last Admin: 06/16/17 09:46 Dose: 50 mg Rosuvastatin Calcium (Crestor) 5 mg PO HS [facility] Last Admin: 06/16/17 22:15 Dose: 5 mg - Labs Labs: 06/16/17 08:43 06/16/17 08:43 PT 14.5 SECONDS (9.7-12.2) H 06/06/17 16:54 INR 1.3 06/06/17 16:54 APTT 35 SECONDS (21-34) H 06/06/17 16:54 - Constitutional Appears: Non-toxic, No Acute Distress - Eye Exam Eye Exam: absent: Scleral icterus - ENT Exam ENT Exam: Mucous Membranes Moist - Respiratory Exam Respiratory Exam: Prolonged Expiratory Phase. absent: Respiratory Distress - Cardiovascular Exam Cardiovascular Exam: RRR, +S1, +S2 - GI/Abdominal Exam GI & Abdominal Exam: Soft. absent: Distended, Tenderness - Extremities Exam Additional comments: moderate lower leg edema b/l; - Neurological Exam Neurological Exam: Alert, Awake - Psychiatric Exam Psychiatric exam: Normal Affect, Normal Mood. absent: Agitated - Skin Skin Exam: Warm. absent: Cyanosis Assessment and Plan (1) Hyponatremia Assessment & Plan: Still persists but mild; lasix will help; continue 1L PO fluid restriction; Status: Acute (2) HTN (hypertension) Assessment & Plan: BP elevated in the setting of steroids; lasix will help, continue 20 mg PO bid for now; Status: Chronic (3) Electrolyte abnormality Status: Acute (4) Asthma with acute exacerbation Status: Acute (5) Anemia Status: Acute
[2017-06-17] MEDS: Albuterol-Ipratrop 3 mg / 0.5 (3 ml) UD INH SCH ×7 (00:12→23:44)
[2017-06-17] MEDS: Aztreonam 1 GM in Sodium Chloride 0.9% 100 ML IVPB SCH ×3 (00:43→17:02)
[2017-06-17] MEDS: Levothyroxine 88 MCG TAB PO SCH (05:57)
[2017-06-17] MEDS: MethylPREDNISolone 40 mg Vial IVP SCH ×3 (05:57→21:35)
[2017-06-17] MEDS: (Novolin R) Insulin Human Regular 100 units/ml vial SC SCH ×7 (07:59→21:36)
[2017-06-17] MEDS: Calcium-Vit D 500 mg-200 Units Tab UD PO SCH (10:23)
[2017-06-17] MEDS: Magnesium Oxide 400 mg Tab UD PO SCH ×2 (10:23→18:12)
[2017-06-17] MEDS: Metoprolol Succinate 50 mg XL Tab PO SCH (10:23)
[2017-06-17] MEDS: (Lantus) Insulin Glargine, Recombinant SC SCH ×2 (10:23→18:12)
[2017-06-17] MEDS: Ferric Sodium Gluconat Complex 125 MG in Sodium Chloride 0.9% 100 ML IVPB SCH (10:24)
[2017-06-17 10:31] LABS: OSMOLALITY,URINE 379 mosm/kg (300-1000)
[2017-06-17] MEDS: Vitamins A & D Oint UD Foilpak TOP SCH ×2 (11:19→17:03)
--- NOTE | 2017-06-17 11:38 | CP.PCM.PN ---
Subjective - Date & Time of Evaluation Date of Evaluation: 06/17/17 Time of Evaluation: 08:00 - Subjective Subjective: Patient seen and examined. On and off shortness of breath Patient states that she is feeling better Afebrile No chest pain Alert and oriented Objective - Vital Signs/Intake and Output Vital Signs (last 24 hours): Temp Pulse Resp BP Pulse Ox 97.8 F 78 18 153/67 H 100 06/17/17 07:00 06/17/17 07:00 06/17/17 07:00 06/17/17 10:23 06/17/17 07:00 Intake and Output: 06/17/17 06/17/17 06:59 18:59 Intake Total 100 120 Output Total 1800 Balance -1700 120 - Medications Medications: Current Medications Acetaminophen (Tylenol 650mg/20.3ml Solution Ud) 650 mg PO Q4 PRN PRN Reason: pain and headache Last Admin: 06/16/17 01:22 Dose: 650 mg Al Hydrox/Mg Hydrox/Simethicone (Maalox Plus 30 Ml) 30 ml PO 5XD PRN PRN Reason: gerd Albuterol/Ipratropium (Duoneb 3 Mg/0.5 Mg (3 Ml) Ud) 3 ml INH RQ4 [facility] Last Admin: 06/17/17 07:15 Dose: 3 ml Calcium/Vitamin D (Oyster Shell Calcium/Vitamin D 500 Mg-200 Iu) 1 tab PO DAILY [facility] Last Admin: 06/17/17 10:23 Dose: 1 tab Furosemide (Lasix) 20 mg PO BID [facility] Last Admin: 06/17/17 10:23 Dose: 20 mg Guaifenesin (Robitussin) 200 mg PO Q4H PRN PRN Reason: Cough and congestion Last Admin: 06/15/17 12:58 Dose: 200 mg Aztreonam 1 gm/ Sodium (Chloride) 100 mls @ 200 mls/hr IVPB Q8H [facility] Last Admin: 06/17/17 07:59 Dose: 200 mls/hr Ferric Sodium Gluconate Complex 125 mg/ Sodium Chloride 110 mls @ 110 mls/hr IVPB DAILY [facility] Stop: 06/21/17 14:01 Last Admin: 06/17/17 10:24 Dose: 110 mls/hr Moxifloxacin HCl (Avelox Iv 400mg/250ml Ns) 400 mg in 250 mls @ 167 mls/hr IVPB Q24H [facility] Last Admin: 06/16/17 19:10 Dose: 167 mls/hr Insulin Glargine (Lantus) 16 unit SC BID [facility] Last Admin: 06/17/17 10:23 Dose: 16 u Insulin Human Regular (Novolin R) 0 unit SC ACHS [facility] PRN Reason: Protocol Last Admin: 06/17/17 07:59 Dose: 2 unit Insulin Human Regular (Novolin R) 10 unit SC TIDPC [facility] Last Admin: 06/16/17 22:05 Dose: Not Given Lactulose (Enulose) 10 gm PO TID PRN PRN Reason: Constipation Levothyroxine Sodium (Synthroid) 88 mcg PO DAILY@0630 [facility] Last Admin: 06/17/17 05:57 Dose: 88 mcg Magnesium Oxide (Mag-Ox) 400 mg PO BID [facility] Last Admin: 06/17/17 10:23 Dose: 400 mg Methylprednisolone (Solu-Medrol) 40 mg IVP Q8 [facility] Last Admin: 06/17/17 05:57 Dose: 40 mg Metoprolol Succinate (Toprol Xl) 50 mg PO DAILY [facility] Last Admin: 06/17/17 10:23 Dose: 50 mg Rosuvastatin Calcium (Crestor) 5 mg PO HS [facility] Last Admin: 06/16/17 22:15 Dose: 5 mg Vitamin A (Vitamin A & D Oint Ud Foilpak) 0.5 ea TOP Q4 [facility] Last Admin: 06/17/17 11:19 Dose: 0.5 ea - Labs Labs: 06/16/17 08:43 06/16/17 08:43 PT 14.5 SECONDS (9.7-12.2) H 06/06/17 16:54 INR 1.3 06/06/17 16:54 APTT 35 SECONDS (21-34) H 06/06/17 16:54 - Head Exam Head Exam: ATRAUMATIC, NORMOCEPHALIC - ENT Exam ENT Exam: Mucous Membranes Moist - Neck Exam Neck Exam: Normal Inspection - Respiratory Exam Respiratory Exam: Rhonchi, Wheezes - Cardiovascular Exam Cardiovascular Exam: REGULAR RHYTHM - GI/Abdominal Exam GI & Abdominal Exam: Soft, Normal Bowel Sounds - Neurological Exam Neurological Exam: Alert Assessment and Plan (1) Pneumonia Assessment & Plan: continue antibiotics for now Followup chest x-ray Status: Acute (2) Asthma with acute exacerbation Assessment & Plan: start tapering IV steroids from tomorrow Status: Acute (3) Respiratory distress Status: Acute
[2017-06-17 11:44] LABS: BASO % 0.1 % (0.0-2.0); HEMOGLOBIN 9.4 g/dL (11.0-16.0); LYMPH # 1.1 K/uL (1.0-4.3); MEAN CELL VOLUME 90.1 fL (81.0-99.0); MEAN CORPUSCULAR HEMOGLOBIN 30.1 pg (27.0-31.0); MEAN CORPUSCULAR HGB CONC 33.5 g/dL (33.0-37.0); MEAN PLATELET VOLUME 8.2 fL (7.2-11.7); MONO # 1.1 K/uL (0.0-0.8); MONO % 8.2 % (0.0-10.0); NEUT # 11.2 K/uL (1.8-7.0); NEUT % 83.7 % (50.0-75.0); NRBC % 0.3 % (0.0-2.0); PLATELET COUNT 341 K/uL (130-400); RED CELL DISTRIBUTION WIDTH 14.5 % (11.5-14.5); WHITE BLOOD COUNT 13.4 K/uL (4.8-10.8)
[2017-06-17 12:04] LABS: BLOOD UREA NITROGEN 19 mg/dL (7-17); CALCIUM 8.8 mg/dl (8.6-10.4); GFR AFRICAN-AMERICAN > 60; GFR NON-AFRICAN AMERICAN > 60; MAGNESIUM 1.6 mg/dL (1.6-2.3)
[2017-06-17 13:15] LABS: BANDS 2 % (0-2); LYMPHOCYTE 6 % (20-40); MONOCYTE 6 % (0-10); NEUTROPHIL 86 % (50-75); NUCLEATED RED BLOOD CELL 1 % (0-0); PLATELET ESTIMATE NORMAL (NORMAL); TOTAL CELLS COUNTED 100
[2017-06-17 13:16] LABS: HYPOCHROMIC SLIGHT
--- NOTE | 2017-06-17 15:22 | PN ---
DATE: 06/17/2017 LOCATION: 665, bed A. SUBJECTIVE: This is an 81 years old female seen and examined in rounds with intermittent period of mild shortness of breath with a complaint of generalized weakness and malaise with intermittent period of non productive cough this morning, tolerated oral intake well, on fluid restriction. No reported active bleeding, actual chest pain, diarrhea, and no reported chills or fever. The entire chart is reviewed including, but not limited to the most recent lab and radiology study results, current and the previous medication list, current and previous medial events and today's labs showed blood glucose level elevated to 243. Rest of the lab results still pending. However, the patient reported to have yesterday white blood cells of 19.6 with hemoglobin 8.2, hematocrit 24.7 with normal platelet count and low sodium as well as low creatinine and low calcium. PHYSICAL EXAMINATION: GENERAL: An 81 years female awake, alert, and oriented. VITAL SIGNS: Afebrile with pulse of 76, respiratory rate of 20 to 22 with blood pressure 148/64. HEENT: Showed pale dry oral mucoid membrane, nonicteric sclerae. LUNGS: Few scattered crepitation. Decreased air entry at bases. HEART: Positive S1 and S2. ABDOMEN: Soft with mild generalized tenderness and slight distention. No mass or organomegaly. No rebound tenderness or guarding. EXTREMITIES: Mild lower extremity edematous changes. No clubbing or cyanosis. NEUROLOGIC: No reported new neurological deficits, sensory or motor. IMPRESSION: 1. Peptic ulcer disease. 2. Poorly controlled diabetes mellitus. 3. Poorly controlled hypertension. 4. Peptic ulcer disease with diabetic gastroparesis. 5. 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 6. Known history of hypothyroidism, cardiac arrhythmias with hyperlipidemia. 7. Anemia secondary to above. 8. Drug-induced coagulopathy, improving. 9. Chronic obstructive pulmonary disease, congestive heart failure by recent history with acute bronchitis. SUGGESTION: 1. Continue current management. 2. Repeat stool for occult blood. 3. The patient will need colonoscopy when she is more stable clinically, otherwise close observation to follow. Nalini Richter MD [facility] # [id number]
[2017-06-17] MEDS: Moxifloxacin IV 400mg/250ml NS 400 MG/250 ML BAG IVPB SCH (18:46)
--- NOTE | 2017-06-17 20:18 | CP.PCM.PN ---
Subjective - Date & Time of Evaluation Date of Evaluation: 06/17/17 Time of Evaluation: 13:00 - Subjective Subjective: Patient reports breathing improved; adhering to PO fluid restriction; Objective - Vital Signs/Intake and Output Vital Signs (last 24 hours): Temp Pulse Resp BP Pulse Ox 97.8 F 74 20 133/65 100 06/17/17 15:13 06/17/17 15:13 06/17/17 15:13 06/17/17 18:13 06/17/17 15:13 Intake and Output: 06/17/17 06/18/17 18:59 06:59 Intake Total 120 Balance 120 - Medications Medications: Current Medications Acetaminophen (Tylenol 650mg/20.3ml Solution Ud) 650 mg PO Q4 PRN PRN Reason: pain and headache Last Admin: 06/16/17 01:22 Dose: 650 mg Al Hydrox/Mg Hydrox/Simethicone (Maalox Plus 30 Ml) 30 ml PO 5XD PRN PRN Reason: gerd Albuterol/Ipratropium (Duoneb 3 Mg/0.5 Mg (3 Ml) Ud) 3 ml INH RQ4 [facility] Last Admin: 06/17/17 16:09 Dose: 3 ml Calcium/Vitamin D (Oyster Shell Calcium/Vitamin D 500 Mg-200 Iu) 1 tab PO DAILY [facility] Last Admin: 06/17/17 10:23 Dose: 1 tab Furosemide (Lasix) 20 mg PO BID [facility] Last Admin: 06/17/17 18:13 Dose: 20 mg Guaifenesin (Robitussin) 200 mg PO Q4H PRN PRN Reason: Cough and congestion Last Admin: 06/15/17 12:58 Dose: 200 mg Ferric Sodium Gluconate Complex 125 mg/ Sodium Chloride 110 mls @ 110 mls/hr IVPB DAILY [facility] Stop: 06/21/17 14:01 Last Admin: 06/17/17 10:24 Dose: 110 mls/hr Moxifloxacin HCl (Avelox Iv 400mg/250ml Ns) 400 mg in 250 mls @ 167 mls/hr IVPB Q24H [facility] Last Admin: 06/17/17 18:46 Dose: 167 mls/hr Insulin Glargine (Lantus) 16 unit SC BID [facility] Last Admin: 06/17/17 18:12 Dose: 16 u Insulin Human Regular (Novolin R) 0 unit SC ACHS [facility] PRN Reason: Protocol Last Admin: 06/17/17 17:02 Dose: 5 unit Insulin Human Regular (Novolin R) 10 unit SC TIDPC [facility] Last Admin: 06/17/17 18:16 Dose: 10 unit Lactulose (Enulose) 10 gm PO TID PRN PRN Reason: Constipation Levothyroxine Sodium (Synthroid) 88 mcg PO DAILY@0630 [facility] Last Admin: 06/17/17 05:57 Dose: 88 mcg Magnesium Oxide (Mag-Ox) 400 mg PO BID [facility] Last Admin: 06/17/17 18:12 Dose: 400 mg Methylprednisolone (Solu-Medrol) 40 mg IVP Q8 [facility] Last Admin: 06/17/17 13:47 Dose: 40 mg Metoprolol Succinate (Toprol Xl) 50 mg PO DAILY [facility] Last Admin: 06/17/17 10:23 Dose: 50 mg Rosuvastatin Calcium (Crestor) 5 mg PO HS [facility] Last Admin: 06/16/17 22:15 Dose: 5 mg Vitamin A (Vitamin A & D Oint Ud Foilpak) 0.5 ea TOP Q4 [facility] Last Admin: 06/17/17 17:03 Dose: 0.5 ea - Labs Labs: 06/17/17 11:37 06/17/17 11:37 PT 14.5 SECONDS (9.7-12.2) H 06/06/17 16:54 INR 1.3 06/06/17 16:54 APTT 35 SECONDS (21-34) H 06/06/17 16:54 - Constitutional Appears: Non-toxic, No Acute Distress - Eye Exam Eye Exam: absent: Scleral icterus - ENT Exam ENT Exam: Mucous Membranes Moist - Respiratory Exam Additional comments: better air movement; no resp distress; - Cardiovascular Exam Cardiovascular Exam: RRR, +S1, +S2 - GI/Abdominal Exam GI & Abdominal Exam: Soft. absent: Distended, Tenderness - Extremities Exam Additional comments: mild/moderate b/l lower leg edema; - Neurological Exam Neurological Exam: Alert, Awake - Psychiatric Exam Psychiatric exam: Normal Affect, Normal Mood. absent: Agitated - Skin Skin Exam: Warm. absent: Cyanosis Assessment and Plan (1) Hyponatremia Assessment & Plan: Mildly worsened but with high sugars; continue lasix 20 mg PO bid; continue with PO fluid restriction; Status: Acute (2) HTN (hypertension) Assessment & Plan: BP controlled on toprol and diuretics, continue; Status: Chronic (3) Electrolyte abnormality Status: Acute (4) Asthma with acute exacerbation Status: Acute (5) Anemia Status: Acute
--- NOTE | 2017-06-17 22:54 | CP.PCM.PN ---
Subjective - Date & Time of Evaluation Date of Evaluation: 06/17/17 Time of Evaluation: 17:00 - Subjective Subjective: Pt is improving, less cough, less short of breath Objective - Vital Signs/Intake and Output Vital Signs (last 24 hours): Temp Pulse Resp BP Pulse Ox 97.8 F 74 20 133/65 100 06/17/17 15:13 06/17/17 15:13 06/17/17 15:13 06/17/17 18:13 06/17/17 15:13 Intake and Output: 06/17/17 06/18/17 18:59 06:59 Intake Total 120 Balance 120 - Medications Medications: Current Medications Acetaminophen (Tylenol 650mg/20.3ml Solution Ud) 650 mg PO Q4 PRN PRN Reason: pain and headache Last Admin: 06/16/17 01:22 Dose: 650 mg Al Hydrox/Mg Hydrox/Simethicone (Maalox Plus 30 Ml) 30 ml PO 5XD PRN PRN Reason: gerd Albuterol/Ipratropium (Duoneb 3 Mg/0.5 Mg (3 Ml) Ud) 3 ml INH RQ4 [facility] Last Admin: 06/17/17 20:38 Dose: 3 ml Calcium/Vitamin D (Oyster Shell Calcium/Vitamin D 500 Mg-200 Iu) 1 tab PO DAILY [facility] Last Admin: 06/17/17 10:23 Dose: 1 tab Furosemide (Lasix) 20 mg PO BID [facility] Last Admin: 06/17/17 18:13 Dose: 20 mg Guaifenesin (Robitussin) 200 mg PO Q4H PRN PRN Reason: Cough and congestion Last Admin: 06/15/17 12:58 Dose: 200 mg Ferric Sodium Gluconate Complex 125 mg/ Sodium Chloride 110 mls @ 110 mls/hr IVPB DAILY [facility] Stop: 06/21/17 14:01 Last Admin: 06/17/17 10:24 Dose: 110 mls/hr Moxifloxacin HCl (Avelox Iv 400mg/250ml Ns) 400 mg in 250 mls @ 167 mls/hr IVPB Q24H [facility] Last Admin: 06/17/17 18:46 Dose: 167 mls/hr Insulin Glargine (Lantus) 16 unit SC BID [facility] Last Admin: 06/17/17 18:12 Dose: 16 u Insulin Human Regular (Novolin R) 0 unit SC ACHS [facility] PRN Reason: Protocol Last Admin: 06/17/17 21:36 Dose: Not Given Insulin Human Regular (Novolin R) 10 unit SC TIDPC [facility] Last Admin: 06/17/17 18:16 Dose: 10 unit Lactulose (Enulose) 10 gm PO TID PRN PRN Reason: Constipation Levothyroxine Sodium (Synthroid) 88 mcg PO DAILY@0630 [facility] Last Admin: 06/17/17 05:57 Dose: 88 mcg Magnesium Oxide (Mag-Ox) 400 mg PO BID [facility] Last Admin: 06/17/17 18:12 Dose: 400 mg Methylprednisolone (Solu-Medrol) 40 mg IVP Q8 [facility] Last Admin: 06/17/17 21:35 Dose: 40 mg Metoprolol Succinate (Toprol Xl) 50 mg PO DAILY [facility] Last Admin: 06/17/17 10:23 Dose: 50 mg Rosuvastatin Calcium (Crestor) 5 mg PO HS [facility] Last Admin: 06/17/17 21:35 Dose: 5 mg Vitamin A (Vitamin A & D Oint Ud Foilpak) 0.5 ea TOP Q4 [facility] Last Admin: 06/17/17 17:03 Dose: 0.5 ea - Labs Labs: 06/17/17 11:37 06/17/17 11:37 PT 14.5 SECONDS (9.7-12.2) H 06/06/17 16:54 INR 1.3 06/06/17 16:54 APTT 35 SECONDS (21-34) H 06/06/17 16:54 - Constitutional Appears: No Acute Distress - Head Exam Head Exam: ATRAUMATIC, NORMAL INSPECTION, NORMOCEPHALIC - Eye Exam Eye Exam: EOMI, Normal appearance, PERRL Pupil Exam: NORMAL ACCOMODATION, PERRL - Respiratory Exam Respiratory Exam: Decreased Breath Sounds, Rhonchi - Cardiovascular Exam Cardiovascular Exam: REGULAR RHYTHM, +S1, +S2. absent: Murmur - GI/Abdominal Exam GI & Abdominal Exam: Soft, Normal Bowel Sounds. absent: Tenderness - Extremities Exam Extremities Exam: Full ROM, Normal Capillary Refill, Normal Inspection. absent : Joint Swelling, Pedal Edema - Neurological Exam Neurological Exam: Alert, Awake, CN II-XII Intact, Normal Gait, Oriented x3 Assessment and Plan (1) Anemia Status: Resolved (2) Electrolyte abnormality Status: Acute (3) Hyponatremia Status: Acute (4) Nausea & vomiting Status: Acute (5) HTN (hypertension) Status: Chronic (6) Asthma with acute exacerbation Status: Acute (7) GERD (gastroesophageal reflux disease) Status: Acute (8) Pneumonia Status: Resolved (9) Steroid-induced hyperglycemia Status: Acute
[2017-06-18] MEDS: Albuterol-Ipratrop 3 mg / 0.5 (3 ml) UD INH SCH ×6 (03:24→23:42)
[2017-06-18] MEDS: Vitamins A & D Oint UD Foilpak TOP SCH ×6 (04:00→20:47)
[2017-06-18] MEDS: MethylPREDNISolone 40 mg Vial IVP SCH ×3 (05:44→21:49)
[2017-06-18] MEDS: Levothyroxine 88 MCG TAB PO SCH (05:44)
[2017-06-18 07:23] LABS: HEMOGLOBIN 8.4 g/dL (11.0-16.0); MEAN CELL VOLUME 89.8 fL (81.0-99.0); MEAN CORPUSCULAR HGB CONC 33.3 g/dL (33.0-37.0); RBC 2.8 Mil/uL (3.80-5.20); RED CELL DISTRIBUTION WIDTH 14.2 % (11.5-14.5); WHITE BLOOD COUNT 17.8 K/uL (4.8-10.8)
[2017-06-18 07:50] LABS: BLOOD UREA NITROGEN 17 mg/dL (7-17); CALCIUM 8.3 mg/dl (8.6-10.4); GFR AFRICAN-AMERICAN > 60; GFR NON-AFRICAN AMERICAN > 60
[2017-06-18] MEDS: (Novolin R) Insulin Human Regular 100 units/ml vial SC SCH ×7 (08:20→21:55)
[2017-06-18] MEDS: Magnesium Oxide 400 mg Tab UD PO SCH ×2 (09:45→17:06)
[2017-06-18] MEDS: Metoprolol Succinate 50 mg XL Tab PO SCH (09:45)
[2017-06-18] MEDS: (Lantus) Insulin Glargine, Recombinant SC SCH ×2 (09:46→17:05)
[2017-06-18] MEDS: Calcium-Vit D 500 mg-200 Units Tab UD PO SCH (09:48)
[2017-06-18] MEDS: Ferric Sodium Gluconat Complex 125 MG in Sodium Chloride 0.9% 100 ML IVPB SCH (12:26)
--- NOTE | 2017-06-18 17:52 | CP.PCM.PN ---
Subjective - Date & Time of Evaluation Date of Evaluation: 06/18/17 Time of Evaluation: 15:30 - Subjective Subjective: Patient seen and examined sitting in chair by bed. Patient is alert and oriented. Patient states she is feeling better and her cough and wheezing have improved. Patient still has slight cough and wheezing, and on and off shortness of breath. Cough is productive of amaya sputum. Patient denies chest pain and fever. Objective - Vital Signs/Intake and Output Vital Signs (last 24 hours): Temp Pulse Resp BP Pulse Ox 97.3 F L 78 20 129/60 100 06/18/17 15:00 06/18/17 15:00 06/18/17 15:00 06/18/17 17:06 06/18/17 15:00 Intake and Output: 06/18/17 06/18/17 06:59 18:59 Intake Total 240 Balance 240 - Medications Medications: Current Medications Acetaminophen (Tylenol 650mg/20.3ml Solution Ud) 650 mg PO Q4 PRN PRN Reason: pain and headache Last Admin: 06/16/17 01:22 Dose: 650 mg Al Hydrox/Mg Hydrox/Simethicone (Maalox Plus 30 Ml) 30 ml PO 5XD PRN PRN Reason: gerd Albuterol/Ipratropium (Duoneb 3 Mg/0.5 Mg (3 Ml) Ud) 3 ml INH RQ4 [facility] Last Admin: 06/18/17 16:06 Dose: 3 ml Calcium/Vitamin D (Oyster Shell Calcium/Vitamin D 500 Mg-200 Iu) 1 tab PO DAILY [facility] Last Admin: 06/18/17 09:48 Dose: 1 tab Furosemide (Lasix) 20 mg PO BID [facility] Last Admin: 06/18/17 17:06 Dose: 20 mg Guaifenesin (Robitussin) 200 mg PO Q4H PRN PRN Reason: Cough and congestion Last Admin: 06/15/17 12:58 Dose: 200 mg Ferric Sodium Gluconate Complex 125 mg/ Sodium Chloride 110 mls @ 110 mls/hr IVPB DAILY [facility] Stop: 06/21/17 14:01 Last Admin: 06/18/17 12:26 Dose: 110 mls/hr Moxifloxacin HCl (Avelox Iv 400mg/250ml Ns) 400 mg in 250 mls @ 167 mls/hr IVPB Q24H [facility] Last Admin: 06/17/17 18:46 Dose: 167 mls/hr Insulin Glargine (Lantus) 16 unit SC BID [facility] Last Admin: 06/18/17 17:05 Dose: 16 u Insulin Human Regular (Novolin R) 0 unit SC ACHS [facility] PRN Reason: Protocol Last Admin: 06/18/17 17:06 Dose: 2 unit Insulin Human Regular (Novolin R) 10 unit SC TIDPC [facility] Last Admin: 06/18/17 14:04 Dose: 10 unit Lactulose (Enulose) 10 gm PO TID PRN PRN Reason: Constipation Levothyroxine Sodium (Synthroid) 88 mcg PO DAILY@0630 [facility] Last Admin: 06/18/17 05:44 Dose: 88 mcg Magnesium Oxide (Mag-Ox) 400 mg PO BID [facility] Last Admin: 06/18/17 17:06 Dose: 400 mg Methylprednisolone (Solu-Medrol) 40 mg IVP Q8 [facility] Last Admin: 06/18/17 15:22 Dose: 40 mg Metoprolol Succinate (Toprol Xl) 50 mg PO DAILY [facility] Last Admin: 06/18/17 09:45 Dose: 50 mg Rosuvastatin Calcium (Crestor) 5 mg PO HS [facility] Last Admin: 06/17/17 21:35 Dose: 5 mg Sodium Chloride (Sodium Chloride Tab) 2 gm PO BID [facility] Last Admin: 06/18/17 17:06 Dose: 2 gm Vitamin A (Vitamin A & D Oint Ud Foilpak) 0.5 ea TOP Q4 [facility] Last Admin: 06/18/17 17:07 Dose: 0.5 ea - Labs Labs: 06/18/17 07:07 06/18/17 07:07 PT 14.5 SECONDS (9.7-12.2) H 06/06/17 16:54 INR 1.3 06/06/17 16:54 APTT 35 SECONDS (21-34) H 06/06/17 16:54 - Head Exam Head Exam: ATRAUMATIC, NORMOCEPHALIC - Eye Exam Eye Exam: Normal appearance - ENT Exam ENT Exam: Mucous Membranes Moist - Neck Exam Neck Exam: Normal Inspection - Respiratory Exam Respiratory Exam: Rales, Rhonchi - Cardiovascular Exam Cardiovascular Exam: REGULAR RHYTHM - GI/Abdominal Exam GI & Abdominal Exam: Soft, Normal Bowel Sounds Assessment and Plan (1) Pneumonia Assessment & Plan: 1. Pneumonia - continue antibiotics 2. Asthma with acute exacerbation - tapering steroids Status: Resolved (2) Asthma with acute exacerbation Status: Acute (3) Respiratory distress Status: Acute
[2017-06-18] MEDS: Moxifloxacin IV 400mg/250ml NS 400 MG/250 ML BAG IVPB SCH (18:43)
--- NOTE | 2017-06-18 21:25 | CP.PCM.PN ---
Subjective - Date & Time of Evaluation Date of Evaluation: 06/18/17 Time of Evaluation: 17:00 - Subjective Subjective: Patient reports breathing improved; adhering to fluid restriction; Objective - Vital Signs/Intake and Output Vital Signs (last 24 hours): Temp Pulse Resp BP Pulse Ox 97.3 F L 78 20 129/60 100 06/18/17 15:00 06/18/17 15:00 06/18/17 15:00 06/18/17 17:06 06/18/17 15:00 - Medications Medications: Current Medications Acetaminophen (Tylenol 650mg/20.3ml Solution Ud) 650 mg PO Q4 PRN PRN Reason: pain and headache Last Admin: 06/16/17 01:22 Dose: 650 mg Al Hydrox/Mg Hydrox/Simethicone (Maalox Plus 30 Ml) 30 ml PO 5XD PRN PRN Reason: gerd Albuterol/Ipratropium (Duoneb 3 Mg/0.5 Mg (3 Ml) Ud) 3 ml INH RQ4 [facility] Last Admin: 06/18/17 20:02 Dose: 3 ml Calcium/Vitamin D (Oyster Shell Calcium/Vitamin D 500 Mg-200 Iu) 1 tab PO DAILY [facility] Last Admin: 06/18/17 09:48 Dose: 1 tab Furosemide (Lasix) 20 mg PO BID [facility] Last Admin: 06/18/17 17:06 Dose: 20 mg Guaifenesin (Robitussin) 200 mg PO Q4H PRN PRN Reason: Cough and congestion Last Admin: 06/15/17 12:58 Dose: 200 mg Ferric Sodium Gluconate Complex 125 mg/ Sodium Chloride 110 mls @ 110 mls/hr IVPB DAILY [facility] Stop: 06/21/17 14:01 Last Admin: 06/18/17 12:26 Dose: 110 mls/hr Moxifloxacin HCl (Avelox Iv 400mg/250ml Ns) 400 mg in 250 mls @ 167 mls/hr IVPB Q24H [facility] Last Admin: 06/18/17 18:43 Dose: 167 mls/hr Insulin Glargine (Lantus) 16 unit SC BID [facility] Last Admin: 06/18/17 17:05 Dose: 16 u Insulin Human Regular (Novolin R) 0 unit SC ACHS [facility] PRN Reason: Protocol Last Admin: 06/18/17 17:06 Dose: 2 unit Insulin Human Regular (Novolin R) 10 unit SC TIDPC [facility] Last Admin: 06/18/17 19:00 Dose: Not Given Lactulose (Enulose) 10 gm PO TID PRN PRN Reason: Constipation Levothyroxine Sodium (Synthroid) 88 mcg PO DAILY@0630 [facility] Last Admin: 06/18/17 05:44 Dose: 88 mcg Magnesium Oxide (Mag-Ox) 400 mg PO BID [facility] Last Admin: 06/18/17 17:06 Dose: 400 mg Methylprednisolone (Solu-Medrol) 40 mg IVP Q8 [facility] Last Admin: 06/18/17 15:22 Dose: 40 mg Metoprolol Succinate (Toprol Xl) 50 mg PO DAILY [facility] Last Admin: 06/18/17 09:45 Dose: 50 mg Rosuvastatin Calcium (Crestor) 5 mg PO HS [facility] Last Admin: 06/17/17 21:35 Dose: 5 mg Sodium Chloride (Sodium Chloride Tab) 2 gm PO BID [facility] Last Admin: 06/18/17 17:06 Dose: 2 gm Vitamin A (Vitamin A & D Oint Ud Foilpak) 0.5 ea TOP Q4 [facility] Last Admin: 06/18/17 20:47 Dose: Not Given - Labs Labs: 06/18/17 07:07 06/18/17 07:07 PT 14.5 SECONDS (9.7-12.2) H 06/06/17 16:54 INR 1.3 06/06/17 16:54 APTT 35 SECONDS (21-34) H 06/06/17 16:54 - Constitutional Appears: Non-toxic, No Acute Distress - Eye Exam Eye Exam: absent: Scleral icterus - Respiratory Exam Respiratory Exam: Prolonged Expiratory Phase, Wheezes. absent: Respiratory Distress - Cardiovascular Exam Cardiovascular Exam: RRR, +S1, +S2 - GI/Abdominal Exam GI & Abdominal Exam: Soft. absent: Distended, Tenderness - Extremities Exam Additional comments: moderate lower leg edema b/l; - Neurological Exam Neurological Exam: Alert, Awake - Psychiatric Exam Psychiatric exam: Normal Affect, Normal Mood. absent: Agitated - Skin Skin Exam: Warm Assessment and Plan (1) Hyponatremia Assessment & Plan: Slightly worsened today; started on salt tabs, continue lasix 20 mg PO bid; Status: Acute (2) HTN (hypertension) Assessment & Plan: BP controlled on only toprol XL and lasix, continue same; Status: Chronic (3) Electrolyte abnormality Assessment & Plan: Potassium currently normal, getting slightly alkalotic with diuretics, monitor closely; Status: Acute (4) Asthma with acute exacerbation Status: Acute (5) Anemia Status: Resolved
--- NOTE | 2017-06-18 21:51 | CP.PCM.PN ---
Subjective - Date & Time of Evaluation Date of Evaluation: 06/18/17 Time of Evaluation: 21:48 - Subjective Subjective: uncontrolled DM & hyponatremia Objective - Vital Signs/Intake and Output Vital Signs (last 24 hours): Temp Pulse Resp BP Pulse Ox 97.3 F L 78 20 129/60 100 06/18/17 15:00 06/18/17 15:00 06/18/17 15:00 06/18/17 17:06 06/18/17 15:00 - Medications Medications: Current Medications Acetaminophen (Tylenol 650mg/20.3ml Solution Ud) 650 mg PO Q4 PRN PRN Reason: pain and headache Last Admin: 06/16/17 01:22 Dose: 650 mg Al Hydrox/Mg Hydrox/Simethicone (Maalox Plus 30 Ml) 30 ml PO 5XD PRN PRN Reason: gerd Albuterol/Ipratropium (Duoneb 3 Mg/0.5 Mg (3 Ml) Ud) 3 ml INH RQ4 [facility] Last Admin: 06/18/17 20:02 Dose: 3 ml Calcium/Vitamin D (Oyster Shell Calcium/Vitamin D 500 Mg-200 Iu) 1 tab PO DAILY [facility] Last Admin: 06/18/17 09:48 Dose: 1 tab Furosemide (Lasix) 20 mg PO BID [facility] Last Admin: 06/18/17 17:06 Dose: 20 mg Guaifenesin (Robitussin) 200 mg PO Q4H PRN PRN Reason: Cough and congestion Last Admin: 06/15/17 12:58 Dose: 200 mg Ferric Sodium Gluconate Complex 125 mg/ Sodium Chloride 110 mls @ 110 mls/hr IVPB DAILY [facility] Stop: 06/21/17 14:01 Last Admin: 06/18/17 12:26 Dose: 110 mls/hr Moxifloxacin HCl (Avelox Iv 400mg/250ml Ns) 400 mg in 250 mls @ 167 mls/hr IVPB Q24H [facility] Last Admin: 06/18/17 18:43 Dose: 167 mls/hr Insulin Glargine (Lantus) 16 unit SC BID [facility] Last Admin: 06/18/17 17:05 Dose: 16 u Insulin Human Regular (Novolin R) 0 unit SC ACHS [facility] PRN Reason: Protocol Last Admin: 06/18/17 17:06 Dose: 2 unit Insulin Human Regular (Novolin R) 10 unit SC TIDPC [facility] Last Admin: 06/18/17 19:00 Dose: Not Given Lactulose (Enulose) 10 gm PO TID PRN PRN Reason: Constipation Levothyroxine Sodium (Synthroid) 88 mcg PO DAILY@0630 [facility] Last Admin: 06/18/17 05:44 Dose: 88 mcg Magnesium Oxide (Mag-Ox) 400 mg PO BID [facility] Last Admin: 06/18/17 17:06 Dose: 400 mg Methylprednisolone (Solu-Medrol) 40 mg IVP Q8 [facility] Last Admin: 06/18/17 15:22 Dose: 40 mg Metoprolol Succinate (Toprol Xl) 50 mg PO DAILY [facility] Last Admin: 06/18/17 09:45 Dose: 50 mg Rosuvastatin Calcium (Crestor) 5 mg PO HS [facility] Last Admin: 06/17/17 21:35 Dose: 5 mg Sodium Chloride (Sodium Chloride Tab) 2 gm PO BID [facility] Last Admin: 06/18/17 17:06 Dose: 2 gm Vitamin A (Vitamin A & D Oint Ud Foilpak) 0.5 ea TOP Q4 [facility] Last Admin: 06/18/17 20:47 Dose: Not Given - Labs Labs: 06/18/17 07:07 06/18/17 07:07 PT 14.5 SECONDS (9.7-12.2) H 06/06/17 16:54 INR 1.3 06/06/17 16:54 APTT 35 SECONDS (21-34) H 06/06/17 16:54 Assessment and Plan (1) Hyponatremia Assessment & Plan: Endocrine consult f/u reason for consult: hyponatremia & uncontrolled dm .81 is y/o admitted for nausea & vomiting as per chart review pt. with past medical history significant for hypothyroidism, asthma, and diabetes type II presented to [facility] with several days of nausea and vomiting. Before 2016, patient was fully independent and could perform all IADLs, lived alone. , patient fell and broke her arm (it was a mechanical fall), was admitted to [facility] , and was discharged to a rehab facility. At this rehab facility, patient had poor po intake and "was unable to keep anything down." She was then brought to [facility] due to nausea and vomiting and mild confusion.on admission patient was found to be hypokalemic, hyponatremic, and severely dehydrated. s/p SVT with RBBB and heart rate of 162. & also with hypothyroidism on synthyroid 88 mcg po qd glucose 200-300 , last 125 no hypoglycemia , still on solumedrol 40 mg IV q8h Allergy noted Past medical history: as above Past surgical history: denies Psychiatry history: denies Social history : denies smoking , ETOH use , illicit drug use Family history : DM ROS: Constitutional: denies fever, tiredness/weakness. HEENT: denies earache, change in voice .Respiratory: denies cough, sob . CVS :no chest pain, no palpitations . Abdomen: no abdominal pain, no nausea /vomiting, no change bowel movement. [employer] : denies light-headedness, dizziness. Extremities: no edema, no tremors. Skin: no itching, no rash Physical exam Well-developed Awake & alet with mild SOB VSS HEENT: norm cephalic, atraumatic, no lid lag , no exophthalmos NECK: supple, no palpable lymphadenopathy THYROID: no palpable thyromegaly, not tender CHEST: fair air entry, bilateral, CVS: S1,S2 ABDOMEN: bowel sound present, benign, obese, no wide purple striae , no bruises EXTREMITIES: trace pitting edema, clubbing or cyanosis, no palpable hand tremors Skin: acanthosis nigricans lab: NA corrected 131.1 Na corrected 131.2 , a1c 7.3 Na 129 , corrected 133.4 Na 130 , glucose 384 , corrected NA about 134.2 NA 130 , glucose 227 , corrected 131.6 Na 115 on admission , elevated LFTS , Urine osm 258 06/08 Na 132 , 06/09 129 , corrected with glucose : 130.6 , cmp wnl tsh 4.52 , ft4 1.9 , u/a (+) WBC & LE , cortisol @ 8am , 7.7 06/06 repeat 8am 23 & 31.9 CXR (+) patchy increase marking bilateral Assessment steroid induced hyperg;ycemia uncontrolled dm hyponatremia , asymtomatic ,? cortisol level done while on steroids ! hypothyroidism nauease & vomiting /pneumonia arrythemia plan increase lantus 17 units bid ,bed time snack continue Novolin R 10 units tid with meals if eats more than 60% of the meal continue Novolin R low dose coverage on Methyl-prednisone 40 mg IV q8h continue synthroid 88 mcg po qd Status: Acute (2) Nausea & vomiting Status: Acute (3) Hypothyroidism Status: Acute (4) Uncontrolled diabetes mellitus Status: Acute (5) Steroid-induced hyperglycemia Status: Acute (6) Pneumonia Status: Resolved
--- NOTE | 2017-06-18 23:08 | CP.PCM.PN ---
Subjective - Date & Time of Evaluation Date of Evaluation: 06/18/17 Time of Evaluation: 18:00 - Subjective Subjective: Pt seen and evaluated today Objective - Vital Signs/Intake and Output Vital Signs (last 24 hours): Temp Pulse Resp BP Pulse Ox 97.3 F L 78 20 129/60 100 06/18/17 15:00 06/18/17 15:00 06/18/17 15:00 06/18/17 17:06 06/18/17 15:00 - Medications Medications: Current Medications Acetaminophen (Tylenol 650mg/20.3ml Solution Ud) 650 mg PO Q4 PRN PRN Reason: pain and headache Last Admin: 06/16/17 01:22 Dose: 650 mg Al Hydrox/Mg Hydrox/Simethicone (Maalox Plus 30 Ml) 30 ml PO 5XD PRN PRN Reason: gerd Albuterol/Ipratropium (Duoneb 3 Mg/0.5 Mg (3 Ml) Ud) 3 ml INH RQ4 [facility] Last Admin: 06/18/17 20:02 Dose: 3 ml Calcium/Vitamin D (Oyster Shell Calcium/Vitamin D 500 Mg-200 Iu) 1 tab PO DAILY [facility] Last Admin: 06/18/17 09:48 Dose: 1 tab Furosemide (Lasix) 20 mg PO BID [facility] Last Admin: 06/18/17 17:06 Dose: 20 mg Guaifenesin (Robitussin) 200 mg PO Q4H PRN PRN Reason: Cough and congestion Last Admin: 06/15/17 12:58 Dose: 200 mg Ferric Sodium Gluconate Complex 125 mg/ Sodium Chloride 110 mls @ 110 mls/hr IVPB DAILY [facility] Stop: 06/21/17 14:01 Last Admin: 06/18/17 12:26 Dose: 110 mls/hr Moxifloxacin HCl (Avelox Iv 400mg/250ml Ns) 400 mg in 250 mls @ 167 mls/hr IVPB Q24H [facility] Last Admin: 06/18/17 18:43 Dose: 167 mls/hr Insulin Glargine (Lantus) 17 unit SC BID [facility] Insulin Human Regular (Novolin R) 0 unit SC ACHS [facility] PRN Reason: Protocol Last Admin: 06/18/17 21:55 Dose: Not Given Insulin Human Regular (Novolin R) 11 unit SC TIDPC [facility] Lactulose (Enulose) 10 gm PO TID PRN PRN Reason: Constipation Levothyroxine Sodium (Synthroid) 88 mcg PO DAILY@0630 [facility] Last Admin: 06/18/17 05:44 Dose: 88 mcg Magnesium Oxide (Mag-Ox) 400 mg PO BID [facility] Last Admin: 06/18/17 17:06 Dose: 400 mg Methylprednisolone (Solu-Medrol) 40 mg IVP Q8 [facility] Last Admin: 06/18/17 21:49 Dose: 40 mg Metoprolol Succinate (Toprol Xl) 50 mg PO DAILY [facility] Last Admin: 06/18/17 09:45 Dose: 50 mg Rosuvastatin Calcium (Crestor) 5 mg PO HS [facility] Last Admin: 06/18/17 21:49 Dose: 5 mg Sodium Chloride (Sodium Chloride Tab) 2 gm PO BID [facility] Last Admin: 06/18/17 17:06 Dose: 2 gm Vitamin A (Vitamin A & D Oint Ud Foilpak) 0.5 ea TOP Q4 [facility] Last Admin: 06/18/17 20:47 Dose: Not Given - Labs Labs: 06/18/17 07:07 06/18/17 07:07 PT 14.5 SECONDS (9.7-12.2) H 06/06/17 16:54 INR 1.3 06/06/17 16:54 APTT 35 SECONDS (21-34) H 06/06/17 16:54 Assessment and Plan (1) Anemia Status: Resolved (2) Electrolyte abnormality Status: Acute (3) Hyponatremia Status: Acute (4) Nausea & vomiting Status: Acute (5) HTN (hypertension) Status: Chronic (6) Asthma with acute exacerbation Status: Acute (7) GERD (gastroesophageal reflux disease) Status: Acute (8) Pneumonia Status: Resolved (9) Steroid-induced hyperglycemia Status: Acute
[2017-06-19] MEDS: Vitamins A & D Oint UD Foilpak TOP SCH ×6 (00:58→20:25)
[2017-06-19] MEDS: Albuterol-Ipratrop 3 mg / 0.5 (3 ml) UD INH SCH ×5 (03:10→20:57)
[2017-06-19] MEDS: MethylPREDNISolone 40 mg Vial IVP SCH ×3 (06:31→22:42)
[2017-06-19] MEDS: Levothyroxine 88 MCG TAB PO SCH (06:36)
[2017-06-19] MEDS: (Novolin R) Insulin Human Regular 100 units/ml vial SC SCH ×7 (06:40→22:39)
[2017-06-19 07:07] LABS: HEMOGLOBIN 8.2 g/dL (11.0-16.0); MEAN CELL VOLUME 89.8 fL (81.0-99.0); MEAN CORPUSCULAR HEMOGLOBIN 29.5 pg (27.0-31.0); MEAN CORPUSCULAR HGB CONC 32.8 g/dL (33.0-37.0); MEAN PLATELET VOLUME 7.8 fL (7.2-11.7); RBC 2.79 Mil/uL (3.80-5.20); RED CELL DISTRIBUTION WIDTH 14.1 % (11.5-14.5)
[2017-06-19 07:50] LABS: BLOOD UREA NITROGEN 14 mg/dL (7-17); CALCIUM 8.2 mg/dl (8.6-10.4); GFR AFRICAN-AMERICAN > 60; GFR NON-AFRICAN AMERICAN > 60
[2017-06-19] MEDS: Magnesium Oxide 400 mg Tab UD PO SCH ×2 (10:30→19:17)
[2017-06-19] MEDS: Calcium-Vit D 500 mg-200 Units Tab UD PO SCH (10:31)
[2017-06-19] MEDS: Metoprolol Succinate 50 mg XL Tab PO SCH (10:31)
[2017-06-19] MEDS: (Lantus) Insulin Glargine, Recombinant SC SCH ×2 (10:53→18:54)
[2017-06-19] MEDS ORDERED: Potassium Chloride 20 mEq ER Tab PO ONE (10:59)
[2017-06-19] MEDS: Ferric Sodium Gluconat Complex 125 MG in Sodium Chloride 0.9% 100 ML IVPB SCH (11:49)
[2017-06-19] MEDS: Acetaminophen 650mg/20.3ml solution UD PO PRN (13:38)
--- NOTE | 2017-06-19 15:31 | CP.PCM.PN ---
Subjective - Date & Time of Evaluation Date of Evaluation: 06/19/17 Time of Evaluation: 13:30 - Subjective Subjective: patient seen and examined. Still complaining of cough and shortness of breath Sitting comfortably in no distress Afebrile No chest pain Objective - Vital Signs/Intake and Output Vital Signs (last 24 hours): Temp Pulse Resp BP Pulse Ox 97.8 F 83 20 129/73 100 06/19/17 07:00 06/19/17 07:00 06/19/17 07:00 06/19/17 10:32 06/19/17 07:00 Intake and Output: 06/19/17 06/19/17 06:59 18:59 Intake Total 30 Output Total 1 Balance 29 - Medications Medications: Current Medications Acetaminophen (Tylenol 650mg/20.3ml Solution Ud) 650 mg PO Q4 PRN PRN Reason: pain and headache Last Admin: 06/19/17 13:38 Dose: 650 mg Al Hydrox/Mg Hydrox/Simethicone (Maalox Plus 30 Ml) 30 ml PO 5XD PRN PRN Reason: gerd Albuterol/Ipratropium (Duoneb 3 Mg/0.5 Mg (3 Ml) Ud) 3 ml INH RQ4 [facility] Last Admin: 06/19/17 13:38 Dose: 3 ml Calcium/Vitamin D (Oyster Shell Calcium/Vitamin D 500 Mg-200 Iu) 1 tab PO DAILY [facility] Last Admin: 06/19/17 10:31 Dose: 1 tab Furosemide (Lasix) 20 mg PO BID [facility] Last Admin: 06/19/17 10:32 Dose: 20 mg Guaifenesin (Robitussin) 200 mg PO Q4H PRN PRN Reason: Cough and congestion Last Admin: 06/15/17 12:58 Dose: 200 mg Ferric Sodium Gluconate Complex 125 mg/ Sodium Chloride 110 mls @ 110 mls/hr IVPB DAILY [facility] Stop: 06/21/17 14:01 Last Admin: 06/19/17 11:49 Dose: 110 mls/hr Moxifloxacin HCl (Avelox Iv 400mg/250ml Ns) 400 mg in 250 mls @ 167 mls/hr IVPB Q24H [facility] Last Admin: 06/18/17 18:43 Dose: 167 mls/hr Insulin Glargine (Lantus) 17 unit SC BID [facility] Last Admin: 06/19/17 10:53 Dose: 11 u Insulin Human Regular (Novolin R) 0 unit SC ACHS [facility] PRN Reason: Protocol Last Admin: 06/19/17 08:00 Dose: Not Given Insulin Human Regular (Novolin R) 11 unit SC TIDPC [facility] Last Admin: 06/19/17 13:44 Dose: 11 unit Lactulose (Enulose) 10 gm PO TID PRN PRN Reason: Constipation Levothyroxine Sodium (Synthroid) 88 mcg PO DAILY@0630 [facility] Last Admin: 06/19/17 06:36 Dose: 88 mcg Magnesium Oxide (Mag-Ox) 400 mg PO BID [facility] Last Admin: 06/19/17 10:30 Dose: 400 mg Methylprednisolone (Solu-Medrol) 40 mg IVP Q8 [facility] Last Admin: 06/19/17 13:51 Dose: 40 mg Metoprolol Succinate (Toprol Xl) 50 mg PO DAILY [facility] Last Admin: 06/19/17 10:31 Dose: 50 mg Rosuvastatin Calcium (Crestor) 5 mg PO HS [facility] Last Admin: 06/18/17 21:49 Dose: 5 mg Sodium Chloride (Sodium Chloride Tab) 2 gm PO BID [facility] Last Admin: 06/19/17 10:31 Dose: 2 gm Vitamin A (Vitamin A & D Oint Ud Foilpak) 0.5 ea TOP Q4 [facility] Last Admin: 06/19/17 12:30 Dose: 0.5 ea - Labs Labs: 06/19/17 06:54 06/19/17 06:54 PT 14.5 SECONDS (9.7-12.2) H 06/06/17 16:54 INR 1.3 06/06/17 16:54 APTT 35 SECONDS (21-34) H 06/06/17 16:54 - Head Exam Head Exam: ATRAUMATIC, NORMOCEPHALIC - Eye Exam Eye Exam: Normal appearance - ENT Exam ENT Exam: Mucous Membranes Moist - Neck Exam Neck Exam: Normal Inspection - Respiratory Exam Respiratory Exam: Rales - Cardiovascular Exam Cardiovascular Exam: REGULAR RHYTHM - GI/Abdominal Exam GI & Abdominal Exam: Soft Assessment and Plan (1) Pneumonia Assessment & Plan: Continue to treat pneumonia Continue nebulizer treatment Condition improving Status: Resolved (2) Asthma with acute exacerbation Status: Acute (3) Respiratory distress Status: Acute
[2017-06-19] MEDS: Moxifloxacin IV 400mg/250ml NS 400 MG/250 ML BAG IVPB SCH (18:52)
--- NOTE | 2017-06-19 19:05 | CP.PCM.PN ---
Subjective - Date & Time of Evaluation Date of Evaluation: 06/19/17 Time of Evaluation: 12:00 - Subjective Subjective: Patient reports breathing improved; adhering to PO fluid restriction; Objective - Vital Signs/Intake and Output Vital Signs (last 24 hours): Temp Pulse Resp BP Pulse Ox 97.2 F L 88 20 115/67 100 06/19/17 15:00 06/19/17 15:00 06/19/17 15:00 06/19/17 18:46 06/19/17 15:00 - Medications Medications: Current Medications Acetaminophen (Tylenol 650mg/20.3ml Solution Ud) 650 mg PO Q4 PRN PRN Reason: pain and headache Last Admin: 06/19/17 13:38 Dose: 650 mg Al Hydrox/Mg Hydrox/Simethicone (Maalox Plus 30 Ml) 30 ml PO 5XD PRN PRN Reason: gerd Albuterol/Ipratropium (Duoneb 3 Mg/0.5 Mg (3 Ml) Ud) 3 ml INH RQ4 [facility] Last Admin: 06/19/17 13:38 Dose: 3 ml Calcium/Vitamin D (Oyster Shell Calcium/Vitamin D 500 Mg-200 Iu) 1 tab PO DAILY [facility] Last Admin: 06/19/17 10:31 Dose: 1 tab Furosemide (Lasix) 20 mg PO BID [facility] Last Admin: 06/19/17 18:46 Dose: 20 mg Guaifenesin (Robitussin) 200 mg PO Q4H PRN PRN Reason: Cough and congestion Last Admin: 06/15/17 12:58 Dose: 200 mg Ferric Sodium Gluconate Complex 125 mg/ Sodium Chloride 110 mls @ 110 mls/hr IVPB DAILY [facility] Stop: 06/21/17 14:01 Last Admin: 06/19/17 11:49 Dose: 110 mls/hr Moxifloxacin HCl (Avelox Iv 400mg/250ml Ns) 400 mg in 250 mls @ 167 mls/hr IVPB Q24H [facility] Last Admin: 06/19/17 18:52 Dose: 167 mls/hr Insulin Glargine (Lantus) 17 unit SC BID [facility] Last Admin: 06/19/17 18:54 Dose: 17 u Insulin Human Regular (Novolin R) 0 unit SC ACHS [facility] PRN Reason: Protocol Last Admin: 06/19/17 18:47 Dose: 1 unit Insulin Human Regular (Novolin R) 11 unit SC TIDPC [facility] Last Admin: 06/19/17 18:48 Dose: 11 unit Lactulose (Enulose) 10 gm PO TID PRN PRN Reason: Constipation Levothyroxine Sodium (Synthroid) 88 mcg PO DAILY@0630 [facility] Last Admin: 06/19/17 06:36 Dose: 88 mcg Magnesium Oxide (Mag-Ox) 400 mg PO BID [facility] Last Admin: 06/19/17 10:30 Dose: 400 mg Methylprednisolone (Solu-Medrol) 40 mg IVP Q8 [facility] Last Admin: 06/19/17 13:51 Dose: 40 mg Metoprolol Succinate (Toprol Xl) 50 mg PO DAILY [facility] Last Admin: 06/19/17 10:31 Dose: 50 mg Rosuvastatin Calcium (Crestor) 5 mg PO HS [facility] Last Admin: 06/18/17 21:49 Dose: 5 mg Sodium Chloride (Sodium Chloride Tab) 2 gm PO BID [facility] Last Admin: 06/19/17 18:57 Dose: Not Given Vitamin A (Vitamin A & D Oint Ud Foilpak) 0.5 ea TOP Q4 [facility] Last Admin: 06/19/17 18:47 Dose: 0.5 ea - Labs Labs: 06/19/17 06:54 06/19/17 06:54 PT 14.5 SECONDS (9.7-12.2) H 06/06/17 16:54 INR 1.3 06/06/17 16:54 APTT 35 SECONDS (21-34) H 06/06/17 16:54 - Constitutional Appears: Non-toxic, No Acute Distress - Eye Exam Eye Exam: Normal appearance. absent: Scleral icterus - ENT Exam ENT Exam: Mucous Membranes Moist - Respiratory Exam Respiratory Exam: Wheezes. absent: Respiratory Distress - Cardiovascular Exam Cardiovascular Exam: RRR, +S1, +S2 - GI/Abdominal Exam GI & Abdominal Exam: Soft. absent: Distended, Tenderness - Extremities Exam Additional comments: mild/moderate lower leg edema; - Neurological Exam Neurological Exam: Alert, Awake - Psychiatric Exam Psychiatric exam: Normal Affect, Normal Mood. absent: Agitated - Skin Skin Exam: Warm. absent: Cyanosis Assessment and Plan (1) Hyponatremia Assessment & Plan: Much improved with salt tabs and lasix; stopping salt tabs, continuing with lasix and PO fluid restriction; Status: Acute (2) HTN (hypertension) Assessment & Plan: BP controlled on toprol and lasix, continue same for now; Status: Chronic (3) Electrolyte abnormality Assessment & Plan: K slightly low, replenishing with PO KCl; Status: Acute (4) Asthma with acute exacerbation Status: Acute (5) Anemia Status: Resolved
--- NOTE | 2017-06-19 22:40 | PN ---
DATE: LOCATION: [facility], bed A. SUBJECTIVE: This is an 81-year-old female, seen and examined in rounds without significant clinical changes or reported active bleeding with intermittent period of some shortness of breath with productive cough on and off. No nausea or vomiting, but mild dyspepsia. The entire chart is reviewed including, but not limited to the most recent lab and radiology study results, current and the previous medication list, current and the previous medical events. Case discussed with the staff at length as well as other loans consultant. Today's lab showed leukocytosis of 20.0 with low hemoglobin 8.2, low hematocrit 25.1, with low potassium of 3.5, increased CO2 content of 32 indicative of respiratory alkalosis with blood glucose level 183 with low calcium of 8.2. The patient denied any recent episode of chills or fevers or chest pain or palpitations. PHYSICAL EXAMINATION: GENERAL: An 81-year-old female. VITAL SIGNS: Afebrile with pulse of 86, respiratory rate of 20 to 22, blood pressure of 124/64. HEENT: Shows a dry oral mucous membrane. Nonicteric sclerae. LUNGS: Few scattered crepitation. Decreased air entry at the bases. HEART: Positive S1 and S2. ABDOMEN: Soft with mild generalized tenderness. Slightly distended. No mass or organomegaly. No rebound, tenderness, or guarding. RECTAL: Deferred due to the patient's clinical presentation. NEUROLOGIC: No reported new neurological deficit, sensory or motor. No focal deficits. EXTREMITIES: Without clubbing or cyanosis, but mild lower extremity edematous changes. VASCULAR: Peripheral pulses are present bilaterally but weak. IMPRESSION: 1. Re-exacerbation of peptic ulcer disease. 2. 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 3. Poorly-controlled diabetes mellitus. 4. Poorly-controlled hypertension. 5. Diabetic gastroparesis. 6. Known history of cardiac arrhythmia, hypothyroidism with hyperlipidemia. 7. Anemia secondary to above. 8. Chronic obstructive pulmonary disease, congestive heart failure with acute bronchitis. SUGGESTIONS: 1. Continue current management. 2. Follow up cancer tumor markers. 3. The patient will need again Oncology/Hematology consultation Nalini Richter MD
--- NOTE | 2017-06-19 23:44 | CP.PCM.PN ---
Subjective - Date & Time of Evaluation Date of Evaluation: 06/19/17 Time of Evaluation: 18:00 - Subjective Subjective: Pt seen and evalauted, is on antibiotics and medical maagmengt, pt reports less cough, less shortness of breath Objective - Vital Signs/Intake and Output Vital Signs (last 24 hours): Temp Pulse Resp BP Pulse Ox 97.2 F L 88 20 115/67 100 06/19/17 15:00 06/19/17 15:00 06/19/17 15:00 06/19/17 18:46 06/19/17 15:00 - Medications Medications: Current Medications Acetaminophen (Tylenol 650mg/20.3ml Solution Ud) 650 mg PO Q4 PRN PRN Reason: pain and headache Al Hydrox/Mg Hydrox/Simethicone (Maalox Plus 30 Ml) 30 ml PO 5XD PRN PRN Reason: gerd Albuterol/Ipratropium (Duoneb 3 Mg/0.5 Mg (3 Ml) Ud) 3 ml INH RQ4 [facility] Last Admin: 06/19/17 20:57 Dose: 3 ml Calcium/Vitamin D (Oyster Shell Calcium/Vitamin D 500 Mg-200 Iu) 1 tab PO DAILY [facility] Furosemide (Lasix) 20 mg PO BID [facility] Last Admin: 06/19/17 18:46 Dose: 20 mg Guaifenesin (Robitussin) 200 mg PO Q4H PRN PRN Reason: Cough and congestion Last Admin: 06/15/17 12:58 Dose: 200 mg Ferric Sodium Gluconate Complex 125 mg/ Sodium Chloride 110 mls @ 110 mls/hr IVPB DAILY [facility] Stop: 06/21/17 14:01 Last Admin: 06/19/17 11:49 Dose: 110 mls/hr Moxifloxacin HCl (Avelox Iv 400mg/250ml Ns) 400 mg in 250 mls @ 167 mls/hr IVPB Q24H [facility] Stop: 06/22/17 00:00 Insulin Glargine (Lantus) 17 unit SC BID [facility] Last Admin: 06/19/17 18:54 Dose: 17 u Insulin Human Regular (Novolin R) 0 unit SC ACHS [facility] PRN Reason: Protocol Last Admin: 06/19/17 22:39 Dose: Not Given Insulin Human Regular (Novolin R) 11 unit SC TIDPC [facility] Last Admin: 06/19/17 18:48 Dose: 11 unit Lactulose (Enulose) 10 gm PO TID PRN PRN Reason: Constipation Levothyroxine Sodium (Synthroid) 88 mcg PO DAILY@0630 [facility] Last Admin: 06/19/17 06:36 Dose: 88 mcg Magnesium Oxide (Mag-Ox) 400 mg PO BID [facility] Last Admin: 06/19/17 19:17 Dose: 400 mg Methylprednisolone (Solu-Medrol) 40 mg IVP Q8 [facility] Last Admin: 06/19/17 22:42 Dose: 40 mg Metoprolol Succinate (Toprol Xl) 50 mg PO DAILY [facility] Last Admin: 06/19/17 10:31 Dose: 50 mg Rosuvastatin Calcium (Crestor) 5 mg PO HS [facility] Last Admin: 06/19/17 22:42 Dose: 5 mg Sodium Chloride (Sodium Chloride Tab) 2 gm PO BID [facility] Last Admin: 06/19/17 18:57 Dose: Not Given Vitamin A (Vitamin A & D Oint Ud Foilpak) 0.5 ea TOP Q4 [facility] Last Admin: 06/19/17 20:25 Dose: Not Given - Labs Labs: 06/19/17 06:54 06/19/17 06:54 PT 14.5 SECONDS (9.7-12.2) H 06/06/17 16:54 INR 1.3 06/06/17 16:54 APTT 35 SECONDS (21-34) H 06/06/17 16:54 - Constitutional Appears: No Acute Distress, Chronically Ill - Head Exam Head Exam: ATRAUMATIC, NORMAL INSPECTION, NORMOCEPHALIC - Eye Exam Eye Exam: EOMI, Normal appearance, PERRL Pupil Exam: NORMAL ACCOMODATION, PERRL - Respiratory Exam Respiratory Exam: Decreased Breath Sounds, Rhonchi - Cardiovascular Exam Cardiovascular Exam: REGULAR RHYTHM, +S1, +S2. absent: Murmur - GI/Abdominal Exam GI & Abdominal Exam: Soft, Normal Bowel Sounds. absent: Tenderness Assessment and Plan (1) Anemia Status: Resolved (2) Electrolyte abnormality Status: Acute (3) Hyponatremia Status: Acute (4) Nausea & vomiting Status: Acute (5) HTN (hypertension) Status: Chronic (6) Asthma with acute exacerbation Status: Acute (7) GERD (gastroesophageal reflux disease) Status: Acute (8) Pneumonia Status: Resolved (9) Steroid-induced hyperglycemia Status: Acute
[2017-06-20] MEDS: Albuterol-Ipratrop 3 mg / 0.5 (3 ml) UD INH SCH ×7 (00:50→18:59)
[2017-06-20] MEDS: Vitamins A & D Oint UD Foilpak TOP SCH ×4 (05:00→13:53)
[2017-06-20] MEDS: MethylPREDNISolone 40 mg Vial IVP SCH ×3 (06:02→21:16)
[2017-06-20] MEDS: Levothyroxine 88 MCG TAB PO SCH (06:03)
[2017-06-20 06:40] LABS: HEMOGLOBIN 8.5 g/dL (11.0-16.0); MEAN CELL VOLUME 90.7 fL (81.0-99.0); MEAN CORPUSCULAR HEMOGLOBIN 29.4 pg (27.0-31.0); MEAN CORPUSCULAR HGB CONC 32.4 g/dL (33.0-37.0); MEAN PLATELET VOLUME 7.6 fL (7.2-11.7); RBC 2.88 Mil/uL (3.80-5.20); RED CELL DISTRIBUTION WIDTH 14.7 % (11.5-14.5); WHITE BLOOD COUNT 20.5 K/uL (4.8-10.8)
[2017-06-20] MEDS: (Novolin R) Insulin Human Regular 100 units/ml vial SC SCH ×6 (07:57→21:18)
[2017-06-20 08:07] LABS: BLOOD UREA NITROGEN 16 mg/dL (7-17); CALCIUM 8.8 mg/dl (8.6-10.4); GFR AFRICAN-AMERICAN > 60; GFR NON-AFRICAN AMERICAN > 60
[2017-06-20] MEDS: Magnesium Oxide 400 mg Tab UD PO SCH ×2 (10:47→18:32)
[2017-06-20] MEDS: Metoprolol Succinate 50 mg XL Tab PO SCH (10:48)
[2017-06-20] MEDS: Calcium-Vit D 500 mg-200 Units Tab UD PO SCH (10:51)
[2017-06-20] MEDS: (Lantus) Insulin Glargine, Recombinant SC SCH ×2 (10:52→18:31)
[2017-06-20] MEDS: Ferric Sodium Gluconat Complex 125 MG in Sodium Chloride 0.9% 100 ML IVPB SCH (10:56)
[2017-06-20 16:19] VITALS: O2SAT 100
--- NOTE | 2017-06-20 17:53 | CP.PCM.PN ---
Subjective - Date & Time of Evaluation Date of Evaluation: 06/20/17 Time of Evaluation: 10:25 - Subjective Subjective: Patient seen and examined today. Patient sitting comfortably in no distress. Still complaining of cough productive of amaya sputum and shortness of breath at times. Patient states she feels more short of breath without nasal cannula. Patient also complains of lower extremity edema. Afebrile, no chest pain. Assessment/Plan 1. Pneumonia - continue to treat. Continue nebulizer treatments. Condition improving. 2. Asthma with acute exacerbation 3. Respiratory distress 4. Lower extremity edema - Lasix Objective - Vital Signs/Intake and Output Vital Signs (last 24 hours): Temp Pulse Resp BP Pulse Ox 98.1 F 74 20 129/79 100 06/20/17 16:00 06/20/17 16:00 06/20/17 16:00 06/20/17 16:00 06/20/17 16:00 Intake and Output: 06/20/17 06/20/17 06:59 18:59 Intake Total 240 Balance 240 - Medications Medications: Current Medications Acetaminophen (Tylenol 650mg/20.3ml Solution Ud) 650 mg PO Q4 PRN PRN Reason: pain and headache Albuterol/Ipratropium (Duoneb 3 Mg/0.5 Mg (3 Ml) Ud) 3 ml INH RQ4 [facility] Last Admin: 06/20/17 16:02 Dose: 3 ml Calcium/Vitamin D (Oyster Shell Calcium/Vitamin D 500 Mg-200 Iu) 1 tab PO DAILY [facility] Last Admin: 06/20/17 10:51 Dose: 1 tab Furosemide (Lasix) 20 mg PO BID [facility] Last Admin: 06/19/17 18:46 Dose: 20 mg Guaifenesin (Robitussin) 200 mg PO Q4H PRN PRN Reason: Cough and congestion Last Admin: 06/15/17 12:58 Dose: 200 mg Ferric Sodium Gluconate Complex 125 mg/ Sodium Chloride 110 mls @ 110 mls/hr IVPB DAILY [facility] Stop: 06/21/17 14:01 Last Admin: 06/20/17 10:56 Dose: 110 mls/hr Moxifloxacin HCl (Avelox Iv 400mg/250ml Ns) 400 mg in 250 mls @ 167 mls/hr IVPB Q24H [facility] Stop: 06/22/17 00:00 Insulin Glargine (Lantus) 17 unit SC BID [facility] Last Admin: 06/20/17 10:52 Dose: 17 u Insulin Human Regular (Novolin R) 0 unit SC ACHS [facility] PRN Reason: Protocol Last Admin: 06/20/17 12:30 Dose: 2 unit Insulin Human Regular (Novolin R) 11 unit SC TIDPC [facility] Last Admin: 06/20/17 13:48 Dose: 11 unit Levothyroxine Sodium (Synthroid) 88 mcg PO DAILY@0630 [facility] Last Admin: 06/20/17 06:03 Dose: 88 mcg Magnesium Oxide (Mag-Ox) 400 mg PO BID [facility] Last Admin: 06/20/17 10:47 Dose: 400 mg Methylprednisolone (Solu-Medrol) 40 mg IVP Q8 [facility] Last Admin: 06/20/17 13:48 Dose: 40 mg Metoprolol Succinate (Toprol Xl) 50 mg PO DAILY [facility] Last Admin: 06/20/17 10:48 Dose: 50 mg Rosuvastatin Calcium (Crestor) 5 mg PO HS [facility] Last Admin: 06/19/17 22:42 Dose: 5 mg Sodium Chloride (Sodium Chloride Tab) 2 gm PO BID [facility] Last Admin: 06/19/17 18:57 Dose: Not Given Vitamin A (Vitamin A & D Oint Ud Foilpak) 0.5 ea TOP Q4 [facility] Last Admin: 06/20/17 13:53 Dose: 0.5 ea - Labs Labs: 06/20/17 06:23 06/20/17 06:23 PT 14.5 SECONDS (9.7-12.2) H 06/06/17 16:54 INR 1.3 06/06/17 16:54 APTT 35 SECONDS (21-34) H 06/06/17 16:54 Assessment and Plan (1) Pneumonia Status: Resolved (2) Asthma with acute exacerbation Status: Acute (3) Respiratory distress Status: Acute
[2017-06-20] MEDS ORDERED: (Novolin R) Insulin Human Regular 100 units/ml vial SC SCH (18:18)
--- NOTE | 2017-06-20 18:21 | CP.PCM.PN ---
Subjective - Date & Time of Evaluation Date of Evaluation: 06/20/17 Time of Evaluation: 18:19 - Subjective Subjective: uncontrolled dm Objective - Vital Signs/Intake and Output Vital Signs (last 24 hours): Temp Pulse Resp BP Pulse Ox 98.1 F 74 20 129/79 100 06/20/17 16:00 06/20/17 16:00 06/20/17 16:00 06/20/17 16:00 06/20/17 16:00 Intake and Output: 06/20/17 06/20/17 06:59 18:59 Intake Total 240 Balance 240 - Medications Medications: Current Medications Acetaminophen (Tylenol 650mg/20.3ml Solution Ud) 650 mg PO Q4 PRN PRN Reason: pain and headache Albuterol/Ipratropium (Duoneb 3 Mg/0.5 Mg (3 Ml) Ud) 3 ml INH RQ4 [facility] Last Admin: 06/20/17 16:02 Dose: 3 ml Calcium/Vitamin D (Oyster Shell Calcium/Vitamin D 500 Mg-200 Iu) 1 tab PO DAILY [facility] Last Admin: 06/20/17 10:51 Dose: 1 tab Furosemide (Lasix) 20 mg PO BID [facility] Last Admin: 06/19/17 18:46 Dose: 20 mg Guaifenesin (Robitussin) 200 mg PO Q4H PRN PRN Reason: Cough and congestion Last Admin: 06/15/17 12:58 Dose: 200 mg Ferric Sodium Gluconate Complex 125 mg/ Sodium Chloride 110 mls @ 110 mls/hr IVPB DAILY [facility] Stop: 06/21/17 14:01 Last Admin: 06/20/17 10:56 Dose: 110 mls/hr Moxifloxacin HCl (Avelox Iv 400mg/250ml Ns) 400 mg in 250 mls @ 167 mls/hr IVPB Q24H [facility] Stop: 06/22/17 00:00 Insulin Glargine (Lantus) 17 unit SC BID [facility] Last Admin: 06/20/17 10:52 Dose: 17 u Insulin Human Regular (Novolin R) 0 unit SC ACHS [facility] PRN Reason: Protocol Last Admin: 06/20/17 12:30 Dose: 2 unit Insulin Human Regular (Novolin R) 9 unit SC TIDPC [facility] Levothyroxine Sodium (Synthroid) 88 mcg PO DAILY@0630 [facility] Last Admin: 06/20/17 06:03 Dose: 88 mcg Magnesium Oxide (Mag-Ox) 400 mg PO BID [facility] Last Admin: 06/20/17 10:47 Dose: 400 mg Methylprednisolone (Solu-Medrol) 40 mg IVP Q8 [facility] Last Admin: 06/20/17 13:48 Dose: 40 mg Metoprolol Succinate (Toprol Xl) 50 mg PO DAILY [facility] Last Admin: 06/20/17 10:48 Dose: 50 mg Rosuvastatin Calcium (Crestor) 5 mg PO HS [facility] Last Admin: 06/19/17 22:42 Dose: 5 mg Sodium Chloride (Sodium Chloride Tab) 2 gm PO BID [facility] Last Admin: 06/19/17 18:57 Dose: Not Given Vitamin A (Vitamin A & D Oint Ud Foilpak) 0.5 ea TOP Q4 [facility] Last Admin: 06/20/17 13:53 Dose: 0.5 ea - Labs Labs: 06/20/17 06:23 06/20/17 06:23 PT 14.5 SECONDS (9.7-12.2) H 06/06/17 16:54 INR 1.3 06/06/17 16:54 APTT 35 SECONDS (21-34) H 06/06/17 16:54 Assessment and Plan (1) Hyponatremia Assessment & Plan: ndocrine consult f/u reason for consult: hyponatremia & uncontrolled dm 81 is y/o admitted for nausea & vomiting as per chart review pt. with past medical history significant for hypothyroidism, asthma, and diabetes type II presented to [facility] with several days of nausea and vomiting. Before 2016, patient was fully independent and could perform all IADLs, lived alone. , patient fell and broke her arm (it was a mechanical fall), was admitted to [facility] , and was discharged to a rehab facility. At this rehab facility, patient had poor po intake and "was unable to keep anything down." She was then brought to [facility] due to nausea and vomiting and mild confusion.on admission patient was found to be hypokalemic, hyponatremic, and severely dehydrated. s/p SVT with RBBB and heart rate of 162. & also with hypothyroidism on synthyroid 88 mcg po qd glucose 100-180 no hypoglycemia , still on solumedrol 40 mg IV q8h Allergy noted Past medical history: as above Past surgical history: denies Psychiatry history: denies Social history : denies smoking , ETOH use , illicit drug use Family history : DM ROS: Constitutional: denies fever, tiredness/weakness. HEENT: denies earache, change in voice .Respiratory: denies cough, sob . CVS :no chest pain, no palpitations . Abdomen: no abdominal pain, no nausea /vomiting, no change bowel movement. B[employer] ST[employer] : denies light-headedness, dizziness. Extremities: no edema, no tremors. Skin: no itching, no rash Physical exam Well-developed Awake & alert VSS HEENT: norm cephalic, atraumatic, no lid lag , no exophthalmos NECK: supple, no palpable lymphadenopathy THYROID: no palpable thyromegaly, not tender CHEST: fair air entry, bilateral, CVS: S1,S2 ABDOMEN: bowel sound present, benign, obese, no wide purple striae , no bruises EXTREMITIES: trace pitting edema, clubbing or cyanosis, no palpable hand tremors Skin: acanthosis nigricans lab: NA 135 NA corrected 131.1 Na corrected 131.2 , a1c 7.3 Na 129 , corrected 133.4 Na 130 , glucose 384 , corrected NA about 134.2 NA 130 , glucose 227 , corrected 131.6 Na 115 on admission , elevated LFTS , Urine osm 258 06/08 Na 132 , 06/09 129 , corrected with glucose : 130.6 , cmp wnl tsh 4.52 , ft4 1.9 , u/a (+) WBC & LE , cortisol @ 8am , 7.7 06/06 repeat 8am 23 & 31.9 CXR (+) patchy increase marking bilateral Assessment steroid induced hyperg;ycemia uncontrolled dm hyponatremia , asymtomatic ,? cortisol level done while on steroids ! hypothyroidism nauease & vomiting /pneumonia arrythemia plan contiue lantus 17 units bid ,bed time snack decrease Novolin R 9 units tid with meals if eats more than 60% of the meal continue Novolin R low dose coverage on Methyl-prednisone 40 mg IV q8h continue synthroid 88 mcg po qd Status: Acute (2) Nausea & vomiting Status: Acute (3) Hypothyroidism Status: Acute (4) Uncontrolled diabetes mellitus Status: Acute (5) Steroid-induced hyperglycemia Status: Acute (6) Pneumonia Status: Resolved
[2017-06-20] MEDS: Moxifloxacin IV 400mg/250ml NS 400 MG/250 ML BAG IVPB SCH (18:34)
--- NOTE | 2017-06-20 22:08 | CP.PCM.PN ---
Subjective - Date & Time of Evaluation Date of Evaluation: 06/20/17 Time of Evaluation: 21:00 - Subjective Subjective: Still feeling short of breath; otherwise, tolerating diet; concerned about leg edema; Objective - Vital Signs/Intake and Output Vital Signs (last 24 hours): Temp Pulse Resp BP Pulse Ox 98.1 F 74 20 129/79 100 06/20/17 16:00 06/20/17 16:00 06/20/17 16:00 06/20/17 16:00 06/20/17 16:00 - Medications Medications: Current Medications Acetaminophen (Tylenol 650mg/20.3ml Solution Ud) 650 mg PO Q4 PRN PRN Reason: pain and headache Albuterol/Ipratropium (Duoneb 3 Mg/0.5 Mg (3 Ml) Ud) 3 ml INH RQ4 [facility] Last Admin: 06/20/17 18:59 Dose: 3 ml Calcium/Vitamin D (Oyster Shell Calcium/Vitamin D 500 Mg-200 Iu) 1 tab PO DAILY [facility] Last Admin: 06/20/17 10:51 Dose: 1 tab Furosemide (Lasix) 20 mg PO BID [facility] Last Admin: 06/19/17 18:46 Dose: 20 mg Guaifenesin (Robitussin) 200 mg PO Q4H PRN PRN Reason: Cough and congestion Last Admin: 06/15/17 12:58 Dose: 200 mg Ferric Sodium Gluconate Complex 125 mg/ Sodium Chloride 110 mls @ 110 mls/hr IVPB DAILY [facility] Stop: 06/21/17 14:01 Last Admin: 06/20/17 10:56 Dose: 110 mls/hr Moxifloxacin HCl (Avelox Iv 400mg/250ml Ns) 400 mg in 250 mls @ 167 mls/hr IVPB Q24H [facility] Stop: 06/22/17 00:00 Last Admin: 06/20/17 18:34 Dose: 167 mls/hr Insulin Glargine (Lantus) 17 unit SC BID [facility] Last Admin: 06/20/17 18:31 Dose: 17 u Insulin Human Regular (Novolin R) 0 unit SC ACHS [facility] PRN Reason: Protocol Last Admin: 06/20/17 21:18 Dose: Not Given Insulin Human Regular (Novolin R) 9 unit SC TIDPC [facility] Levothyroxine Sodium (Synthroid) 88 mcg PO DAILY@0630 [facility] Last Admin: 06/20/17 06:03 Dose: 88 mcg Magnesium Oxide (Mag-Ox) 400 mg PO BID [facility] Last Admin: 06/20/17 18:32 Dose: 400 mg Methylprednisolone (Solu-Medrol) 40 mg IVP Q8 [facility] Last Admin: 06/20/17 21:16 Dose: 40 mg Metoprolol Succinate (Toprol Xl) 50 mg PO DAILY [facility] Last Admin: 06/20/17 10:48 Dose: 50 mg Sodium Chloride (Sodium Chloride Tab) 2 gm PO BID [facility] Last Admin: 06/19/17 18:57 Dose: Not Given Vitamin A (Vitamin A & D Oint Ud Foilpak) 0.5 ea TOP Q4 [facility] Last Admin: 06/20/17 13:53 Dose: 0.5 ea - Labs Labs: 06/20/17 06:23 06/20/17 06:23 PT 14.5 SECONDS (9.7-12.2) H 06/06/17 16:54 INR 1.3 06/06/17 16:54 APTT 35 SECONDS (21-34) H 06/06/17 16:54 - Constitutional Appears: Non-toxic, No Acute Distress - Eye Exam Eye Exam: absent: Scleral icterus - ENT Exam ENT Exam: Mucous Membranes Moist - Respiratory Exam Respiratory Exam: Prolonged Expiratory Phase. absent: Respiratory Distress - Cardiovascular Exam Cardiovascular Exam: RRR, +S1, +S2 - GI/Abdominal Exam GI & Abdominal Exam: Soft. absent: Distended, Tenderness - Extremities Exam Additional comments: moderate lower leg edema; - Neurological Exam Neurological Exam: Alert, Awake - Psychiatric Exam Psychiatric exam: Normal Mood. absent: Agitated - Skin Skin Exam: Warm. absent: Cyanosis Assessment and Plan (1) Hyponatremia Assessment & Plan: Much improved on loop diuretics and PO fluid restriction; holding lasix today due to metabolic alkalosis, will re-assess with labs tomorrow; Status: Acute (2) Lower extremity edema Assessment & Plan: Somewhat improved but holding lasix as above; should improve over time; Status: Acute (3) HTN (hypertension) Assessment & Plan: BP controlled on toprol 50 mg daily, continue same; Status: Chronic (4) Electrolyte abnormality Status: Acute (5) Asthma with acute exacerbation Status: Acute (6) Anemia Status: Resolved
--- NOTE | 2017-06-20 23:47 | CP.PCM.PN ---
Subjective - Date & Time of Evaluation Date of Evaluation: 06/20/17 Time of Evaluation: 18:45 - Subjective Subjective: Pt seen & examined at bedside, feeling better, less short of breath, positive cough Objective - Vital Signs/Intake and Output Vital Signs (last 24 hours): Temp Pulse Resp BP Pulse Ox 98.1 F 74 20 129/79 100 06/20/17 16:00 06/20/17 16:00 06/20/17 16:00 06/20/17 16:00 06/20/17 16:00 - Medications Medications: Current Medications Acetaminophen (Tylenol 650mg/20.3ml Solution Ud) 650 mg PO Q4 PRN PRN Reason: pain and headache Albuterol/Ipratropium (Duoneb 3 Mg/0.5 Mg (3 Ml) Ud) 3 ml INH RQ4 [facility] Last Admin: 06/20/17 18:59 Dose: 3 ml Calcium/Vitamin D (Oyster Shell Calcium/Vitamin D 500 Mg-200 Iu) 1 tab PO DAILY [facility] Last Admin: 06/20/17 10:51 Dose: 1 tab Furosemide (Lasix) 20 mg PO BID [facility] Last Admin: 06/19/17 18:46 Dose: 20 mg Guaifenesin (Robitussin) 200 mg PO Q4H PRN PRN Reason: Cough and congestion Last Admin: 06/15/17 12:58 Dose: 200 mg Ferric Sodium Gluconate Complex 125 mg/ Sodium Chloride 110 mls @ 110 mls/hr IVPB DAILY [facility] Stop: 06/21/17 14:01 Last Admin: 06/20/17 10:56 Dose: 110 mls/hr Moxifloxacin HCl (Avelox Iv 400mg/250ml Ns) 400 mg in 250 mls @ 167 mls/hr IVPB Q24H [facility] Stop: 06/22/17 00:00 Last Admin: 06/20/17 18:34 Dose: 167 mls/hr Insulin Glargine (Lantus) 17 unit SC BID [facility] Last Admin: 06/20/17 18:31 Dose: 17 u Insulin Human Regular (Novolin R) 0 unit SC ACHS [facility] PRN Reason: Protocol Last Admin: 06/20/17 21:18 Dose: Not Given Insulin Human Regular (Novolin R) 9 unit SC TIDPC [facility] Levothyroxine Sodium (Synthroid) 88 mcg PO DAILY@0630 [facility] Last Admin: 06/20/17 06:03 Dose: 88 mcg Magnesium Oxide (Mag-Ox) 400 mg PO BID [facility] Last Admin: 06/20/17 18:32 Dose: 400 mg Methylprednisolone (Solu-Medrol) 40 mg IVP Q8 [facility] Last Admin: 06/20/17 21:16 Dose: 40 mg Metoprolol Succinate (Toprol Xl) 50 mg PO DAILY [facility] Last Admin: 06/20/17 10:48 Dose: 50 mg Sodium Chloride (Sodium Chloride Tab) 2 gm PO BID [facility] Last Admin: 06/19/17 18:57 Dose: Not Given Vitamin A (Vitamin A & D Oint Ud Foilpak) 0.5 ea TOP Q4 [facility] Last Admin: 06/20/17 13:53 Dose: 0.5 ea - Labs Labs: 06/20/17 06:23 06/20/17 06:23 PT 14.5 SECONDS (9.7-12.2) H 06/06/17 16:54 INR 1.3 06/06/17 16:54 APTT 35 SECONDS (21-34) H 06/06/17 16:54 - Constitutional Appears: No Acute Distress - Head Exam Head Exam: ATRAUMATIC, NORMAL INSPECTION, NORMOCEPHALIC - Eye Exam Eye Exam: EOMI, Normal appearance, PERRL Pupil Exam: NORMAL ACCOMODATION, PERRL - Respiratory Exam Respiratory Exam: Decreased Breath Sounds, Wheezes - Cardiovascular Exam Cardiovascular Exam: REGULAR RHYTHM, +S1, +S2. absent: Murmur Assessment and Plan (1) Anemia Status: Resolved (2) Electrolyte abnormality Status: Acute (3) Hyponatremia Status: Acute (4) Nausea & vomiting Status: Acute (5) HTN (hypertension) Status: Chronic (6) Asthma with acute exacerbation Status: Acute (7) GERD (gastroesophageal reflux disease) Status: Acute (8) Pneumonia Status: Resolved (9) Steroid-induced hyperglycemia Status: Acute
[2017-06-21] MEDS: Albuterol-Ipratrop 3 mg / 0.5 (3 ml) UD INH SCH ×4 (00:32→13:52)
[2017-06-21] MEDS: Vitamins A & D Oint UD Foilpak TOP SCH ×6 (04:20→21:15)
[2017-06-21] MEDS: Levothyroxine 88 MCG TAB PO SCH (05:43)
[2017-06-21] MEDS: MethylPREDNISolone 40 mg Vial IVP SCH ×2 (05:44→21:15)
[2017-06-21] MEDS: (Novolin R) Insulin Human Regular 100 units/ml vial SC SCH ×7 (07:45→22:48)
[2017-06-21] MEDS: Acetaminophen 650mg/20.3ml solution UD PO PRN (08:57)
[2017-06-21] MEDS: (Lantus) Insulin Glargine, Recombinant SC SCH ×2 (09:03→17:52)
[2017-06-21] MEDS: Magnesium Oxide 400 mg Tab UD PO SCH ×2 (09:04→17:52)
[2017-06-21] MEDS: Calcium-Vit D 500 mg-200 Units Tab UD PO SCH (09:05)
[2017-06-21] MEDS: guaiFENesin 200 mg/10 ml Syrup UD PO PRN (09:05)
[2017-06-21] MEDS: Metoprolol Succinate 50 mg XL Tab PO SCH (09:05)
[2017-06-21] MEDS: Ferric Sodium Gluconat Complex 125 MG in Sodium Chloride 0.9% 100 ML IVPB SCH (10:00)
--- NOTE | 2017-06-21 13:03 | CP.PCM.PN ---
Subjective - Date & Time of Evaluation Date of Evaluation: 06/21/17 Time of Evaluation: 09:20 - Subjective Subjective: the patient seen and examined Still complaining of dyspnea on minimal exertion and cough Afebrile Swelling of legs No chest pain Seen by nephrology and Lasix on hold Objective - Vital Signs/Intake and Output Vital Signs (last 24 hours): Temp Pulse Resp BP Pulse Ox 98.0 F 84 18 140/80 100 06/21/17 08:01 06/21/17 08:01 06/21/17 08:01 06/21/17 08:01 06/21/17 08:01 Intake and Output: 06/21/17 06/21/17 06:59 18:59 Intake Total 60 Balance 60 - Medications Medications: Current Medications Acetaminophen (Tylenol 650mg/20.3ml Solution Ud) 650 mg PO Q4 PRN PRN Reason: pain and headache Last Admin: 06/21/17 08:57 Dose: 650 mg Albuterol/Ipratropium (Duoneb 3 Mg/0.5 Mg (3 Ml) Ud) 3 ml INH RQ4 [facility] Last Admin: 06/21/17 07:25 Dose: 3 ml Calcium/Vitamin D (Oyster Shell Calcium/Vitamin D 500 Mg-200 Iu) 1 tab PO DAILY [facility] Last Admin: 06/21/17 09:05 Dose: 1 tab Furosemide (Lasix) 20 mg PO BID [facility] Last Admin: 06/19/17 18:46 Dose: 20 mg Guaifenesin (Robitussin) 200 mg PO Q4H PRN PRN Reason: Cough and congestion Last Admin: 06/21/17 09:05 Dose: 200 mg Ferric Sodium Gluconate Complex 125 mg/ Sodium Chloride 110 mls @ 110 mls/hr IVPB DAILY [facility] Stop: 06/21/17 14:01 Last Admin: 06/21/17 10:00 Dose: 110 mls/hr Moxifloxacin HCl (Avelox Iv 400mg/250ml Ns) 400 mg in 250 mls @ 167 mls/hr IVPB Q24H [facility] Stop: 06/22/17 00:00 Last Admin: 06/20/17 18:34 Dose: 167 mls/hr Insulin Glargine (Lantus) 17 unit SC BID [facility] Last Admin: 06/21/17 09:03 Dose: 17 u Insulin Human Regular (Novolin R) 0 unit SC ACHS [facility] PRN Reason: Protocol Last Admin: 06/21/17 12:29 Dose: 2 unit Insulin Human Regular (Novolin R) 9 unit SC TIDPC [facility] Last Admin: 06/21/17 08:00 Dose: 9 unit Magnesium Oxide (Mag-Ox) 400 mg PO BID [facility] Last Admin: 06/21/17 09:04 Dose: 400 mg Methylprednisolone (Solu-Medrol) 40 mg IVP Q8 [facility] Last Admin: 06/21/17 05:44 Dose: 40 mg Metoprolol Succinate (Toprol Xl) 50 mg PO DAILY [facility] Last Admin: 06/21/17 09:05 Dose: 50 mg Sodium Chloride (Sodium Chloride Tab) 2 gm PO BID [facility] Last Admin: 06/19/17 18:57 Dose: Not Given Vitamin A (Vitamin A & D Oint Ud Foilpak) 0.5 ea TOP Q4 [facility] Last Admin: 06/21/17 12:30 Dose: 0.5 ea - Labs Labs: 06/20/17 06:23 06/20/17 06:23 PT 14.5 SECONDS (9.7-12.2) H 06/06/17 16:54 INR 1.3 06/06/17 16:54 APTT 35 SECONDS (21-34) H 06/06/17 16:54 - Head Exam Head Exam: ATRAUMATIC, NORMOCEPHALIC - Neck Exam Neck Exam: Normal Inspection - Respiratory Exam Respiratory Exam: Decreased Breath Sounds - Cardiovascular Exam Cardiovascular Exam: REGULAR RHYTHM - GI/Abdominal Exam GI & Abdominal Exam: Soft, Normal Bowel Sounds Assessment and Plan (1) Pneumonia Assessment & Plan: ccontinue antibiotics Followup chest x-ray Status: Resolved (2) Asthma with acute exacerbation Assessment & Plan: continue nebulizer treatment Continue steroids Physical therapy Status: Acute (3) Respiratory distress Status: Acute
--- NOTE | 2017-06-21 15:33 | PN ---
LOCATION: 5, bed A. SUBJECTIVE: This is an 81-year-old female, seen and examined in rounds without significant clinical changes, but intermittent period of mild shortness of breath and occasional productive cough. No actual chest pain, palpitations, nausea, vomiting, chills or fever reported. The entire chart is reviewed including, but not limited to, the most recent lab and radiology study results, current and the previous medication list, current and the previous medical events, and today's lab showed blood glucose level 162. PHYSICAL EXAMINATION: GENERAL: An 81-year-old female with a complaint of intermittent period of mild nausea and dyspepsia. VITAL SIGNS: Afebrile with blood pressure of 136/78, pulse of 80, and respiratory rate of 20 to 22. HEENT: Shows pale, dry mucous membranes. Nonicteric sclerae. LUNGS: Scattered mild crepitation with mild decreased air entry at bases. HEART: Positive S1 and S2. ABDOMEN: Soft, bowel sounds are present. No mass or organomegaly. No rebound tenderness or guarding. RECTAL: Deferred due to the patient's cardiopulmonary status. EXTREMITIES: With lower extremity edematous changes. No clubbing or cyanosis. NEUROLOGIC: No new reported neurological deficits, sensory or motor. Peripheral pulse bilaterally positive but weak. It has to be mentioned that the patient is somewhat tolerating oral intake recently. IMPRESSION: 1. Peptic ulcer disease. 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 3. Poorly controlled hypertension. 4. Poorly controlled diabetes mellitus. 5. Evidence of diabetic gastroparesis. 6. Chronic obstructive pulmonary disease, cardiac arrhythmia, hypertension with hyperlipidemia. 7. Recent history of congestive heart failure with acute bronchitis. 8. Anemia secondary to above, most likely. 9. Leukocytosis, most likely secondary to infectious pulmonary process. 9. Electrolyte imbalance with hypokalemia and hypocalcemia. SUGGESTIONS: 1. Continue current management. 2. Oncology/Hematology consult. 3. The patient will need colonoscopy only when she is more stable clinically; otherwise, close observation to follow. Nalini Richter MD
[2017-06-21] MEDS: Moxifloxacin IV 400mg/250ml NS 400 MG/250 ML BAG IVPB SCH (18:30)
--- NOTE | 2017-06-21 19:50 | CP.PCM.PN ---
Subjective - Date & Time of Evaluation Date of Evaluation: 06/21/17 Time of Evaluation: 17:00 - Subjective Subjective: Still reporting shortness of breath; tolerating diet; Objective - Vital Signs/Intake and Output Vital Signs (last 24 hours): Temp Pulse Resp BP Pulse Ox 97.6 F 81 20 136/78 100 06/21/17 15:32 06/21/17 15:32 06/21/17 15:32 06/21/17 15:32 06/21/17 15:32 - Medications Medications: Current Medications Acetaminophen (Tylenol 650mg/20.3ml Solution Ud) 650 mg PO Q4 PRN PRN Reason: pain and headache Last Admin: 06/21/17 08:57 Dose: 650 mg Calcium/Vitamin D (Oyster Shell Calcium/Vitamin D 500 Mg-200 Iu) 1 tab PO DAILY [facility] Last Admin: 06/21/17 09:05 Dose: 1 tab Furosemide (Lasix) 20 mg PO BID [facility] Last Admin: 06/19/17 18:46 Dose: 20 mg Guaifenesin (Robitussin) 200 mg PO Q4H PRN PRN Reason: Cough and congestion Last Admin: 06/21/17 09:05 Dose: 200 mg Insulin Glargine (Lantus) 17 unit SC BID [facility] Last Admin: 06/21/17 17:52 Dose: 17 u Insulin Human Regular (Novolin R) 0 unit SC ACHS [facility] PRN Reason: Protocol Last Admin: 06/21/17 17:53 Dose: 3 unit Insulin Human Regular (Novolin R) 9 unit SC TIDPC [facility] Last Admin: 06/21/17 17:53 Dose: 9 unit Magnesium Oxide (Mag-Ox) 400 mg PO BID [facility] Last Admin: 06/21/17 17:52 Dose: 400 mg Methylprednisolone (Solu-Medrol) 40 mg IVP Q12 [facility] Metoprolol Succinate (Toprol Xl) 50 mg PO DAILY [facility] Last Admin: 06/21/17 09:05 Dose: 50 mg Sodium Chloride (Sodium Chloride Tab) 2 gm PO BID [facility] Last Admin: 06/19/17 18:57 Dose: Not Given Vitamin A (Vitamin A & D Oint Ud Foilpak) 0.5 ea TOP Q4 [facility] Last Admin: 06/21/17 16:30 Dose: 0.5 ea - Labs Labs: 06/20/17 06:23 06/20/17 06:23 PT 14.5 SECONDS (9.7-12.2) H 06/06/17 16:54 INR 1.3 06/06/17 16:54 APTT 35 SECONDS (21-34) H 06/06/17 16:54 - Constitutional Appears: Non-toxic, No Acute Distress - Eye Exam Eye Exam: absent: Scleral icterus - ENT Exam ENT Exam: Mucous Membranes Moist - Respiratory Exam Respiratory Exam: absent: Rales, Rhonchi, Respiratory Distress Additional comments: air movement much improved; - Cardiovascular Exam Cardiovascular Exam: RRR, +S1, +S2 - Extremities Exam Additional comments: moderate b/l lower leg edema; - Neurological Exam Neurological Exam: Alert, Awake - Psychiatric Exam Psychiatric exam: Anxious - Skin Skin Exam: Warm. absent: Cyanosis Assessment and Plan (1) Hyponatremia Assessment & Plan: Improved; continue 1L PO fluid restriction daily; Status: Acute (2) Lower extremity edema Assessment & Plan: Lasix on hold due to alkalosis; edema should resolve over time; Status: Acute (3) HTN (hypertension) Assessment & Plan: BP controlled on toprol XL 50 mg daily; continue same; Status: Chronic (4) Electrolyte abnormality Status: Acute (5) Asthma with acute exacerbation Status: Acute (6) Anemia Status: Resolved
--- NOTE | 2017-06-21 22:40 | CP.PCM.PN ---
Subjective - Date & Time of Evaluation Date of Evaluation: 06/21/17 Time of Evaluation: 22:40 Objective - Vital Signs/Intake and Output Vital Signs (last 24 hours): Temp Pulse Resp BP Pulse Ox 97.6 F 81 20 136/78 100 06/21/17 15:32 06/21/17 15:32 06/21/17 15:32 06/21/17 15:32 06/21/17 15:32 - Medications Medications: Current Medications Acetaminophen (Tylenol 650mg/20.3ml Solution Ud) 650 mg PO Q4 PRN PRN Reason: pain and headache Last Admin: 06/21/17 08:57 Dose: 650 mg Calcium/Vitamin D (Oyster Shell Calcium/Vitamin D 500 Mg-200 Iu) 1 tab PO DAILY [facility] Last Admin: 06/21/17 09:05 Dose: 1 tab Furosemide (Lasix) 20 mg PO BID [facility] Last Admin: 06/19/17 18:46 Dose: 20 mg Guaifenesin (Robitussin) 200 mg PO Q4H PRN PRN Reason: Cough and congestion Last Admin: 06/21/17 09:05 Dose: 200 mg Insulin Glargine (Lantus) 17 unit SC BID [facility] Last Admin: 06/21/17 17:52 Dose: 17 u Insulin Human Regular (Novolin R) 0 unit SC ACHS [facility] PRN Reason: Protocol Last Admin: 06/21/17 17:53 Dose: 3 unit Insulin Human Regular (Novolin R) 6 unit SC TIDPC [facility] Magnesium Oxide (Mag-Ox) 400 mg PO BID [facility] Last Admin: 06/21/17 17:52 Dose: 400 mg Methylprednisolone (Solu-Medrol) 40 mg IVP Q12 [facility] Last Admin: 06/21/17 21:15 Dose: 40 mg Metoprolol Succinate (Toprol Xl) 50 mg PO DAILY [facility] Last Admin: 06/21/17 09:05 Dose: 50 mg Sodium Chloride (Sodium Chloride Tab) 2 gm PO BID [facility] Last Admin: 06/19/17 18:57 Dose: Not Given Vitamin A (Vitamin A & D Oint Ud Foilpak) 0.5 ea TOP Q4 [facility] Last Admin: 06/21/17 21:15 Dose: 0.5 ea - Labs Labs: 06/20/17 06:23 06/20/17 06:23 PT 14.5 SECONDS (9.7-12.2) H 06/06/17 16:54 INR 1.3 06/06/17 16:54 APTT 35 SECONDS (21-34) H 06/06/17 16:54 Assessment and Plan (1) Hyponatremia Status: Acute (2) Nausea & vomiting Status: Acute (3) Hypothyroidism Status: Acute (4) Uncontrolled diabetes mellitus Status: Acute (5) Steroid-induced hyperglycemia Status: Acute (6) Pneumonia Status: Resolved
--- NOTE | 2017-06-21 22:51 | CP.PCM.PN ---
Subjective - Date & Time of Evaluation Date of Evaluation: 06/21/17 Time of Evaluation: 20:50 - Subjective Subjective: Patient seen and examined Still complaining of dyspnea on minimal exertion and cough Afebrile Swelling of legs No chest pain Seen by nephrology and Lasix on hold Objective - Vital Signs/Intake and Output Vital Signs (last 24 hours): Temp Pulse Resp BP Pulse Ox 97.6 F 81 20 136/78 100 06/21/17 15:32 06/21/17 15:32 06/21/17 15:32 06/21/17 15:32 06/21/17 15:32 - Medications Medications: Current Medications Acetaminophen (Tylenol 650mg/20.3ml Solution Ud) 650 mg PO Q4 PRN PRN Reason: pain and headache Last Admin: 06/21/17 08:57 Dose: 650 mg Calcium/Vitamin D (Oyster Shell Calcium/Vitamin D 500 Mg-200 Iu) 1 tab PO DAILY [facility] Last Admin: 06/21/17 09:05 Dose: 1 tab Furosemide (Lasix) 20 mg PO BID [facility] Last Admin: 06/19/17 18:46 Dose: 20 mg Guaifenesin (Robitussin) 200 mg PO Q4H PRN PRN Reason: Cough and congestion Last Admin: 06/21/17 09:05 Dose: 200 mg Insulin Glargine (Lantus) 17 unit SC BID [facility] Last Admin: 06/21/17 17:52 Dose: 17 u Insulin Human Regular (Novolin R) 0 unit SC ACHS [facility] PRN Reason: Protocol Last Admin: 06/21/17 22:48 Dose: Not Given Insulin Human Regular (Novolin R) 6 unit SC TIDPC [facility] Magnesium Oxide (Mag-Ox) 400 mg PO BID [facility] Last Admin: 06/21/17 17:52 Dose: 400 mg Methylprednisolone (Solu-Medrol) 40 mg IVP Q12 [facility] Last Admin: 06/21/17 21:15 Dose: 40 mg Metoprolol Succinate (Toprol Xl) 50 mg PO DAILY [facility] Last Admin: 06/21/17 09:05 Dose: 50 mg Sodium Chloride (Sodium Chloride Tab) 2 gm PO BID [facility] Last Admin: 06/19/17 18:57 Dose: Not Given Vitamin A (Vitamin A & D Oint Ud Foilpak) 0.5 ea TOP Q4 [facility] Last Admin: 06/21/17 21:15 Dose: 0.5 ea - Labs Labs: 06/20/17 06:23 06/20/17 06:23 PT 14.5 SECONDS (9.7-12.2) H 06/06/17 16:54 INR 1.3 06/06/17 16:54 APTT 35 SECONDS (21-34) H 06/06/17 16:54 Assessment and Plan (1) Anemia Status: Resolved (2) Electrolyte abnormality Status: Acute (3) Hyponatremia Status: Acute (4) Nausea & vomiting Status: Acute (5) HTN (hypertension) Status: Chronic (6) Asthma with acute exacerbation Status: Acute (7) GERD (gastroesophageal reflux disease) Status: Acute (8) Pneumonia Status: Resolved (9) Steroid-induced hyperglycemia Status: Acute
--- NOTE | 2017-06-21 22:52 | CP.PCM.PN ---
Subjective - Date & Time of Evaluation Date of Evaluation: 06/21/17 Time of Evaluation: 22:46 - Subjective Subjective: uncontrollrd DM Objective - Vital Signs/Intake and Output Vital Signs (last 24 hours): Temp Pulse Resp BP Pulse Ox 97.6 F 81 20 136/78 100 06/21/17 15:32 06/21/17 15:32 06/21/17 15:32 06/21/17 15:32 06/21/17 15:32 - Medications Medications: Current Medications Acetaminophen (Tylenol 650mg/20.3ml Solution Ud) 650 mg PO Q4 PRN PRN Reason: pain and headache Last Admin: 06/21/17 08:57 Dose: 650 mg Calcium/Vitamin D (Oyster Shell Calcium/Vitamin D 500 Mg-200 Iu) 1 tab PO DAILY [facility] Last Admin: 06/21/17 09:05 Dose: 1 tab Furosemide (Lasix) 20 mg PO BID [facility] Last Admin: 06/19/17 18:46 Dose: 20 mg Guaifenesin (Robitussin) 200 mg PO Q4H PRN PRN Reason: Cough and congestion Last Admin: 06/21/17 09:05 Dose: 200 mg Insulin Glargine (Lantus) 17 unit SC BID [facility] Last Admin: 06/21/17 17:52 Dose: 17 u Insulin Human Regular (Novolin R) 0 unit SC ACHS [facility] PRN Reason: Protocol Last Admin: 06/21/17 17:53 Dose: 3 unit Insulin Human Regular (Novolin R) 6 unit SC TIDPC [facility] Magnesium Oxide (Mag-Ox) 400 mg PO BID [facility] Last Admin: 06/21/17 17:52 Dose: 400 mg Methylprednisolone (Solu-Medrol) 40 mg IVP Q12 [facility] Last Admin: 06/21/17 21:15 Dose: 40 mg Metoprolol Succinate (Toprol Xl) 50 mg PO DAILY [facility] Last Admin: 06/21/17 09:05 Dose: 50 mg Sodium Chloride (Sodium Chloride Tab) 2 gm PO BID [facility] Last Admin: 06/19/17 18:57 Dose: Not Given Vitamin A (Vitamin A & D Oint Ud Foilpak) 0.5 ea TOP Q4 [facility] Last Admin: 06/21/17 21:15 Dose: 0.5 ea - Labs Labs: 06/20/17 06:23 06/20/17 06:23 PT 14.5 SECONDS (9.7-12.2) H 06/06/17 16:54 INR 1.3 06/06/17 16:54 APTT 35 SECONDS (21-34) H 06/06/17 16:54 Assessment and Plan (1) Hyponatremia Assessment & Plan: ndocrine consult f/u reason for consult: hyponatremia & uncontrolled dm 81 is y/o admitted for nausea & vomiting as per chart review pt. with past medical history significant for hypothyroidism, asthma, and diabetes type II presented to [facility] with several days of nausea and vomiting. Before 2016, patient was fully independent and could perform all IADLs, lived alone. , patient fell and broke her arm (it was a mechanical fall), was admitted to [facility] , and was discharged to a rehab facility. At this rehab facility, patient had poor po intake and "was unable to keep anything down." She was then brought to [facility] due to nausea and vomiting and mild confusion.on admission patient was found to be hypokalemic, hyponatremic, and severely dehydrated. s/p SVT with RBBB and heart rate of 162. & also with hypothyroidism on synthyroid 88 mcg po qd glucose 1150-200 , asymtomatic hypoglycemia 50's after sandwitch & juice 74 , now 89 , solumedrol was decrease to 40 mg bid Allergy noted Past medical history: as above Past surgical history: denies Psychiatry history: denies Social history : denies smoking , ETOH use , illicit drug use Family history : DM ROS: Constitutional: denies fever, tiredness/weakness. HEENT: denies earache, change in voice .Respiratory: denies cough, sob . CVS :no chest pain, no palpitations . Abdomen: no abdominal pain, no nausea /vomiting, no change bowel movement. BUSINESS SUPPORT SPECIALIST : denies light-headedness, dizziness. Extremities: no edema, no tremors. Skin: no itching, no rash Physical exam Well-developed Awake & alert VSS HEENT: norm cephalic, atraumatic, no lid lag , no exophthalmos NECK: supple, no palpable lymphadenopathy THYROID: no palpable thyromegaly, not tender CHEST: fair air entry, bilateral, CVS: S1,S2 ABDOMEN: bowel sound present, benign, obese, no wide purple striae , no bruises EXTREMITIES: trace pitting edema, clubbing or cyanosis, no palpable hand tremors Skin: acanthosis nigricans lab: NA 135 NA corrected 131.1 Na corrected 131.2 , a1c 7.3 Na 129 , corrected 133.4 Na 130 , glucose 384 , corrected NA about 134.2 NA 130 , glucose 227 , corrected 131.6 Na 115 on admission , elevated LFTS , Urine osm 258 06/08 Na 132 , 06/09 129 , corrected with glucose : 130.6 , cmp wnl tsh 4.52 , ft4 1.9 , u/a (+) WBC & LE , cortisol @ 8am , 7.7 06/06 repeat 8am 23 & 31.9 CXR (+) patchy increase marking bilateral Assessment steroid induced hyperg;ycemia uncontrolled dm hyponatremia , asymtomatic ,? cortisol level done while on steroids ! hypothyroidism nauease & vomiting /pneumonia arrythemia plan or anther juice hold pm lantus for tonight on lantus 17 units bid ,bed time snack decrease Novolin R 6 units tid with meals if eats more than 60% of the meal continue Novolin R low dose coverage on Methyl-prednisone 40 mg bid continue synthroid 88 mcg po qd Status: Acute (2) Nausea & vomiting Status: Acute (3) Hypothyroidism Status: Acute (4) Uncontrolled diabetes mellitus Status: Acute (5) Steroid-induced hyperglycemia Status: Acute (6) Pneumonia Status: Resolved
[2017-06-22] MEDS: Vitamins A & D Oint UD Foilpak TOP SCH ×7 (00:01→20:00)
[2017-06-22] MEDS: Acetaminophen 650mg/20.3ml solution UD PO PRN ×2 (03:52→09:59)
[2017-06-22] MEDS: (Novolin R) Insulin Human Regular 100 units/ml vial SC SCH ×7 (07:30→22:15)
[2017-06-22] MEDS: Metoprolol Succinate 50 mg XL Tab PO SCH (09:58)
[2017-06-22] MEDS: Calcium-Vit D 500 mg-200 Units Tab UD PO SCH (09:58)
[2017-06-22] MEDS: Magnesium Oxide 400 mg Tab UD PO SCH ×2 (09:58→18:52)
[2017-06-22] MEDS: MethylPREDNISolone 40 mg Vial IVP SCH ×2 (09:59→21:13)
[2017-06-22 11:48] LABS: BASO % 0.2 % (0.0-2.0); EOS % 0.1 % (0.0-4.0); HEMOGLOBIN 8.7 g/dL (11.0-16.0); LYMPH % 20.7 % (20.0-40.0); MEAN CELL VOLUME 92.5 fL (81.0-99.0); MEAN CORPUSCULAR HEMOGLOBIN 30.2 pg (27.0-31.0); MEAN CORPUSCULAR HGB CONC 32.7 g/dL (33.0-37.0); MEAN PLATELET VOLUME 8.1 fL (7.2-11.7); MONO # 2.3 K/uL (0.0-0.8); MONO % 16.4 % (0.0-10.0); NEUT # 8.9 K/uL (1.8-7.0); NEUT % 62.6 % (50.0-75.0); NRBC % 0.1 % (0.0-2.0); RBC 2.89 Mil/uL (3.80-5.20); RED CELL DISTRIBUTION WIDTH 15.8 % (11.5-14.5); WHITE BLOOD COUNT 14.3 K/uL (4.8-10.8)
[2017-06-22 12:05] LABS: BLOOD UREA NITROGEN 14 mg/dL (7-17); CALCIUM 8.1 mg/dl (8.6-10.4); GFR AFRICAN-AMERICAN > 60; GFR NON-AFRICAN AMERICAN > 60
--- NOTE | 2017-06-22 13:16 | PN ---
DATE: LOCATION: [facility], bed A. SUBJECTIVE: This is an 81-year-old female seen and examined in rounds, without significant clinical changes, but again with intermittent periods of shortness of breath, and generalized weakness and malaise. Had been followed recently by the Endocrinology automation consultant. The patient denies any active bleeding, but less abdominal pain, with less nausea and dyspepsia. No reported vomiting. The entire chart is reviewed including, but not limited to the most recent lab and radiology study results, current and the previous medication list, current and the previous medical events. Case discussed with the staff at length as well as the automation consultant. Today's lab showed blood glucose level of 183, then subsequently went down to 111. The rest of the lab is still pending. The patient reported recently to have leukocytosis of 20.5, hemoglobin 8.5, hematocrit 26.1. PHYSICAL EXAMINATION GENERAL: An 81-year-old female. VITAL SIGNS: Afebrile with pulse of 78, respiratory rate 20 to 22, blood pressure 124/70. HEENT: Showed pale dry oral mucous membrane. Nonicteric sclerae. LUNGS: Few scattered crepitation, decreased air entry. HEART: Positive S1 and S2. ABDOMEN: Soft with mild generalized tenderness. No mass or organomegaly. No rebound tenderness or guarding. RECTAL: Deferred due to the patient's clinical status and cardiopulmonary status. EXTREMITIES: With lower extremity edematous mild changes. No clubbing or cyanosis. NEUROLOGIC: No reported new neurological deficits, sensory or motor. No reported new focal deficits. It has to be mentioned that so far the patient is tolerating oral intake and no reported active bleeding or significant change of bowel movement, despite she had periods of constipation before. IMPRESSION: 1. Re-exacerbation of peptic ulcer disease. 2. 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 3. Poorly controlled hypertension. 4. Poorly controlled diabetes mellitus. 5. Evidence of diabetic gastroparesis. 6. Known history of chronic obstructive pulmonary disease, hypertension, cardiac arrhythmia, with hyperlipidemia. 7. Acute bronchitis, by recent history. 8. Congestive heart failure. 9. Anemia secondary to the above. 10. Electrolyte imbalance with hypocalcemia and hypokalemia as reported recently. SUGGESTIONS: 1. Agree with your plan. 2. Oncology/Hematology consult as per Dr. Montanez. 3. Again the patient will need colonoscopy due to her anemia as well as the change of CEA level only when she is more stable clinically. Otherwise, close observation to follow. Nalini Richter MD
--- NOTE | 2017-06-22 19:01 | CP.PCM.PN ---
Objective - Vital Signs/Intake and Output Vital Signs (last 24 hours): Temp Pulse Resp BP Pulse Ox 97.3 F L 76 20 114/67 100 06/21/17 23:15 06/21/17 23:15 06/21/17 23:15 06/21/17 23:15 06/21/17 23:15 - Medications Medications: Current Medications Acetaminophen (Tylenol 650mg/20.3ml Solution Ud) 650 mg PO Q4 PRN PRN Reason: pain and headache Last Admin: 06/22/17 09:59 Dose: 650 mg Calcium/Vitamin D (Oyster Shell Calcium/Vitamin D 500 Mg-200 Iu) 1 tab PO DAILY [facility] Last Admin: 06/22/17 09:58 Dose: 1 tab Furosemide (Lasix) 20 mg PO BID [facility] Last Admin: 06/19/17 18:46 Dose: 20 mg Insulin Glargine (Lantus) 17 unit SC BID [facility] Last Admin: 06/21/17 17:52 Dose: 17 u Insulin Human Regular (Novolin R) 0 unit SC ACHS [facility] PRN Reason: Protocol Last Admin: 06/22/17 17:30 Dose: Not Given Insulin Human Regular (Novolin R) 6 unit SC TIDPC [facility] Last Admin: 06/22/17 09:00 Dose: 6 unit Magnesium Oxide (Mag-Ox) 400 mg PO BID [facility] Last Admin: 06/22/17 18:52 Dose: 400 mg Methylprednisolone (Solu-Medrol) 40 mg IVP Q12 [facility] Last Admin: 06/22/17 09:59 Dose: 40 mg Metoprolol Succinate (Toprol Xl) 50 mg PO DAILY [facility] Last Admin: 06/22/17 09:58 Dose: 50 mg Sodium Chloride (Sodium Chloride Tab) 2 gm PO BID [facility] Last Admin: 06/19/17 18:57 Dose: Not Given Vitamin A (Vitamin A & D Oint Ud Foilpak) 0.5 ea TOP Q4 [facility] Last Admin: 06/22/17 16:51 Dose: 0.5 ea - Labs Labs: 06/22/17 11:35 06/22/17 11:35 PT 14.5 SECONDS (9.7-12.2) H 06/06/17 16:54 INR 1.3 06/06/17 16:54 APTT 35 SECONDS (21-34) H 06/06/17 16:54 Assessment and Plan (1) Anemia Status: Resolved (2) Electrolyte abnormality Status: Acute (3) Hyponatremia Status: Acute (4) Nausea & vomiting Status: Acute (5) HTN (hypertension) Status: Chronic (6) Asthma with acute exacerbation Status: Acute (7) GERD (gastroesophageal reflux disease) Status: Acute (8) Pneumonia Status: Resolved (9) Steroid-induced hyperglycemia Status: Acute
[2017-06-23] MEDS: Vitamins A & D Oint UD Foilpak TOP SCH ×6 (05:00→20:14)
[2017-06-23] MEDS: (Novolin R) Insulin Human Regular 100 units/ml vial SC SCH ×7 (08:00→22:21)
[2017-06-23] MEDS: Metoprolol Succinate 50 mg XL Tab PO SCH (09:48)
[2017-06-23] MEDS: MethylPREDNISolone 40 mg Vial IVP SCH (09:48)
[2017-06-23] MEDS: Calcium-Vit D 500 mg-200 Units Tab UD PO SCH (09:50)
[2017-06-23] MEDS: Magnesium Oxide 400 mg Tab UD PO SCH ×2 (09:56→17:30)
--- NOTE | 2017-06-23 13:00 | CT ---
CT chest without IV contrast Indication: f/u pneumonia/sob Technique: Contiguous axial images were obtained through the chest without intravenous contrast enhancement. Sagittal and coronal reconstructions were generated and reviewed. This CT exam was performed using 1 or more of the following dose reduction techniques: Automated exposure control, adjustment of the MAA and/or kV according to patient size, and/or use of iterative reconstruction technique. Radiation dose (DLP): 380.31 MGy-cm. Comparison: Chest x-ray performed 06/13/17 Findings: Visualized portions of the inferior thyroid gland appear unremarkable. The unenhanced mediastinal and hilar vascular structures appear grossly unremarkable. The heart appears within normal limits of size. Coronary artery calcifications. Mild bibasilar, left upper lobe, and lingular atelectasis. No pleural effusion. No pneumothorax. 5 mm left upper lobe nodule (series 3, image 54). Limited visualization of the noncontrast upper abdomen appears grossly unremarkable. L1 compression fracture deformity with retropulsion of fracture fragments, age indeterminate. Multilevel degenerative changes of the spine. Impression: 5 mm left upper lobe nodule. According to the 2017 Fleischner criteria, the patient is low risk, no routine follow-up is recommended. If the patient is high risk, an optional CT at 12 months is recommended. Mild bibasilar, left upper lobe, and lingular atelectasis. L1 compression fracture deformity with retropulsion of fracture fragments, age indeterminate.
--- NOTE | 2017-06-23 17:26 | CP.PCM.PN ---
Subjective - Date & Time of Evaluation Date of Evaluation: 06/23/17 Time of Evaluation: 17:24 - Subjective Subjective: uncontrolled DM Objective - Vital Signs/Intake and Output Vital Signs (last 24 hours): Temp Pulse Resp BP Pulse Ox 97.9 F 66 20 128/66 100 06/23/17 00:21 06/23/17 00:21 06/23/17 00:21 06/23/17 00:21 06/23/17 00:21 Intake and Output: 06/23/17 06/23/17 06:59 18:59 Intake Total 600 Output Total 0 Balance 600 - Medications Medications: Current Medications Acetaminophen (Tylenol 650mg/20.3ml Solution Ud) 650 mg PO Q4 PRN PRN Reason: pain and headache Last Admin: 06/22/17 09:59 Dose: 650 mg Albuterol/Ipratropium (Duoneb 3 Mg/0.5 Mg (3 Ml) Ud) 3 ml INH RQ6 [facility] Calcium/Vitamin D (Oyster Shell Calcium/Vitamin D 500 Mg-200 Iu) 1 tab PO DAILY [facility] Last Admin: 06/23/17 09:50 Dose: 1 tab Furosemide (Lasix) 20 mg PO BID [facility] Last Admin: 06/19/17 18:46 Dose: 20 mg Insulin Glargine (Lantus) 17 unit SC BID [facility] Last Admin: 06/21/17 17:52 Dose: 17 u Insulin Human Regular (Novolin R) 0 unit SC ACHS [facility] PRN Reason: Protocol Last Admin: 06/23/17 12:50 Dose: 3 unit Insulin Human Regular (Novolin R) 6 unit SC TIDPC [facility] Last Admin: 06/23/17 12:57 Dose: 6 unit Magnesium Oxide (Mag-Ox) 400 mg PO BID [facility] Last Admin: 06/23/17 09:56 Dose: 400 mg Methylprednisolone (Solu-Medrol) 40 mg IVP DAILY [facility] Metoprolol Succinate (Toprol Xl) 50 mg PO DAILY [facility] Last Admin: 06/23/17 09:48 Dose: 50 mg Sodium Chloride (Sodium Chloride Tab) 2 gm PO BID [facility] Last Admin: 06/19/17 18:57 Dose: Not Given Vitamin A (Vitamin A & D Oint Ud Foilpak) 0.5 ea TOP Q4 [facility] Last Admin: 06/23/17 16:05 Dose: Not Given - Labs Labs: 06/22/17 11:35 06/22/17 11:35 PT 14.5 SECONDS (9.7-12.2) H 06/06/17 16:54 INR 1.3 06/06/17 16:54 APTT 35 SECONDS (21-34) H 06/06/17 16:54 Assessment and Plan (1) Hyponatremia Assessment & Plan: Assessment & Plan: ndocrine consult f/u reason for consult: hyponatremia & uncontrolled dm 81 is y/o admitted for nausea & vomiting as per chart review pt. with past medical history significant for hypothyroidism, asthma, and diabetes type II presented to [facility] with several days of nausea and vomiting. Before [place]2016, patient was fully independent and could perform all IADLs, lived alone. , patient fell and broke her arm (it was a mechanical fall), was admitted to [facility] , and was discharged to a rehab facility. At this rehab facility, patient had poor po intake and "was unable to keep anything down." She was then brought to [facility] due to nausea and vomiting and mild confusion.on admission patient was found to be hypokalemic, hyponatremic, and severely dehydrated. s/p SVT with RBBB and heart rate of 162. & also with hypothyroidism on synthyroid 88 mcg po qd glucose 200-300 no hypoglycemia , solumedrol 40 mg IV q 12 will changed to 40 mg daily tomorrow Allergy noted Past medical history: as above Past surgical history: denies Psychiatry history: denies Social history : denies smoking , ETOH use , illicit drug use Family history : DM ROS: Constitutional: denies fever, tiredness/weakness. HEENT: denies earache, change in voice .Respiratory: denies cough, sob . CVS :no chest pain, no palpitations . Abdomen: no abdominal pain, no nausea /vomiting, no change bowel movement. [employer]ING [employer]ER : denies light-headedness, dizziness. Extremities: no edema, no tremors. Skin: no itching, no rash Physical exam Well-developed Awake & alert VSS HEENT: norm cephalic, atraumatic, no lid lag , no exophthalmos NECK: supple, no palpable lymphadenopathy THYROID: no palpable thyromegaly, not tender CHEST: fair air entry, bilateral, CVS: S1,S2 ABDOMEN: bowel sound present, benign, obese, no wide purple striae , no bruises EXTREMITIES: trace pitting edema, clubbing or cyanosis, no palpable hand tremors Skin: acanthosis nigricans lab: NA 131 NA 135 NA corrected 131.1 Na corrected 131.2 , a1c 7.3 Na 129 , corrected 133.4 Na 130 , glucose 384 , corrected NA about 134.2 NA 130 , glucose 227 , corrected 131.6 Na 115 on admission , elevated LFTS , Urine osm 258 06/08 Na 132 , 06/09 129 , corrected with glucose : 130.6 , cmp wnl tsh 4.52 , ft4 1.9 , u/a (+) WBC & LE , cortisol @ 8am , 7.7 06/06 repeat 8am 23 & 31.9 CXR (+) patchy increase marking bilateral Assessment steroid induced hyperg;ycemia uncontrolled dm hyponatremia , asymtomatic ,? cortisol level done while on steroids ! hypothyroidism nauease & vomiting /pneumonia arrythemia plan decrease lantus 16 units bid ,bed time snack decrease Novolin R 4 units tid with meals if eats more than 60% of the meal continue Novolin R low dose coverage on Methyl-prednisone 40 mg q12 will be daily tomorrow continue synthroid 88 mcg po qd Status: Acute (2) Nausea & vomiting Status: Acute (3) Hypothyroidism Status: Acute (4) Uncontrolled diabetes mellitus Status: Acute (5) Steroid-induced hyperglycemia Status: Acute (6) Pneumonia Status: Resolved
[2017-06-23] MEDS: Albuterol-Ipratrop 3 mg / 0.5 (3 ml) UD INH SCH (19:23)
--- NOTE | 2017-06-23 21:08 | CP.PCM.PN ---
Subjective - Date & Time of Evaluation Date of Evaluation: 06/23/17 Time of Evaluation: 18:00 - Subjective Subjective: Pt seen and examined, is improving,afebrile, less short of breath. pt had CT chest findings include 5mm left upper lobe nodule,some atelactesis, she is low risk , also compression fracture at L1, pt is for [facility] Objective - Vital Signs/Intake and Output Vital Signs (last 24 hours): Temp Pulse Resp BP Pulse Ox 98.3 F 67 18 122/60 100 06/23/17 16:30 06/23/17 16:30 06/23/17 16:30 06/23/17 16:30 06/23/17 16:30 - Medications Medications: Current Medications Acetaminophen (Tylenol 650mg/20.3ml Solution Ud) 650 mg PO Q4 PRN PRN Reason: pain and headache Last Admin: 06/22/17 09:59 Dose: 650 mg Albuterol/Ipratropium (Duoneb 3 Mg/0.5 Mg (3 Ml) Ud) 3 ml INH RQ6 [facility] Last Admin: 06/23/17 19:23 Dose: 3 ml Calcium/Vitamin D (Oyster Shell Calcium/Vitamin D 500 Mg-200 Iu) 1 tab PO DAILY [facility] Last Admin: 06/23/17 09:50 Dose: 1 tab Furosemide (Lasix) 20 mg PO BID [facility] Last Admin: 06/19/17 18:46 Dose: 20 mg Insulin Glargine (Lantus) 16 unit SC Q12 [facility] Insulin Human Regular (Novolin R) 0 unit SC ACHS [facility] PRN Reason: Protocol Last Admin: 06/23/17 17:30 Dose: 3 unit Insulin Human Regular (Novolin R) 6 unit SC TIDPC [facility] Last Admin: 06/23/17 17:31 Dose: 6 unit Magnesium Oxide (Mag-Ox) 400 mg PO BID [facility] Last Admin: 06/23/17 17:30 Dose: 400 mg Methylprednisolone (Solu-Medrol) 40 mg IVP DAILY [facility] Metoprolol Succinate (Toprol Xl) 50 mg PO DAILY [facility] Last Admin: 06/23/17 09:48 Dose: 50 mg Sodium Chloride (Sodium Chloride Tab) 2 gm PO BID [facility] Last Admin: 06/19/17 18:57 Dose: Not Given Vitamin A (Vitamin A & D Oint Ud Foilpak) 0.5 ea TOP Q4 [facility] Last Admin: 06/23/17 20:14 Dose: Not Given - Labs Labs: 06/22/17 11:35 06/22/17 11:35 PT 14.5 SECONDS (9.7-12.2) H 06/06/17 16:54 INR 1.3 06/06/17 16:54 APTT 35 SECONDS (21-34) H 06/06/17 16:54 - Constitutional Appears: No Acute Distress - Eye Exam Eye Exam: EOMI, Normal appearance, PERRL Pupil Exam: NORMAL ACCOMODATION, PERRL - Respiratory Exam Respiratory Exam: Decreased Breath Sounds, Rales, Rhonchi - Cardiovascular Exam Cardiovascular Exam: REGULAR RHYTHM, +S1, +S2. absent: Murmur - GI/Abdominal Exam GI & Abdominal Exam: Soft, Normal Bowel Sounds. absent: Tenderness - Neurological Exam Neurological Exam: Alert, Awake, CN II-XII Intact, Normal Gait, Oriented x3 Assessment and Plan (1) Anemia Status: Resolved (2) Electrolyte abnormality Status: Acute (3) Hyponatremia Status: Acute (4) Nausea & vomiting Status: Acute (5) HTN (hypertension) Status: Chronic (6) Asthma with acute exacerbation Status: Acute (7) GERD (gastroesophageal reflux disease) Status: Acute (8) Pneumonia Status: Resolved (9) Steroid-induced hyperglycemia Status: Acute
--- NOTE | 2017-06-23 21:47 | CP.PCM.PN ---
Objective - Vital Signs/Intake and Output Vital Signs (last 24 hours): Temp Pulse Resp BP Pulse Ox 98.3 F 67 18 122/60 100 06/23/17 16:30 06/23/17 16:30 06/23/17 16:30 06/23/17 16:30 06/23/17 16:30 - Medications Medications: Current Medications Acetaminophen (Tylenol 650mg/20.3ml Solution Ud) 650 mg PO Q4 PRN PRN Reason: pain and headache Last Admin: 06/22/17 09:59 Dose: 650 mg Albuterol/Ipratropium (Duoneb 3 Mg/0.5 Mg (3 Ml) Ud) 3 ml INH RQ6 [facility] Last Admin: 06/23/17 19:23 Dose: 3 ml Calcium/Vitamin D (Oyster Shell Calcium/Vitamin D 500 Mg-200 Iu) 1 tab PO DAILY [facility] Last Admin: 06/23/17 09:50 Dose: 1 tab Furosemide (Lasix) 20 mg PO BID [facility] Last Admin: 06/19/17 18:46 Dose: 20 mg Insulin Glargine (Lantus) 16 unit SC Q12 [facility] Insulin Human Regular (Novolin R) 0 unit SC ACHS [facility] PRN Reason: Protocol Last Admin: 06/23/17 17:30 Dose: 3 unit Insulin Human Regular (Novolin R) 6 unit SC TIDPC [facility] Last Admin: 06/23/17 17:31 Dose: 6 unit Magnesium Oxide (Mag-Ox) 400 mg PO BID [facility] Last Admin: 06/23/17 17:30 Dose: 400 mg Methylprednisolone (Solu-Medrol) 40 mg IVP DAILY [facility] Metoprolol Succinate (Toprol Xl) 50 mg PO DAILY [facility] Last Admin: 06/23/17 09:48 Dose: 50 mg Sodium Chloride (Sodium Chloride Tab) 2 gm PO BID [facility] Last Admin: 06/19/17 18:57 Dose: Not Given Vitamin A (Vitamin A & D Oint Ud Foilpak) 0.5 ea TOP Q4 [facility] Last Admin: 06/23/17 20:14 Dose: Not Given - Labs Labs: 06/22/17 11:35 06/22/17 11:35 PT 14.5 SECONDS (9.7-12.2) H 06/06/17 16:54 INR 1.3 06/06/17 16:54 APTT 35 SECONDS (21-34) H 06/06/17 16:54 Assessment and Plan (1) Hyponatremia Status: Acute (2) Lower extremity edema Status: Acute (3) HTN (hypertension) Status: Chronic (4) Electrolyte abnormality Status: Acute (5) Asthma with acute exacerbation Status: Acute (6) Anemia Status: Resolved
[2017-06-23] MEDS ORDERED: (Lantus) Insulin Glargine, Recombinant SC SCH (22:00)
[2017-06-24] MEDS: Albuterol-Ipratrop 3 mg / 0.5 (3 ml) UD INH SCH ×4 (01:18→19:36)
[2017-06-24] MEDS: Vitamins A & D Oint UD Foilpak TOP SCH ×6 (05:00→20:55)
[2017-06-24] MEDS: (Novolin R) Insulin Human Regular 100 units/ml vial SC SCH ×7 (06:57→22:23)
[2017-06-24] MEDS: Metoprolol Succinate 50 mg XL Tab PO SCH (10:55)
[2017-06-24] MEDS: MethylPREDNISolone 40 mg Vial IVP SCH (10:55)
[2017-06-24] MEDS: Magnesium Oxide 400 mg Tab UD PO SCH ×2 (10:55→17:36)
[2017-06-24] MEDS: Calcium-Vit D 500 mg-200 Units Tab UD PO SCH (11:00)
[2017-06-24 16:00] VITALS: RESP 20
--- NOTE | 2017-06-24 17:36 | PN ---
DATE: LOCATION: [facility], Bed A. SUBJECTIVE: This is an 81-year-old female seen and examined in rounds, appear to be awake, alert, and oriented, intermittent periods of shortness of breath, nonproductive cough. The patient states to have periods of nausea and dyspepsia. No reported active bleeding. The entire chart is reviewed including, but not limited to, the most recent lab and radiology study results, current and previous medication list, current and previous medical events. Today's lab shows blood glucose level of 252. The most recent chest CAT scan done two days ago reported in detail was seen. PHYSICAL EXAMINATION: GENERAL: The patient is an 81-year-old female. VITAL SIGNS: Afebrile with pulse of 72, respiratory rate 20 to 22, blood pressure of 112/72. HEENT: Showed pale, dry oral mucous membranes, nonicteric sclerae. LUNGS: A few scattered crepitation, decreased air entry at bases. HEART: Positive S1 and S2. ABDOMEN: Soft, bowel sounds present with mild abdominal distention. No masses or organomegaly. No rebound tenderness or guarding. EXTREMITIES: Lower extremity mild edematous changes. No clubbing or cyanosis. NEUROLOGIC: No reported new neurological deficits, sensory or motor. IMPRESSION: 1. Peptic ulcer disease. 2. 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 3. Poorly controlled hypertension, poorly controlled diabetes mellitus. 4. Evidence of diabetic gastroparesis. 5. Chronic obstructive pulmonary disease. 6. Cardiac arrhythmia with hyperlipidemia by history. 7. Recent reported congestive heart failure. 8. Hypokalemia secondary to above. SUGGESTION: 1. Continue current management. 2. Schedule the patient for colonoscopy only when the patient is more stable clinically. Guaiac of the stool daily x3. 3. Further recommendation to follow. Nalini Richter MD
--- NOTE | 2017-06-24 18:12 | CP.PCM.PN ---
Subjective - Date & Time of Evaluation Date of Evaluation: 06/24/17 Time of Evaluation: 10:00 - Subjective Subjective: Patient seen and examined in bed. Patient resting comfortably. Patient states her cough has improved and her lower extremity edema has decreased. Patient complains of dyspnea on exertion. Afebrile, no chest pain. Patient to [facility] as per medical team. Chest CT: 5 mm left upper lobe nodule, low risk. Mild bibasilar left upper lobe lingular atelectasis. L1 compression fracture deformity with retropulsion of fracture fragments, age indeterminate. Assessment/Plan: 1. Asthma with acute exacerbation - continue treatment. 2. Pneumonia - resolved. Objective - Vital Signs/Intake and Output Vital Signs (last 24 hours): Temp Pulse Resp BP Pulse Ox 97.5 F L 68 20 105/60 100 06/24/17 15:55 06/24/17 15:55 06/24/17 15:55 06/24/17 15:55 06/24/17 15:55 Intake and Output: 06/24/17 06/24/17 06:59 18:59 Intake Total 560 Balance 560 - Medications Medications: Current Medications Acetaminophen (Tylenol 650mg/20.3ml Solution Ud) 650 mg PO Q4 PRN PRN Reason: pain and headache Last Admin: 06/22/17 09:59 Dose: 650 mg Albuterol/Ipratropium (Duoneb 3 Mg/0.5 Mg (3 Ml) Ud) 3 ml INH RQ6 [facility] Last Admin: 06/24/17 14:06 Dose: 3 ml Calcium/Vitamin D (Oyster Shell Calcium/Vitamin D 500 Mg-200 Iu) 1 tab PO DAILY [facility] Last Admin: 06/24/17 11:00 Dose: 1 tab Furosemide (Lasix) 20 mg PO BID [facility] Last Admin: 06/19/17 18:46 Dose: 20 mg Insulin Glargine (Lantus) 16 unit SC Q12 [facility] Insulin Human Regular (Novolin R) 0 unit SC ACHS [facility] PRN Reason: Protocol Last Admin: 06/24/17 17:10 Dose: 2 unit Insulin Human Regular (Novolin R) 6 unit SC TIDPC [facility] Last Admin: 06/24/17 17:36 Dose: 6 unit Magnesium Oxide (Mag-Ox) 400 mg PO BID [facility] Last Admin: 06/24/17 17:36 Dose: 400 mg Methylprednisolone (Solu-Medrol) 40 mg IVP DAILY [facility] Last Admin: 06/24/17 10:55 Dose: 40 mg Metoprolol Succinate (Toprol Xl) 50 mg PO DAILY [facility] Last Admin: 06/24/17 10:55 Dose: 50 mg Sodium Chloride (Sodium Chloride Tab) 2 gm PO BID [facility] Last Admin: 06/19/17 18:57 Dose: Not Given Vitamin A (Vitamin A & D Oint Ud Foilpak) 0.5 ea TOP Q4 [facility] Last Admin: 06/24/17 16:55 Dose: Not Given - Labs Labs: 06/22/17 11:35 06/22/17 11:35 PT 14.5 SECONDS (9.7-12.2) H 06/06/17 16:54 INR 1.3 06/06/17 16:54 APTT 35 SECONDS (21-34) H 06/06/17 16:54 Assessment and Plan (1) Pneumonia Status: Resolved (2) Asthma with acute exacerbation Status: Acute (3) Respiratory distress Status: Acute
--- NOTE | 2017-06-24 19:09 | CP.PCM.PN ---
Subjective - Date & Time of Evaluation Date of Evaluation: 06/24/17 Time of Evaluation: 13:00 - Subjective Subjective: Reports breathing improved; tolerating diet; not ambulating much (only to bathroom); Objective - Vital Signs/Intake and Output Vital Signs (last 24 hours): Temp Pulse Resp BP Pulse Ox 97.5 F L 68 20 105/60 100 06/24/17 15:55 06/24/17 15:55 06/24/17 15:55 06/24/17 15:55 06/24/17 15:55 - Medications Medications: Current Medications Acetaminophen (Tylenol 650mg/20.3ml Solution Ud) 650 mg PO Q4 PRN PRN Reason: pain and headache Last Admin: 06/22/17 09:59 Dose: 650 mg Albuterol/Ipratropium (Duoneb 3 Mg/0.5 Mg (3 Ml) Ud) 3 ml INH RQ6 [facility] Last Admin: 06/24/17 14:06 Dose: 3 ml Calcium/Vitamin D (Oyster Shell Calcium/Vitamin D 500 Mg-200 Iu) 1 tab PO DAILY [facility] Last Admin: 06/24/17 11:00 Dose: 1 tab Furosemide (Lasix) 20 mg PO BID [facility] Last Admin: 06/19/17 18:46 Dose: 20 mg Insulin Glargine (Lantus) 16 unit SC Q12 [facility] Insulin Human Regular (Novolin R) 0 unit SC ACHS [facility] PRN Reason: Protocol Last Admin: 06/24/17 17:10 Dose: 2 unit Insulin Human Regular (Novolin R) 6 unit SC TIDPC [facility] Last Admin: 06/24/17 17:36 Dose: 6 unit Magnesium Oxide (Mag-Ox) 400 mg PO BID [facility] Last Admin: 06/24/17 17:36 Dose: 400 mg Methylprednisolone (Solu-Medrol) 40 mg IVP DAILY [facility] Last Admin: 06/24/17 10:55 Dose: 40 mg Metoprolol Succinate (Toprol Xl) 50 mg PO DAILY [facility] Last Admin: 06/24/17 10:55 Dose: 50 mg Sodium Chloride (Sodium Chloride Tab) 2 gm PO BID [facility] Last Admin: 06/19/17 18:57 Dose: Not Given Vitamin A (Vitamin A & D Oint Ud Foilpak) 0.5 ea TOP Q4 [facility] Last Admin: 06/24/17 16:55 Dose: Not Given - Labs Labs: 06/22/17 11:35 06/22/17 11:35 PT 14.5 SECONDS (9.7-12.2) H 06/06/17 16:54 INR 1.3 06/06/17 16:54 APTT 35 SECONDS (21-34) H 06/06/17 16:54 - Constitutional Appears: Non-toxic, No Acute Distress - Eye Exam Eye Exam: absent: Scleral icterus - Respiratory Exam Respiratory Exam: absent: Respiratory Distress Additional comments: air movement much improved; - Cardiovascular Exam Cardiovascular Exam: RRR, +S1, +S2 - GI/Abdominal Exam GI & Abdominal Exam: Soft. absent: Distended, Tenderness - Extremities Exam Additional comments: moderate lower leg edema b/l - Neurological Exam Neurological Exam: Alert, Awake - Psychiatric Exam Psychiatric exam: Normal Mood. absent: Agitated - Skin Skin Exam: Warm. absent: Cyanosis Assessment and Plan (1) Hyponatremia Assessment & Plan: Recurring; patient advised to adhere to 1L daily PO fluid restriction; lasix was helping but held due to alkalosis (improving); Status: Acute (2) Lower extremity edema Assessment & Plan: Moderate lower leg edema, should resolved over time; would not give lasix for now (will cause contraction alkalosis, BP already low/normal); Status: Acute (3) HTN (hypertension) Assessment & Plan: BP lower end of normal; consider decreasing toprol XL dose to 25 mg daily; Status: Chronic (4) Electrolyte abnormality Status: Acute (5) Asthma with acute exacerbation Status: Acute (6) Anemia Status: Resolved
--- NOTE | 2017-06-24 22:55 | CP.PCM.PN ---
Subjective - Date & Time of Evaluation Date of Evaluation: 06/24/17 Time of Evaluation: 18:00 - Subjective Subjective: PT IS IMPROVING, LESS COUGH, LESS SHOTNESS OF BREATH Objective - Vital Signs/Intake and Output Vital Signs (last 24 hours): Temp Pulse Resp BP Pulse Ox 97.5 F L 68 20 105/60 100 06/24/17 15:55 06/24/17 15:55 06/24/17 15:55 06/24/17 15:55 06/24/17 15:55 Intake and Output: 06/24/17 06/25/17 18:59 06:59 Intake Total 600 Balance 600 - Medications Medications: Current Medications Acetaminophen (Tylenol 650mg/20.3ml Solution Ud) 650 mg PO Q4 PRN PRN Reason: pain and headache Last Admin: 06/22/17 09:59 Dose: 650 mg Albuterol/Ipratropium (Duoneb 3 Mg/0.5 Mg (3 Ml) Ud) 3 ml INH RQ6 [facility] Last Admin: 06/24/17 19:36 Dose: 3 ml Calcium/Vitamin D (Oyster Shell Calcium/Vitamin D 500 Mg-200 Iu) 1 tab PO DAILY [facility] Last Admin: 06/24/17 11:00 Dose: 1 tab Furosemide (Lasix) 20 mg PO BID [facility] Last Admin: 06/19/17 18:46 Dose: 20 mg Insulin Glargine (Lantus) 16 unit SC Q12 [facility] Insulin Human Regular (Novolin R) 0 unit SC ACHS [facility] PRN Reason: Protocol Last Admin: 06/24/17 22:23 Dose: Not Given Insulin Human Regular (Novolin R) 6 unit SC TIDPC [facility] Last Admin: 06/24/17 17:36 Dose: 6 unit Magnesium Oxide (Mag-Ox) 400 mg PO BID [facility] Last Admin: 06/24/17 17:36 Dose: 400 mg Methylprednisolone (Solu-Medrol) 40 mg IVP DAILY [facility] Last Admin: 06/24/17 10:55 Dose: 40 mg Metoprolol Succinate (Toprol Xl) 50 mg PO DAILY [facility] Last Admin: 06/24/17 10:55 Dose: 50 mg Vitamin A (Vitamin A & D Oint Ud Foilpak) 0.5 ea TOP Q4 [facility] Last Admin: 06/24/17 20:55 Dose: Not Given - Labs Labs: 06/22/17 11:35 06/22/17 11:35 PT 14.5 SECONDS (9.7-12.2) H 06/06/17 16:54 INR 1.3 06/06/17 16:54 APTT 35 SECONDS (21-34) H 06/06/17 16:54 - Constitutional Appears: No Acute Distress - Head Exam Head Exam: ATRAUMATIC, NORMAL INSPECTION, NORMOCEPHALIC - Eye Exam Eye Exam: EOMI, Normal appearance, PERRL Pupil Exam: NORMAL ACCOMODATION, PERRL - Respiratory Exam Respiratory Exam: Decreased Breath Sounds, Rales - Cardiovascular Exam Cardiovascular Exam: REGULAR RHYTHM, +S1, +S2. absent: Murmur - GI/Abdominal Exam GI & Abdominal Exam: Soft, Normal Bowel Sounds. absent: Tenderness Assessment and Plan (1) Anemia Status: Resolved (2) Electrolyte abnormality Status: Acute (3) Hyponatremia Status: Acute (4) Nausea & vomiting Status: Acute (5) HTN (hypertension) Status: Chronic (6) Asthma with acute exacerbation Status: Acute (7) GERD (gastroesophageal reflux disease) Status: Acute (8) Pneumonia Status: Resolved (9) Steroid-induced hyperglycemia Status: Acute
[2017-06-25] MEDS: Vitamins A & D Oint UD Foilpak TOP SCH ×4 (00:52→12:22)
[2017-06-25] MEDS: Albuterol-Ipratrop 3 mg / 0.5 (3 ml) UD INH SCH ×2 (01:10→07:42)
[2017-06-25] MEDS: (Novolin R) Insulin Human Regular 100 units/ml vial SC SCH ×4 (08:21→13:26)
[2017-06-25] MEDS: Metoprolol Succinate 50 mg XL Tab PO SCH (11:00)
[2017-06-25] MEDS: MethylPREDNISolone 40 mg Vial IVP SCH (11:00)
[2017-06-25] MEDS: Calcium-Vit D 500 mg-200 Units Tab UD PO SCH (11:01)
[2017-06-25] MEDS: Magnesium Oxide 400 mg Tab UD PO SCH (11:01)
[2017-06-25 11:50] LABS: BASO % 0.3 % (0.0-2.0); EOS % 0.3 % (0.0-4.0); LYMPH # 4.1 K/uL (1.0-4.3); LYMPH % 33.3 % (20.0-40.0); MEAN CELL VOLUME 93.6 fL (81.0-99.0); MEAN CORPUSCULAR HEMOGLOBIN 30.5 pg (27.0-31.0); MEAN CORPUSCULAR HGB CONC 32.6 g/dL (33.0-37.0); MEAN PLATELET VOLUME 8.6 fL (7.2-11.7); MONO # 2.6 K/uL (0.0-0.8); MONO % 21.4 % (0.0-10.0); NEUT # 5.5 K/uL (1.8-7.0); NEUT % 44.7 % (50.0-75.0); NRBC % 0.1 % (0.0-2.0); PLATELET COUNT 201 K/uL (130-400); RBC 3.29 Mil/uL (3.80-5.20); WHITE BLOOD COUNT 12.2 K/uL (4.8-10.8)
[2017-06-25 12:22] LABS: BLOOD UREA NITROGEN 12 mg/dL (7-17); CALCIUM 8.8 mg/dl (8.6-10.4); GFR AFRICAN-AMERICAN > 60; GFR NON-AFRICAN AMERICAN > 60
[2017-06-25 12:25] LABS: ANISOCYTOSIS SLIGHT; HYPOCHROMIC SLIGHT; LYMPHOCYTE 29 % (20-40); MONOCYTE 20 % (0-10); NEUTROPHIL 51 % (50-75); PLATELET ESTIMATE NORMAL (NORMAL); POIKILOCYTOSIS SLIGHT; TOTAL CELLS COUNTED 100
--- NOTE | 2017-06-25 12:36 | CP.PCM.PN ---
Subjective - Date & Time of Evaluation Date of Evaluation: 06/25/17 Time of Evaluation: 11:15 - Subjective Subjective: Patient seen today , sob and cough improved , denies any fever, chills, N/V/D, wbc- improved - 12.2<14.3<20.5 sodium stable - above 130's a febrile Objective - Vital Signs/Intake and Output Vital Signs (last 24 hours): Temp Pulse Resp BP Pulse Ox 97.5 F L 66 20 121/72 100 06/25/17 07:00 06/25/17 07:00 06/25/17 07:00 06/25/17 07:00 06/25/17 07:00 Intake and Output: 06/25/17 06/25/17 06:59 18:59 Intake Total 600 Balance 600 - Medications Medications: Current Medications Acetaminophen (Tylenol 650mg/20.3ml Solution Ud) 650 mg PO Q4 PRN PRN Reason: pain and headache Last Admin: 06/22/17 09:59 Dose: 650 mg Albuterol/Ipratropium (Duoneb 3 Mg/0.5 Mg (3 Ml) Ud) 3 ml INH RQ6 [facility] Last Admin: 06/25/17 07:42 Dose: 3 ml Calcium/Vitamin D (Oyster Shell Calcium/Vitamin D 500 Mg-200 Iu) 1 tab PO DAILY [facility] Last Admin: 06/25/17 11:01 Dose: 1 tab Furosemide (Lasix) 20 mg PO BID [facility] Last Admin: 06/19/17 18:46 Dose: 20 mg Insulin Glargine (Lantus) 16 unit SC Q12 [facility] Insulin Human Regular (Novolin R) 0 unit SC ACHS [facility] PRN Reason: Protocol Last Admin: 06/25/17 12:19 Dose: 3 unit Insulin Human Regular (Novolin R) 6 unit SC TIDPC [facility] Last Admin: 06/25/17 10:00 Dose: 6 unit Magnesium Oxide (Mag-Ox) 400 mg PO BID [facility] Last Admin: 06/25/17 11:01 Dose: 400 mg Methylprednisolone (Solu-Medrol) 40 mg IVP DAILY [facility] Last Admin: 06/25/17 11:00 Dose: 40 mg Metoprolol Succinate (Toprol Xl) 50 mg PO DAILY [facility] Last Admin: 06/25/17 11:00 Dose: 50 mg Vitamin A (Vitamin A & D Oint Ud Foilpak) 0.5 ea TOP Q4 [facility] Last Admin: 06/25/17 12:22 Dose: 0.5 ea - Labs Labs: 06/25/17 11:38 06/25/17 11:38 PT 14.5 SECONDS (9.7-12.2) H 06/06/17 16:54 INR 1.3 06/06/17 16:54 APTT 35 SECONDS (21-34) H 06/06/17 16:54 - Constitutional Appears: Well, No Acute Distress - Respiratory Exam Respiratory Exam: Decreased Breath Sounds, NORMAL BREATHING PATTERN - Cardiovascular Exam Cardiovascular Exam: REGULAR RHYTHM, +S1, +S2 - Neurological Exam Neurological Exam: Alert, Awake, Oriented x3 Assessment and Plan - Assessment and Plan (Free Text) Assessment: A/P 81 yr old female admitted with abdominal pain, N/V/ hyponatremia, and pneumonia Na - improved and stable Patient clinically improved with antibiotics CT chest- 5 mm left upper lobe nodule. According to the 2017 Fleischner criteria , the patient is low risk, no routine follow-up is recommended. If the patient is high risk, an optional CT at 12 months is recommended. Mild bibasilar, left upper lobe, and lingular atelectasis. seen by today, stable for discharge to [facility] today and Dr. Montanez will follow the patent at [facility]
--- NOTE | 2017-06-25 16:01 | CP.PCM.PN ---
Subjective - Date & Time of Evaluation Date of Evaluation: 06/25/17 Time of Evaluation: 11:40 - Subjective Subjective: Patient seen and examined today while sitting by bedside. Patient states her breathing has improved. Patient still complains of cough with clear sputum and leg edema. Patient states she feels worse when she is not on nasal cannula. Afebrile, no chest pain. Assessment/Plan: 1. Asthma with acute exacerbation - continue current treatment. 2. Pneumonia - resolved Objective - Vital Signs/Intake and Output Vital Signs (last 24 hours): Temp Pulse Resp BP Pulse Ox 97.5 F L 66 20 121/72 100 06/25/17 07:00 06/25/17 07:00 06/25/17 07:00 06/25/17 07:00 06/25/17 07:00 Intake and Output: 06/25/17 06/25/17 06:59 18:59 Intake Total 600 Balance 600 - Medications Medications: Current Medications Acetaminophen (Tylenol 650mg/20.3ml Solution Ud) 650 mg PO Q4 PRN PRN Reason: pain and headache Last Admin: 06/22/17 09:59 Dose: 650 mg Albuterol/Ipratropium (Duoneb 3 Mg/0.5 Mg (3 Ml) Ud) 3 ml INH RQ6 [facility] Last Admin: 06/25/17 07:42 Dose: 3 ml Calcium/Vitamin D (Oyster Shell Calcium/Vitamin D 500 Mg-200 Iu) 1 tab PO DAILY [facility] Last Admin: 06/25/17 11:01 Dose: 1 tab Furosemide (Lasix) 20 mg PO BID [facility] Last Admin: 06/19/17 18:46 Dose: 20 mg Insulin Glargine (Lantus) 16 unit SC Q12 [facility] Insulin Human Regular (Novolin R) 0 unit SC ACHS [facility] PRN Reason: Protocol Last Admin: 06/25/17 12:19 Dose: 3 unit Insulin Human Regular (Novolin R) 6 unit SC TIDPC [facility] Last Admin: 06/25/17 13:26 Dose: 6 unit Magnesium Oxide (Mag-Ox) 400 mg PO BID [facility] Last Admin: 06/25/17 11:01 Dose: 400 mg Methylprednisolone (Solu-Medrol) 40 mg IVP DAILY [facility] Last Admin: 06/25/17 11:00 Dose: 40 mg Metoprolol Succinate (Toprol Xl) 50 mg PO DAILY [facility] Last Admin: 06/25/17 11:00 Dose: 50 mg Vitamin A (Vitamin A & D Oint Ud Foilpak) 0.5 ea TOP Q4 [facility] Last Admin: 06/25/17 12:22 Dose: 0.5 ea - Labs Labs: 06/25/17 11:38 06/25/17 11:38 PT 14.5 SECONDS (9.7-12.2) H 06/06/17 16:54 INR 1.3 06/06/17 16:54 APTT 35 SECONDS (21-34) H 06/06/17 16:54 Assessment and Plan (1) Pneumonia Status: Resolved (2) Asthma with acute exacerbation Status: Acute (3) Respiratory distress Status: Acute
[2017-06-25 16:11] VITALS: BP 114/70; PULSE 68; TEMP 98.3
--- NOTE | 2017-06-25 18:45 | PN ---
DATE: LOCATION: [facility], bed A. SUBJECTIVE: This is an 81-year-old female, seen and examined in rounds with intermittent period of again generalized weakness and shortness of breath on and off with nonproductive cough recently. No chest pain. No nausea but dyspepsia, and no vomiting. No reported diarrhea. No reported chills or fever. The entire chart is reviewed including, but not limited to the most recent lab and radiology study results, current and the previous medication list, current and the previous medical events. Case discussed with the staff at length. Yesterday's white blood cell 12.2, hemoglobin 10, hematocrit 30.8 with normal platelet count with sodium 131, CO2 content 31, blood glucose level 273 with normal calcium. PHYSICAL EXAMINATION: GENERAL: An 81-year-old female, awake, alert, oriented. VITAL SIGNS: Afebrile with pulse of 72, respiratory rate of 20 to 22, and blood pressure of 124/70. HEENT: Shows pale and dry oral mucous membrane. Nonicteric sclerae. LUNGS: A few scattered crepitation. Decreased air entry at bases. HEART: Positive S1 and S2. ABDOMEN: Soft. Bowel sounds are present with slight distention and mild generalized tenderness. No mass or organomegaly. No rebound tenderness or guarding. RECTAL: The patient refused. EXTREMITIES: Without significant clubbing or cyanosis, but edematous mild changes. NEUROLOGIC: No reported new neurological deficits, sensory or motor. IMPRESSION: 1. 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 2. Poorly-controlled diabetes mellitus. 3. Poorly-controlled hypertension. 4. Evidence of diabetic gastroparesis. 5. Anemia, most likely secondary to above, to rule out lower gastrointestinal tract source of blood loss, mild elevated CEA level. 6. Chronic obstructive pulmonary disease with bronchitis. 7. Hyperlipidemia with cardiac arrhythmia by history. 8. Electrolyte imbalance of hyponatremia, hypokalemia, and hypocalcemia. SUGGESTIONS: 1. Continue current management. 2. Correct any underlying coagulopathy. 3. Awaiting improvement of the patient's general condition for potential colonoscopy only when she is more stable, otherwise close observation to follow. Nalini Richter MD
--- NOTE | 2017-06-25 23:31 | CP.PCM.DIS ---
Provider - Provider Date of Admission: 06/05/17 04:04 Attending physician: Renato Montanez MD Diagnosis - Discharge Diagnosis (1) Anemia Status: Resolved (2) Electrolyte abnormality Status: Acute (3) Hyponatremia Status: Acute (4) Nausea & vomiting Status: Acute (5) HTN (hypertension) Status: Chronic (6) Asthma with acute exacerbation Status: Acute (7) GERD (gastroesophageal reflux disease) Status: Acute (8) Pneumonia Status: Resolved (9) Steroid-induced hyperglycemia Status: Acute Hospital Course - Lab Results Lab Results: Micro Results 06/05/17 19:00 Blood Blood Culture - Final NO GROWTH AFTER 5 DAYS 06/05/17 19:00 Blood Gram Stain - Final TEST NOT PERFORMED 06/05/17 19:00 Blood Blood Culture - Final NO GROWTH AFTER 5 DAYS 06/05/17 19:00 Blood Gram Stain - Final TEST NOT PERFORMED 06/05/17 08:29 Urine Urine Culture - Final No Growth (<1,000 CFU/ML) Most Recent Lab Values WBC 12.2 K/uL (4.8-10.8) H 06/25/17 11:38 RBC 3.29 Mil/uL (3.80-5.20) L 06/25/17 11:38 Hgb 10.0 g/dL (11.0-16.0) L 06/25/17 11:38 Hct 30.8 % (34.0-47.0) L 06/25/17 11:38 MCV 93.6 fL (81.0-99.0) 06/25/17 11:38 MCH 30.5 pg (27.0-31.0) 06/25/17 11:38 MCHC 32.6 g/dL (33.0-37.0) L 06/25/17 11:38 RDW 16.0 % (11.5-14.5) H 06/25/17 11:38 Plt Count 201 K/uL (130-400) 06/25/17 11:38 MPV 8.6 fL (7.2-11.7) 06/25/17 11:38 Neut % (Auto) 44.7 % (50.0-75.0) L 06/25/17 11:38 Lymph % (Auto) 33.3 % (20.0-40.0) 06/25/17 11:38 [place] % (Auto) 21.4 % (0.0-10.0) H 06/25/17 11:38 Eos % (Auto) 0.3 % (0.0-4.0) 06/25/17 11:38 Baso % (Auto) 0.3 % (0.0-2.0) 06/25/17 11:38 Neut # (Auto) 5.5 K/uL (1.8-7.0) 06/25/17 11:38 Lymph # (Auto) 4.1 K/uL (1.0-4.3) 06/25/17 11:38 [place] # (Auto) 2.6 K/uL (0.0-0.8) H 06/25/17 11:38 Eos # (Auto) 0.0 K/uL (0.0-0.7) 06/25/17 11:38 Baso # (Auto) 0.0 K/uL (0.0-0.2) 06/25/17 11:38 Neutrophils % (Manual) 51 % (50-75) 06/25/17 11:38 Band Neutrophils % 2 % (0-2) 06/17/17 11:37 Lymphocytes % (Manual) 29 % (20-40) 06/25/17 11:38 Reactive Lymphs % 1 % (0-0) H 06/13/17 07:01 Monocytes % (Manual) 20 % (0-10) H 06/25/17 11:38 Metamyelocytes % 1 % (0-0) H 06/14/17 11:45 Myelocytes % 1 % (0-0) H 06/14/17 11:45 Nucleated RBC % 1 % (0-0) H 06/17/17 11:37 Toxic Granulation Present 06/06/17 06:20 Large Platelets Present 06/06/17 06:20 Platelet Estimate Normal (NORMAL) 06/25/17 11:38 Polychromasia Slight 06/10/17 13:57 Basophilic Stippling Slight 06/06/17 06:20 RBC Morphology Normal 06/12/17 06:43 Hypochromasia (manual) Slight 06/25/17 11:38 Poikilocytosis (manual Slight 06/25/17 11:38 Anisocytosis (manual) Slight 06/25/17 11:38 Schistocytes Slight 06/14/17 11:45 PT 14.5 SECONDS (9.7-12.2) H 06/06/17 16:54 INR 1.3 06/06/17 16:54 APTT 35 SECONDS (21-34) H 06/06/17 16:54 Puncture Site Rra 06/09/17 12:08 pCO2 32 mm/Hg (35-45) L 06/09/17 12:08 pO2 86 mm/Hg (80-100) 06/09/17 12:08 HCO3 26.8 mmol/L (21-28) 06/09/17 12:08 ABG pH 7.50 (7.35-7.45) H 06/09/17 12:08 ABG Total CO2 26.0 mmol/L (22-28) 06/09/17 12:08 ABG O2 Saturation 100.1 % (95-98) H 06/09/17 12:08 ABG Base Excess 2.4 mmol/L (-2.0-3.0) 06/09/17 12:08 Pb Test Pos 06/09/17 12:08 Liter Flow 2.0 06/09/17 12:08 Sodium 131 mmol/L (132-148) L 06/25/17 11:38 Potassium 4.0 mmol/L (3.6-5.2) 06/25/17 11:38 Chloride 91 mmol/L (98-107) L 06/25/17 11:38 Carbon Dioxide 31 mmol/L (22-30) H 06/25/17 11:38 Anion Gap 13 (10-20) 06/25/17 11:38 BUN 12 mg/dL (7-17) 06/25/17 11:38 Creatinine 0.7 mg/dL (0.7-1.2) 06/25/17 11:38 Est GFR ( Amer) > 60 06/25/17 11:38 Est GFR (Non-Af Amer) > 60 06/25/17 11:38 POC Glucose (mg/dL) 124 mg/dL (65-110) H 06/25/17 16:09 Random Glucose 247 mg/dL (65-105) H 06/25/17 11:38 Hemoglobin A1c 7.3 % (4.2-6.5) H 06/13/17 07:01 Serum Osmolality 276 mosm/kg (272-300) 06/06/17 06:20 Uric Acid 4.9 mg/dL (2.2-7.5) 06/05/17 07:41 Calcium 8.8 mg/dl (8.6-10.4) 06/25/17 11:38 Iron 44 ug/dL (37-170) 06/11/17 14:22 TIBC 155 ug/dL (250-450) L 06/11/17 14:22 % Saturation 28 (20-55) 06/11/17 14:22 Phosphorus 3.5 mg/dL (2.5-4.5) 06/17/17 11:37 Magnesium 1.6 mg/dL (1.6-2.3) 06/17/17 11:37 Ferritin 678.0 ng/mL 06/06/17 06:20 Total Bilirubin 0.5 mg/dL (0.2-1.3) 06/15/17 19:31 AST 16 U/L (14-36) 06/15/17 19:31 ALT 22 U/L (9-52) 06/15/17 19:31 Alkaline Phosphatase 73 U/L (38-126) 06/15/17 19:31 Total Creatine Kinase 61 U/L (30-135) 06/06/17 10:34 CK-MB (Mass) 0.50 ng/mL (0.0-3.38) 06/06/17 10:34 Troponin I < 0.0120 ng/mL (0.00-0.120) 06/06/17 10:34 Total Protein 6.2 g/dL (6.3-8.3) L 06/15/17 19:31 Albumin 3.4 g/dL (3.5-5.0) L 06/15/17 19:31 Globulin 2.8 gm/dL (2.2-3.9) 06/15/17 19:31 Albumin/Globulin Ratio 1.2 (1.0-2.1) 06/15/17 19:31 Lipase 48 U/L (23-300) 06/04/17 20:05 Carcinoembryonic Ag 5.4 ng/mL (0-3.0) H 06/06/17 10:34 CA 19-9 Antigen < 1.4 U/mL (0-37) 06/06/17 10:34 CA 125 Antigen 8.9 U/mL (0-35) 06/06/17 10:34 25-OH Vitamin D Total < 12.8 NG/ML (30.0-100.0) L 06/06/17 19:59 Renin 0.76 ng/mL/h (0.25-5.82) 06/11/17 09:40 Aldosterone 1 ng/dL 06/11/17 09:40 Aldosterone/Renin Ratio 1.3 Ratio (0.9-28.9) 06/11/17 09:40 Free T4 1.94 ng/dL (0.78-2.19) 06/05/17 14:51 TSH 3rd Generation 4.52 mIU/L (0.46-4.68) 06/05/17 14:51 Procalcitonin 0.31 NG/ML (0.19-0.49) 06/11/17 19:44 Calcium (PTH Intact) 8.1 mg/dL (8.6-10.4) L 06/06/17 19:59 PTH w/Ion &Tot Calcium 72 pg/mL (14-64) H 06/06/17 19:59 Cortisol AM Sample 31.9 ug/dL (4.46-22.7) H 06/06/17 09:19 ACTH <5 pg/mL (6-50) L 06/06/17 07:39 Urine Color Straw (YELLOW) 06/11/17 00:28 Urine Clarity Clear (Clear) 06/11/17 00:28 Urine pH 5.0 (5.0-8.0) 06/11/17 00:28 Ur Specific [place] 1.004 (1.003-1.030) 06/11/17 00:28 Urine Protein Negative mg/dL (NEGATIVE) 06/11/17 00:28 Urine Glucose (UA) 1+ mg/dL (Normal) 06/11/17 00:28 Urine Ketones Negative mg/dL (NEGATIVE) 06/11/17 00:28 Urine Blood 1+ (NEGATIVE) H 06/11/17 00:28 Urine Nitrate Negative (NEGATIVE) 06/11/17 00:28 Urine Bilirubin Negative (NEGATIVE) 06/11/17 00:28 Urine Urobilinogen Normal mg/dL (0.2-1.0) 06/11/17 00:28 Ur Leukocyte Esterase Neg [place]/uL (Negative) 06/11/17 00:28 Urine WBC (Auto) < 1 /hpf (0-5) 06/11/17 00:28 Urine RBC (Auto) 2 /hpf (0-3) 06/11/17 00:28 Ur Squamous Epith Cells 1 /hpf (0-5) 06/04/17 21:37 Urine Bacteria Occ (<OCC) H 06/04/17 21:37 Ur Random Potassium 15.0 mmol/L 06/05/17 08:48 Urine Osmolality 379 mosm/kg (300-1000) 06/17/17 09:34 Ur Random Creatinine 7.7 mg/dL 06/13/17 17:54 Ur Random Sodium 93 mmol/L 06/17/17 09:34 Ur Random Urea Nitrogn 92 mg/dL 06/13/17 17:54 Urine Microalbumin 34.3 mg/L (0.0-16.6) H 06/09/17 13:30 Mycoplasma pneumon IgM Negative (NEGATIVE) 06/13/17 07:01 Blood Type O POSITIVE 06/13/17 11:15 Antibody Screen Negative 06/13/17 11:15 - Hospital Course Hospital Course: A/P 81 yr old female admitted with abdominal pain, N/V/ hyponatremia, and pneumonia Na - improved and stable Patient clinically improved with antibiotics CT chest- 5 mm left upper lobe nodule. According to the 2017 Fleischner criteria , the patient is low risk, no routine follow-up is recommended. If the patient is high risk, an optional CT at 12 months is recommended. Mild bibasilar, left upper lobe, and lingular atelectasis. seen & examined by me today, stable for discharge to [facility] today and I will follow the patent at [facility] Discharge Exam - Head Exam Head Exam: ATRAUMATIC, NORMAL INSPECTION, NORMOCEPHALIC Discharge Plan - Discharge Medications Prescriptions: predniSONE [Prednisone] 20 mg PO DAILY #16 tab - Follow Up Plan Condition: STABLE Disposition: OTHER INSTITUTION Instructions: Gastritis (DC), Heart Healthy Diet (DC), Hyponatremia (DC), COPD (Chronic Obstructive Pulmonary Disease) (DC), Upper Endoscopy (DC), Acute Nausea and Vomiting (DC) Additional Instructions: Please admit patient under Dr. Montanez service - call Dr. Montanez upon patient arrival to the facility Continue medication as per med. rec, please repeat cbc, bmp on saturday and q week Referrals: Renato Montanez MD [Staff Provider] -
== END 2017-06-25 16:55 | disposition designated cancer center or children's hospital (05) | DRG 194 ==
LOC: C.ER 17:14 → C.9E 06-05 04:04 → C.6T 06-05 16:17
PROVIDERS: ADMIT Internal Medicine; ATTEND Internal Medicine
DX: J18.9 Pneumonia, unspecified organism (principal); I47.1 Supraventricular tachycardia; E11.43 Type 2 diabetes mellitus with diabetic autonomic (poly)neuropathy; K31.84 Gastroparesis; J44.0 Chronic obstructive pulmonary disease with (acute) lower respiratory infection; I11.0 Hypertensive heart disease with heart failure; I50.9 Heart failure, unspecified; E87.1 Hypo-osmolality and hyponatremia; J45.901 Unspecified asthma with (acute) exacerbation; E86.0 Dehydration; E86.1 Hypovolemia; E87.6 Hypokalemia; J20.9 Acute bronchitis, unspecified; E78.5 Hyperlipidemia, unspecified; D63.8 Anemia in other chronic diseases classified elsewhere

== ENCOUNTER 2017-07-14 07:43 | Emergency (ER) | payer MEDICARE, BC ==
[2017-07-14 07:44] VITALS: BMI 29.9
[2017-07-14] MEDS ORDERED: Bacitracin 500 Units/gm Oint Foilpak UD TOP STA (08:40)
[2017-07-14] MEDS ORDERED: Tetanus/Diphtheria Toxoids 0.5 ml Syringe IM ONE ×2 (08:40→08:58)
[2017-07-14] MEDS ORDERED: Lidocaine 1% w Epi 1:100,000 Inj INJ STA (08:40)
[2017-07-14] MEDS ORDERED: Bacitracin 500 Units/gm Oint Foilpak UD ONE (08:57)
[2017-07-14 09:09] LABS: BASO # 0.1 K/uL (0.0-0.2); BASO % 0.8 % (0.0-2.0); LYMPH # 2.1 K/uL (1.0-4.3); LYMPH % 33.2 % (20.0-40.0); MEAN CORPUSCULAR HEMOGLOBIN 30.9 pg (27.0-31.0); MEAN PLATELET VOLUME 6.8 fL (7.2-11.7); MONO # 1.2 K/uL (0.0-0.8); MONO % 18.7 % (0.0-10.0); NEUT % 47.3 % (50.0-75.0); RBC 2.92 Mil/uL (3.80-5.20); RED CELL DISTRIBUTION WIDTH 14.9 % (11.5-14.5); WHITE BLOOD COUNT 6.4 K/uL (4.8-10.8)
[2017-07-14 09:17] LABS: INR 1.1; PROTHROMBIN TIME 12.7 SECONDS (9.7-12.2)
--- NOTE | 2017-07-14 09:29 | CT ---
PROCEDURE: CT HEAD WITHOUT CONTRAST. HISTORY: fall, head injury COMPARISON: CT head dated 06/05/2017. TECHNIQUE: Axial computed tomography images were obtained through the head/brain without intravenous contrast. Radiation dose: Total exam DLP = 870.6 mGy-cm. This CT exam was performed using one or more of the following dose reduction techniques: Automated exposure control, adjustment of the mA and/or kV according to patient size, and/or use of iterative reconstruction technique. FINDINGS: HEMORRHAGE: No intracranial hemorrhage. BRAIN: No mass effect or edema. Cerebral atrophy. Moderate to severe chronic periventricular white matter microvascular ischemic changes. VENTRICLES: Age-appropriate prominence. No hydrocephalus. CALVARIUM: Unremarkable. PARANASAL SINUSES: Unremarkable as visualized. No significant inflammatory changes. MASTOID AIR CELLS: Unremarkable as visualized. No inflammatory changes. OTHER FINDINGS: None. IMPRESSION: No acute intracranial pathology.
[2017-07-14 09:35] LABS: ALB/GLOB RATIO 0.9 (1.0-2.1); ALT/SGPT 12 U/L (9-52); AST/SGOT 28 U/L (14-36); BLOOD UREA NITROGEN 11 mg/dL (7-17); CALCIUM 8.7 mg/dl (8.6-10.4); GFR AFRICAN-AMERICAN > 60; GFR NON-AFRICAN AMERICAN > 60
--- NOTE | 2017-07-14 10:51 | C.PDOC ---
History Of Present Illness 81 yr old female brought in via EMS, presents to the ER from snf after being found in front of the bathroom. Patient is wheelchair bound is is unclear how the patient ended up on the floor and the duration. Patient reports of a laceration above the left eyebrow. Patient denies LOC, vision changes, nausea, vomiting, neck pain or headache. 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) Past Medical History Reviewed: Historical Data, Nursing Documentation, Vital Signs Vital Signs: Last Vital Signs Temp 98.0 F 07/14/17 07:45 Pulse 80 07/14/17 07:45 Resp 16 07/14/17 07:45 BP 152/76 H 07/14/17 07:45 Pulse Ox 98 07/14/17 11:53 - Medical History PMH: Asthma, COPD, Diabetes, HTN, Hypercholesterolemia, Hyperlipidemia, Hypothyroidism - [facility] Procedures BREAST DX PROCEDURE NEC (10/08/13) EXCISION OF STOMACH, PYLORUS, ENDO, DIAGN (06/05/17) PERCUTAN NEEDLE BIOPSY OF BREAST (10/08/13) X-RAY NEC AND NOS (10/08/13) Family History: States: No Known Family Hx - Social History Hx Tobacco Use: No Hx Alcohol Use: No Hx Substance Use: No - Immunization History Hx Tetanus Toxoid Vaccination: No Hx Influenza Vaccination: Yes Hx Pneumococcal Vaccination: No Review Of Systems Except As Marked, All Systems Reviewed And Found Negative. Constitutional: Positive for: Other (- LOC) Eyes: Negative for: Vision Change Gastrointestinal: Negative for: Nausea, Vomiting Musculoskeletal: Negative for: Neck Pain Skin: Positive for: Other (+ laceration above the left eyebrow) Neurological: Negative for: Headache Physical Exam - Physical Exam Appears: Non-toxic, No Acute Distress Skin: Warm, Dry, Other (+ 3 cm laceration to the lateral left eyebrow, no active bleeding) Head: Atraumatic, Normacephalic Eye(s): bilateral: Normal Inspection, PERRL, EOMI Oral Mucosa: Moist Lips: Normal Appearing Neck: Normal, Normal ROM, No Midline Cervical Tenderness, No Paracervical Tenderness, Supple Chest: Symmetrical, No Tenderness Cardiovascular: Rhythm Regular, No Murmur Respiratory: Normal Breath Sounds, No Rales, No Rhonchi, No Stridor, No Wheezing Gastrointestinal/Abdominal: Normal Exam, Soft, No Tenderness, No Guarding, No Rebound Back: Normal Inspection, No CVA Tenderness Extremity: Normal ROM, No Tenderness, No Swelling Neurological/Psych: Oriented x3, Normal Speech ED Course And Treatment - Laboratory Results Result Diagrams: 07/14/17 09:04 07/14/17 09:04 O2 Sat by Pulse Oximetry: 98 (RA) Pulse Ox Interpretation: Normal - CT Scan/US CT - Head Other Rad Studies (CT/US): Read By Radiologist, Radiology Report Reviewed CT/US Interpretation: PROCEDURE: CT HEAD WITHOUT CONTRAST. HISTORY: fall, head injury. COMPARISON: CT head dated 06/05/2017. TECHNIQUE: Axial computed tomography images were obtained through the head/brain without intravenous contrast. Radiation dose: Total exam DLP = 870.6 mGy-cm. This CT exam was performed using one or more of the following dose reduction techniques : Automated exposure control, adjustment of the mA and/or kV according to patient size, and/or use of iterative reconstruction technique. FINDINGS: HEMORRHAGE: No intracranial hemorrhage. BRAIN: No mass effect or edema. Cerebral atrophy. Moderate to severe chronic periventricular white matter microvascular ischemic changes. VENTRICLES: Age-appropriate prominence. No hydrocephalus. CALVARIUM: Unremarkable. PARANASAL SINUSES: Unremarkable as visualized. No significant inflammatory changes. MASTOID AIR CELLS: Unremarkable as visualized. No inflammatory changes. OTHER FINDINGS: None. IMPRESSION: No acute intracranial pathology. Laceration - Laceration Repair Lateral Left Eyebrow Wound Length (In cm): 3 Description Of Wound: Linear Anesthesia: Lidocaine 1%, With Epi Wound Examination: Irrigated With Saline, No FB With Wound Exploration, No Tendon Injury With Wound Exploration Wound Closure: Suture (7) Suture Technique And Material Used: Interrupted, Vicryl (rapide) Wound Complexity: Simple Medical Decision Making Medical Decision Making: PLAN: * CT - Head * Labs * Bacitracin TOP * Tetanus IM * Laceration Repair Disposition - Disposition Disposition: TRANSF TO SNF Disposition Time: 11:50 Condition: IMPROVED Additional Instructions: No suture removal needed. Laceration was closed with dissolvable sutures. 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 - Scribe Statement The provider has reviewed the documentation as recorded by the Scribe Kaylin Ramirez All medical record entries made by the Scribe were at my direction and personally dictated by me. I have reviewed the chart and agree that the record accurately reflects my personal performance of the history, physical exam, medical decision making, and the department course for this patient. I have also personally directed, reviewed, and agree with the discharge instructions and disposition.
[2017-07-14 12:23] VITALS: BP 136/78; PULSE 77; RESP 18; TEMP 98
[2017-07-14 17:26] VITALS: O2SAT 98
== END 2017-07-14 13:20 ==
LOC: C.ER 07:43
DX: S01.112A Laceration without foreign body of left eyelid and periocular area, initial encounter (principal); W05.0XXA Fall from non-moving wheelchair, initial encounter; Y92.129 Unspecified place in nursing home as the place of occurrence of the external cause

== ENCOUNTER 2017-07-29 18:36 | Inpatient (IN) | payer MEDICARE, BC ==
[2017-07-29 18:36] VITALS: BMI 29.9
--- NOTE | 2017-07-29 19:18 | C.PDOC ---
History Of Present Illness 81 year old female with long chronic medical history is brought to the ED by EMS from her fdc for evaluation of a non witnessed fall. Patient is currently c/o right shoulder pain. Patient states she dies not remember what made her fall. As per correction's record patient had a fall 3 days ago and has trauma to her left wrist, X-Ray that time showed healing fracture. Patient is a poor historian. Chief Complaint (Nursing): Upper Extremity Problem/Injury History Per: Patient, EMS History/Exam Limitations: no limitations Onset/Duration Of Symptoms: Days Current Symptoms Are (Timing): Still Present Quality: "Pain" Exacerbating Factor(s): Movement Recent travel outside of the [place]: No Additional History Per: Patient Past Medical History Reviewed: Historical Data, Nursing Documentation, Vital Signs Vital Signs: Last Vital Signs Temp 97.3 F L 07/29/17 18:45 Pulse 72 07/29/17 18:45 Resp 19 07/29/17 18:45 BP 117/67 07/29/17 18:45 Pulse Ox 98 07/29/17 19:21 - Medical History PMH: Asthma, COPD, Diabetes, HTN, Hypercholesterolemia, Hyperlipidemia, Hypothyroidism Denies: Chronic Kidney Disease Surgical History: No Surg Hx - [facility] Procedures BREAST DX PROCEDURE NEC (10/08/13) EXCISION OF STOMACH, PYLORUS, ENDO, DIAGN (06/05/17) PERCUTAN NEEDLE BIOPSY OF BREAST (10/08/13) X-RAY NEC AND NOS (10/08/13) Family History: States: Unknown Family Hx - Social History Hx Tobacco Use: No Hx Alcohol Use: No Hx Substance Use: No - Immunization History Hx Tetanus Toxoid Vaccination: No Hx Influenza Vaccination: Yes Hx Pneumococcal Vaccination: No Review Of Systems Constitutional: Negative for: Fever, Chills Cardiovascular: Negative for: Chest Pain Respiratory: Negative for: Shortness of Breath Gastrointestinal: Negative for: Abdominal Pain Musculoskeletal: Positive for: Shoulder Pain Skin: Negative for: Rash Neurological: Negative for: Weakness, Numbness, Headache, Dizziness Physical Exam - Physical Exam Appears: Non-toxic, No Acute Distress Skin: Normal Color, Warm, Dry Head: Atraumatic, Normacephalic Eye(s): bilateral: Normal Inspection Nose: No Discharge Oral Mucosa: Moist Neck: Normal ROM, Supple Cardiovascular: Rhythm Regular, No Murmur Respiratory: Normal Breath Sounds, No Rales, No Rhonchi, No Wheezing Gastrointestinal/Abdominal: Soft, No Tenderness, No Guarding, No Rebound Extremity: No Normal ROM (Right shoulder due to pain), Tenderness (Humeral head right shoulder), Capillary Refill (< 2 seconds), Swelling (humeral head right shoulder) Pulses: Left Radial: Normal, Right Radial: Normal Neurological/Psych: Oriented x3, Normal Motor, Normal Sensation ED Course And Treatment - Laboratory Results Result Diagrams: 07/29/17 19:31 07/29/17 19:31 Lab Interpretation: No Acute Changes O2 Sat by Pulse Oximetry: 98 (On RA) Pulse Ox Interpretation: Normal - Other Rad right shoulder X-Ray: Interpreted by Me Interpretation: Fracture of humeral neck Reevaluation Time: 20:19 Reassessment Condition: Unchanged - Physician Consult Information Time Consulting Physician Contacted: 20:20 Physician Contacted: Renato Montanez Outcome Of Conversation: Patient to be admitted for orthopedic evaluation and pain management. Medical Decision Making Medical Decision Making: Impression: right shoulder pain s/p fall Plan: * Labs * Tylenol 650 mg PO * Right shoulder X-Ray * UA Disposition - Disposition Disposition: HOSPITALIZED Disposition Time: 20:20 Condition: FAIR - POA Present On Arrival: None - Clinical Impression Clinical Impression: Right humeral fracture - Scribe Statement The provider has reviewed the documentation as recorded by the Scribe Isai Dillard All medical record entries made by the Scribe were at my direction and personally dictated by me. I have reviewed the chart and agree that the record accurately reflects my personal performance of the history, physical exam, medical decision making, and the department course for this patient. I have also personally directed, reviewed, and agree with the discharge instructions and disposition.
[2017-07-29 19:34] LABS: BASO # 0.1 K/uL (0.0-0.2); BASO % 0.7 % (0.0-2.0); HEMOGLOBIN 10.3 g/dL (11.0-16.0); LYMPH # 3.6 K/uL (1.0-4.3); LYMPH % 41.5 % (20.0-40.0); MEAN CELL VOLUME 91.5 fL (81.0-99.0); MEAN CORPUSCULAR HEMOGLOBIN 29.7 pg (27.0-31.0); MEAN CORPUSCULAR HGB CONC 32.5 g/dL (33.0-37.0); MEAN PLATELET VOLUME 7.2 fL (7.2-11.7); MONO # 1.2 K/uL (0.0-0.8); MONO % 14.5 % (0.0-10.0); NEUT # 3.7 K/uL (1.8-7.0); NEUT % 43.3 % (50.0-75.0); NRBC % 0.1 % (0.0-2.0); RBC 3.47 Mil/uL (3.80-5.20); RED CELL DISTRIBUTION WIDTH 14.7 % (11.5-14.5); WHITE BLOOD COUNT 8.6 K/uL (4.8-10.8)
[2017-07-29 19:51] LABS: ALB/GLOB RATIO 1.1 (1.0-2.1); ALBUMIN 3.6 g/dL (3.5-5.0); ALT/SGPT 23 U/L (9-52); AST/SGOT 22 U/L (14-36); BLOOD UREA NITROGEN 13 mg/dL (7-17); GFR AFRICAN-AMERICAN > 60; GFR NON-AFRICAN AMERICAN 60
--- NOTE | 2017-07-29 23:33 | CP.PCM.HP ---
History of Present Illness - History of Present Illness History of Present Illness: 81 year old female with long chronic medical history is brought to the ED by EMS from her long term for evaluation of a non witnessed fall. Patient is currently c/o right shoulder pain. Patient states she dies not remember what made her fall. As per [facility] record patient had a fall 3 days ago and has trauma to her left wrist, X-Ray that time showed healing fracture. Patient is a poor historian. Past Patient History - Infectious Disease Hx of Infectious Diseases: None - Past Medical History & Family History Past Medical History?: Yes - Past Social History Smoking Status: Never Smoked - CARDIAC Hx Hypercholesterolemia: Yes Hx Hypertension: Yes - PULMONARY Hx Asthma: Yes Hx Chronic Obstructive Pulmonary Disease (COPD): Yes - NEUROLOGICAL Hx Neurological Disorder: No Other/Comment: Hx od hypo-osmolality and hyponatremia - HEENT Hx HEENT Problems: No - RENAL Hx Chronic Kidney Disease: No - ENDOCRINE/METABOLIC Hx Hypothyroidism: Yes - HEMATOLOGICAL/ONCOLOGICAL Hx Blood Disorders: No - INTEGUMENTARY Hx Dermatological Problems: No - MUSCULOSKELETAL/RHEUMATOLOGICAL Hx Musculoskeletal Disorders: No Hx Falls: No Other/Comment: Hx of muscle weakness - GASTROINTESTINAL Hx Gastrointestinal Disorders: Yes Hx Gastroesophageal Reflux: Yes - GENITOURINARY/GYNECOLOGICAL Hx Genitourinary Disorders: No - PSYCHIATRIC Hx Substance Use: No - SURGICAL HISTORY Other/Comment: Breast biopsy procedure 10/08/13 - ANESTHESIA Hx Anesthesia: Yes Hx Anesthesia Reactions: No Hx Malignant Hyperthermia: No Meds Allergies/Adverse Reactions: Allergies Allergy/AdvReac Type Severity Reaction Status Date / Time aspirin Allergy Verified 07/14/17 08:09 chicken derived Allergy Verified 07/14/17 08:09 orange Allergy Verified 07/14/17 08:09 peanut Allergy Verified 07/14/17 08:09 Penicillins Allergy Verified 07/14/17 08:09 rice Allergy Verified 07/14/17 08:09 tomato Allergy Verified 07/14/17 08:09 wheat Allergy Verified 07/14/17 08:09 chocolate Allergy Uncoded 07/14/17 08:09 cockroaches Allergy Uncoded 07/14/17 08:09 dairy products Allergy Uncoded 07/14/17 08:09 Dust Allergy Uncoded 07/14/17 08:09 Pollen Allergy Uncoded 07/14/17 08:09 seafood Allergy Uncoded 07/14/17 08:09 tomatoes Allergy Uncoded 07/14/17 08:09 Results - Vital Signs Recent Vital Signs: Last Vital Signs Temp 97.3 F L 07/29/17 18:45 Pulse 75 07/29/17 20:22 Resp 20 07/29/17 20:22 BP 135/70 07/29/17 20:22 Pulse Ox 98 07/29/17 20:22 - Labs Result Diagrams: 07/29/17 19:31 07/29/17 19:31 Labs: Laboratory Results - last 24 hr 07/29/17 07/29/17 07/29/17 19:31 19:31 21:43 WBC 8.6 RBC 3.47 L Hgb 10.3 L Hct 31.8 L MCV 91.5 MCH 29.7 MCHC 32.5 L RDW 14.7 H Plt Count 296 MPV 7.2 Neut % (Auto) 43.3 L Lymph % (Auto) 41.5 H [place] % (Auto) 14.5 H Eos % (Auto) 0.0 Baso % (Auto) 0.7 Neut # (Auto) 3.7 Lymph # (Auto) 3.6 [place] # (Auto) 1.2 H Eos # (Auto) 0.0 Baso # (Auto) 0.1 Sodium 138 Potassium 4.3 Chloride 100 Carbon Dioxide 25 Anion Gap 17 BUN 13 Creatinine 0.9 Est GFR ( Amer) > 60 Est GFR (Non-Af Amer) 60 POC Glucose (mg/dL) 121 H Random Glucose 141 H Calcium 9.0 Total Bilirubin 0.5 AST 22 ALT 23 Alkaline Phosphatase 83 Total Protein 6.9 Albumin 3.6 Globulin 3.3 Albumin/Globulin Ratio 1.1
--- NOTE | 2017-07-30 08:59 | RAD ---
PROCEDURE: Radiographs of the Right Shoulder HISTORY: trauma COMPARISON: No prior. FINDINGS: BONES: Displaced right humeral neck fracture. Glenohumeral articulation intact. No other fracture identified. JOINTS: Normal. Glenohumeral and acromioclavicular joints preserved. No osteoarthritis. SOFT TISSUES: Normal. OTHER FINDINGS: None. IMPRESSION: Displaced transverse right humeral neck fracture.
--- NOTE | 2017-07-30 09:26 | CT ---
PROCEDURE: CT right shoulder HISTORY: Right shoulder: right humeral neck fx COMPARISON: Not available TECHNIQUE: 2.5 mm contiguous axial sections were acquired through the right shoulder. Sagittal and coronal images were reformatted from the axial scan. FINDINGS: There is a comminuted angulated fracture of the right humeral neck with some impaction. There is severe posterior angulation of the humeral head. . There is mild impaction. There is fracture extending through the greater tuberosity. This is nondisplaced. The glenohumeral articulation is intact. The acromioclavicular articulation shows minimal degenerative arthritis. There is no lytic or blastic osseous lesions seen. IMPRESSION: Comminuted, angulated, impacted right humeral neck fracture with associated nondisplaced fracture of the greater tuberosity.
[2017-07-30] MEDS: Enoxaparin 60 mg Syringe SC SCH (10:38)
--- NOTE | 2017-07-30 10:51 | CP.PCM.CON ---
History of Present Illness - History of Present Illness History of Present Illness: Orthopedic consultation Dr. Gavin 81F complains of right shoulder pain after fall in NH. She says she fell, and points to indicate pain the shoulder, but does not answer all questions appropriately. She does not verbalize understanding of fracture and can not understand discussion of options. History is from medical record Review of Systems - Review of Systems Systems not reviewed;Unavailable: Dementia Past Patient History - Infectious Disease Hx of Infectious Diseases: None - Past Medical History & Family History Past Medical History?: Yes Past Family History: Reviewed and not pertinent - Past Social History Smoking Status: Never Smoked - CARDIAC Hx Hypercholesterolemia: Yes Hx Hypertension: Yes - PULMONARY Hx Asthma: Yes Hx Chronic Obstructive Pulmonary Disease (COPD): Yes - NEUROLOGICAL Hx Neurological Disorder: No Other/Comment: Hx od hypo-osmolality and hyponatremia - HEENT Hx HEENT Problems: No - RENAL Hx Chronic Kidney Disease: No - ENDOCRINE/METABOLIC Hx Hypothyroidism: Yes - HEMATOLOGICAL/ONCOLOGICAL Hx Blood Disorders: No - INTEGUMENTARY Hx Dermatological Problems: No - MUSCULOSKELETAL/RHEUMATOLOGICAL Hx Musculoskeletal Disorders: No Hx Falls: Yes Other/Comment: Hx of muscle weakness - GASTROINTESTINAL Hx Gastrointestinal Disorders: Yes Hx Gastroesophageal Reflux: Yes - GENITOURINARY/GYNECOLOGICAL Hx Genitourinary Disorders: No - PSYCHIATRIC Hx Substance Use: No - SURGICAL HISTORY Other/Comment: Breast biopsy procedure 10/08/13 - ANESTHESIA Hx Anesthesia: Yes Hx Anesthesia Reactions: No Hx Malignant Hyperthermia: No Meds Allergies/Adverse Reactions: Allergies Allergy/AdvReac Type Severity Reaction Status Date / Time aspirin Allergy Verified 07/14/17 08:09 chicken derived Allergy Verified 07/14/17 08:09 orange Allergy Verified 07/14/17 08:09 peanut Allergy Verified 07/14/17 08:09 Penicillins Allergy Verified 07/14/17 08:09 rice Allergy Verified 07/14/17 08:09 tomato Allergy Verified 07/14/17 08:09 wheat Allergy Verified 07/14/17 08:09 chocolate Allergy Uncoded 07/14/17 08:09 cockroaches Allergy Uncoded 07/14/17 08:09 dairy products Allergy Uncoded 07/14/17 08:09 Dust Allergy Uncoded 07/14/17 08:09 Pollen Allergy Uncoded 07/14/17 08:09 seafood Allergy Uncoded 07/14/17 08:09 tomatoes Allergy Uncoded 07/14/17 08:09 - Medications Medications: Current Medications Albuterol/Ipratropium (Duoneb 3 Mg/0.5 Mg (3 Ml) Ud) 3 ml INH RQ6 [facility] Docusate Sodium (Colace) 100 mg PO DAILY [facility] Last Admin: 07/30/17 10:38 Dose: 100 mg Enoxaparin Sodium (Lovenox) 40 mg SC DAILY [facility] Last Admin: 07/30/17 10:38 Dose: 40 mg Insulin Aspart (Novolog) 0 unit SC ACHS JUSTO PRN Reason: Protocol Morphine Sulfate (Morphine) 2 mg SC Q4 PRN PRN Reason: Pain, moderate (4-7) Physical Exam - Constitutional Appears: Well, In Acute Distress Additional comments: distress only while adjusting sling - Head Exam Head Exam: ATRAUMATIC, NORMAL INSPECTION - Respiratory Exam Respiratory Exam: NORMAL BREATHING PATTERN - Expanded Upper Extremities Exam Right Shoulder exam: swelling Elbow exam: full ROM, normal inspection Forearm Wrist exam: full ROM, normal inspection Neuro motor exam: finger 2-5 abduction intact, thumb abduction, thumb IP flexion intact, thumb opposition intact, wrist extension intact Neurosensory exam: median nerve intact, radial nerve intact (sensation intact to lateral shoulder), ulnar nerve intact Vascular exam: radial pulse - Neurological Exam Additional comments: not oriented to time or place - Skin Skin Exam: Dry, Intact, Normal Color, Warm Results - Vital Signs Recent Vital Signs: Last Vital Signs Temp 97.9 F 07/30/17 07:30 Pulse 79 07/30/17 07:30 Resp 20 07/30/17 07:30 BP 156/77 H 07/30/17 07:30 Pulse Ox 98 07/30/17 07:30 - Labs Result Diagrams: 07/29/17 19:31 07/29/17 19:31 Labs: Laboratory Results - last 24 hr 07/29/17 07/29/17 07/29/17 19:31 19:31 21:43 WBC 8.6 RBC 3.47 L Hgb 10.3 L Hct 31.8 L MCV 91.5 MCH 29.7 MCHC 32.5 L RDW 14.7 H Plt Count 296 MPV 7.2 Neut % (Auto) 43.3 L Lymph % (Auto) 41.5 H [place] % (Auto) 14.5 H Eos % (Auto) 0.0 Baso % (Auto) 0.7 Neut # (Auto) 3.7 Lymph # (Auto) 3.6 [place] # (Auto) 1.2 H Eos # (Auto) 0.0 Baso # (Auto) 0.1 Sodium 138 Potassium 4.3 Chloride 100 Carbon Dioxide 25 Anion Gap 17 BUN 13 Creatinine 0.9 Est GFR ( Amer) > 60 Est GFR (Non-Af Amer) 60 POC Glucose (mg/dL) 121 H Random Glucose 141 H Calcium 9.0 Total Bilirubin 0.5 AST 22 ALT 23 Alkaline Phosphatase 83 Total Protein 6.9 Albumin 3.6 Globulin 3.3 Albumin/Globulin Ratio 1.1 07/30/17 06:28 WBC RBC Hgb Hct MCV MCH MCHC RDW Plt Count MPV Neut % (Auto) Lymph % (Auto) [place] % (Auto) Eos % (Auto) Baso % (Auto) Neut # (Auto) Lymph # (Auto) [place] # (Auto) Eos # (Auto) Baso # (Auto) Sodium Potassium Chloride Carbon Dioxide Anion Gap BUN Creatinine Est GFR ( Amer) Est GFR (Non-Af Amer) POC Glucose (mg/dL) 134 H Random Glucose Calcium Total Bilirubin AST ALT Alkaline Phosphatase Total Protein Albumin Globulin Albumin/Globulin Ratio - Impressions Impression: Accession No. : [id number] Patient Name / ID : MU MCCAIN / [id number] Exam Date : 07/30/2017 08:49:35 ( Approved ) Study Comment : Sex / Age : F / 81Y Creator : Aden Marshall MD Dictator : Aden Marshall MD Treating Machine Operator : Mold Yard Crane Operator : Aden Marshall MD Approver2 : Report Date : 07/30/2017 09:19:51 My Comment : PROCEDURE: CT right shoulder HISTORY: Right shoulder: right humeral neck fx COMPARISON: Not available TECHNIQUE: 2.5 mm contiguous axial sections were acquired through the right shoulder. Sagittal and coronal images were reformatted from the axial scan. FINDINGS: There is a comminuted angulated fracture of the right humeral neck with some impaction. There is severe posterior angulation of the humeral head. . There is mild impaction. There is fracture extending through the greater tuberosity. This is nondisplaced. The glenohumeral articulation is intact. The acromioclavicular articulation shows minimal degenerative arthritis. There is no lytic or blastic osseous lesions seen. IMPRESSION: Comminuted, angulated, impacted right humeral neck fracture with associated nondisplaced fracture of the greater tuberosity. Assessment & Plan (1) Closed fracture of neck of right humerus Assessment and Plan: CT reviewed with Dr. Gavin patient confused, unable to discuss options with patient sling ice pain medication PT/OT NWB RUE will follow and d/w family, per Dr. Gavin total shoulder replacement is indicated, will plan for OR 08/01 if family consents Status: Acute (2) Fall Status: Acute
[2017-07-30] MEDS ORDERED: guaiFENesin 100 mg/5 ml Syrup UD PO PRN (11:15)
[2017-07-30] MEDS: (Novolog) Insulin Aspart, Recombinant 100 u/ml 10 ml vial SC SCH ×3 (12:13→21:41)
[2017-07-30] MEDS: guaiFENesin 100 mg/5 ml Syrup UD PO SCH ×3 (12:30→21:53)
[2017-07-30] MEDS: Pantoprazole 20 mg EC Tab PO SCH (12:30)
[2017-07-30] MEDS: Metoprolol Succinate 50 mg XL Tab PO SCH (12:31)
[2017-07-30] MEDS: Albuterol-Ipratrop 3 mg / 0.5 (3 ml) UD INH SCH ×2 (13:27→19:33)
[2017-07-30 14:00] LABS: SQUAMOUS EPITHIAL < 1 /hpf (0-5); URINE BILIRUBIN NEGATIVE (NEGATIVE); URINE BLOOD NEGATIVE (NEGATIVE); URINE CLARITY Clear (Clear); URINE COLOR Yellow (YELLOW); URINE GLUCOSE (UA) NORMAL (Normal); URINE LEUKOCYTE ESTERASE NEG Leu/uL (Negative); URINE PROTEIN NEGATIVE (NEGATIVE); URINE UROBILINOGEN NORMAL mg/dL (0.2-1.0)
--- NOTE | 2017-07-30 16:31 | CP.PCM.CON ---
History of Present Illness - History of Present Illness History of Present Illness: Reason for consultation: history of asthma/COPD 81 year old female with History of asthma/COPD is brought to the ED by EMS from her longterm for evaluation of a non witnessed fall, c/o right shoulder pain. CAT scan of the shoulder consistent with closed fracture of neck of Rt humerus. Patient complaining of on and off shortness of breath but is a poor historian. denies fever or chills, denies chest pain Past Patient History - Infectious Disease Hx of Infectious Diseases: None - Past Medical History & Family History Past Medical History?: Yes Past Family History: Reviewed and not pertinent - Past Social History Smoking Status: Never Smoked - CARDIAC Hx Cardiac Disorders: Yes Hx Hypercholesterolemia: Yes Hx Hypertension: Yes - PULMONARY Hx Asthma: Yes Hx Chronic Obstructive Pulmonary Disease (COPD): Yes - NEUROLOGICAL Hx Neurological Disorder: No Other/Comment: Hx od hypo-osmolality and hyponatremia - HEENT Hx HEENT Problems: No - RENAL Hx Chronic Kidney Disease: No - ENDOCRINE/METABOLIC Hx Diabetes Mellitus Type 2: Yes - HEMATOLOGICAL/ONCOLOGICAL Hx Blood Disorders: No - INTEGUMENTARY Hx Dermatological Problems: No - MUSCULOSKELETAL/RHEUMATOLOGICAL Hx Musculoskeletal Disorders: No Hx Falls: Yes Other/Comment: Hx of muscle weakness - GASTROINTESTINAL Hx Gastrointestinal Disorders: Yes Hx Gastroesophageal Reflux: Yes - GENITOURINARY/GYNECOLOGICAL Hx Genitourinary Disorders: No - PSYCHIATRIC Hx Substance Use: No - SURGICAL HISTORY Other/Comment: Breast biopsy procedure 10/08/13 - ANESTHESIA Hx Anesthesia: Yes Hx Anesthesia Reactions: No Hx Malignant Hyperthermia: No Meds Allergies/Adverse Reactions: Allergies Allergy/AdvReac Type Severity Reaction Status Date / Time aspirin Allergy Verified 07/14/17 08:09 chicken derived Allergy Verified 07/14/17 08:09 orange Allergy Verified 07/14/17 08:09 peanut Allergy Verified 07/14/17 08:09 Penicillins Allergy Verified 07/14/17 08:09 rice Allergy Verified 07/14/17 08:09 tomato Allergy Verified 07/14/17 08:09 wheat Allergy Verified 07/14/17 08:09 chocolate Allergy Uncoded 07/14/17 08:09 cockroaches Allergy Uncoded 07/14/17 08:09 dairy products Allergy Uncoded 07/14/17 08:09 Dust Allergy Uncoded 07/14/17 08:09 Pollen Allergy Uncoded 07/14/17 08:09 seafood Allergy Uncoded 07/14/17 08:09 tomatoes Allergy Uncoded 07/14/17 08:09 - Medications Medications: Current Medications Acetaminophen (Tylenol 325mg Tab) 650 mg PO Q4H PRN PRN Reason: Fever >100.4 F; MILD-MODERATE Albuterol/Ipratropium (Duoneb 3 Mg/0.5 Mg (3 Ml) Ud) 3 ml INH RQ6 [facility] Last Admin: 07/30/17 13:27 Dose: 3 ml Alprazolam (Xanax) 0.25 mg PO BID PRN PRN Reason: Anxiety Stop: 08/06/17 18:01 Docusate Sodium (Colace) 100 mg PO DAILY [facility] Last Admin: 07/30/17 10:38 Dose: 100 mg Enoxaparin Sodium (Lovenox) 40 mg SC DAILY [facility] Last Admin: 07/30/17 10:38 Dose: 40 mg Guaifenesin (Robitussin) 200 mg PO Q4H [facility] Last Admin: 07/30/17 12:30 Dose: 200 mg Insulin Aspart (Novolog) 0 unit SC [facility] PRN Reason: Protocol Last Admin: 07/30/17 12:13 Dose: Not Given Insulin Glargine (Lantus) 12 unit SC HS [facility] Levothyroxine Sodium (Synthroid) 88 mcg PO ACB [facility] Metoprolol Succinate (Toprol Xl) 50 mg PO DAILY [facility] Last Admin: 07/30/17 12:31 Dose: 50 mg Montelukast Sodium (Singulair) 10 mg PO HS [facility] Morphine Sulfate (Morphine) 2 mg SC Q4 PRN PRN Reason: Pain, moderate (4-7) Pantoprazole Sodium (Protonix Ec Tab) 20 mg PO DAILY [facility] Last Admin: 07/30/17 12:30 Dose: 20 mg Rosuvastatin Calcium (Crestor) 5 mg PO HS [facility] Sennosides (Senokot Tab) 17.2 mg PO HS [facility] Physical Exam - Head Exam Head Exam: ATRAUMATIC, NORMOCEPHALIC - Eye Exam Eye Exam: Normal appearance - ENT Exam ENT Exam: Mucous Membranes Moist - Neck Exam Neck exam: Positive for: Normal Inspection - Respiratory Exam Respiratory Exam: Decreased Breath Sounds - Cardiovascular Exam Cardiovascular Exam: REGULAR RHYTHM - GI/Abdominal Exam GI & Abdominal Exam: Normal Bowel Sounds, Soft - Extremities Exam Extremities exam: Positive for: normal inspection Results - Vital Signs Recent Vital Signs: Last Vital Signs Temp 98.9 F 07/30/17 15:06 Pulse 80 07/30/17 15:06 Resp 20 07/30/17 15:06 BP 139/64 07/30/17 15:06 Pulse Ox 99 07/30/17 15:06 - Labs Result Diagrams: 07/29/17 19:31 07/29/17 19:31 Labs: Laboratory Results - last 24 hr 07/29/17 07/29/17 07/29/17 13:51 19:31 19:31 WBC 8.6 RBC 3.47 L Hgb 10.3 L Hct 31.8 L MCV 91.5 MCH 29.7 MCHC 32.5 L RDW 14.7 H Plt Count 296 MPV 7.2 Neut % (Auto) 43.3 L Lymph % (Auto) 41.5 H Wheeler % (Auto) 14.5 H Eos % (Auto) 0.0 Baso % (Auto) 0.7 Neut # (Auto) 3.7 Lymph # (Auto) 3.6 Wheeler # (Auto) 1.2 H Eos # (Auto) 0.0 Baso # (Auto) 0.1 Sodium 138 Potassium 4.3 Chloride 100 Carbon Dioxide 25 Anion Gap 17 BUN 13 Creatinine 0.9 Est GFR ( Amer) > 60 Est GFR (Non-Af Amer) 60 POC Glucose (mg/dL) Random Glucose 141 H Calcium 9.0 Total Bilirubin 0.5 AST 22 ALT 23 Alkaline Phosphatase 83 Total Protein 6.9 Albumin 3.6 Globulin 3.3 Albumin/Globulin Ratio 1.1 Urine Color Yellow Urine Clarity Clear Urine pH 6.0 Ur Specific Arco 1.013 Urine Protein Negative Urine Glucose (UA) Normal Urine Ketones Negative Urine Blood Negative Urine Nitrate Negative Urine Bilirubin Negative Urine Urobilinogen Normal Ur Leukocyte Esterase Neg Urine WBC (Auto) < 1 Urine RBC (Auto) < 1 Ur Squamous Epith Cells < 1 07/29/17 07/30/17 07/30/17 21:43 06:28 11:18 WBC RBC Hgb Hct MCV MCH MCHC RDW Plt Count MPV Neut % (Auto) Lymph % (Auto) Wheeler % (Auto) Eos % (Auto) Baso % (Auto) Neut # (Auto) Lymph # (Auto) Wheeler # (Auto) Eos # (Auto) Baso # (Auto) Sodium Potassium Chloride Carbon Dioxide Anion Gap BUN Creatinine Est GFR ( Amer) Est GFR (Non-Af Amer) POC Glucose (mg/dL) 121 H 134 H 130 H Random Glucose Calcium Total Bilirubin AST ALT Alkaline Phosphatase Total Protein Albumin Globulin Albumin/Globulin Ratio Urine Color Urine Clarity Urine pH Ur Specific Arco Urine Protein Urine Glucose (UA) Urine Ketones Urine Blood Urine Nitrate Urine Bilirubin Urine Urobilinogen Ur Leukocyte Esterase Urine WBC (Auto) Urine RBC (Auto) Ur Squamous Epith Cells Assessment & Plan (1) History of asthma Status: Acute Comment: patient lying comfortably in no respiratory distress. Continue nebulizer treatment. ABG on room air (2) Closed fracture of neck of right humerus Status: Acute
[2017-07-30] MEDS: (Lantus) Insulin Glargine, Recombinant SC SCH (21:54)
[2017-07-31] MEDS: guaiFENesin 100 mg/5 ml Syrup UD PO SCH ×6 (00:05→21:53)
[2017-07-31] MEDS: Albuterol-Ipratrop 3 mg / 0.5 (3 ml) UD INH SCH ×4 (01:20→19:43)
--- NOTE | 2017-07-31 02:22 | CP.PCM.PN ---
Subjective - Date & Time of Evaluation Date of Evaluation: 07/30/17 Time of Evaluation: 19:00 - Subjective Subjective: Pt seen and evaluated Objective - Vital Signs/Intake and Output Vital Signs (last 24 hours): Temp Pulse Resp BP Pulse Ox 98.9 F 80 20 139/64 99 07/30/17 15:06 07/30/17 15:06 07/30/17 15:06 07/30/17 15:06 07/30/17 15:06 Intake and Output: 07/30/17 07/31/17 18:59 06:59 Intake Total 480 420 Output Total 1000 700 Balance -520 -280 - Medications Medications: Current Medications Acetaminophen (Tylenol 325mg Tab) 650 mg PO Q4H PRN PRN Reason: Fever >100.4 F; MILD-MODERATE Albuterol/Ipratropium (Duoneb 3 Mg/0.5 Mg (3 Ml) Ud) 3 ml INH RQ6 [facility] Last Admin: 07/31/17 01:20 Dose: 3 ml Alprazolam (Xanax) 0.25 mg PO BID PRN PRN Reason: Anxiety Stop: 08/06/17 18:01 Docusate Sodium (Colace) 100 mg PO DAILY [facility] Last Admin: 07/30/17 10:38 Dose: 100 mg Enoxaparin Sodium (Lovenox) 40 mg SC DAILY [facility] Last Admin: 07/30/17 10:38 Dose: 40 mg Guaifenesin (Robitussin) 200 mg PO Q4H [facility] Last Admin: 07/30/17 21:53 Dose: 200 mg Insulin Aspart (Novolog) 0 unit SC ACHS [facility] PRN Reason: Protocol Last Admin: 07/30/17 21:41 Dose: Not Given Insulin Glargine (Lantus) 12 unit SC HS [facility] Last Admin: 07/30/17 21:54 Dose: 12 units Levothyroxine Sodium (Synthroid) 88 mcg PO ACB [facility] Metoprolol Succinate (Toprol Xl) 50 mg PO DAILY [facility] Last Admin: 07/30/17 12:31 Dose: 50 mg Montelukast Sodium (Singulair) 10 mg PO HS [facility] Last Admin: 07/30/17 21:50 Dose: 10 mg Morphine Sulfate (Morphine) 2 mg SC Q4 PRN PRN Reason: Pain, moderate (4-7) Pantoprazole Sodium (Protonix Ec Tab) 20 mg PO DAILY [facility] Last Admin: 07/30/17 12:30 Dose: 20 mg Rosuvastatin Calcium (Crestor) 5 mg PO HS [facility] Last Admin: 07/30/17 21:50 Dose: 5 mg Sennosides (Senokot Tab) 17.2 mg PO HS [facility] Last Admin: 07/30/17 23:22 Dose: 17.2 mg - Labs Labs: 07/29/17 19:31 07/29/17 19:31
[2017-07-31] MEDS: Levothyroxine 88 MCG TAB PO SCH (06:37)
[2017-07-31] MEDS: (Novolog) Insulin Aspart, Recombinant 100 u/ml 10 ml vial SC SCH ×4 (07:57→21:54)
--- NOTE | 2017-07-31 08:32 | RAD ---
HISTORY: fever COMPARISON: 06/13/2017. FINDINGS: LUNGS: The lungs are well inflated. There is a triangular opacity in the right lower lobe. There is bibasilar atelectasis in the left lung. PLEURA: No significant pleural effusion identified, no pneumothorax apparent. CARDIOVASCULAR: The heart is normal in size. Atherosclerotic aortic arch calcifications are present. OSSEOUS STRUCTURES: No significant abnormalities. VISUALIZED UPPER ABDOMEN: Normal. OTHER FINDINGS: None. IMPRESSION: Suspect right lower lobe pneumonia. Follow-up is advised.
[2017-07-31] MEDS ORDERED: Vancomycin 1 gm/NS 200 ml 1 GM/200 ML BAG IVPB ONE (09:00)
--- NOTE | 2017-07-31 09:13 | CP.PCM.PN ---
Subjective - Date & Time of Evaluation Date of Evaluation: 07/31/17 Time of Evaluation: 08:58 - Subjective Subjective: Patient seen and examined with Dr. Gavin Patient confused. Does not answer questions today. Case discussed at length with Jules Mancilla, patient's brother and next of kin. Risks/benefits/alternatives of total shoulder replacement vs conservative treatment of fracture in sling. Mr. Mancilla states he had discussion with Dr. Montanez, and he feels risks of surgery outweigh benefits and refuses surgery. Review of Systems - Review of Systems Systems not reviewed;Unavailable: Dementia Objective - Vital Signs/Intake and Output Vital Signs (last 24 hours): Temp Pulse Resp BP Pulse Ox 101.1 F H 91 H 20 152/69 H 94 L 07/31/17 07:00 07/31/17 07:00 07/31/17 07:00 07/31/17 07:00 07/31/17 07:00 Intake and Output: 07/31/17 07/31/17 06:59 18:59 Intake Total 420 Output Total 1400 Balance -980 - Medications Medications: Current Medications Acetaminophen (Tylenol 325mg Tab) 650 mg PO Q4H PRN PRN Reason: Fever >100.4 F; MILD-MODERATE Acetaminophen (Tylenol 650 Mg Supp) 650 mg [place] Q6 PRN PRN Reason: Temperature Albuterol/Ipratropium (Duoneb 3 Mg/0.5 Mg (3 Ml) Ud) 3 ml INH RQ6 [facility] Last Admin: 07/31/17 08:21 Dose: 3 ml Alprazolam (Xanax) 0.25 mg PO BID PRN PRN Reason: Anxiety Stop: 08/06/17 18:01 Docusate Sodium (Colace) 100 mg PO DAILY [facility] Last Admin: 07/30/17 10:38 Dose: 100 mg Enoxaparin Sodium (Lovenox) 40 mg SC DAILY [facility] Last Admin: 07/30/17 10:38 Dose: 40 mg Guaifenesin (Robitussin) 200 mg PO Q4H [facility] Last Admin: 07/31/17 05:04 Dose: 200 mg Vancomycin/Sodium Chloride (Vancomycin 1 Gm/Ns 200 Ml) 1 gm in 200 mls @ 133.333 mls/hr IVPB ONCE ONE PRN Reason: Protocol Stop: 07/31/17 10:29 Azithromycin 500 mg/ Sodium (Chloride) 250 mls @ 166.667 mls/hr IVPB Q24H [facility] PRN Reason: Protocol Insulin Aspart (Novolog) 0 unit SC ACHS [facility] PRN Reason: Protocol Last Admin: 07/31/17 07:57 Dose: Not Given Insulin Glargine (Lantus) 12 unit SC HS [facility] Last Admin: 07/30/17 21:54 Dose: 12 units Levothyroxine Sodium (Synthroid) 88 mcg PO ACB [facility] Last Admin: 07/31/17 06:37 Dose: 88 mcg Metoprolol Succinate (Toprol Xl) 50 mg PO DAILY [facility] Last Admin: 07/30/17 12:31 Dose: 50 mg Montelukast Sodium (Singulair) [address] [facility] Last Admin: 07/30/17 21:50 Dose: 10 mg Morphine Sulfate (Morphine) 2 mg SC Q4 PRN PRN Reason: Pain, moderate (4-7) Pantoprazole Sodium (Protonix Ec Tab) 20 mg PO DAILY [facility] Last Admin: 07/30/17 12:30 Dose: 20 mg Rosuvastatin Calcium (Crestor) [address] [facility] Last Admin: 07/30/17 21:50 Dose: 5 mg Sennosides (Senokot Tab) 17.[address] [facility] Last Admin: 07/30/17 23:22 Dose: 17.2 mg - Labs Labs: 18 19:31 18 19:31 - Constitutional Appears: Confused - Head Exam Head Exam: ATRAUMATIC - Respiratory Exam Respiratory Exam: NORMAL BREATHING PATTERN - Cardiovascular Exam Additional comments: +radial pulse - Extremities Exam Additional comments: +ROM fingers/wrist reacts to light touch sling intact - Neurological Exam Neurological Exam: Awake Neuro motor strength exam: Right Lower Extremity: 5 - Skin Skin Exam: Dry, Intact, Normal Color, Warm Additional comments: noted swelling to shoulder Assessment and Plan (1) Closed fracture of neck of right humerus Assessment & Plan: conservative treatment/sling as brother refused surgical intervention PT/OT orthopedically stable for d/c back to [place] sling ice pain medication prn Dr. Gavin notified of above, agrees. Status: Acute (2) Fall Status: Acute
[2017-07-31] MEDS: Pantoprazole 20 mg EC Tab PO SCH (09:43)
[2017-07-31] MEDS: Metoprolol Succinate 50 mg XL Tab PO SCH (09:43)
[2017-07-31] MEDS: Enoxaparin 60 mg Syringe SC SCH (10:30)
[2017-07-31 10:40] LABS: URINE BACTERIA RARE (<OCC); URINE BILIRUBIN NEGATIVE (NEGATIVE); URINE BLOOD NEGATIVE (NEGATIVE); URINE COLOR Straw (YELLOW); URINE GLUCOSE (UA) NORMAL (Normal); URINE LEUKOCYTE ESTERASE 2+ Leu/uL (Negative); URINE PROTEIN NEGATIVE (NEGATIVE); URINE UROBILINOGEN NORMAL mg/dL (0.2-1.0)
[2017-07-31 10:42] LABS: URINE CLARITY SLHAZY (Clear)
--- NOTE | 2017-07-31 14:26 | CP.PCM.PN ---
Subjective - Date & Time of Evaluation Date of Evaluation: 07/31/17 Time of Evaluation: 12:00 - Subjective Subjective: patient seen and examined Patient is lying comfortably in no respiratory distress Afebrile patient is confused Objective - Vital Signs/Intake and Output Vital Signs (last 24 hours): Temp Pulse Resp BP Pulse Ox 101.1 F H 91 H 20 152/69 H 94 L 07/31/17 07:00 07/31/17 07:00 07/31/17 07:00 07/31/17 07:00 07/31/17 07:00 Intake and Output: 07/31/17 07/31/17 06:59 18:59 Intake Total 420 Output Total 1400 Balance -980 - Medications Medications: Current Medications Acetaminophen (Tylenol 325mg Tab) 650 mg PO Q4H PRN PRN Reason: Fever >100.4 F; MILD-MODERATE Acetaminophen (Tylenol 650 Mg Supp) [address] Q6 PRN PRN Reason: Temperature Albuterol/Ipratropium (Duoneb 3 Mg/0.5 Mg (3 Ml) Ud) 3 ml INH RQ6 [facility] Last Admin: 07/31/17 13:38 Dose: 3 ml Alprazolam (Xanax) 0.25 mg PO BID PRN PRN Reason: Anxiety Stop: 08/06/17 18:01 Docusate Sodium (Colace) 100 mg PO DAILY [facility] Last Admin: 07/31/17 09:43 Dose: 100 mg Enoxaparin Sodium (Lovenox) 40 mg SC DAILY [facility] Last Admin: 07/30/17 10:38 Dose: 40 mg Guaifenesin (Robitussin) 200 mg PO Q4H [facility] Last Admin: 07/31/17 08:43 Dose: 200 mg Azithromycin 500 mg/ Sodium (Chloride) 250 mls @ 166.667 mls/hr IVPB Q24H [facility] PRN Reason: Protocol Insulin Aspart (Novolog) 0 unit SC ACHS [facility] PRN Reason: Protocol Last Admin: 07/31/17 12:10 Dose: Not Given Insulin Glargine (Lantus) 12 unit SC HS [facility] Last Admin: 07/30/17 21:54 Dose: 12 units Levothyroxine Sodium (Synthroid) 88 mcg PO ACB [facility] Last Admin: 07/31/17 06:37 Dose: 88 mcg Metoprolol Succinate (Toprol Xl) 50 mg PO DAILY [facility] Last Admin: 07/31/17 09:43 Dose: 50 mg Montelukast Sodium (Singulair) 10 mg PO [facility] Last Admin: 07/30/17 21:50 Dose: 10 mg Morphine Sulfate (Morphine) 2 mg SC Q4 PRN PRN Reason: Pain, moderate (4-7) Pantoprazole Sodium (Protonix Ec Tab) 20 mg PO DAILY [facility] Last Admin: 07/31/17 09:43 Dose: 20 mg Rosuvastatin Calcium (Crestor) 5 mg PO [facility] Last Admin: 07/30/17 21:50 Dose: 5 mg Sennosides (Senokot Tab) 17.2 mg PO [facility] Last Admin: 07/30/17 23:22 Dose: 17.2 mg - Labs Labs: 07/29/17 19:31 07/29/17 19:31 - Head Exam Head Exam: ATRAUMATIC, NORMOCEPHALIC - ENT Exam ENT Exam: Mucous Membranes Moist - Neck Exam Neck Exam: Normal Inspection - Respiratory Exam Respiratory Exam: Clear to Ausculation Bilateral - Cardiovascular Exam Cardiovascular Exam: REGULAR RHYTHM - GI/Abdominal Exam GI & Abdominal Exam: Soft, Normal Bowel Sounds Assessment and Plan (1) History of asthma Assessment & Plan: cont nebulizer treatment Status: Acute (2) Closed fracture of neck of right humerus Assessment & Plan: refused surgery Status: Acute
[2017-07-31] MEDS ORDERED: Azithromycin 500 MG in Sodium Chloride 0.9% 250 ML IVPB SCH (18:00)
[2017-07-31] MEDS: (Lantus) Insulin Glargine, Recombinant SC SCH (22:00)
--- NOTE | 2017-07-31 22:51 | CP.PCM.PN ---
Subjective - Date & Time of Evaluation Date of Evaluation: 07/31/17 Time of Evaluation: 19:00 - Subjective Subjective: patient seen and examined Patient is lying comfortably in no respiratory distress Afebrile patient is confused Objective - Vital Signs/Intake and Output Vital Signs (last 24 hours): Temp Pulse Resp BP Pulse Ox 99.6 F 86 20 125/67 94 L 07/31/17 15:07 07/31/17 15:07 07/31/17 15:07 07/31/17 15:07 07/31/17 15:07 Intake and Output: 07/31/17 08/01/17 18:59 06:59 Intake Total 620 Output Total 1000 800 Balance -380 -800 - Medications Medications: Current Medications Acetaminophen (Tylenol 325mg Tab) 650 mg PO Q4H PRN PRN Reason: Fever >100.4 F; MILD-MODERATE Acetaminophen (Tylenol 650 Mg Supp) [address] Q6 PRN PRN Reason: Temperature Albuterol/Ipratropium (Duoneb 3 Mg/0.5 Mg (3 Ml) Ud) 3 ml INH RQ6 [facility] Last Admin: 07/31/17 19:43 Dose: 3 ml Alprazolam (Xanax) 0.25 mg PO BID PRN PRN Reason: Anxiety Stop: 08/06/17 18:01 Docusate Sodium (Colace) 100 mg PO DAILY [facility] Last Admin: 07/31/17 09:43 Dose: 100 mg Enoxaparin Sodium (Lovenox) 40 mg SC DAILY [facility] Last Admin: 07/31/17 10:30 Dose: 40 mg Guaifenesin (Robitussin) 200 mg PO Q4H [facility] Last Admin: 07/31/17 21:53 Dose: 200 mg Azithromycin 500 mg/ Sodium (Chloride) 250 mls @ 166.667 mls/hr IVPB Q24H [facility] PRN Reason: Protocol Last Admin: 07/31/17 22:27 Dose: 166.667 mls/hr Insulin Aspart (Novolog) 0 unit SC ACHS [facility] PRN Reason: Protocol Last Admin: 07/31/17 21:54 Dose: Not Given Insulin Glargine (Lantus) 12 unit SC HS [facility] Last Admin: 07/31/17 22:00 Dose: 12 units Levothyroxine Sodium (Synthroid) 88 mcg PO ACB [facility] Last Admin: 07/31/17 06:37 Dose: 88 mcg Metoprolol Succinate (Toprol Xl) 50 mg PO DAILY [facility] Last Admin: 07/31/17 09:43 Dose: 50 mg Montelukast Sodium (Singulair) 10 mg PO HS [facility] Last Admin: 07/31/17 21:54 Dose: 10 mg Morphine Sulfate (Morphine) 2 mg SC Q4 PRN PRN Reason: Pain, moderate (4-7) Pantoprazole Sodium (Protonix Ec Tab) 20 mg PO DAILY [facility] Last Admin: 07/31/17 09:43 Dose: 20 mg Rosuvastatin Calcium (Crestor) 5 mg PO HS [facility] Last Admin: 07/31/17 21:53 Dose: 5 mg Sennosides (Senokot Tab) 17.2 mg PO HS [facility] Last Admin: 07/31/17 21:53 Dose: 17.2 mg - Labs Labs: 07/29/17 19:31 07/29/17 19:31
[2017-08-01] MEDS: guaiFENesin 100 mg/5 ml Syrup UD PO SCH ×4 (01:07→12:35)
[2017-08-01] MEDS: Albuterol-Ipratrop 3 mg / 0.5 (3 ml) UD INH SCH ×4 (01:54→20:01)
[2017-08-01 07:21] LABS: BLOOD UREA NITROGEN 12 mg/dL (7-17); CALCIUM 8.7 mg/dl (8.6-10.4); GFR AFRICAN-AMERICAN > 60; GFR NON-AFRICAN AMERICAN > 60
[2017-08-01 07:24] LABS: BASO % 0.5 % (0.0-2.0); HEMOGLOBIN 9.4 g/dL (11.0-16.0); LYMPH # 3.9 K/uL (1.0-4.3); LYMPH % 39.9 % (20.0-40.0); MEAN CELL VOLUME 89.7 fL (81.0-99.0); MEAN CORPUSCULAR HEMOGLOBIN 30.2 pg (27.0-31.0); MEAN CORPUSCULAR HGB CONC 33.7 g/dL (33.0-37.0); MEAN PLATELET VOLUME 7.7 fL (7.2-11.7); MONO % 20.5 % (0.0-10.0); NEUT # 3.8 K/uL (1.8-7.0); NEUT % 39.1 % (50.0-75.0); PLATELET COUNT 232 K/uL (130-400); RBC 3.09 Mil/uL (3.80-5.20); RED CELL DISTRIBUTION WIDTH 14.2 % (11.5-14.5); WHITE BLOOD COUNT 9.7 K/uL (4.8-10.8)
[2017-08-01] MEDS: (Novolog) Insulin Aspart, Recombinant 100 u/ml 10 ml vial SC SCH ×4 (07:42→21:40)
[2017-08-01] MEDS: Levothyroxine 88 MCG TAB PO SCH (07:53)
[2017-08-01 08:33] LABS: BANDS 2 % (0-2); LYMPHOCYTE 63 % (20-40); MONOCYTE 10 % (0-10); NEUTROPHIL 25 % (50-75); TOTAL CELLS COUNTED 100
[2017-08-01 08:34] LABS: PLATELET ESTIMATE NORMAL (NORMAL)
[2017-08-01 08:35] LABS: HYPOCHROMIC SLIGHT; POLYCHROMIC SLIGHT
--- NOTE | 2017-08-01 08:36 | CP.PCM.PN ---
Subjective - Date & Time of Evaluation Date of Evaluation: 08/01/17 Time of Evaluation: 08:31 - Subjective Subjective: Patient more awake today. Follows commands. Doesn't answer questions. Review of Systems - Review of Systems Systems not reviewed;Unavailable: Dementia Objective - Vital Signs/Intake and Output Vital Signs (last 24 hours): Temp Pulse Resp BP Pulse Ox 98.0 F 85 20 125/71 98 08/01/17 08:22 08/01/17 08:22 08/01/17 08:22 08/01/17 08:22 08/01/17 08:22 Intake and Output: 08/01/17 08/01/17 06:59 18:59 Intake Total 730 Output Total 1800 Balance -1070 - Medications Medications: Current Medications Acetaminophen (Tylenol 325mg Tab) 650 mg PO Q4H PRN PRN Reason: Fever >100.4 F; MILD-MODERATE Acetaminophen (Tylenol 650 Mg Supp) 650 mg [place] Q6 PRN PRN Reason: Temperature Albuterol/Ipratropium (Duoneb 3 Mg/0.5 Mg (3 Ml) Ud) 3 ml INH RQ6 [facility] Last Admin: 08/01/17 08:03 Dose: 3 ml Alprazolam (Xanax) 0.25 mg PO BID PRN PRN Reason: Anxiety Stop: 08/06/17 18:01 Docusate Sodium (Colace) 100 mg PO DAILY [facility] Last Admin: 07/31/17 09:43 Dose: 100 mg Enoxaparin Sodium (Lovenox) 40 mg SC DAILY [facility] Last Admin: 07/31/17 10:30 Dose: 40 mg Guaifenesin (Robitussin) 200 mg PO Q4H [facility] Last Admin: 08/01/17 05:00 Dose: Not Given Azithromycin 500 mg/ Sodium (Chloride) 250 mls @ 166.667 mls/hr IVPB Q24H [facility] PRN Reason: Protocol Last Admin: 07/31/17 22:27 Dose: 166.667 mls/hr Insulin Aspart (Novolog) 0 unit SC ACHS [facility] PRN Reason: Protocol Last Admin: 08/01/17 07:42 Dose: Not Given Insulin Glargine (Lantus) 12 unit SC HS [facility] Last Admin: 07/31/17 22:00 Dose: 12 units Levothyroxine Sodium (Synthroid) 88 mcg PO ACB [facility] Last Admin: 08/01/17 07:53 Dose: 88 mcg Metoprolol Succinate (Toprol Xl) 50 mg PO DAILY [facility] Last Admin: 07/31/17 09:43 Dose: 50 mg Montelukast Sodium (Singulair) [address] [facility] Last Admin: 07/31/17 21:54 Dose: 10 mg Morphine Sulfate (Morphine) 2 mg SC Q4 PRN PRN Reason: Pain, moderate (4-7) Pantoprazole Sodium (Protonix Ec Tab) 20 mg PO DAILY [facility] Last Admin: 07/31/17 09:43 Dose: 20 mg Rosuvastatin Calcium (Crestor) 5 mg PO [facility] Last Admin: 07/31/17 21:53 Dose: 5 mg Sennosides (Senokot Tab) 17.2 mg PO [facility] Last Admin: 07/31/17 21:53 Dose: 17.2 mg - Labs Labs: 08/01/17 07:00 08/01/17 07:00 - Constitutional Appears: Well, No Acute Distress - Head Exam Head Exam: ATRAUMATIC - Respiratory Exam Respiratory Exam: NORMAL BREATHING PATTERN - Extremities Exam Additional comments: sensation intact +radial pulse sling adjusted - Neurological Exam Neurological Exam: Alert, Awake, Oriented x3 Neuro motor strength exam: Right Upper Extremity: 5 (+ROM fingers/wrist) - Psychiatric Exam Psychiatric exam: Normal Affect, Normal Mood - Skin Skin Exam: Dry, Intact, Normal Color, Warm Assessment and Plan (1) Closed fracture of neck of right humerus Assessment & Plan: conservative management of fracture as per family request sling pain meds orthopedically stable for return to [place] patient to follow up with Dr. Gavin as outpatient approx 2 weeks [phone] d/w Dr. Gavin, agrees with above Status: Acute (2) Fall Status: Acute
[2017-08-01] MEDS: Pantoprazole 20 mg EC Tab PO SCH (09:50)
[2017-08-01] MEDS: Enoxaparin 60 mg Syringe SC SCH (09:58)
[2017-08-01] MEDS: Metoprolol Succinate 50 mg XL Tab PO SCH (10:00)
[2017-08-01] MEDS: Ciprofloxacin 200mg/100ml D5W 100 ML IVPB SCH (13:43)
--- NOTE | 2017-08-01 16:41 | CP.PCM.PN ---
Subjective - Date & Time of Evaluation Date of Evaluation: 08/01/17 Time of Evaluation: 11:00 - Subjective Subjective: Patient seen and examined at bedside today Patient is lying comfortably in no respiratory distress Afebrile On supplemental oxygen Assessment/Plan: 1. History of asthma -Continue nebulizer treatment -Continue Singulair -Continue Robitussin 2. Closed fracture of neck of right humerus - refused surgery -Management per surgical team Objective - Vital Signs/Intake and Output Vital Signs (last 24 hours): Temp Pulse Resp BP Pulse Ox 97.3 F L 87 20 113/71 99 08/01/17 15:17 08/01/17 15:17 08/01/17 15:17 08/01/17 15:17 08/01/17 15:17 Intake and Output: 08/01/17 08/01/17 06:59 18:59 Intake Total 730 Output Total 1800 Balance -1070 - Medications Medications: Current Medications Acetaminophen (Tylenol 325mg Tab) 650 mg PO Q4H PRN PRN Reason: Fever >100.4 F; MILD-MODERATE Acetaminophen (Tylenol 650 Mg Supp) 650 mg [place] Q6 PRN PRN Reason: Temperature Albuterol/Ipratropium (Duoneb 3 Mg/0.5 Mg (3 Ml) Ud) 3 ml INH RQ6 [facility] Last Admin: 08/01/17 13:42 Dose: 3 ml Alprazolam (Xanax) 0.25 mg PO BID PRN PRN Reason: Anxiety Stop: 08/06/17 18:01 Docusate Sodium (Colace) 100 mg PO DAILY [facility] Last Admin: 08/01/17 10:01 Dose: 100 mg Enoxaparin Sodium (Lovenox) 40 mg SC DAILY [facility] Last Admin: 08/01/17 09:58 Dose: 40 mg Guaifenesin (Robitussin) 200 mg PO Q4H [facility] Last Admin: 08/01/17 12:35 Dose: 200 mg Ciprofloxacin (Cipro 200mg/100ml D5w) 100 mls @ 67 mls/hr IVPB Q12H [facility] PRN Reason: Protocol Last Admin: 08/01/17 13:43 Dose: 67 mls/hr Insulin Aspart (Novolog) 0 unit SC ACHS [facility] PRN Reason: Protocol Last Admin: 08/01/17 12:25 Dose: 2 unit Insulin Glargine (Lantus) 12 unit SC [facility] Last Admin: 07/31/17 22:00 Dose: 12 units Levothyroxine Sodium (Synthroid) 88 mcg PO ACB [facility] Last Admin: 08/01/17 07:53 Dose: 88 mcg Metoprolol Succinate (Toprol Xl) 50 mg PO DAILY [facility] Last Admin: 08/01/17 10:00 Dose: 50 mg Montelukast Sodium (Singulair) 10 mg PO [facility] Last Admin: 07/31/17 21:54 Dose: 10 mg Morphine Sulfate (Morphine) 2 mg SC Q4 PRN PRN Reason: Pain, moderate (4-7) Pantoprazole Sodium (Protonix Ec Tab) 20 mg PO DAILY [facility] Last Admin: 08/01/17 09:50 Dose: 20 mg Rosuvastatin Calcium (Crestor) 5 mg PO [facility] Last Admin: 07/31/17 21:53 Dose: 5 mg Sennosides (Senokot Tab) 17.2 mg PO [facility] Last Admin: 07/31/17 21:53 Dose: 17.2 mg - Labs Labs: 08/01/17 07:00 08/01/17 07:00 Assessment and Plan (1) History of asthma Status: Acute (2) Closed fracture of neck of right humerus Status: Acute
[2017-08-01] MEDS ORDERED: guaiFENesin 200 mg/10 ml Syrup UD PO PRN (17:05)
[2017-08-01] MEDS: (Lantus) Insulin Glargine, Recombinant SC SCH (21:39)
--- NOTE | 2017-08-01 22:50 | CP.PCM.PN ---
Subjective - Date & Time of Evaluation Date of Evaluation: 08/01/17 Time of Evaluation: 20:00 - Subjective Subjective: Pt seeb and examined, , pt is coughing and is congested, she has low grade fever , she is on antibiotics, no nausea, she gets confused at times, i had prolong discussion with pt sister and based on risk associated with surgery she dont want any intervention on pt right shoulder Objective - Vital Signs/Intake and Output Vital Signs (last 24 hours): Temp Pulse Resp BP Pulse Ox 97.3 F L 87 20 113/71 99 08/01/17 15:17 08/01/17 15:17 08/01/17 15:17 08/01/17 15:17 08/01/17 15:17 Intake and Output: 08/01/17 08/02/17 18:59 06:59 Intake Total 580 Output Total 325 Balance 255 - Medications Medications: Current Medications Acetaminophen (Tylenol 325mg Tab) 650 mg PO Q4H PRN PRN Reason: Fever >100.4 F; MILD-MODERATE Acetaminophen (Tylenol 650 Mg Supp) 650 mg [place] Q6 PRN PRN Reason: Temperature Albuterol/Ipratropium (Duoneb 3 Mg/0.5 Mg (3 Ml) Ud) 3 ml INH RQ6 [facility] Last Admin: 08/01/17 20:01 Dose: 3 ml Alprazolam (Xanax) 0.25 mg PO BID PRN PRN Reason: Anxiety Stop: 08/06/17 18:01 Docusate Sodium (Colace) 100 mg PO DAILY [facility] Last Admin: 08/01/17 10:01 Dose: 100 mg Enoxaparin Sodium (Lovenox) 40 mg SC DAILY [facility] Last Admin: 08/01/17 09:58 Dose: 40 mg Guaifenesin (Robitussin) 200 mg PO Q4H PRN PRN Reason: Cough and congestion Ciprofloxacin (Cipro 200mg/100ml D5w) 100 mls @ 67 mls/hr IVPB Q12H [facility] PRN Reason: Protocol Last Admin: 08/01/17 13:43 Dose: 67 mls/hr Insulin Aspart (Novolog) 0 unit SC ACHS [facility] PRN Reason: Protocol Last Admin: 08/01/17 21:40 Dose: Not Given Insulin Glargine (Lantus) 12 unit SC HS [facility] Last Admin: 08/01/17 21:39 Dose: 12 units Levothyroxine Sodium (Synthroid) 88 mcg PO ACB [facility] Last Admin: 08/01/17 07:53 Dose: 88 mcg Metoprolol Succinate (Toprol Xl) 50 mg PO DAILY [facility] Last Admin: 08/01/17 10:00 Dose: 50 mg Montelukast Sodium (Singulair) 10 mg PO [facility] Last Admin: 08/01/17 21:39 Dose: 10 mg Morphine Sulfate (Morphine) 2 mg SC Q4 PRN PRN Reason: Pain, moderate (4-7) Pantoprazole Sodium (Protonix Ec Tab) 20 mg PO DAILY [facility] Last Admin: 08/01/17 09:50 Dose: 20 mg Rosuvastatin Calcium (Crestor) 5 mg PO [facility] Last Admin: 08/01/17 21:39 Dose: 5 mg Sennosides (Senokot Tab) 17.2 mg PO [facility] Last Admin: 08/01/17 21:39 Dose: 17.2 mg - Labs Labs: 08/01/17 07:00 08/01/17 07:00 - Constitutional Appears: No Acute Distress - Head Exam Head Exam: ATRAUMATIC, NORMAL INSPECTION, NORMOCEPHALIC - Eye Exam Eye Exam: EOMI, Normal appearance, PERRL Pupil Exam: NORMAL ACCOMODATION, PERRL - Respiratory Exam Respiratory Exam: Clear to Ausculation Bilateral, NORMAL BREATHING PATTERN - Cardiovascular Exam Cardiovascular Exam: REGULAR RHYTHM, +S1, +S2. absent: Murmur - GI/Abdominal Exam GI & Abdominal Exam: Soft, Normal Bowel Sounds. absent: Tenderness
[2017-08-02] MEDS: Ciprofloxacin 200mg/100ml D5W 100 ML IVPB SCH ×2 (00:04→12:36)
[2017-08-02] MEDS: Albuterol-Ipratrop 3 mg / 0.5 (3 ml) UD INH SCH ×4 (01:33→20:04)
[2017-08-02] MEDS: Levothyroxine 88 MCG TAB PO SCH (06:43)
[2017-08-02] MEDS: (Novolog) Insulin Aspart, Recombinant 100 u/ml 10 ml vial SC SCH ×4 (08:24→21:56)
--- NOTE | 2017-08-02 09:40 | CP.PCM.PN ---
Subjective - Date & Time of Evaluation Date of Evaluation: 08/02/17 Time of Evaluation: 09:37 - Subjective Subjective: Patient follows commands, awake, responds to her name. Review of Systems - Review of Systems Systems not reviewed;Unavailable: Dementia Objective - Vital Signs/Intake and Output Vital Signs (last 24 hours): Temp Pulse Resp BP Pulse Ox 99.0 F 83 20 105/63 98 08/02/17 08:11 08/02/17 08:11 08/02/17 08:11 08/02/17 08:11 08/02/17 08:11 Intake and Output: 08/02/17 08/02/17 06:59 18:59 Intake Total 420 Output Total 1300 Balance -880 - Medications Medications: Current Medications Acetaminophen (Tylenol 325mg Tab) 650 mg PO Q4H PRN PRN Reason: Fever >100.4 F; MILD-MODERATE Acetaminophen (Tylenol 650 Mg Supp) 650 mg [place] Q6 PRN PRN Reason: Temperature Albuterol/Ipratropium (Duoneb 3 Mg/0.5 Mg (3 Ml) Ud) 3 ml INH RQ6 [facility] Last Admin: 08/02/17 07:57 Dose: 3 ml Alprazolam (Xanax) 0.25 mg PO BID PRN PRN Reason: Anxiety Stop: 08/06/17 18:01 Docusate Sodium (Colace) 100 mg PO DAILY [facility] Last Admin: 08/01/17 10:01 Dose: 100 mg Enoxaparin Sodium (Lovenox) 40 mg SC DAILY [facility] Last Admin: 08/01/17 09:58 Dose: 40 mg Guaifenesin (Robitussin) 200 mg PO Q4H PRN PRN Reason: Cough and congestion Ciprofloxacin (Cipro 200mg/100ml D5w) 100 mls @ 67 mls/hr IVPB Q12H [facility] PRN Reason: Protocol Last Admin: 08/02/17 00:04 Dose: 67 mls/hr Insulin Aspart (Novolog) 0 unit SC ACHS [facility] PRN Reason: Protocol Last Admin: 08/02/17 08:24 Dose: Not Given Insulin Glargine (Lantus) 12 unit SC HS [facility] Last Admin: 08/01/17 21:39 Dose: 12 units Levothyroxine Sodium (Synthroid) 88 mcg PO ACB [facility] Last Admin: 08/02/17 06:43 Dose: 88 mcg Metoprolol Succinate (Toprol Xl) 50 mg PO DAILY [facility] Last Admin: 08/01/17 10:00 Dose: 50 mg Montelukast Sodium (Singulair) 10 mg PO [facility] Last Admin: 08/01/17 21:39 Dose: 10 mg Morphine Sulfate (Morphine) 2 mg SC Q4 PRN PRN Reason: Pain, moderate (4-7) Pantoprazole Sodium (Protonix Ec Tab) 20 mg PO DAILY [facility] Last Admin: 08/01/17 09:50 Dose: 20 mg Rosuvastatin Calcium (Crestor) 5 mg PO [facility] Last Admin: 08/01/17 21:39 Dose: 5 mg Sennosides (Senokot Tab) 17.2 mg PO [facility] Last Admin: 08/01/17 21:39 Dose: 17.2 mg - Labs Labs: 08/01/17 07:00 08/01/17 07:00 - Constitutional Appears: Well, No Acute Distress - Head Exam Head Exam: ATRAUMATIC - Neck Exam Neck Exam: Full ROM, Normal Inspection - Respiratory Exam Respiratory Exam: NORMAL BREATHING PATTERN - Cardiovascular Exam Additional comments: +radial pulse - Extremities Exam Additional comments: sling adjusted sensation appears intact +ROM fingers/thumb/wrist - Neurological Exam Neurological Exam: Awake Neuro motor strength exam: Right Upper Extremity: 5 - Psychiatric Exam Psychiatric exam: Normal Mood - Skin Skin Exam: Dry, Intact (+swelling), Normal Color, Warm Assessment and Plan (1) Closed fracture of neck of right humerus Assessment & Plan: conservative management as per family sling ice PT/OT [facility] f/u Dr. Gavin office as outpatient within 2 weeks, call for appointment orthopedically stable for d/c d/w Dr. Gavin, agrees with above Status: Acute (2) Fall Status: Acute
[2017-08-02] MEDS: Enoxaparin 60 mg Syringe SC SCH (10:29)
[2017-08-02] MEDS: Pantoprazole 20 mg EC Tab PO SCH (10:29)
[2017-08-02] MEDS: Metoprolol Succinate 50 mg XL Tab PO SCH (10:29)
--- NOTE | 2017-08-02 12:41 | CP.PCM.PN ---
Subjective - Date & Time of Evaluation Date of Evaluation: 08/02/17 Time of Evaluation: 08:00 - Subjective Subjective: Patient seen and examined at bedside today. Patient is lying comfortably in no respiratory distress, improved from yesterday. Afebrile. Assessment/Plan: 1. History of asthma - Continue nebulizer treatment - Continue Singulair - Continue Robitussin 2. Pneumonia - CXR 07/31: triangular opacity on the right lower lobe suspicious for pneumonia - continue IV Cipro - monitor chest x-ray Objective - Vital Signs/Intake and Output Vital Signs (last 24 hours): Temp Pulse Resp BP Pulse Ox 98.1 F 91 H 20 104/68 98 08/02/17 12:35 08/02/17 10:28 08/02/17 08:11 08/02/17 10:28 08/02/17 08:11 Intake and Output: 08/02/17 08/02/17 06:59 18:59 Intake Total 420 Output Total 1300 Balance -880 - Medications Medications: Current Medications Acetaminophen (Tylenol 325mg Tab) 650 mg PO Q4H PRN PRN Reason: Fever >100.4 F; MILD-MODERATE Acetaminophen (Tylenol 650 Mg Supp) 650 mg [place] Q6 PRN PRN Reason: Temperature Albuterol/Ipratropium (Duoneb 3 Mg/0.5 Mg (3 Ml) Ud) 3 ml INH RQ6 [facility] Last Admin: 08/02/17 07:57 Dose: 3 ml Alprazolam (Xanax) 0.25 mg PO BID PRN PRN Reason: Anxiety Stop: 08/06/17 18:01 Docusate Sodium (Colace) 100 mg PO DAILY [facility] Last Admin: 08/02/17 10:28 Dose: 100 mg Enoxaparin Sodium (Lovenox) 40 mg SC DAILY [facility] Last Admin: 08/02/17 10:29 Dose: 40 mg Guaifenesin (Robitussin) 200 mg PO Q4H PRN PRN Reason: Cough and congestion Ciprofloxacin (Cipro 200mg/100ml D5w) 100 mls @ 67 mls/hr IVPB Q12H [facility] PRN Reason: Protocol Last Admin: 08/02/17 12:36 Dose: 67 mls/hr Insulin Aspart (Novolog) 0 unit SC ACHS [facility] PRN Reason: Protocol Last Admin: 08/02/17 12:36 Dose: 1 unit Insulin Glargine (Lantus) 12 unit SC [facility] Last Admin: 08/01/17 21:39 Dose: 12 units Levothyroxine Sodium (Synthroid) 88 mcg PO ACB [facility] Last Admin: 08/02/17 06:43 Dose: 88 mcg Metoprolol Succinate (Toprol Xl) 50 mg PO DAILY [facility] Last Admin: 08/02/17 10:29 Dose: 50 mg Montelukast Sodium (Singulair) 10 mg PO [facility] Last Admin: 08/01/17 21:39 Dose: 10 mg Morphine Sulfate (Morphine) 2 mg SC Q4 PRN PRN Reason: Pain, moderate (4-7) Pantoprazole Sodium (Protonix Ec Tab) 20 mg PO DAILY [facility] Last Admin: 08/02/17 10:29 Dose: 20 mg Rosuvastatin Calcium (Crestor) 5 mg PO [facility] Last Admin: 08/01/17 21:39 Dose: 5 mg Sennosides (Senokot Tab) 17.2 mg PO [facility] Last Admin: 08/01/17 21:39 Dose: 17.2 mg - Labs Labs: 08/01/17 07:00 08/01/17 07:00 Assessment and Plan (1) History of asthma Status: Acute (2) Closed fracture of neck of right humerus Status: Acute
[2017-08-02] MEDS: (Lantus) Insulin Glargine, Recombinant SC SCH (21:19)
--- NOTE | 2017-08-02 22:40 | CARD ---
APPROVED REPORT EKG Measurement Heart [id number] [place] [id number] <Conclusion> Sinus rhythm with premature atrial complexes Right bundle branch block Abnormal ECG
--- NOTE | 2017-08-02 23:35 | CP.PCM.PN ---
Subjective - Date & Time of Evaluation Date of Evaluation: 08/02/17 Time of Evaluation: 19:00 - Subjective Subjective: Pt seen and examined Objective - Vital Signs/Intake and Output Vital Signs (last 24 hours): Temp Pulse Resp BP Pulse Ox 97.5 F L 77 20 123/69 99 08/02/17 15:00 08/02/17 15:00 08/02/17 15:00 08/02/17 15:00 08/02/17 15:00 Intake and Output: 08/02/17 08/03/17 18:59 06:59 Intake Total 450 Output Total 400 300 Balance 50 -300 - Medications Medications: Current Medications Acetaminophen (Tylenol 325mg Tab) 650 mg PO Q4H PRN PRN Reason: Fever >100.4 F; MILD-MODERATE Acetaminophen (Tylenol 650 Mg Supp) 650 mg [place] Q6 PRN PRN Reason: Temperature Albuterol/Ipratropium (Duoneb 3 Mg/0.5 Mg (3 Ml) Ud) 3 ml INH RQ6 [facility] Last Admin: 08/02/17 20:04 Dose: 3 ml Alprazolam (Xanax) 0.25 mg PO BID PRN PRN Reason: Anxiety Stop: 08/06/17 18:01 Docusate Sodium (Colace) 100 mg PO DAILY [facility] Last Admin: 08/02/17 10:28 Dose: 100 mg Enoxaparin Sodium (Lovenox) 40 mg SC DAILY [facility] Last Admin: 08/02/17 10:29 Dose: 40 mg Guaifenesin (Robitussin) 200 mg PO Q4H PRN PRN Reason: Cough and congestion Ciprofloxacin (Cipro 200mg/100ml D5w) 100 mls @ 67 mls/hr IVPB Q12H [facility] PRN Reason: Protocol Last Admin: 08/02/17 12:36 Dose: 67 mls/hr Insulin Aspart (Novolog) 0 unit SC ACHS [facility] PRN Reason: Protocol Last Admin: 08/02/17 21:56 Dose: Not Given Insulin Glargine (Lantus) 12 unit SC HS [facility] Last Admin: 08/02/17 21:19 Dose: 12 units Levothyroxine Sodium (Synthroid) 88 mcg PO ACB [facility] Last Admin: 08/02/17 06:43 Dose: 88 mcg Metoprolol Succinate (Toprol Xl) 50 mg PO DAILY [facility] Last Admin: 08/02/17 10:29 Dose: 50 mg Montelukast Sodium (Singulair) 10 mg PO HS [facility] Last Admin: 08/02/17 21:17 Dose: 10 mg Morphine Sulfate (Morphine) 2 mg SC Q4 PRN PRN Reason: Pain, moderate (4-7) Pantoprazole Sodium (Protonix Ec Tab) 20 mg PO DAILY [facility] Last Admin: 08/02/17 10:29 Dose: 20 mg Rosuvastatin Calcium (Crestor) 5 mg PO [facility] Last Admin: 08/02/17 21:17 Dose: 5 mg Sennosides (Senokot Tab) 17.2 mg PO [facility] Last Admin: 08/02/17 21:17 Dose: 17.2 mg - Labs Labs: 08/01/17 07:00 08/01/17 07:00
[2017-08-03] MEDS: Ciprofloxacin 200mg/100ml D5W 100 ML IVPB SCH ×2 (00:48→11:22)
[2017-08-03] MEDS: Albuterol-Ipratrop 3 mg / 0.5 (3 ml) UD INH SCH ×3 (01:34→14:00)
[2017-08-03] MEDS: Levothyroxine 88 MCG TAB PO SCH (07:29)
[2017-08-03 07:41] LABS: BASO % 0.3 % (0.0-2.0); HEMOGLOBIN 8.6 g/dL (11.0-16.0); LYMPH # 3.3 K/uL (1.0-4.3); LYMPH % 39.3 % (20.0-40.0); MEAN CELL VOLUME 89.2 fL (81.0-99.0); MEAN CORPUSCULAR HEMOGLOBIN 29.7 pg (27.0-31.0); MEAN CORPUSCULAR HGB CONC 33.3 g/dL (33.0-37.0); MEAN PLATELET VOLUME 7.4 fL (7.2-11.7); MONO # 1.5 K/uL (0.0-0.8); MONO % 18.3 % (0.0-10.0); NEUT # 3.6 K/uL (1.8-7.0); NEUT % 42.1 % (50.0-75.0); RBC 2.9 Mil/uL (3.80-5.20); WHITE BLOOD COUNT 8.5 K/uL (4.8-10.8)
[2017-08-03 07:51] LABS: BLOOD UREA NITROGEN 15 mg/dL (7-17); CALCIUM 8.5 mg/dl (8.6-10.4); GFR AFRICAN-AMERICAN > 60; GFR NON-AFRICAN AMERICAN > 60
[2017-08-03] MEDS: (Novolog) Insulin Aspart, Recombinant 100 u/ml 10 ml vial SC SCH ×2 (07:51→12:21)
[2017-08-03] MEDS: Metoprolol Succinate 50 mg XL Tab PO SCH (09:25)
[2017-08-03] MEDS: Pantoprazole 20 mg EC Tab PO SCH (09:25)
[2017-08-03] MEDS: Enoxaparin 60 mg Syringe SC SCH (09:28)
--- NOTE | 2017-08-03 15:40 | CP.PCM.PN ---
Subjective - Date & Time of Evaluation Date of Evaluation: 08/03/17 Time of Evaluation: 15:40 - Subjective Subjective: -PLACE UNDER THE SERVICE OF DR. MONTES WHILE AT [facility]---CALL UPON ARRIVAL FOR ADMITTING ORDERS. -CONTINUE MEDICATIONS PER THE MED REC---CHANGES CAN BE MADE BY ATTENDING. -CONTINUE CIPRO ORDERED FOR 1 MORE WEEK (START 08/04/17 UNTIL 08/11/17). -FALL PRECAUTIONS PER FACILITY PROTOCOL. -PLEASE ENSURE THAT MRS. DOBBINS FOLLOWS UP WITH DR. ALCALA (ORTHO) IN THE OFFICE IN 2 WEEKS ( BY 08/17/17). PLEASE ARRANGE FOR TRANSPORTATION TO AND FROM THE OFFICE FOR APPOINTMENT. -FOR FURTHER ORDERS, CONTACT DR. MONTES'S OFFICE. Objective - Vital Signs/Intake and Output Vital Signs (last 24 hours): Temp Pulse Resp BP Pulse Ox 99.2 F 100 H 18 110/65 99 08/03/17 08:43 08/03/17 08:43 08/03/17 08:43 08/03/17 08:43 08/03/17 08:43 Intake and Output: 08/03/17 08/03/17 06:59 18:59 Intake Total 400 580 Output Total 300 350 Balance 100 230 - Medications Medications: Current Medications Acetaminophen (Tylenol 325mg Tab) 650 mg PO Q4H PRN PRN Reason: Fever >100.4 F; MILD-MODERATE Acetaminophen (Tylenol 650 Mg Supp) 650 mg [place] Q6 PRN PRN Reason: Temperature Albuterol/Ipratropium (Duoneb 3 Mg/0.5 Mg (3 Ml) Ud) 3 ml INH RQ6 [facility] Last Admin: 08/03/17 14:00 Dose: 3 ml Alprazolam (Xanax) 0.25 mg PO BID PRN PRN Reason: Anxiety Stop: 08/06/17 18:01 Docusate Sodium (Colace) 100 mg PO DAILY [facility] Last Admin: 08/03/17 09:25 Dose: 100 mg Enoxaparin Sodium (Lovenox) 40 mg SC DAILY [facility] Last Admin: 08/03/17 09:28 Dose: 40 mg Guaifenesin (Robitussin) 200 mg PO Q4H PRN PRN Reason: Cough and congestion Ciprofloxacin (Cipro 200mg/100ml D5w) 100 mls @ 67 mls/hr IVPB Q12H [facility] PRN Reason: Protocol Last Admin: 08/03/17 11:22 Dose: 67 mls/hr Insulin Aspart (Novolog) 0 unit SC ACHS [facility] PRN Reason: Protocol Last Admin: 08/03/17 12:21 Dose: 1 unit Insulin Glargine (Lantus) 12 unit SC HS [facility] Last Admin: 08/02/17 21:19 Dose: 12 units Levothyroxine Sodium (Synthroid) 88 mcg PO ACB [facility] Last Admin: 08/03/17 07:29 Dose: 88 mcg Metoprolol Succinate (Toprol Xl) 50 mg PO DAILY [facility] Last Admin: 08/03/17 09:25 Dose: 50 mg Montelukast Sodium (Singulair) 10 mg PO [facility] Last Admin: 08/02/17 21:17 Dose: 10 mg Pantoprazole Sodium (Protonix Ec Tab) 20 mg PO DAILY [facility] Last Admin: 08/03/17 09:25 Dose: 20 mg Rosuvastatin Calcium (Crestor) 5 mg PO [facility] Last Admin: 08/02/17 21:17 Dose: 5 mg Sennosides (Senokot Tab) 17.2 mg PO [facility] Last Admin: 08/02/17 21:17 Dose: 17.2 mg - Labs Labs: 08/03/17 07:19 08/03/17 07:19
[2017-08-03 16:04] VITALS: BP 121/59; PULSE 80; RESP 20; TEMP 98.1; O2SAT 100
--- NOTE | 2017-08-04 14:05 | CP.PCM.DIS ---
Provider - Provider Date of Admission: 07/29/17 20:21 Attending physician: Renato Montanez MD Time Spent in preparation of Discharge (in minutes): 45 Hospital Course - Lab Results Lab Results: Micro Results 07/31/17 08:05 Blood Blood Culture - Preliminary NO GROWTH AFTER 4 DAYS 07/31/17 08:05 Blood Blood Culture - Preliminary NO GROWTH AFTER 4 DAYS 07/31/17 08:16 Urine,Catheterized Urine Culture - Final No Growth (<1,000 CFU/ML) Most Recent Lab Values WBC 8.5 K/uL (4.8-10.8) 08/03/17 07:19 RBC 2.90 Mil/uL (3.80-5.20) L 08/03/17 07:19 Hgb 8.6 g/dL (11.0-16.0) L 08/03/17 07:19 Hct 25.9 % (34.0-47.0) L 08/03/17 07:19 MCV 89.2 fL (81.0-99.0) 08/03/17 07:19 MCH 29.7 pg (27.0-31.0) 08/03/17 07:19 MCHC 33.3 g/dL (33.0-37.0) 08/03/17 07:19 RDW 14.0 % (11.5-14.5) 08/03/17 07:19 Plt Count 266 K/uL (130-400) 08/03/17 07:19 MPV 7.4 fL (7.2-11.7) 08/03/17 07:19 Neut % (Auto) 42.1 % (50.0-75.0) L 08/03/17 07:19 Lymph % (Auto) 39.3 % (20.0-40.0) 08/03/17 07:19 [place] % (Auto) 18.3 % (0.0-10.0) H 08/03/17 07:19 Eos % (Auto) 0.0 % (0.0-4.0) 08/03/17 07:19 Baso % (Auto) 0.3 % (0.0-2.0) 08/03/17 07:19 Neut # (Auto) 3.6 K/uL (1.8-7.0) 08/03/17 07:19 Lymph # (Auto) 3.3 K/uL (1.0-4.3) 08/03/17 07:19 Caroline # (Auto) 1.5 K/uL (0.0-0.8) H 08/03/17 07:19 Eos # (Auto) 0.0 K/uL (0.0-0.7) 08/03/17 07:19 Baso # (Auto) 0.0 K/uL (0.0-0.2) 08/03/17 07:19 Neutrophils % (Manual) 25 % (50-75) L 08/01/17 07:00 Band Neutrophils % 2 % (0-2) 08/01/17 07:00 Lymphocytes % (Manual) 63 % (20-40) H 08/01/17 07:00 Monocytes % (Manual) 10 % (0-10) 08/01/17 07:00 Platelet Estimate Normal (NORMAL) 08/01/17 07:00 Polychromasia Slight 08/01/17 07:00 Hypochromasia (manual) Slight 08/01/17 07:00 Sodium 133 mmol/L (132-148) 08/03/17 07:19 Potassium 4.3 mmol/L (3.6-5.2) 08/03/17 07:19 Chloride 97 mmol/L (98-107) L 08/03/17 07:19 Carbon Dioxide 25 mmol/L (22-30) 08/03/17 07:19 Anion Gap 15 (10-20) 08/03/17 07:19 BUN 15 mg/dL (7-17) 08/03/17 07:19 Creatinine 0.8 mg/dL (0.7-1.2) 08/03/17 07:19 Est GFR ( Amer) > 60 08/03/17 07:19 Est GFR (Non-Af Amer) > 60 08/03/17 07:19 POC Glucose (mg/dL) 155 mg/dL (65-110) H 08/03/17 11:58 Random Glucose 119 mg/dL (65-105) H 08/03/17 07:19 Calcium 8.5 mg/dl (8.6-10.4) L 08/03/17 07:19 Total Bilirubin 0.5 mg/dL (0.2-1.3) 07/29/17 19:31 AST 22 U/L (14-36) 07/29/17 19:31 ALT 23 U/L (9-52) 07/29/17 19:31 Alkaline Phosphatase 83 U/L (38-126) 07/29/17 19:31 Total Protein 6.9 g/dL (6.3-8.3) 07/29/17 19: Albumin 3.6 g/dL (3.5-5.0) 07/29/17 19: Globulin 3.3 gm/dL (2.2-3.9) 07/29/17 19: Albumin/Globulin Ratio 1.1 (1.0-2.1) 07/29/17 19:31 Urine Color Straw (YELLOW) 07/31/17 10:01 Urine Clarity [place] (Clear) 07/31/17 10:01 Urine pH 7.0 (5.0-8.0) 07/31/17 10:01 Ur Specific [place] 1.010 (1.003-1.030) 07/31/17 10:01 Urine Protein Negative mg/dL (NEGATIVE) 07/31/17 10:01 Urine Glucose (UA) Normal mg/dL (Normal) 07/31/17 10:01 Urine Ketones Negative mg/dL (NEGATIVE) 07/31/17 10:01 Urine Blood Negative (NEGATIVE) 07/31/17 10:01 Urine Nitrate Negative (NEGATIVE) 07/31/17 10:01 Urine Bilirubin Negative (NEGATIVE) 07/31/17 10:01 Urine Urobilinogen Normal mg/dL (0.2-1.0) 07/31/17 10:01 Ur Leukocyte Esterase 2+ [place]/uL (Negative) H 07/31/17 10:01 Urine WBC (Auto) 32 /hpf (0-5) H 07/31/17 10:01 Urine RBC (Auto) 2 /hpf (0-3) 07/31/17 10:01 Ur Squamous Epith Cells < 1 /hpf (0-5) 07/29/17 13:51 Urine Bacteria Rare (<OCC) 07/31/17 10:01 - Hospital Course Hospital Course: PT SEEN AND EVALAUTED , IS STABLE FOR DISCHARGE TO [facility], SHE IS AFEBRILE , WILL TAKE ORAL CIPRO AFTER DISCHARGE -PL[facility]ICE[facility]---CALL UPON ARRIVAL FOR ADMITTING ORDERS. -CONTINUE MEDICATIONS -CONTINUE CIPRO ORDERED FOR 1 MORE WEEK (START 08/04/17 UNTIL 08/11/17). -FALL PRECAUTIONS PER FACILITY PROTOCOL. -PLEASE ENSURE THAT MRS. DOBBINS FOLLOWS UP WITH DR. ALCALA (ORTHO) IN THE OFFICE IN 2 WEEKS ( BY 08/17/17). PLEASE ARRANGE FOR TRANSPORTATION TO AND FROM THE OFFICE FOR APPOINTMENT. -FOR FURTHER ORDERS, CONTACTMTY OFFICE. Discharge Exam - Head Exam Head Exam: ATRAUMATIC - Eye Exam Eye Exam: Normal appearance - ENT Exam ENT Exam: Mucous Membranes Moist - Respiratory Exam Respiratory Exam: Decreased Breath Sounds, NORMAL BREATHING PATTERN - Cardiovascular Exam Cardiovascular Exam: REGULAR RHYTHM, +S1, +S2 - GI/Abdominal Exam GI & Abdominal Exam: Normal Bowel Sounds - Rectal Exam Rectal Exam: NORMAL INSPECTION Discharge Plan - Discharge Medications Prescriptions: Ciprofloxacin HCl [Cipro] 250 mg PO Q12 7 Days tablet - Follow Up Plan Condition: FAIR Disposition: HOME/ ROUTINE Instructions: Ciprofloxacin (Systemic), Preventing Falls in the Older Adult, Upper Arm Fracture Additional Instructions: -PLACE UNDER THE SERVICE OF DR. MONTANEZ WHILE AT [facility]---CALL UPON ARRIVAL FOR ADMITTING ORDERS. -CONTINUE MEDICATIONS PER THE MED REC---CHANGES CAN BE MADE BY ATTENDING. -CONTINUE CIPRO ORDERED FOR 1 MORE WEEK (START 08/04/17 UNTIL 08/11/17). -FALL PRECAUTIONS PER FACILITY PROTOCOL. -PLEASE ENSURE THAT MRS. DOBBINS FOLLOWS UP WITH DR. ALCALA (ORTHO) IN THE OFFICE IN 2 WEEKS ( BY 08/17/17). PLEASE ARRANGE FOR TRANSPORTATION TO AND FROM THE OFFICE FOR APPOINTMENT. -FOR FURTHER ORDERS, CONTACT DR. MONTANEZ'S OFFICE. Referrals: Lambert Alcala III, MD [Staff Provider] - Renato Montanez MD [Staff Provider] -
== END 2017-08-03 17:11 | DRG 562 ==
LOC: C.ER 18:36 → C.9E 20:21 → C.6T 20:42
PROVIDERS: ADMIT Internal Medicine; ATTEND Internal Medicine
DX: S42.291A Other displaced fracture of upper end of right humerus, initial encounter for closed fracture (principal); J18.9 Pneumonia, unspecified organism; J44.9 Chronic obstructive pulmonary disease, unspecified; E11.9 Type 2 diabetes mellitus without complications; S42.254A Nondisplaced fracture of greater tuberosity of right humerus, initial encounter for closed fracture; E03.9 Hypothyroidism, unspecified; W19.XXXA Unspecified fall, initial encounter; E78.00 Pure hypercholesterolemia, unspecified; I10 Essential (primary) hypertension; K21.9 Gastro-esophageal reflux disease without esophagitis